=== PATIENT | female | born 1955 | race Hispanic/Latino ===

== ENCOUNTER 2023-09-12 10:45 | Inpatient (IN) | payer OTHER ==
--- OUTSIDE RECORDS SUMMARY | 2023-09-12 12:23 | XMS REPORT | Continuity of Care Document ---
Author Name Unknown Address [address] [facility] [address] [place] [id number] [facility] thconnect Address [address] [facility] [address] [place] [address] Care Team Providers Care Metal Riveter Name Role Phone Dwayne VERDUGO, Napoleon Primary Care Physician + [phone] José GEORGE, Loan Ferrera Attending Clinician Unavail able VALERI SWANSON Attending Clinician Unavailable Osvaldo VERDUGO, Tamie Attending Clinician [phone] Kvng VERDUGO, Ashley Lizama Attending Clinician [phone] Britany VERDUGO, Jt Marquez Attending Clinician [phone] Javy VERDUGO, Rafael Blunt Attending Clinician [phone] Brandyn Kim MD, Jose Roberto Bolton Attending Clinician + Mervat VERDUGO, Dipak Rosa Attending Clinician Valeri Swanson DO Attending Clinician [phone] Doctor Unassigned, Osino Attending Clinician U keisha Jaramillo MD, Juan Attending Clinician [phone] Vineet Hickman MD Attending Clinician [phone] Kristi Bond CRNA Attending Clinician [phone] Daya VERDUGO, Juan F Attending Clinician [phone] Dwayne VERDUGO, Napoleon Attending Clinician [phone] JT CHEN Admitting Clinician Unavail millie Chen MD, Jt Marquez Admitting Clinician [phone] Payers Payer Name Policy Type Policy Number Effective Date Expirati on Date Source Problems Condition Name Condition Details Condition Category Status Onset Date Resolution Date Last Treatment Date Treating Clinician Comments Source Atrial flutter Atrial flutter Disease Active 08-11 00:00: 00 [facility] Small bowel obstructio n, partial Small bowel obstructio n, partial Disease Active 08-11 00:00: 00 [facility] ELENA (acute kidney injury) ELENA (acute kidney injury) Disease Active 08-07 00:00: 00 [facility] Acute necrotizin g 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 g 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 Active 08-05 00:00: 00 [facility] Acute pancreatic fluid collection Acute pancreatic fluid collection Disease Active 08-05 00:00: 00 [facility] Essential hypertensi on Essential hypertensi on Disease Active 07-09 00:00: 00 [facility] Dyslipidem ia Dyslipidem ia Disease Active 07-09 00:00: 00 [facility] Screening for diabetes mellitus (DM) Screening for diabetes mellitus (DM) Disease Active 07-09 00:00: 00 [facility] Bilateral lower extremity edema Bilateral lower extremity edema Disease Active 07-09 00:00: 00 [facility] Chronic allergic rhinitis Chronic allergic rhinitis Disease Active 07-09 00:00: 00 [facility] Chronic constipati on Chronic constipati on Disease Active 07-09 00:00: 00 [facility] Gastroesop hageal reflux disease without esophagiti s Gastroesop hageal reflux disease without esophagiti s Disease Active 07-09 00:00: 00 [facility] Abdominal distension Abdominal distension Disease Active 07-09 00:00: 00 [facility] Senile osteoporos is Senile osteoporos is Disease Active 07-09 00:00: 00 [facility] Allergies, Adverse Reactions, Alerts Allergy Name Allergy Type Status Severity Reaction(s) Onset Date Inactive Date Treating Clinician Comments Source NO KNOWN ALLERGIE S Drug Class Active [facility] Family History Family Member Diagnosis Comments Start Date Stop Date Sourc e Natural sister Breast Cancer [facility] Social History Social Habit Start Date Stop Date Quantity Comments Source Sexual orientation [facility] History of Social function 2023-08-09 00:00:00 2023-08-09 00:00:00 [facility] Sex assigned at 1955 00:00:00 1955 00:00:00 [facility] Smoking Status Start Date Stop Date Source Tobacco smoking consumption unknown [facility] Medications Ordered Medication Name Filled Medication Name Start Date Stop Date Current Medication? Ordering Clinician Indication Dosage Frequency Signature (SIG) Comments Components Source NaCl 0.9% (NS) injection 5 mL 08-30 18:00: 00 08-30 20:40 :00 No 5mL 5 mL, Slow IV Push, ONCE, 1 dose, On Sun08/31/23 at 1300, Routine [facility] heparin 1,000 unit/mL (10 mL) - dialysis catheter care 08-30 17:53: 32 Yes 2000U PRN - SEE INSTRUCTIO NS, Starting on Sun08/31/23 at 1253, Until Discontinu ed, Routine, For Priming of Ports: After initial saline flush, prime each port with heparin according to the priming volume listed on each catheter port for catheter lock. [facility] amiodarone 200 mg tablet 08-30 00:00: 00 Yes 200mg Take 1 tablet by mouth daily. [facility] apixaban 5 mg tablet 08-29 00:00: 00 Yes 5mg Take 1 tablet by mouth 2 (two) times daily. [facility] famotidine 20 mg tablet 08-29 00:00: 00 Yes 20mg Take 1 tablet by mouth 2 (two) times daily. [facility] fluconazole 100 mg tablet 08-29 00:00: 00 Yes 100mg Take 1 tablet by mouth every evening. [facility] lipase-prot ease-amylas e (ZENPEP) 10,000-32,0 00 -42,000 unit CpDR 08-29 00:00: 00 Yes Take by mouth 3 (three) times daily with meals. [facility] metoprolol tartrate 25 mg tablet 08-29 00:00: 00 Yes 12.5mg Take 0.5 tablets by mouth every 12 (twelve) hours. [facility] midodrine 10 mg tablet 08-29 00:00: 00 Yes 10mg Take 1 tablet by mouth 3 (three) times daily. [facility] simethicone 80 mg chewable tablet 08-29 00:00: 00 Yes 80mg Take 1 tablet by mouth after meals and at bedtime. [facility] furosemide 40 mg tablet 08-29 00:00: 00 09-29 04:59 :00 Yes [id number] 80mg Take 2 tablets by mouth every morning and evening for 30 days. [facility] heparin 1,000 unit/mL (10 mL) - dialysis catheter care 08-28 23:50: 28 Yes 2000U PRN - SEE INSTRUCTIO NS, Starting on Sun08/29/23 at 1850, Until Discontinu ed, Routine, For Priming of Ports: After initial saline flush, prime each port with heparin according to the priming volume listed on each catheter port for catheter lock. [facility] apixaban (ELIQUIS) tablet 5 mg 08-28 01:00: 00 Yes 5mg 5 mg, Oral, BID, First dose on Sun08/28/23 at 1999, Until Discontinu ed, Routine, Indication s: Non-Valvul ar Atrial Fibrillati on [facility] fluconazole (DIFLUCAN) tablet 100 mg 08-28 01:00: 00 09-10 00:59 :00 Yes 100mg 100 mg, Oral, QPM AT 1999, 13 doses, First dose on Sun08/28/23 at 1999, Last dose on Sun09/09/23 at 1999, Routine, Reason for Anti-Infec tive: Documented Infection, Documented Infection Site: Abdominal, Duration of Therapy: 14 days [facility] levoFLOXaci n (LEVAQUIN) tablet 750 mg 08-27 23:00: 00 08-28 22:59 :00 Yes 750mg [Order 1 Start] Name: levoFLOXac in (LEVAQUIN) tablet 750 mg Signed Summary: 750 mg, Oral, Q24H ABX, 1 dose, First dose on Sun08/28/23 at 2000, Routine, Reason for Anti-Infec tive: Empiric Therapy for Suspected Infection, Empiric Therapy Site: Abdominal, Duration of therapy: 72 hours [Order 1 End] [Order 2 Start] Name: levoFLOXac in (LEVAQUIN) tablet 250 mg Signed Summary: 250 mg, Oral, Q24H ABX, 2 doses, First dose on Sun08/29/23 at 1800, Last dose on Sun08/30/23 at 1800, Routine, Reason for Anti-Infec tive: Empiric Therapy for Suspected Infection, Empiric Therapy Site: Abdominal, Duration of therapy: 72 hours [Order 2 End] [facility] NaCl 0.9% (NS) injection 5 mL 08-27 13:15: 00 08-27 17:24 :00 No 5mL 5 mL, Slow IV Push, ONCE, 1 dose, On Sun08/28/23 at 0815, Routine [facility] heparin 1,000 unit/mL (10 mL) - dialysis catheter care 08-27 13:09: 47 Yes 2000U PRN - SEE INSTRUCTIO NS, Starting on Sun08/28/23 at 0809, Until Discontinu ed, Routine, For Priming of Ports: After initial saline flush, prime each port with heparin according to the priming volume listed on each catheter port for catheter lock. [facility] piperacilli n-tazobacta m (ZOSYN) 3.375 g in NaCl 0.9% (NS) 50 mL MINI-BAG 08-27 10:00: 00 08-27 22:03 :56 No 3.375g 3.375 g, IV Piggyback, Q12H ABX, 10 doses, First dose on Sun08/28/23 at 0500, Last dose on Sun09/01/23 at 1700, Administer over 4 Hours, 50 mL, Reason for Anti-Infec tive: Empiric Therapy for Suspected Infection, Empiric Therapy Site: Abdominal, Duration of therapy: 5 days [facility] Potassium Bicarb-Citr ic Acid (EFFER-K) effervescen t tablet 40 mEq 08-27 01:30: 00 08-27 01:04 :00 No 40meq 40 mEq, Oral, ONCE, 1 dose, On Sun08/27/23 at 2030, Routine [facility] magnesium sulfate in water 2 gram/50 mL (4 %) infusion 2 g 08-27 01:30: 00 08-27 03:33 :00 No 2g 2 g, IV Piggyback, Administer over 60 Minutes, ONCE, 1 dose, On Sun08/27/23 at 2030, Routine [facility] albumin (ALBUMINAR 25%) 25 % injection 25 g 08-27 01:00: 00 08-27 00:59 :00 No 25g 25 g, IV Infusion, ONCE, 1 dose, On Sun08/27/23 at 2000, 100 mL, Indication : NON-APPROV ED INDICATION - PHARMACY WILL CALL ORDERING PROVIDER, Specific Indication : Albumin augmented diuresis in volume overload; unable to get HD tonight, Faculty Requesting Approval: VLAERI SWANSON, solar field installation crew member approving Restricted medication : VALERI SWANSON [facility] piperacilli n-tazobacta m (ZOSYN) 3.375 g in NaCl 0.9% (NS) 100 mL VIAL-MATE 08-27 00:00: 00 08-27 01:52 :00 No 3.375g 3.375 g, IV Piggyback, ONCE, 1 dose, On Sun08/27/23 at 1900, Administer over 30 Minutes, 100 mL, Reason for Anti-Infec tive: Empiric Therapy for Suspected Infection, Empiric Therapy Site: Abdominal, Duration of therapy: Once (ED) [facility] metoprolol tartrate (LOPRESSOR) tablet 12.5 mg 08-26 22:47: 00 Yes 12.5mg 12.5 mg, Oral, Q12H ABX, First dose (after last modificati on) on Sun08/27/23 at 1800, Until Discontinu ed, Routine [facility] ceFAZolin (ANCEF) injection 08-26 15:15: 00 08-26 15:15 :00 No Slow IV Push, PRN, Starting on Sun08/27/23 at 1015, Until Sun08/27/23 at 1015, PUJA, Intra-op [facility] lidocaine 1% (XYLOCAINE) 10 mg/mL (1 %) injection 08-26 15:11: 00 08-26 15:11 :00 No PRN, Starting on Sun08/27/23 at 1011, Until Sun08/27/23 at 1011, Routine, Intra-op [facility] FENTanyl PF (SUBLIMAZE (PF)) injection 08-26 15:11: 00 08-26 15:11 :00 No Slow IV Push, PRN, Starting on Sun08/27/23 at 1011, Until Sun08/27/23 at 1011, Routine, Intra-op [facility] metoprolol tartrate (LOPRESSOR) tablet 25 mg 08-26 05:45: 00 08-26 22:48 :26 No 25mg 25 mg, Oral, BID, First dose on Sun08/27/23 at 0045, Until Discontinu ed, Routine [facility] piperacilli n-tazobacta m (ZOSYN) 3.375 g in NaCl 0.9% (NS) 100 mL VIAL-MATE 08-26 01:39: 38 08-26 15:36 :49 No 3.375g 3.375 g, IV Piggyback, Q12H ABX, 2 doses, First dose (after last modificati on) on Sun08/26/23 at 2045, Last dose on Sun08/27/23 at 0845, Administer over 240 Minutes, 100 mL, Reason for Anti-Infec tive: Empiric Therapy for Suspected Infection, Empiric Therapy Site: Abdominal, Duration of therapy: 5 days [facility] alteplase (CATHFLO ACTIVASE) injection 1 mg 08-26 00:15: 00 08-26 01:29 :00 No [id number] 1mg 1 mg, INTRA-CATH ETER, ONCE, 1 dose, On 08/26/23 at 1915, Routine [facility] Potassium Bicarb-Citr ic Acid (EFFER-K) effervescen t tablet 40 mEq 08-25 23:15: 00 08-25 22:50 :00 No 40meq 40 mEq, Oral, ONCE, 1 dose, On 08/26/23 at 1815, Routine [facility] morpHINE (2 mg/mL) injection 4 mg 08-25 15:13: 21 Yes 4mg 4 mg, Slow IV Push, Q4HPRN, Starting on 08/26/23 at 1013, Until Discontinu ed, Routine, Pain (scale 7-10) [facility] FENTanyl PF (SUBLIMAZE (PF)) injection 25 mcg 08-25 04:00: 00 08-25 03:17 :00 No 25ug 25 mcg, Slow IV Push, ONCE, 1 dose, On 08/25/23 at 2300, Routine [facility] Potassium Bicarb-Citr ic Acid (EFFER-K) effervescen t tablet 40 mEq 08-24 23:00: 00 08-24 23:18 :00 No 40meq 40 mEq, Oral, ONCE, 1 dose, On 08/25/23 at 1800, Routine [facility] potassium chloride in water (KCL) 20 mEq/100 mL RTU IVPB 20 mEq 08-24 14:15: 00 08-24 16:21 :00 No 20meq 20 mEq, IV Piggyback, ONCE, 1 dose, On 08/25/23 at 0915, [address] [facility] potassium chloride in water (KCL) 20 mEq/100 mL RTU IVPB 20 mEq 08-24 12:15: 00 08-24 14:19 :00 No 20meq 20 mEq, IV Piggyback, ONCE, 1 dose, On 08/25/23 at 0715, 100 mL [facility] alteplase (CATHFLO ACTIVASE) injection 2 mg 08-23 21:45: 00 08-23 21:31 :00 No 2mg 2 mg, INTRA-CATH ETER, ONCE, 1 dose, On Sun08/24/23 at 1645, Routine [facility] potassium chloride in water (KCL) 20 mEq/100 mL RTU IVPB 20 mEq 08-23 19:00: 00 08-23 20:27 :00 No 20meq 20 mEq, IV Piggyback, ONCE, 1 dose, On Sun08/24/23 at 1400, 100 mL [facility] NaCl 0.9% (NS) injection 5 mL 08-23 17:45: 00 08-24 00:38 :00 No 5mL 5 mL, Slow IV Push, ONCE, 1 dose, On Sun08/24/23 at 1245, Routine [facility] heparin 1,000 unit/mL (10 mL) - dialysis catheter care 08-23 17:28: 30 08-27 14:49 :41 No 2000U PRN - SEE INSTRUCTIO NS, Starting on Sun08/24/23 at 1228, Until Sun08/28/23 at 0949, Routine, For Priming of Ports: After initial saline flush, prime each port with heparin according to the priming volume listed on each catheter port for catheter lock. [facility] NaCl 0.9% (NS) injection 10 mL 08-23 10:01: 30 Yes 10mL 10 mL, Slow IV Push, PRN, Starting on Sun08/24/23 at 0501, Until Discontinu ed, Routine, line maintenanc e [facility] lidocaine 1% (PF) (XYLOCAINE) injection 5 mL 08-23 10:01: 30 Yes 5mL 5 mL, Subcutaneo us, PRN, 1 dose, Starting on Sun08/24/23 at 0501, Until Discontinu ed, Routine, Local anesthesia [facility] acetaminoph en (TYLENOL) tablet 500 mg 08-23 01:30: 00 08-23 02:31 :00 No 500mg 500 mg, Oral, ONCE, 1 dose, On Sun08/23/23 at 2030, Routine [facility] amiodarone (PACERONE) tablet 200 mg 08-23 01:00: 00 Yes 200mg 200 mg, Oral, DAILY, First dose on Sun08/23/23 at 2000, Until Discontinu ed, Routine [facility] piperacilli n-tazobacta m (ZOSYN) 3.375 g in NaCl 0.9% (NS) 50 mL MINI-BAG 08-23 01:00: 00 08-26 01:38 :53 No 3.375g 3.375 g, IV Piggyback, Q12H ABX, 9 doses, First dose (after last modificati on) on Sun08/23/23 at 1999, Last dose on Sun08/27/23 at 2000, Administer over 240 Minutes, 50 mL, Reason for Anti-Infec tive: Empiric Therapy for Suspected Infection, Empiric Therapy Site: Abdominal, Duration of therapy: 5 days [facility] metOLazone (ZAROXOLYN) tablet 5 mg 08-22 22:00: 00 08-22 23:08 :00 No 5mg 5 mg, Oral, ONCE, 1 dose, On Sun08/23/23 at 1700, Routine [facility] piperacilli n-tazobacta m (ZOSYN) 4.5 g in NaCl 0.9% (NS) 100 mL VIAL-MATE 08-22 12:30: 00 08-22 14:40 :27 No 4.5g 4.5 g, IV Piggyback, Q12H ABX, 10 doses, First dose on Sun08/23/23 at 0730, Last dose on Sun08/27/23 at 1930, Administer over 30 Minutes, 100 mL, Reason for Anti-Infec tive: Empiric Therapy for Suspected Infection, Empiric Therapy Site: Abdominal, Duration of therapy: 5 days [facility] acetaminoph en (TYLENOL) tablet 1,000 mg 08-22 09:30: 00 08-22 09:19 :00 No 1000mg 1,000 mg, Oral, ONCE, 1 dose, On Sun08/23/23 at 0430, Routine [facility] KCL (KLOR-CON M20) tablet 40 mEq 08-22 06:15: 00 08-22 05:38 :00 No 40meq 40 mEq, Oral, ONCE, 1 dose, On Sun08/23/23 at 0115, Routine [facility] lipase-prot ease-amylas e (CREON) 12,000-38,0 00 -60,000 unit capsule 4 capsule 08-21 22:00: 00 Yes 4{capsu le} 4 capsule, Oral, TID MEALS, First dose on Sun08/22/23 at 1700, Until Discontinu ed, Routine [facility] loperamide (IMODIUM A-D) capsule 2 mg 08-21 17:15: 00 08-21 17:49 :00 No 2mg 2 mg, Oral, ONCE, 1 dose, On Sun08/22/23 at 1215, Routine [facility] psyllium husk (METAMUCIL (SUGAR FREE)) 3.4 gram oral powder packet 1 Packet 08-21 16:30: 00 Yes 1{packe t} 1 Packet, Oral, DAILY, First dose on Sun08/22/23 at 1130, Until Discontinu ed, Routine [facility] loperamide (IMODIUM A-D) capsule 2 mg 08-21 16:19: 17 Yes 2mg 2 mg, Oral, Q4HPRN, Starting on Sun08/22/23 at 1119, Until Discontinu ed, Routine, Diarrhea [facility] apixaban (ELIQUIS) tablet 5 mg 08-21 01:00: 00 08-23 17:22 :21 No 5mg 5 mg, Oral, BID, First dose on Sun08/21/23 at 2000, Until Discontinu ed, Routine, Indication s: Non-Valvul ar Atrial Fibrillati on [facility] furosemide (LASIX) injection 60 mg 08-20 01:00: 00 Yes 60mg 60 mg, Slow IV Push, Q12H, First dose on 08/20/23 at 1999, Until Discontinu ed, Routine [facility] ramelteon (ROZEREM) tablet 8 mg 08-18 02:00: 00 Yes 8mg 8 mg, Oral, QHS, First dose on 08/18/23 at 2100, Until Discontinu ed, Routine [facility] alteplase (CATHFLO ACTIVASE) injection 2 mg 08-17 13:45: 00 08-17 14:54 :00 No [id number] 2mg 2 mg, INTRA-CATH ETER, ONCE, 1 dose, On 08/18/23 at 0845, PUJA [facility] NaCl 0.9% (NS) injection 5 mL 08-17 12:30: 00 08-17 18:37 :00 No 5mL 5 mL, Slow IV Push, ONCE, 1 dose, On 08/18/23 at 0730, Routine [facility] heparin 1,000 unit/mL (10 mL) - dialysis catheter care 08-17 12:21: 23 08-27 14:49 :41 No 2000U PRN - SEE INSTRUCTIO NS, Starting on 08/18/23 at 0721, Until 08/28/23 at 0949, Routine, For Priming of Ports: After initial saline flush, prime each port with heparin according to the priming volume listed on each catheter port for catheter lock. [facility] amiodarone (PACERONE) tablet 200 mg 08-16 01:00: 00 08-20 12:09 :20 No 200mg 200 mg, Oral, BID, First dose (after last modificati on) on Michelle 08/16/23 at 1999, Until Discontinu ed, [facility] 0.9% (NS) injection 5 mL 08-15 13:45: 00 08-15 18:04 :00 No 5mL 5 mL, Slow IV Push, ONCE, 1 dose, On Sun08/16/23 at 0845, [facility] 1,000 unit/mL (10 mL) - dialysis catheter care 08-15 13:35: 43 08-27 14:49 :41 No 2000U PRN - SEE INSTRUCTIO NS, Starting on Sun08/16/23 at 0835, Until Sun08/28/23 at 0949, Routine, For Priming of Ports: After initial saline flush, prime each port with heparin according to the priming volume listed on each catheter port for catheter lock. [facility] morphine IR (MSIR) tablet 15 mg 08-14 18:53: 16 Yes 15mg 15 mg, Oral, Q4HPRN, Starting on Sun08/15/23 at 1353, Until Discontinu ed, Routine, Pain [facility] famotidine (PEPCID AC) tablet 20 mg 08-14 13:00: 00 Yes 20mg 20 mg, Oral, BID, First dose on Sun08/15/23 at 0800, Until Discontinu ed, Routine [facility] 1,000 unit/mL injection 2,000 Units 08-13 19:46: 52 08-15 13:37 :42 No 2000U PRN - SEE INSTRUCTIO NS, Starting on Sun08/14/23 at 1446, Until Sun08/16/23 at 0837, Routine, For Priming of Ports: After initial saline flush, prime each port with heparin according to the priming volume listed on each catheter port for catheter lock. [facility] midodrine (PROAMATINE ) tablet 10 mg 08-13 19:00: 00 Yes 10mg 10 mg, Oral, TID, First dose on Sun08/14/23 at 1400, Until Discontinu ed, Routine [facility] simethicone (GAS RELIEF (SIMETHICON E)) chewable tablet 80 mg 08-13 14:00: 00 Yes 80mg 80 mg, Oral, PC+HS, First dose on Sun08/14/23 at 0900, Until Discontinu ed, Routine [facility] amiodarone (PACERONE) tablet 400 mg 08-13 13:00: 00 08-15 17:09 :49 No 400mg 400 mg, Oral, BID, First dose on Sun08/14/23 at 0800, Until Discontinu ed, Routine [facility] diltiazem (CARDIZEM) tablet 30 mg 08-13 05:00: 00 08-13 19:20 :28 No 30mg 30 mg, Oral, Q6H, First dose on Sun08/14/23 at 0000, Until Discontinu ed, Routine [facility] QUEtiapine (SEROQUEL) tablet 25 mg 08-13 03:30: 00 08-17 12:56 :20 No 25mg 25 mg, Oral, QHS, First dose on Sun08/13/23 at 2230, Until Discontinu ed, Routine [facility] HYDROmorpho ne (DILAUDID) 10 mg/50 mL 0.9% NaCl BILL OF LADING CLERK 08-13 02:15: 00 08-14 18:53 :49 No Patient Bolus Dose: 0.2 mg, Lockout Interval: 10 Minutes, Basal Rate: 0 mg/hr, Four Hour Dose Limit: 4.8 mg, IV Infusion, 50 mL, CONTINUOUS , Starting on Sun08/13/23 at 2115, Until Sun08/15/23 at 1353 [facility] amiodarone (CORDARONE) 900 mg in D5W 500 mL infusion 08-13 01:15: 00 08-13 13:14 :00 No 1mg/min 1 mg/min (33.3333 mL/hr, rounded to 33.33 mL/hr), IV Infusion, CONTINUOUS , Starting on Sun08/13/23 at 2015, For 12 hours, All amiodarone infusions must be administer ed using a 0.22 micron in line filter. Administer via central line if available. Amiodarone infusions with concentrat ions > 2 mg/mL must be administer ed via central line. [facility] diltiazem (CARDIZEM IV) injection 10 mg 08-12 22:45: 00 08-12 22:53 :00 No 10mg 10 mg, Slow IV Push, ONCE, 1 dose, On Sun08/13/23 at 1745, Routine [facility] alum-mag hydroxide-s imeth (MAG-AL PLUS) 200-200-20 mg/5 mL suspension 30 mL 08-12 22:28: 10 Yes 30mL 30 mL, Oral, Q6HPRN, Starting on Sun08/13/23 at 1728, Until Discontinu ed, Routine, Indigestio n [facility] FENTanyl PF (SUBLIMAZE (PF)) injection 12.5 mcg 08-12 16:45: 00 08-12 17:34 :00 No 12.5ug 12.5 mcg, Slow IV Push, ONCE, 1 dose, On Sun08/13/23 at 1145, Routine [facility] metoprolol (LOPRESSOR) injection 2.5 mg 08-12 04:30: 00 08-12 03:36 :00 No 2.5mg 2.5 mg, Intravenou s, ONCE NOW, 1 dose, On Sun08/12/23 at 2330, Routine [facility] amiodarone 150 mg/100 mL (NEXTERONE) RTU infusion 150 mg 08-12 01:30: 00 08-12 01:45 :00 No 150mg 150 mg, IV Piggyback, ONCE, 1 dose, On Sun08/12/23 at 2030, Administer over 10 Minutes, 100 mL [facility] HEPARIN SODIUM (PORCINE) 1,000 UNIT/ML BOLUS ACS ORDER SET 08-12 01:00: 00 08-12 01:38 :00 No 4000U 4,000 Units, IV Push, ONCE, 1 dose, On Sun08/12/23 at 2000, PUJA [facility] heparin 25,000 Units/250 mL (Premixed Bag) in 0.45 % NS 08-12 00:48: 12 08-19 01:00 :43 No 0U/h 0-2,150 Units/hr (0-21.5 mL/hr), IV Infusion, TITRATE, Parameters in Admin. Instr., Starting on 08/12/23 at 1948, Initiate dosing: -Patient 83 kg or under: 850 Units/hr (Calculate d dose at 12 units/kg/h r) -Patient over 83 k,000 units/hr DO NOT Exceed the MAXIMUM 1,000 units/hr for initiation of heparin drip. CAUTION - If LMWH given in ER, AVOID bolus and start next dose/drip 12 hrs after ER dosage. Must program rate using programmab le infusion pump. Check with the ordering provider first prior to any administra tion should the patient be on existing/a dditional anticoagul ant therapy. Range, Dosing and Testing: FOR [place], [facility], AND [facility] ONLY - aPTT < 35: Bolus 5000 units, increase rate 300 units/hr - aPTT 35-44: Bolus 3000 units, increase rate 200 units/hr - aPTT 45-54: Increase rate 100 units/hr - aPTT 55-85: NO CHANGE - aPTT 86-95: Decrease rate 100 units/hr - aPTT 96-120: Hold 30 minutes, decrease rate 150 units/hr - aPTT > 120: Hold 60 minutes, decrease rate 200 units/hr Check aPTT 6 hours after initiation , then Q6H after every change, aPTT Q12H once therapeuti c levels are reached. FOR [facility] ONLY - aPTT < 40: Bolus 5000 units, increase rate 300 units/hr - aPTT 40-49: Bolus 3000 units, increase rate 200 units/hr - aPTT 50-59: Increase rate 100 units/hr - aPTT 60-85: NO CHANGE - aPTT 86-95: Decrease rate 100 units/hr - aPTT 96-120: Hold 30 minutes, decrease rate 150 units/hr - aPTT > 120: Hold 60 minutes, decrease rate 200 units/hr Check aPTT 6 hours after initiation , then Q6H after every change, aPTT Q12H once therapeuti c levels are reached. DO NOT ADJUST INITIAL BOLUS OR INITIAL INFUSION RATE. [facility] [facility] (1,000 unit/mL, 10 mL vial) for Rebolusing 08-12 00:47: 57 08-19 01:00 :42 No 3000U FOR REBOLUSING , Starting on Sun08/12/23 at 1947, Until Sun08/19/23 at 1999, Routine, Dosing based on aPPT testing parameters (refer to continuous heparin drip order). [facility] amiodarone (CORDARONE) 900 mg in D5W 500 mL infusion 08-12 00:15: 00 08-13 01:11 :36 No 1mg/min 1 mg/min (33.3333 mL/hr, rounded to 33.33 mL/hr), IV Infusion, CONTINUOUS , Starting on Sun08/12/23 at 1915, All amiodarone infusions must be administer ed using a 0.22 micron in line filter. Administer via central line if available. Amiodarone infusions with concentrat ions > 2 mg/mL must be administer ed via central line. [facility] metoprolol (LOPRESSOR) injection 5 mg 08-11 14:45: 00 08-12 00:01 :48 No 5mg 5 mg, Intravenou s, Q6H ABX, First dose (after last modificati on) on Sun08/12/23 at 0945, Until Discontinu ed, Routine [facility] famotidine (PEPCID (PF)) injection 20 mg 08-11 14:00: 00 08-14 04:08 :46 No 20mg 20 mg, Slow IV Push, Q24H, First dose on Sun08/12/23 at 0900, Until Discontinu ed, Routine [facility] metoprolol (LOPRESSOR) injection 5 mg 08-11 12:49: 00 08-11 13:15 :00 No 5mg 5 mg, Intravenou s, ONCE NOW, 1 dose, On 08/12/23 at 0800, Routine [facility] metoprolol (LOPRESSOR) injection 2.5 mg 08-11 08:45: 00 08-11 10:55 :20 No 2.5mg 2.5 mg, Intravenou s, Q6H ABX, First dose (after last modificati on) on 08/12/23 at 0345, Until Discontinu ed, Routine [facility] metoprolol (LOPRESSOR) injection 2.5 mg 08-11 03:00: 00 08-11 08:33 :54 No 2.5mg 2.5 mg, Intravenou s, Q8H, First dose on 08/11/23 at 2200, Until Discontinu ed, Routine [facility] HYDROmorpho ne (DILAUDID) 10 mg/50 mL 0.9% NaCl BILL OF LADING CLERK 08-10 23:30: 00 08-12 23:29 :00 No Patient Bolus Dose: 0.2 mg, Lockout Interval: 10 Minutes, Basal Rate: 0 mg/hr, Four Hour Dose Limit: 4.8 mg, IV Infusion, 50 mL, CONTINUOUS , Starting on 08/11/23 at 1830, Until 08/13/23 at 1829 [facility] metoprolol tartrate (LOPRESSOR) tablet 25 mg 08-10 19:00: 00 08-10 23:22 :28 No 25mg 25 mg, Oral, TID, First dose (after last modificati on) on 08/11/23 at 1400, Until Discontinu ed, Routine [facility] metoprolol tartrate (LOPRESSOR) tablet 12.5 mg 08-10 15:15: 00 08-10 14:35 :00 No 12.5mg 12.5 mg, Oral, ONCE, 1 dose, On 08/11/23 at 1015, Routine [facility] albumin (ALBUMINAR 25%) 25 % injection 25 g 08-10 14:15: 00 08-10 17:39 :00 No 25g 25 g, IV Infusion, ONCE, 1 dose, On 08/11/23 at 0915, 100 mL, Indication : NEPHROTIC SYNDROME (ACUTE, SEVERE PERIPHERAL OR PULMONARY EDEMA), Comments: Short-term use of albumin in combinatio n with diuretic therapy when: serum albumin <2 g/dL and optimal diuretic therapy alone has failed, solar field installation crew member approving Restricted medication : RAFAEL PALAFOX [facility] metoprolol tartrate (LOPRESSOR) tablet 12.5 mg 08-10 13:30: 00 08-10 14:19 :09 No 12.5mg 12.5 mg, Oral, BID, First dose (after last modificati on) on 08/11/23 at 0830, Until Discontinu ed, Routine [facility] adenosine (ADENOCARD) injection 6 mg 08-10 13:03: 00 08-10 13:25 :00 No 6mg 6 mg, IV Push, ONCE, 1 dose, On 08/11/23 at 0815, Routine [facility] NaCl 0.9% (NS) IV infusion 1,000 mL 08-09 20:00: 00 08-14 04:00 :02 No 1000mL at 150 mL/hr, CRRT Circuit, CONTINUOUS , Starting on Sun08/10/23 at 1500, Until Sun08/14/23 at 2300, Routine [facility] CRRT fluid dialysate (PRISMASATE 4K) K 4.0-Ca 2.5, Mg 1.5, HCO3 32, NA 140, CL 113, LACTATE 3, DEX 110, Osm 300 08-09 20:00: 00 08-14 04:00 :02 No 1800mL/ h 1,800 mL/hr, CRRT Circuit, CONTINUOUS , Starting on Sun08/10/23 at 1500, Until Sun08/14/23 at 2300, Routine [facility] heparin lock flush (HEPARIN LOCKFLUSH(P ORCINE)(PF) ) 100 unit/mL injection 5,000 Units 08-09 19:41: 16 Yes 5000U 5,000 Units, IV Push, PRN, Starting on Sun08/10/23 at 1441, Until Discontinu ed, Routine [facility] calcium gluconate 2 g in NaCl 100 mL (ISO-OSM) RTU IV infusion 2 g 08-09 12:45: 00 08-09 13:47 :00 No 2g 2 g, IV Infusion, at 200 mL/hr Administer over 30 Minutes, ONCE, 1 dose, On Sun08/10/23 at 0745, Routine [facility] magnesium sulfate in water 4 gram/50 mL (8 %) IV Piggyback 4 g 08-09 09:45: 00 08-09 16:05 :00 No 4g 4 g, IV Piggyback, at 25 mL/hr Administer over 120 Minutes, Q4H, 2 doses, First dose on Sun08/10/23 at 0445, Last dose on Sun08/10/23 at 0800, Routine [facility] FENTanyl PF (SUBLIMAZE (PF)) injection 50 mcg 08-09 09:30: 00 08-09 08:56 :00 No 50ug 50 mcg, Slow IV Push, ONCE, 1 dose, On Sun08/10/23 at 0430, Routine [facility] HYDROmorpho ne (DILAUDID) 10 mg/50 mL 0.9% NaCl BILL OF LADING CLERK 08-09 01:30: 00 08-10 23:19 :25 No Patient Bolus Dose: 0.2 mg, Lockout Interval: 10 Minutes, Basal Rate: 0 mg/hr, Four Hour Dose Limit: 4.8 mg, IV Infusion, 50 mL, CONTINUOUS , Starting on Sun08/09/23 at 2030, Until 08/11/23 at 1819 [facility] glycerin/mi neral oil (AGLO ENEMA) (COMPOUNDED ) Enem 225 mL 08-08 22:30: 00 08-08 23:41 :00 No 225mL 225 mL, Rectal, ONCE, 1 dose, On Sun08/09/23 at 1730, Routine [facility] perflutren protein-A microsphr (OPTISON) injection 3 mL 08-08 16:15: 00 08-08 16:00 :00 No [id number] 3mL 3 mL, IV Push, ONCE, 1 dose, On Sun08/09/23 at 1115, Routine [facility] bisacodyL (DULCOLAX) tablet 5 mg 08-08 15:00: 00 08-08 15:10 :00 No 5mg 5 mg, Oral, ONCE, 1 dose, On Sun08/09/23 at 1000, Routine [facility] Lidocaine (LIDOCARE) 4 % patch 3 Patch 08-08 14:00: 00 08-16 12:08 :11 No 3{patch } 3 Patch, Topical, Administer over 12 Hours, DAILY, First dose (after last modificati on) on Sun08/09/23 at 0900, Until Discontinu ed, Routine [facility] polyethylen e glycol 3350 powder 17 g 08-08 14:00: 00 08-10 12:57 :20 No 17g 17 g, Oral, DAILY, First dose on Sun08/09/23 at 0900, Until Discontinu ed, Routine [facility] piperacilli n-tazobacta m (ZOSYN) 3.375 g in NaCl 0.9% (NS) 100 mL VIAL-MATE 08-08 13:45: 00 08-13 02:06 :06 No 3.375g 3.375 g, IV Piggyback, Q12H ABX, 14 doses, First dose on Sun08/09/23 at 0845, Last dose on Sun08/15/23 at 2045, Administer over 4 Hours, 100 mL, Reason for Anti-Infec tive: Documented Infection, Documented Infection Site: Blood, Duration of Therapy: 7 days [facility] heparin (porcine) injection 5,000 Units 08-08 13:00: 00 08-12 00:48 :28 No 5000U 5,000 Units, Subcutaneo us, Q12H, First dose on Sun08/09/23 at 0800, Until Discontinu ed, Routine [facility] HYDROmorpho ne (DILAUDID) 10 mg/50 mL 0.9% NaCl BILL OF LADING CLERK 08-08 11:15: 00 08-08 22:14 :00 No Patient Bolus Dose: 0.2 mg, Lockout Interval: 10 Minutes, Basal Rate: 0 mg/hr, Four Hour Dose Limit: 4.8 mg, IV Infusion, 50 mL, CONTINUOUS , Starting on Sun08/09/23 at 0615, Until Sun08/09/23 at 1714 [facility] furosemide (LASIX) injection 40 mg 08-08 05:30: 00 08-08 05:00 :00 No 40mg 40 mg, Slow IV Push, ONCE, 1 dose, On Sun08/09/23 at 0030, Routine [facility] HYDROmorpho ne (DILAUDID) 10 mg/50 mL 0.9% NaCl BILL OF LADING CLERK 08-08 04:00: 00 08-08 11:06 :13 No Patient Bolus Dose: 0.2 mg, Lockout Interval: 10 Minutes, Basal Rate: 0 mg/hr, Four Hour Dose Limit: 3.2 mg, IV Infusion, 50 mL, CONTINUOUS , Starting on Sun08/08/23 at 2300, Until Sun08/09/23 at 0606 [facility] piperacilli n-tazobacta m (ZOSYN) 3.375 g in NaCl 0.9% (NS) 100 mL VIAL-MATE 08-08 02:00: 00 08-08 03:40 :00 No 3.375g 3.375 g, IV Piggyback, ONCE, 1 dose, On Sun08/08/23 at 2100, Administer over 30 Minutes, 100 mL, Reason for Anti-Infec tive: Empiric Therapy for Suspected Infection, Empiric Therapy Site: Blood, Duration of therapy: 5 days [facility] lactated ringers IV infusion 1,000 mL 08-08 01:30: 00 08-10 12:57 :52 No 1000mL at 100 mL/hr, 1,000 mL, IV Infusion, CONTINUOUS , Starting on Sun08/08/23 at 2030, Until Sun08/11/23 at 0757, Routine [facility] lactated ringers IV infusion 2,000 mL 08-07 20:15: 00 08-09 12:00 :00 No 2000mL at 999 mL/hr, 2,000 mL, Intravenou s, ONCE, 1 dose, On Sun08/08/23 at 1515, PUJA [facility] lactated ringers IV infusion 500 mL 08-07 19:00: 00 08-09 12:00 :00 No 500mL at 999 mL/hr, 500 mL, Intravenou s, ONCE, 1 dose, On Sun08/08/23 at 1400, Routine [facility] simethicone (GAS RELIEF (SIMETHICON E)) chewable tablet 80 mg 08-07 15:45: 00 08-11 15:51 :24 No 80mg 80 mg, Oral, PC+HS, First dose on Sun08/08/23 at 1045, Until Discontinu ed, Routine [facility] Lidocaine (LIDOCARE) 4 % patch 1 Patch 08-07 14:00: 00 08-07 19:46 :17 No 1{patch } 1 Patch, Topical, Administer over 12 Hours, DAILY, First dose on Sun08/08/23 at 0900, Until Discontinu ed, Routine [facility] lactated ringers IV infusion 1,000 mL 08-07 11:15: 00 08-08 01:15 :13 No 1000mL at 150 mL/hr, 1,000 mL, IV Infusion, CONTINUOUS , Starting on Sun08/08/23 at 0615, Until Sun08/08/23 at 2015, Routine [facility] metoprolol tartrate (LOPRESSOR) tablet 12.5 mg 08-07 06:45: 00 08-07 05:58 :00 No 12.5mg 12.5 mg, Oral, ONCE, 1 dose, On Sun08/08/23 at 0145, Routine [facility] acetaminoph en (TYLENOL) tablet 1,000 mg 08-06 23:00: 00 08-11 15:51 :31 No 1000mg 1,000 mg, Oral, Q6H, First dose on Sun08/07/23 at 1800, Until Discontinu ed, Routine Univers [facility] HYDROmorpho ne (DILAUDID) 10 mg/50 mL 0.9% NaCl BILL OF LADING CLERK 08-06 22:15: 00 08-08 03:59 :07 No Patient Bolus Dose: 0.2 mg, Lockout Interval: 10 Minutes, Basal Rate: 0 mg/hr, Four Hour Dose Limit: 1.6 mg, IV Infusion, 50 mL, CONTINUOUS , Starting on Sun08/07/23 at 1715, Until Sun08/08/23 at 2259 [facility] naloxone (NARCAN) injection 0.4 mg 08-06 21:05: 26 Yes .4mg 0.4 mg, Slow IV Push, PRN, Starting on Sun08/07/23 at 1605, Until Discontinu ed, Routine, Sedation/R espiratory Depression [facility] HYDROcodone -acetaminop hen (NORCO) 10-325 mg tablet 1 tablet 08-06 17:50: 09 08-08 00:22 :49 No 1{tbl} 1 tablet, Oral, Q6HPRN, Starting on Sun08/07/23 at 1250, Until Sun08/08/23 at 1922, Routine, Pain (scale 7-10) Univers [facility] amLODIPine (NORVASC) tablet 10 mg 08-06 14:00: 00 08-11 12:51 :43 No 10mg 10 mg, Oral, DAILY, First dose (after last modificati on) on Sun08/07/23 at 0900, Until Discontinu ed, Routine Univers [facility] sennosides- docusate sodium (SENOKOT-S) 8.6-50 mg per tablet 1 tablet 08-06 14:00: 00 08-10 12:57 :20 No 1{tbl} 1 tablet, Oral, DAILY, First dose on Sun08/07/23 at 0900, Until Discontinu ed, [facility] 40 mg 08-06 14:00: 00 08-07 15:31 :49 No 40mg 40 mg, Subcutaneo us, DAILY, First dose on Sun08/07/23 at 0900, Until Discontinu ed, Routine [facility] Sliding Scale Insulin - Lispro (HumaLOG) 08-06 13:00: 00 08-17 12:56 :51 No Subcutaneo us, TID MEALS+HS, First dose on Sun08/07/23 at 0800, Until Discontinu ed, Routine [facility] famotidine (PEPCID AC) tablet 20 mg 08-06 13:00: 00 08-11 12:50 :14 No 20mg 20 mg, Oral, BID, First dose on Sun08/07/23 at 0800, Until Discontinu ed, Routine Univers [facility] FENTanyl PF (SUBLIMAZE (PF)) injection 50 mcg 08-06 11:00: 00 08-06 10:47 :00 No 50ug 50 mcg, Slow IV Push, ONCE, 1 dose, On Sun08/07/23 at 0600, Routine Univers [facility] piperacilli n-tazobacta m (ZOSYN) 3.375 g in NaCl 0.9% (NS) 100 mL VIAL-MATE 08-06 06:30: 00 08-06 10:50 :00 No 3.375g 3.375 g, IV Piggyback, ONCE, 1 dose, On Sun08/07/23 at 0130, Administer over 240 Minutes, 100 mL, Reason for Anti-Infec tive: Empiric Therapy for Suspected Infection, Empiric Therapy Site: Abdominal, Duration of therapy: Once (ED) [facility] labetaloL (NORMODYNE) injection 20 mg 08-06 04:56: 41 Yes 20mg 20 mg, Slow IV Push, Q6HPRN, Starting on Sun08/06/23 at 2356, Until Discontinu ed, Routine, For systolic BP over 180 and/or diastolic BP over 110 [facility] lactated ringers IV infusion 1,000 mL 08-06 03:45: 00 08-07 11:14 :53 No 1000mL at 100 mL/hr, 1,000 mL, IV Infusion, CONTINUOUS , Starting on Sun08/06/23 at 2245, Until Sun08/08/23 at 0614, Routine Univers [facility] FENTanyl PF (SUBLIMAZE (PF)) injection 25 mcg 08-06 03:25: 09 08-06 21:10 :45 No 25ug 25 mcg, Slow IV Push, Q3HPRN, Starting on Sun08/06/23 at 2225, Until Sun08/07/23 at 1610, Routine, Pain (scale 7-10) [facility] glucagon (GLUCAGEN DIAGNOSTIC KIT) injection 1 mg 08-06 02:34: 28 Yes [address]mg Univers [facility] dextrose 50 % in water (D50W) injection 25 mL 08-06 02:34: 28 Yes 25mL [facility] ondansetron (ZOFRAN (PF)) injection 4 mg 08-06 02:34: 20 Yes 4mg 4 mg, Slow IV Push, Q6HPRN, Starting on Sun08/06/23 at 2134, Until Discontinu ed, Routine, Nausea and Vomiting (N/V) [facility] FENTanyl PF (SUBLIMAZE (PF)) injection 12.5 mcg 08-06 02:34: 02 08-06 03:25 :20 No 12.5ug 12.5 mcg, Slow IV Push, Q3HPRN, Starting on Sun08/06/23 at 2134, Until Sun08/06/23 at 2225, Routine, Pain (scale 7-10) [facility] ondansetron (ZOFRAN (PF)) injection 8 mg 08-06 00:30: 00 08-06 00:23 :00 No 8mg 8 mg, Slow IV Push, ONCE, 1 dose, On Sun08/06/23 at 1930, [facility] morpHINE (4 mg/mL) injection 4 mg 08-05 23:30: 00 08-05 22:45 :00 No 4mg 4 mg, Slow IV Push, ONCE, 1 dose, On Sun08/06/23 at 1830, [facility] NaCl 0.9% (NS) IV infusion 1,000 mL 08-05 23:30: 00 08-05 22:42 :00 No 1000mL at 150 mL/hr, IV Infusion, ONCE, 1 dose, On Sun08/06/23 at 1830, [facility] piperacilli n-tazobacta m (ZOSYN) 3.375 g in NaCl 0.9% (NS) 100 mL MINI-BAG 08-05 22:15: 00 08-05 23:00 :00 No 3.375g 3.375 g, IV Piggyback, ONCE, 1 dose, On Sun08/06/23 at 1715, Administer over 30 Minutes, 100 mL, Reason for Anti-Infec tive: Documented Infection, Documented Infection Site: Abdominal, Duration of Therapy: Once (ED) [facility] morpHINE (4 mg/mL) injection 4 mg 08-05 21:45: 00 08-05 20:57 :00 No 4mg 4 mg, Slow IV Push, ONCE, 1 dose, On Sun08/06/23 at 1645, [facility] iopamidol (ISOVUE 370-500 mL) injection 80 mL 08-05 21:45: 00 08-05 21:45 :00 No [id number] 80mL 80 mL, Intravenou s, ONCE, 1 dose, On Sun08/06/23 at 1645, Routine [facility] loratadine (CLARITIN ORAL) 08-05 21:40: 59 Yes Take by mouth. [facility] NaCl 0.9% (NS) bolus infusion 1,000 mL 08-05 19:00: 00 08-05 22:27 :00 No 1000mL at 999 mL/hr, 1,000 mL, IV Infusion, ONCE, 1 dose, On Sun08/06/23 at 1400, [facility] morpHINE (4 mg/mL) injection 4 mg 08-05 19:00: 00 08-05 18:26 :00 No 4mg 4 mg, Slow IV Push, ONCE, 1 dose, On Sun08/06/23 at 1400, [facility] famotidine (PEPCID (PF)) injection 20 mg 08-05 18:15: 00 08-05 18:25 :00 No 20mg 20 mg, Slow IV Push, ONCE, 1 dose, On Sun08/06/23 at 1315, [facility] ondansetron (ZOFRAN (PF)) injection 8 mg 08-05 18:15: 00 08-05 18:25 :00 No 8mg 8 mg, Slow IV Push, ONCE, 1 dose, On Sun08/06/23 at 1315, [facility] atorvastati n 10 mg tablet 07-09 00:00: 00 Yes [id number] 10mg Take 1 tablet by mouth at bedtime. [facility] fluticasone propionate 50 mcg/actuati on nasal spray 07-09 00:00: 00 Yes [id number] 1{spray } Use 1 [place] in each nostril daily. [facility] azelastine 137 mcg (0.1 %) nasal spray 07-09 00:00: 00 Yes [id number] 1{spray } Use 1 [place] in each nostril 2 (two) times daily. Use in each nostril as directed [facility] ramipriL 10 mg capsule 07-09 00:00: 00 08-29 00:00 :00 No [id number] 10mg Take 1 capsule by mouth daily. [facility] amLODIPine 5 mg tablet 07-09 00:00: 00 08-29 00:00 :00 No [id number] 5mg Take 1 tablet by mouth daily. [facility] Immunizations Ordered Immunization Name Filled Immunization Name Date Status Comments Source Pneumococcal 20 Conjugate, PCV20 (Prevnar 20) Unknown Completed [facility] Influenza Virus Vaccine,quad Im,preserve Free 65+ (FLUAD) Unknown Completed [facility] Pneumococcal 20 Conjugate, PCV20 (Prevnar 20) Unknown Completed [facility] Influenza Virus Vaccine,quad Im,preserve Free 65+ (FLUAD) Unknown Completed [facility] Pneumococcal 20 Conjugate, PCV20 (Prevnar 20) Unknown Completed [facility] Influenza Virus Vaccine,quad Im,preserve Free 65+ (FLUAD) Unknown Completed [facility] Pneumococcal 20 Conjugate, PCV20 (Prevnar 20) Unknown Completed [facility] Influenza Virus Vaccine,quad Im,preserve Free 65+ (FLUAD) Unknown Completed [facility] Pneumococcal 20 Conjugate, PCV20 (Prevnar 20) Unknown Completed [facility] Influenza Virus Vaccine,quad Im,preserve Free 65+ (FLUAD) Unknown Completed [facility] Vital Signs Vital Name Observation Time Observation Value Comments S ource Systolic blood pressure 2023-09-01 12:34:00 118 mm[Hg[facility] Diastolic blood pressure 2023-09-01 12:34:00 71 mm[Hg] [facility] Heart rate 2023-09-01 12:34:00 70 /min [facility] Body temperature 2023-09-01 12:34:00 36.5 Roma [facility] Respiratory rate 2023-09-01 12:34:00 18 /min [facility] Oxygen saturation in Arterial blood by Pulse oximetry 2023-09-01 12:34:00 99 /min [facility] Body weight 2023-08-14 22:17:00 76 kg [facility] BMI 2023-08-14 22:17:00 28.76 kg/m2 [facility] Body height 2023-08-06 17:20:00 162.6 cm [facility] Systolic blood pressure 2023-08-27 20:15:00 97 mm[Hg] [facility] Diastolic blood pressure 2023-08-27 20:15:00 64 mm[Hg] [facility] Heart rate 2023-08-27 20:15:00 127 /min [facility] Respiratory rate 2023-08-27 20:15:00 10 /min [facility] Oxygen saturation in Arterial blood by Pulse oximetry 2023-08-27 20:15:00 94 /min [facility] Body temperature 2023-08-27 18:19:00 36.06 Roma [facility] Body weight 2023-08-14 22:17:00 76 kg [facility] BMI 2023-08-14 22:17:00 28.76 kg/m2 [facility] Body height 2023-08-06 17:20:00 162.6 cm [facility] Systolic blood pressure 2023-08-29 16:28:00 124 mm[Hg] [facility] Diastolic blood pressure 2023-08-29 16:28:00 70 mm[Hg] [facility] Heart rate 2023-08-29 16:28:00 76 /min [facility] Body temperature 2023-08-29 16:28:00 35.89 Roma [facility] Respiratory rate 2023-08-29 16:28:00 18 /min [facility] Oxygen saturation in Arterial blood by Pulse oximetry 2023-08-29 16:28:00 99 /min [facility] Systolic blood pressure 2023-08-26 23:51:00 119 mm[Hg] [facility] Diastolic blood pressure 2023-08-26 23:51:00 71 mm[Hg] [facility] Heart rate 2023-08-26 23:51:00 125 /min [facility] Body temperature 2023-08-26 23:51:00 35.67 Roma [facility] Respiratory rate 2023-08-26 23:51:00 20 /min [facility] Oxygen saturation in Arterial blood by Pulse oximetry 2023-08-26 23:51:00 95 /min [facility] Body weight 2023-08-14 22:17:00 76 kg [facility] BMI 2023-08-14 22:17:00 28.76 kg/m2 [facility] Body height 2023-08-06 17:20:00 162.6 cm [facility] Procedures Procedure Date / Time Performed Performing Clinician Source BASIC METABOLIC PANEL (NA, K , CL, CO2, GLUCOSE, BUN, CREATININE, CA) 2023-08-31 23:29[facility]23-[facility]-31 19:53[facility]TIBODY 2023-08-29 10:44:00 [facility]TIBODY 2023-08-29 10:44:00 Lonnie Howe [facility] COMP. METABOLIC PANEL ([id number]) 2023-08-29 10:44:00 Jo-Ann Liu [facility] CBC WITHOUT DIFF 2023-08-29 10:44:00 [facility] COMP. METABOLIC PANEL ([id number]) 2023-08-29 10:44[facility] 2023-08-29 10:44:00 [facility] HEPATITIS B SURFACE ANTIBODY 2023-08-29 10:44:00 [facility]TIBODY 2023-08-29 10:44:00 [facility]ST 1 VW 2023-08-28 22:13[facility]00 [facility] 2023-08-28 22:13[facility]00 [facility]EDURE DOCUMENTATION 08-27 18:17:06 Doctor Unassigned, [place] [facility] PHOSPHORUS 2023-08-28 10:11:00 [facility] MAGNESIUM 2023-08-28 10:11:00 [facility] COMP. METABOLIC PANEL ([id number]) 2023-08-28 10:11:00 [facility] CBC WITHOUT DIFF 2023-08-28 10:11:00 [facility] CBC WITHOUT DIFF 2023-08-28 10:11:00 [facility] PHOSPHORUS 2023-08-28 10:11:00 [facility] COMP. METABOLIC PANEL ([id number]) 2023-08-28 10:11:00 [facility] MAGNESIUM 2023-08-28 10:11:00 [facility], [facility] PHOSPHORUS 2023-08-28 10:11:00 [facility], [facility] MAGNESIUM 2023-08-28 10:11:00 [facility] COMP. METABOLIC PANEL ([id number]) 2023-08-28 10:11:00 [facility] CBC WITHOUT DIFF 2023-08-28 10:11:00 [facility] XR KUB 2023-08-28 00:10:00 [facility] XR KUB 2023-08-28 00:10:00 [facility] HIV 1/2 AG-AB WITH REFLEX 2023-08-27 23:17[facility]00 [facility] 2023-08-27 23:17:00 [facility] BASIC METABOLIC PANEL (NA, K , CL, CO2, GLUCOSE, BUN, CREATININE, CA) 2023-08-27 23:17:00 [facility] LIPID PANEL ([id number])(TOTAL CHOLESTEROL, TRIGLYCERIDES, HDL) 2023-08-27 23:17[facility]00 [facility] BASIC METABOLIC PANEL (NA, K , CL, CO2, GLUCOSE, BUN, CREATININE, CA) 2023-08-27 23:17:00 Sinan Shoemaker [facility] MAGNESIUM 2023-08-27 23:17:00 [facility] HEPATITIS B CORE ANTIBODY IGM 2023-08-27 23:17:00 [facility] SURFACE ANTIGEN 2023-08-27 23:17[facility]00 [facility]/2 [facility]-AB WITH REFLEX 2023-08-27 23:17:00 [facility] LIPID PANEL ([id number])(TOTAL CHOLESTEROL, TRIGLYCERIDES, HDL) 2023-08-27 23:17:00 [facility] 2023-08-27 23:17:00 Sinan Shoemaker [facility] BASIC METABOLIC PANEL (NA, K , CL, CO2, GLUCOSE, BUN, CREATININE, CA) 2023-08-27 23:17:00 Sinan Shoemaker [facility] LIPID PANEL ([id number])(TOTAL CHOLESTEROL, TRIGLYCERIDES, HDL) 2023-08-27 23:17:00 Lonnie Howe [facility] HEPATITIS B SURFACE ANTIGEN 2023-08-27 23:17:00 Lonnie Howe [facility] HEPATITIS B CORE ANTIBODY IGM 2023-08-27 23:17:00 [facility] & RHYTHM STRIP 2023-08-27 22:53:42 Sinan Shoemaker [facility] UPPER EUS (ENDO) 2023-08-27 19:43:09 Kiki [facility] UPPER EUS (ENDO) 2023-08-27 19:43:09 Kiki [facility] UPPER EUS (ENDO) 2023-08-27 19:43:09 Kiki [facility] EGD (ENDO) 2023-08-27 19:37:05 Kiki [facility] EGD (ENDO) 2023-08-27 19:37:05 Kiki [facility] EGD (ENDO) 2023-08-27 19:37:05 Kiki [facility] INTUBATION 2023-08-27 19:06:00 Kristi Bond [facility] ESOPHAGOGASTRODUODENOSCOPY 2023-08-27 18:40:00 [facility] [id number] [facility] GI ENDOSCOPIC US S&I 2023-08 18:40:00 [facility]a [facility] ESOPHAGOGASTRODUODENOSCOPY 2023-08-27 18:40:00 [facility] [id number] - CHG GI ENDOSCOPIC US S&I 2023-08 18:40:00 [facility] ESOPHAGOGASTRODUODENOSCOPY 2023-08-27 18:40:00 [facility] [id number] - CHG GI ENDOSCOPIC US S&I 2023-08 18:40:00 Tor[facility]yo[facility] MAGNESIUM 2023-08-27 09:16:00 Sinan Shoemaker [facility] BASIC METABOLIC PANEL (NA, K , CL, CO2, GLUCOSE, BUN, CREATININE, CA) 2023-08-27 09:16:00 [facility]FF 2023-08-27 09:16:00 [facility] WITH [facility]FF 2023-08-27 09:16:00 [facility] (NA, K , CL, CO2, GLUCOSE, BUN, CREATININE, CA) 2023-08-27 09:16:00 [facility] 2023-08-27 09:16:00 Sinan Shoemaker [facility] MAGNESIUM 2023-08-27 09:16:00 Sinan Shoemaker [facility] BASIC METABOLIC PANEL (NA, K , CL, CO2, GLUCOSE, BUN, CREATININE, CA) 2023-08-27 09:16:00 [facility] 2023-08-27 09:16:00 [facility]OUTINE & RHYTHM STRIP 2023-08-27 03:55:52 Sinan Shoemaker [facility] HB ECG ROUTINE & RHYTHM STRIP 2023-08-27 03:55:52 Sinan Shoemaker [facility] XR CHEST 1 VW 2023-08-26 20:38:00 Lonnie Howe [facility] XR CHEST 1 VW 2023-08-26 20:38:00 [facility] 1 VW 2023-08-26 20:38:00 [facility] N-TERMINAL PRO-BNP 2023-08-26 09:12:00 [facility] BASIC MET[facility]OLIC PANEL (NA, K , CL, CO2, GLUCOSE, BUN, CREATININE, CA) 2023-08-26 09:12:00 Jo-Ann Liu Karen [facility] MAGNESIUM 2023-08-26 09:12:00 Jo-Ann Liu [facility] CBC WITH DIFF 2023-08-26 09:12:00 Jo-Ann Liu Karen [facility] N-TERMINAL PRO-BNP 2023-08-26 09:12:00 Lonnie Howe [facility] MAGNESIUM 2023-08-26 09:12:00 Jo-Ann Liu Karen [facility] BASIC METABOLIC PANEL (NA, K , CL, CO2, GLUCOSE, BUN, CREATININE, CA) 2023-08-26 09:12:00 Jo-Ann Liu [facility] CBC WITH DIFF 2023-08-26 09:12:00 Jo-Ann Liu Karen [facility] N-TERMINAL PRO-BNP 2023-08-26 09:12:00 Lonnie Howe [facility] MAGNESIUM 2023-08-26 09:12:00 Jo-Ann Liu [facility] BASIC METABOLIC PANEL (NA, K , CL, CO2, GLUCOSE, BUN, CREATININE, CA) 2023-08-26 09:12:00 Jo-Ann Liu Karen [facility] CBC WITH DIFF 2023-08-26 09:12:00 Jo-Ann Liu Karen [facility] PREPARE PACKED RBC 2023-08-25 17:51:27 Lonnie Howe [facility] PREPARE PACKED RBC 2023-08-25 17:51:27 [facility] 2023-08-25 17:51:27 [facility] BASIC MET[facility]OLIC PANEL (NA, K , CL, CO2, GLUCOSE, BUN, CREATININE, CA) 2023-08-25 10:10:00 [facility] MAGNESIUM 2023-08-25 10:10:00 [facility] CBC WITH DIFF 2023-08-25 10:10:00 [facility] PHOSPHORUS 2023-08-25 10:10:00 Boubacar Alberto [facility] PHOSPHORUS 2023-08-25 10:10:00 Boubacar Alberto [facility] MAGNESIUM 2023-08-25 10:10:00 [facility] BASIC METABOLIC PANEL (NA, K , CL, CO2, GLUCOSE, BUN, CREATININE, CA) 2023-08-25 10:10:00 [facility] CBC WITH DIFF 2023-08-25 10:10:00 [facility] 2023-08-25 10:10:00 Boubacar Alberto [facility] MAGNESIUM 2023-08-25 10:10:00 [facility] BASIC METABOLIC PANEL (NA, K , CL, CO2, GLUCOSE, BUN, CREATININE, CA) 2023-08-25 10:10:00 [facility] CBC WITH DIFF 2023-08-25 10:10:00 [facility] PO[facility]SE (AUTOMATED) 2023-08-25 01:21:00 Dipak Rosales [facility] POCT GLUCOSE (AUTOMATED) 2023-08-25 01:21:00 Dipak Rosales [facility] POCT GLUCOSE (AUTOMATED) 2023-08-25 01:21:00 Dipak Rosales [facility] TRANSFUSE PACKED RBC 2023-08-24 23:48:00 [facility] 2023-08-24 23:48:00 [facility] TRANSFUSE PACKED RBC 2023-08-24 23:48:00 [facility] PREPARE PACK[facility] RBC 2023-08-24 23:34:53 Sinan Shoemaker [facility] PREPARE PACKED RBC 2023-08-24 23:34:53 Sahara [facility] PREPARE PACKED RBC 2023-08-24 23:34:53 Sahara [facility] ABORH CONFIRMATION (LAB ONLY) 2023-08-24 14:50:00 Dipak Rosales [facility] ABORH CONFIRMATION (LAB ONLY) 2023-08-24 14:50:00 Dipak Rosales [facility] ABORH CONFIRMATION (LAB ONLY) 2023-08-24 14:50:00 Dipak Rosales [facility] HB ABO GROUPING 2023-08-24 14:27:00 Lonnie Howe [facility] HB ABO GROUPING 2023-08-24 14:27:00 Lonnie Howe [facility] HB ABO GROUPING 2023-08-24 14:27:00 Lonnie Howe [facility] CBC WITHOUT DIFF 2023-08-24 10:41:00 Lonnie Howe [facility] BASIC METABOLIC PANEL (NA, K , CL, CO2, GLUCOSE, BUN, CREATININE, CA) 2023-08-24 10:41:00 Lonnie Howe [facility] BASIC METABOLIC PANEL (NA, K , CL, CO2, GLUCOSE, BUN, CREATININE, CA) 2023-08-24 10:41:00 Lonnie Howe [facility] CBC WITHOUT DIFF 2023-08-24 10:41:00 [facility]IC MET[facility]OLIC PANEL (NA, K , CL, CO2, GLUCOSE, BUN, CREATININE, CA) 2023-08-24 10:41:00 [facility] WITHOUT DIFF 2023-08-24 10:41:00 [facility] 2023-08-24 02:39:00 [facility] 2023-08-24 02:39:00 [facility]INAL[facility]IS 2023-08-24 02:39:00 [facility] ABDOMEN PELVIS WO CONTRAST 2023-08-24 02:11:32 Sahara [facility] CT ABDOMEN PELVIS WO CONTRAST 2023-08-24 02:11:32 Sahara [facility] CT ABDOMEN PELVIS WO CONTRAST 2023-08-24 02:11:32 Sahara [facility] BASIC METABOLIC PANEL (NA, K , CL, CO2, GLUCOSE, BUN, CREATININE, CA) 2023-08-23 09:35:00 [facility] WITH DIFF 2023-08-23 09:35:00 Sahara [facility] BLOOD CULTURE SCREEN 2023-08-23 09:35:00 Sahara [facility] BLOOD CULTURE SCREEN 2023-08-23 09:35:00 Sahara [facility] BASIC METABOLIC PANEL (NA, K , CL, CO2, GLUCOSE, BUN, CREATININE, CA) 2023-08-23 09:35:00 [facility] WITH DIFF 2023-08-23 09:35:00 Sahara [facility] BLOOD CULTURE SCREEN 2023-08-23 09:35:00 Sahara [facility] BASIC METABOLIC PANEL (NA, K , CL, CO2, GLUCOSE, BUN, CREATININE, CA) 2023-08-23 09:35:00 [facility] WITH [facility]FF 2023-08-23 09:35:00 Sinan Shoemaker [facility] BASIC METABOLIC PANEL (NA, K , CL, CO2, GLUCOSE, BUN, CREATININE, CA) 2023-08-22 22:05:00 [facility]IC MET[facility]OLIC PANEL (NA, K , CL, CO2, GLUCOSE, BUN, CREATININE, CA) 2023-08-22 22:05:00 [facility]IC METABOLIC PANEL (NA, K , CL, CO2, GLUCOSE, BUN, CREATININE, CA) 2023-08-22 22:05:00 [facility] BASIC METABOLIC PANEL (NA, K , CL, CO2, GLUCOSE, BUN, CREATININE, CA) 2023-08-22 10:40:00 [facility]IC METABOLIC PANEL (NA, K , CL, CO2, GLUCOSE, BUN, CREATININE, CA) 2023-08-22 10:40:00 [facility] BASIC METABOLIC PANEL (NA, K , CL, CO2, GLUCOSE, BUN, CREATININE, CA) 2023-08-22 10:40:00 [facility] CLOSTRIDIUM DIFFICILE TOXIN 2023-08-21 23:06:00 [facility] CLOSTRIDIUM DIFFICILE TOXIN 2023-08-21 23:06:00 [facility] CLOSTRIDIUM DIFFICILE TOXIN 2023-08-21 23:06:00 [facility] BASIC METABOLIC PANEL (NA, K , CL, CO2, GLUCOSE, BUN, CREATININE, CA) 2023-08-21 10:22:00 [facility] 2023-08-21 10:22:00 [facility] 2023-08-21 10:22:00 [facility] BASIC METABOLIC PANEL (NA, K , CL, CO2, GLUCOSE, BUN, CREATININE, CA) 2023-08-21 10:22:00 [facility] MAG[facility]UM 2023-08-21 10:22:00 Shyam Lonnie [facility] BASIC METABOLIC PANEL (NA, K , CL, CO2, GLUCOSE, BUN, CREATININE, CA) 2023-08-21 10:22:00 [facility] CBC WITHOUT DIFF 2023-08-20 19:52:00 Lonnie Howe [facility] CBC WITHOUT DIFF 2023-08-20 19:52:00 Lonnie Howe [facility] CBC WITHOUT DIFF 2023-08-20 19:52:00 Lonnie Howe [facility] CBC WITH DIFF 2023-08-20 09:44:00 Jo-Ann Liu [facility] MAGNESIUM 2023-08-20 09:44:00 Jo-Ann Liu [facility] COMP. METABOLIC PANEL ([id number]) 2023-08-20 09:44:00 Jo-Ann Liu [facility] MAGNESIUM 2023-08-20 09:44:00 Jo-Ann Liu [facility] COMP. METABOLIC PANEL ([id number]) 2023-08-20 09:44:00 Jo-Ann Liu [facility] CBC WITH DIFF 2023-08-20 09:44:00 Jo-Ann Liu [facility] MAGNESIUM 2023-08-20 09:44:00 Jo-Ann Liu [facility] COMP. METABOLIC PANEL ([id number]) 2023-08-20 09:44:00 Jo-Ann Liu [facility] CBC WITH DIFF 2023-08-20 09:44:00 Jo-Ann Liu [facility] CT ABDOMEN PELVIS WO CONTRAST 2023-08-19 19:40:00 [facility] ABDOMEN PELVIS WO CONTRAST 2023-08-19 19:40:00 [facility] CT ABDOMEN PELVIS WO CONTRAST 2023-08-19 19:40:00 [facility] CBC WITHOUT DIFF 2023-08-19 08:21:00 [facility] BASIC METABOLIC PANEL (NA, K , CL, CO2, GLUCOSE, BUN, CREATININE, CA) 2023-08-19 08:21:00 [facility] BASIC METABOLIC PANEL (NA, K , CL, CO2, GLUCOSE, BUN, CREATININE, CA) 2023-08-19 08:21:00 [facility] CBC WITHOUT DIFF 2023-08-19 08:21:00 [facility] BASIC METABOLIC PANEL (NA, K , CL, CO2, GLUCOSE, BUN, CREATININE, CA) 2023-08-19 08:21:00 [facility] CBC WITHOUT DIFF 2023-08-19 08:21:00 [facility] POCT GLUCOSE (AUTOMATED) 2023-08-18 12:47:00 Dipak Rosales [facility] POCT GLUCOSE (AUTOMATED) 2023-08-18 12:47:00 Dipak Rosales [facility] POCT GLUCOSE (AUTOMATED) 2023-08-18 12:47:00 Dipak Rosales [facility] MAGNESIUM 2023-08-18 10:38:00 Sinan Shoemaker [facility] CBC WITH DIFF 2023-08-18 10:38:00 Sinan Shoemaker [facility] BASIC METABOLIC PANEL (NA, K , CL, CO2, GLUCOSE, BUN, CREATININE, CA) 2023-08-18 10:38:00 Sinan Shoemaker [facility] PHOSPHORUS 2023-08-18 10:38:00 Sinan Shoemaker [facility] PHOSPHORUS 2023-08-18 10:38:00 Sinan Shoemaker [facility] MAGNESIUM 2023-08-18 10:38:00 Mavratsas, [facility] BASIC METABOLIC PANEL (NA, K , CL, CO2, GLUCOSE, BUN, CREATININE, CA) 2023-08-18 10:38:00 Sahara [facility] CBC WITH DIFF 2023-08-18 10:38:00 Sahara [facility] PHOSPHORUS 2023-08-18 10:38:00 Sahara [facility] MAGNESIUM 2023-08-18 10:38:00 Sahara [facility] BASIC METABOLIC PANEL (NA, K , CL, CO2, GLUCOSE, BUN, CREATININE, CA) 2023-08-18 10:38:00 Sahara [facility] CBC WITH DIFF 2023-08-18 10:38:00 Sahara [facility] CBC WITH DIFF 2023-08-18 02:59:00 Sahara [facility] CBC WITH DIFF 2023-08-18 02:59:00 Mavratsluisa, [facility] CBC WITH DIFF 2023-08-18 02:59:00 Sahara [facility] POCT GLUCOSE (AUTOMATED) 2023-08-18 01:14:00 Dipak Rosales [facility] POCT GLUCOSE (AUTOMATED) 2023-08-18 01:14:00 Dipak Rosales [facility] POCT GLUCOSE (AUTOMATED) 2023-08-18 01:14:00 Dipak Rosales [facility] ACTIVATED PARTIAL THRMPLAS RADHA 3 23:18:00 [facility] THRMPLAS RADHA 3 23:18:00 Vladimir Lynn [facility] ACTIVATED PARTIAL THRMPLAS RADHA 3 23:18:00 Vladimir Lynn [facility] POCT GLUCOSE (AUTOMATED) 2023-08-17 23:12:00 Dipak Rosales [facility] POCT GLUCOSE (AUTOMATED) 2023-08-17 23:12:00 Dipak Rosales [facility] POCT GLUCOSE (AUTOMATED) 2023-08-17 23:12:00 Dipak Rosales [facility] POCT GLUCOSE (AUTOMATED) 2023-08-17 21:39:00 Dipak Rosales [facility] POCT GLUCOSE (AUTOMATED) 2023-08-17 21:39:00 Dipak Rosales [facility] POCT GLUCOSE (AUTOMATED) 2023-08-17 21:39:00 Dipak Rosales [facility] POCT GLUCOSE (AUTOMATED) 2023-08-17 17:03:00 Dipak Rosales [facility] POCT GLUCOSE (AUTOMATED) 2023-08-17 17:03:00 Dipak Rosales [facility] POCT GLUCOSE (AUTOMATED) 2023-08-17 17:03:00 Dipak Rosales [facility] POCT GLUCOSE (AUTOMATED) 2023-08-17 13:09:00 Dipak Rosales [facility] POCT GLUCOSE (AUTOMATED) 2023-08-17 13:09:00 Dipak Rosales [facility] POCT GLUCOSE (AUTOMATED) 2023-08-17 13:09:00 Dipak Rosales [facility] BASIC METABOLIC PANEL (NA, K , CL, CO2, GLUCOSE, BUN, CREATININE, CA) 2023-08-17 09:45:00 Cano, [facility] PHOSPHORUS 2023-08-17 09:45:00 Cano, [facility] ACTIVATED PARTIAL THRMPLAS RADHA 3 09:45:00 Vladimir Lynn [facility] PHOSPHORUS 2023-08-17 09:45:00 Cano, [facility] BASIC METABOLIC PANEL (NA, K , CL, CO2, GLUCOSE, BUN, CREATININE, CA) 2023-08-17 09:45:00 Cano, [facility] ACTIVATED PARTIAL THRMPLAS RADHA 3 09:45:00 Le, Vladimir Heredia [facility] PHOSPHORUS 2023-08-17 09:45:00 Fady Cano [facility] BASIC METABOLIC PANEL (NA, K , CL, CO2, GLUCOSE, BUN, CREATININE, CA) 2023-08-17 09:45:00 Fady Cnao [facility] ACTIVATED PARTIAL THRMPLAS RADHA 3 09:45:00 Le[facility] PARTIAL THRMPLAS RADHA 3 02:12:00 Le, Vladimir Dunlap [facility] ACTIVATED PARTIAL THRMPLAS RADHA 3 02:12:00 Le, [facility] ACTIV[facility] PARTIAL THRMPLAS RADHA 3 02:12:00 Millie, [facility] PO[facility]UCOSE (AUTOMATED) 2023-08-17 02:07:00 Dipak Rosales [facility] POCT GLUCOSE (AUTOMATED) 2023-08-17 02:07:00 Dipak Rosales [facility] POCT GLUCOSE (AUTOMATED) 2023-08-17 02:07:00 Dipak Rosales [facility] POCT GLUCOSE (AUTOMATED) 2023-08-16 21:51:00 Dipak Rosales [facility] POCT GLUCOSE (AUTOMATED) 2023-08-16 21:51:00 Dipak Rosales [facility] POCT GLUCOSE (AUTOMATED) 2023-08-16 21:51:00 Dipak Rosales [facility] POCT GLUCOSE (AUTOMATED) 2023-08-16 17:18:00 Dipak Rosales [facility] POCT GLUCOSE (AUTOMATED) 2023-08-16 17:18:00 Dipak Rosales [facility] POCT GLUCOSE (AUTOMATED) 2023-08-16 17:18:00 Dipak Rosales [facility] ACTIVATED PARTIAL THRMPLAS RADHA 2 14:07:00 Le, [facility] ACTIVATED PARTIAL THRMPLAS RADHA 2 14:07:00 Millie Winghailee Germán [facility] ACTIVATED PARTIAL THRMPLAS RADHA 2 14:07:00 Millie [facility] PO[facility] GLUCOSE (AUTOMATED) 2023-08-16 13:11:00 Dipak Rosales [facility] POCT GLUCOSE (AUTOMATED) 2023-08-16 13:11:00 Dipak Rosales [facility] POCT GLUCOSE (AUTOMATED) 2023-08-16 13:11:00 Dipak Rosales [facility] BASIC METABOLIC PANEL (NA, K , CL, CO2, GLUCOSE, BUN, CREATININE, CA) 2023-08-16 10:01:00 [facility] 2023-08-16 10:01:00 Lonnie Howe [facility] MAGNESIUM 2023-08-16 10:01:00 Lonnie Howe [facility] BASIC METABOLIC PANEL (NA, K , CL, CO2, GLUCOSE, BUN, CREATININE, CA) 2023-08-16 10:01:00 Lonnie Howe [facility] MAGNESIUM 2023-08-16 10:01:00 Lonnie Howe [facility] BASIC METABOLIC PANEL (NA, K , CL, CO2, GLUCOSE, BUN, CREATININE, CA) 2023-08-16 10:01:00 [facility] ACTIVATED PARTIAL THRMPLAS RADHA 2 07:28:00 Millie [facility] ACTIVATED PARTIAL THRMPLAS RADHA 2 07:28:00 Millie Vladimir Dunlap [facility] ACTIVATED PARTIAL THRMPLAS RADHA 2 07:28:00 Millie [facility] PO[facility] GLUCOSE (AUTOMATED) 2023-08-16 02:29:00 Dipak Rosales [facility] POCT GLUCOSE (AUTOMATED) 2023-08-16 02:29:00 Dipak Rosales [facility] POCT GLUCOSE (AUTOMATED) 2023-08-16 02:29:00 Dipak Rosales [facility] POCT GLUCOSE (AUTOMATED) 2023-08-15 22:20:00 Dipak Rosales [facility] POCT GLUCOSE (AUTOMATED) 2023-08-15 22:20:00 Dipak Rosales [facility] POCT GLUCOSE (AUTOMATED) 2023-08-15 22:20:00 Dipak Rosales [facility] ACTIVATED PARTIAL THRMPLAS RADHA 1 18:40:00 Vladimir Lynnuyen [facility] ACTIVATED PARTIAL THRMPLAS RADHA 1 18:40:00 Vladimir Lynnuyen [facility] ACTIVATED PARTIAL THRMPLAS RADHA 1 18:40:00 Vladimir Lynn [facility] POCT GLUCOSE (AUTOMATED) 2023-08-15 17:22:00 Dipak Rosales [facility] POCT GLUCOSE (AUTOMATED) 2023-08-15 17:22:00 Dipak Rosales [facility] POCT GLUCOSE (AUTOMATED) 2023-08-15 17:22:00 Dipak Rosales [facility] POCT GLUCOSE (AUTOMATED) 2023-08-15 13:11:00 Dipak Rosales [facility] POCT GLUCOSE (AUTOMATED) 2023-08-15 13:11:00 Dipak Rosales [facility] POCT GLUCOSE (AUTOMATED) 2023-08-15 13:11:00 Dipak Rosales [facility] CBC WITHOUT DIFF 2023-08-15 10:55:00 Vladimir Lynn [facility] COMP. METABOLIC PANEL ([id number]) 2023-08-15 10:55:00 Kevin Bagley [facility] ACTIVATED PARTIAL THRMPLAS RADHA 2024-05-0 1 10:55:00 Le Vladimir Heredia [facility] COMP. METABOLIC PANEL ([id number]) 2023-08-15 10:55:00 Kevyn [facility] CBC WITHOUT DIFF 2023-08-15 10:55:00 Millie Vladimir Albertuyen [facility] ACTIVATED PARTIAL THRMPLAS RADHA 1 10:55:00 Le, [facility] COMP. METABOLIC PANEL ([id number]) 2023-08-15 10:55:00 [place], [facility] CBC WITHOUT DIFF 2023-08-15 10:55:00 Le, Vladimir Albertuyen [facility] ACTIVATED PARTIAL THRMPLAS RADHA 1 10:55:00 Millie [facility] PO[facility] GLUCOSE (AUTOMATED) 2023-08-15 01:51:00 Sarah Palafoxammed [facility] POCT GLUCOSE (AUTOMATED) 2023-08-15 01:51:00 [facility] ([facility]OMATED) 2023-08-15 01:51:00 Rafael Palafox [facility] ACTIVATED PARTIAL THRMPLAS RADHA 2023-07-18 0 23:30:00 Millie, [facility] ACTIVATED PARTIAL THRMPLAS RADHA 2023-07-18 0 23:30:00 Millie, [facility] ACTIVATED PARTIAL THRMPLAS RADHA 2023-07-18 0 23:30:00 Millie, [facility] ACTIVATED PARTIAL THRMPLAS RADHA 2023-07-18 0 22:47:00 Millie, [facility] ACTIVATED PARTIAL THRMPLAS RADHA 3 0 22:47:00 Millie, [facility] ACTIVATED PARTIAL THRMPLAS RADHA 3 0 22:47:00 [facility] PO[facility] GLUCOSE (AUTOMATED) 2023-08-14 21:50:00 [facility] POCT GLUCOSE (AUTOMATED) 2023-08-14 21:50:00 Rafael Palafox [facility] POCT GLUCOSE (AUTOMATED) 2023-08-14 21:50:00 Rafael Palafox [facility] ACTIVATED PARTIAL THRMPLAS RADHA 2023-07-18 0 17:04:00 Vladimir Lynn [facility] ACTIVATED PARTIAL THRMPLAS RADHA 2023-07-18 0 17:04:00 Vladimir Lynn [facility] ACTIVATED PARTIAL THRMPLAS RADHA 2023-07-18 0 17:04:00 Vladimir Lynnuyen [facility] POCT GLUCOSE (AUTOMATED) 2023-08-14 16:34:00 [facility] GLUCOSE (AUTOMATED) 2023-08-14 16:34:00 [facility] PO[facility] GLUCOSE (AUTOMATED) 2023-08-14 16:34:00 Javy [facility] POCT GLUCOSE (AUTOMATED) 2023-08-14 12:40:00 Javy [facility] POCT GLUCOSE (AUTOMATED) 2023-08-14 12:40:00 Sarah Palafoxammed [facility] POCT GLUCOSE (AUTOMATED) 2023-08-14 12:40:00 Sarah Palafoxammed [facility] ACTIVATED PARTIAL THRMPLAS RADHA 2023-07-18 0 11:15:00 Vladimir Lynnuyen [facility] ACTIVATED PARTIAL THRMPLAS RADHA 2023-07-18 0 11:15:00 [facility] ACTIVATED PARTIAL THRMPLAS RADHA 2023-07-18 0 11:15:00 Vladimir Lynnuyen [facility] CBC WITH DIFF 2023-08-14 09:57:00 Akanksha Maldonado [facility] BASIC METABOLIC PANEL (NA, K , CL, CO2, GLUCOSE, BUN, CREATININE, CA) 2023-08-14 09:57:00 Degueure, [facility] MAGNESIUM 2023-08-14 09:57:00 Degueure, [facility] MAGNESIUM 2023-08-14 09:57:00 Degueure, [facility] BASIC METABOLIC PANEL (NA, K , CL, CO2, GLUCOSE, BUN, CREATININE, CA) 2023-08-14 09:57:00 Degueure, [facility] CBC WITH DIFF 2023-08-14 09:57:00 Degueure, [facility] MAGNESIUM 2023-08-14 09:57:00 Degueure, [facility] BASIC METABOLIC PANEL (NA, K , CL, CO2, GLUCOSE, BUN, CREATININE, CA) 2023-08-14 09:57:00 Degue[place], [facility] CBC WITH DIFF 2023-08-14 09:57:00 Degue[place], [facility] AMMONIA, PLASMA 2023-08-14 04:35:00 Sinan Shoemaker [facility] ACTIVATED PARTIAL THRMPLAS RADHA 2023-07-18 0 04:35:00 Vladimir Lynn [facility] AMMONIA, PLASMA 2023-08-14 04:35:00 Sinan Shoemaker [facility] ACTIVATED PARTIAL THRMPLAS RADHA 2023-07-18 0 04:35:00 Vladimir Lynn [facility] AMMONIA, PLASMA 2023-08-14 04:35:00 Sinan Shoemaker [facility] ACTIVATED PARTIAL THRMPLAS RADHA 2023-07-18 0 04:35:00 Vladimir Lynn [facility] POCT GLUCOSE (AUTOMATED) 2023-08-14 01:38:00 Rafael Palafox [facility] POCT GLUCOSE (AUTOMATED) 2023-08-14 01:38:00 Rafael Palafox [facility] POCT GLUCOSE (AUTOMATED) 2023-08-14 01:38:00 Rafael Palafox [facility] ACTIVATED PARTIAL THRMPLAS RADHA 2023-07-17 9 22:52:00 Vladimir Lynn [facility] ACTIVATED PARTIAL THRMPLAS RADHA 2023-07-17 9 22:52:00 Vladimir Lynn [facility] ACTIVATED PARTIAL THRMPLAS RADHA 2023-07-17 9 22:52:00 Vladimir Lynn [facility] POCT GLUCOSE (AUTOMATED) 2023-08-13 22:02:00 [facility] POCT GLUCOSE (AUTOMATED) 2023-08-13 22:02:00 Rafael Palafox [facility] POCT GLUCOSE (AUTOMATED) 2023-08-13 22:02:00 Rafael Palafox [facility] POCT GLUCOSE (AUTOMATED) 2023-08-13 17:05:00 Rafael Palafox [facility] POCT GLUCOSE (AUTOMATED) 2023-08-13 17:05:00 Rafael Palafox [facility] POCT GLUCOSE (AUTOMATED) 2023-08-13 17:05:00 Rafael Palafox [facility] XR CHEST 1 VW 2023-08-13 16:59:00 Reyes [facility] XR CHEST 1 VW 2023-08-13 16:59:00 Reyes [facility] XR CHEST 1 VW 2023-08-13 16:59:00 Reyes [facility] ACTIVATED PARTIAL THRMPLAS RADHA 2023-07-17 9 15:00:00 Vladimir Lynn [facility] ACTIVATED PARTIAL THRMPLAS RADHA 2023-07-17 9 15:00:00 Vladimir Lynn [facility] ACTIVATED PARTIAL THRMPLAS RADHA 2023-07-17 9 15:00:00 Le, [facility] 2023-08-13 13:10:00 Rafael Palafox [facility] POCT GLUCOSE (AUTOMATED) 2023-08-13 13:10:00 [facility] POCT GLUCOSE (AUTOMATED) 2023-08-13 13:10:00 [facility] THYROID STIMULATING HORMONE 2023-08-13 07:35:00 Vladimir Lynnuyen [facility] HEPATIC FUNCTION PANEL (8007 6) (ALB,T.PRO,BILI T,BU/BC,ALT,AST,ALK PHOS) 2023-08-13 07:35:00 [facility] BASIC [facility]ABOLIC PANEL (NA, K , CL, CO2, GLUCOSE, BUN, CREATININE, CA) 2023-08-13 07:35:00 Patrice [facility] CBC WITH DIFF 2023-08-13 07:35:00 Patrice [facility] MAGNESIUM 2023-08-13 07:35:00 Patrice [facility] PHOSPHORUS 2023-08-13 07:35:00 Patrice [facility] ACTIVATED PARTIAL THRMPLAS RADHA 2023-07-17 9 07:35:00 [facility] LIP[facility] 2023-08-13 07:35:00 Terrance Marvin [facility] PHOSPHORUS 2023-08-13 07:35:00 Patrice [facility] LIPASE 2023-08-13 07:35:00 Terrance Marvin [facility] MAGNESIUM 2023-08-13 07:35:00 Patrice [facility] THYROID STIMULATING HORMONE 2023-08-13 07:35:00 Vladimir Lynnuyen [facility] HEPATIC FUNCTION PANEL (8007 6) (ALB,T.PRO,BILI T,BU/BC,ALT,AST,ALK PHOS) 2023-08-13 07:35:00 [facility] BASIC METABOLIC PANEL (NA, K , CL, CO2, GLUCOSE, BUN, CREATININE, CA) 2023-08-13 07:35:00 Patrice [facility] CBC WITH DIFF 2023-08-13 07:35:00 Patrice [facility] ACTIVATED PARTIAL THRMPLAS RADHA 2023-07-17 9 07:35:00 Vladimir Lynn [facility] PHOSPHORUS 2023-08-13 07:35:00 Patrice [facility] LIPASE 2023-08-13 07:35:00 Maurisio Shelton [facility] MAGNESIUM 2023-08-13 07:35:00 Patrice [facility] THYROID STIMULATING HORMONE 2023-08-13 07:35:00 Vladimir Lynnuyen [facility] HEPATIC FUNCTION PANEL (8007 6) (ALB,T.PRO,BILI T,BU/BC,ALT,AST,ALK PHOS) 2023-08-13 07:35:00 Vladimir Lynnuyen [facility] BASIC METABOLIC PANEL (NA, K , CL, CO2, GLUCOSE, BUN, CREATININE, CA) 2023-08-13 07:35:00 Patrice [facility] CBC WITH DIFF 2023-08-13 07:35:00 Patrice [facility] ACTIVATED PARTIAL THRMPLAS RADHA 2023-07-17 9 07:35:00 Vladimir Lynnuyen [facility] PROTHROMBIN TIME / INR 2023-08-13 01:23:00 Vladimir Lynn [facility] ACTIVATED PARTIAL THRMPLAS RADHA 2023-07-17 9 01:23:00 Vladimir Lynn [facility] PROTHROMBIN TIME / INR 2023-08-13 01:23:00 Vladimir Lynn [facility] ACTIVATED PARTIAL THRMPLAS RADHA 2023-07-17 9 01:23:00 Vladimir Lynn [facility] PROTHROMBIN TIME / INR 2023-08-13 01:23:00 Vladimir Lynn [facility] ACTIVATED PARTIAL THRMPLAS RADHA 2023-07-17 9 01:23:00 Vladimir Lynn [facility] POCT GLUCOSE (AUTOMATED) 2023-08-13 00:53:00 Rafael Palafox [facility] POCT GLUCOSE (AUTOMATED) 2023-08-13 00:53:00 Rafael Palafox [facility] POCT GLUCOSE (AUTOMATED) 2023-08-13 00:53:00 [facility] POCT GLUCOSE (AUTOMATED) 2023-08-12 23:09:00 Rafael Palafox [facility] POCT GLUCOSE (AUTOMATED) 2023-08-12 23:09:00 Rafael Palafox [facility] POCT GLUCOSE (AUTOMATED) 2023-08-12 23:09:00 Rafael Palafox [facility] POCT GLUCOSE (AUTOMATED) 2023-08-12 17:00:00 Rafael Palafox [facility] POCT GLUCOSE (AUTOMATED) 2023-08-12 17:00:00 Rafael Palafox [facility] POCT GLUCOSE (AUTOMATED) 2023-08-12 17:00:00 Rafael Palafox [facility] POCT GLUCOSE (AUTOMATED) 2023-08-12 12:39:00 [facility] POCT GLUCOSE (AUTOMATED) 2023-08-12 12:39:00 Rafael Palafox [facility] POCT GLUCOSE (AUTOMATED) 2023-08-12 12:39:00 Rafael Palafox [facility] XR KUB 2023-08-12 12:18:00 Patrice [facility] XR KUB 2023-08-12 12:18:00 Patrice [facility] XR KUB 2023-08-12 12:18:00 Shannan Ibrahim [facility] CBC WITH DIFF 2023-08-12 08:52:00 Victory, [facility] CBC WITH DIFF 2023-08-12 08:52:00 Reyes [facility] CBC WITH DIFF 2023-08-12 08:52:00 Reyes [facility] HB ECG ROUTINE & RHYTHM STRIP 2023-08-12 08:42:35 Vladimir Lynnuyen [facility] HB ECG ROUTINE & RHYTHM STRIP 2023-08-12 08:42:35 [facility] & RHYTHM STRIP 2023-08-12 08:42:35 Vladimir Lynn Germán [facility] BASIC METABOLIC PANEL (NA, K , CL, CO2, GLUCOSE, BUN, CREATININE, CA) 2023-08-12 07:42:00 Reyes [facility] MAGNESIUM 2023-08-12 07:42:00 Reyes [facility] PHOSPHORUS 2023-08-12 07:42:00 Reyes [facility] PHOSPHORUS 2023-08-12 07:42:00 Reyes [facility] MAGNESIUM 2023-08-12 07:42:00 Reyes [facility] BASIC METABOLIC PANEL (NA, K , CL, CO2, GLUCOSE, BUN, CREATININE, CA) 2023-08-12 07:42:00 Reyes [facility] PHOSPHORUS 2023-08-12 07:42:00 Reyes [facility] MAGNESIUM 2023-08-12 07:42:00 Reyes [facility] BASIC METABOLIC PANEL (NA, K , CL, CO2, GLUCOSE, BUN, CREATININE, CA) 2023-08-12 07:42:00 Reyes [facility] POCT GLUCOSE (AUTOMATED) 2023-08-12 02:42:00 Rafael Palafox [facility] POCT GLUCOSE (AUTOMATED) 2023-08-12 02:42:00 Rafael Palafox [facility] POCT GLUCOSE (AUTOMATED) 2023-08-12 02:42:00 Rafael Palafox [facility] POCT GLUCOSE (AUTOMATED) 2023-08-12 01:36:00 Rafael Palafox [facility] POCT GLUCOSE (AUTOMATED) 2023-08-12 01:36:00 Rafael Palafox [facility] POCT GLUCOSE (AUTOMATED) 2023-08-12 01:36:00 Rafael Palafox [facility] POCT GLUCOSE (AUTOMATED) 2023-08-11 22:23:00 Rafael Palafox [facility] POCT GLUCOSE (AUTOMATED) 2023-08-11 22:23:00 Rafael Palafox [facility] POCT GLUCOSE (AUTOMATED) 2023-08-11 22:23:00 Rafael Palafox [facility] XR ABDOMEN 1 VW 2023-08-11 18:53:00 South Jessica [facility] XR ABDOMEN 1 VW 2023-08-11 18:53:00 South Jessica [facility] XR ABDOMEN 1 VW 2023-08-11 18:53:00 Jessica Dia [facility] POCT GLUCOSE (AUTOMATED) 2023-08-11 17:36:00 Rafael Palafox [facility] POCT GLUCOSE (AUTOMATED) 2023-08-11 17:36:00 Rafael Palafox [facility] POCT GLUCOSE (AUTOMATED) 2023-08-11 17:36:00 Rafael Palafox [facility] XR KUB 2023-08-11 16:01:00 Reyes [facility] XR KUB 2023-08-11 16:01:00 Reyes [facility] XR KUB 2023-08-11 16:01:00 Reyes [facility] HB ECG ROUTINE & RHYTHM STRIP 2023-08-11 13:21:50 Justice [facility] HB ECG ROUTINE & RHYTHM STRIP 2023-08-11 13:21:50 Justice [facility] HB ECG ROUTINE & RHYTHM STRIP 2023-08-11 13:21:50 Justice, Rakesh [facility] POCT GLUCOSE (AUTOMATED) 2023-08-11 12:29:00 Rafael Palafox [facility] POCT GLUCOSE (AUTOMATED) 2023-08-11 12:29:00 [facility] POCT GLUCOSE (AUTOMATED) 2023-08-11 12:29:00 Rafael Palafox [facility] HB ECG ROUTINE & RHYTHM STRIP 2023-08-11 11:35:26 [facility]HYTHM STRIP 2023-08-11 11:35:26 [facility]OUTINE & RHYTHM STRIP 2023-08-11 11:35:26 [facility] PHOSPH[facility]US 2023-08-11 08:51:00 Sahara [facility] MAGNESIUM 2023-08-11 08:51:00 Sahara [facility] BASIC METABOLIC PANEL (NA, K , CL, CO2, GLUCOSE, BUN, CREATININE, CA) 2023-08-11 08:51:00 Sahara [facility] TRIGLYCERIDES 2023-08-11 08:51:00 Vladimir Lnyn [facility] PHOSPHORUS 2023-08-11 08:51:00 Sahara [facility] TRIGLYCERIDES 2023-08-11 08:51:00 Vladimir Lynn [facility] MAGNESIUM 2023-08-11 08:51:00 Sahara [facility] BASIC METABOLIC PANEL (NA, K , CL, CO2, GLUCOSE, BUN, CREATININE, CA) 2023-08-11 08:51:00 Sahara [facility] PHOSPHORUS 2023-08-11 08:51:00 Sahara [facility] TRIGLYCERIDES 2023-08-11 08:51:00 Vladimir Lynn [facility] MAGNESIUM 2023-08-11 08:51:00 Sinan Shoemaker [facility] BASIC METABOLIC PANEL (NA, K , CL, CO2, GLUCOSE, BUN, CREATININE, CA) 2023-08-11 08:51:00 Sinan Shoemaker [facility] BASIC METABOLIC PANEL (NA, K , CL, CO2, GLUCOSE, BUN, CREATININE, CA) 2023-08-11 04:38:00 Jessica Dia [facility] BASIC METABOLIC PANEL (NA, K , CL, CO2, GLUCOSE, BUN, CREATININE, CA) 2023-08-11 04:38:00 Jessica Dia [facility] BASIC METABOLIC PANEL (NA, K , CL, CO2, GLUCOSE, BUN, CREATININE, CA) 2023-08-11 04:38:00 Jessica Dia [facility] POCT GLUCOSE (AUTOMATED) 2023-08-11 01:00:00 Rafael Palafox [facility] POCT GLUCOSE (AUTOMATED) 2023-08-11 01:00:00 [facility] POCT GLUCOSE (AUTOMATED) 2023-08-11 01:00:00 [facility] BASIC METABOLIC PANEL (NA, K , CL, CO2, GLUCOSE, BUN, CREATININE, CA) 2023-08-10 20:47:00 Jessica Dia [facility] BASIC METABOLIC PANEL (NA, K , CL, CO2, GLUCOSE, BUN, CREATININE, CA) 2023-08-10 20:47:00 Jessica Dia Radha [facility] BASIC METABOLIC PANEL (NA, K , CL, CO2, GLUCOSE, BUN, CREATININE, CA) 2023-08-10 20:47:00 Jessica Dia [facility] POCT GLUCOSE (AUTOMATED) 2023-08-10 20:46:00 [facility] POCT GLUCOSE (AUTOMATED) 2023-08-10 20:46:00 [facility] POCT GLUCOSE (AUTOMATED) 2023-08-10 20:46:00 Rafael Palafox [facility] XR CHEST 1 2023-08-10 20:04:00 Reyes [facility] XR CHEST 1 2023-08-10 20:04:00 Jose Robertotamara [facility] XR CHEST 1 2023-08-10 20:04:00 Reyes [facility] XR CHEST 1 2023-08-10 17:16:58 Reyes [facility] XR CHEST 1 2023-08-10 17:16:58 Jose Robertotamara [facility] XR CHEST 1 2023-08-10 17:16:58 Reyes [facility] POCT GLUCOSE (AUTOMATED) 2023-08-10 17:12:00 Rafael Palafox [facility] POCT GLUCOSE (AUTOMATED) 2023-08-10 17:12:00 Rafael Palafox [facility] POCT GLUCOSE (AUTOMATED) 2023-08-10 17:12:00 Rafael Palafox [facility] POCT GLUCOSE (AUTOMATED) 2023-08-10 12:51:00 Rafael Palafox [facility] POCT GLUCOSE (AUTOMATED) 2023-08-10 12:51:00 Sarah Palafoxammed [facility] POCT GLUCOSE (AUTOMATED) 2023-08-10 12:51:00 Rafael Palafox [facility] HB ECG ROUTINE & RHYTHM STRIP 2023-08-10 08:56:34 Sinan Shoemaker [facility] HB ECG ROUTINE & RHYTHM STRIP 2023-08-10 08:56:34 Sinan Shoemaker [facility] HB ECG ROUTINE & RHYTHM STRIP 2023-08-10 08:56:34 Sahara [facility] BASIC METABOLIC PANEL (NA, K , CL, CO2, GLUCOSE, BUN, CREATININE, CA) 2023-08-10 08:08:00 Reyes [facility] MAGNESIUM 2023-08-10 08:08:00 Reyes [facility] PHOSPHORUS 2023-08-10 08:08:00 Reyes [facility] ALBUMIN 2023-08-10 08:08:00 Reyes [facility] PHOSPHORUS 2023-08-10 08:08:00 Reyes [facility] ALBUMIN 2023-08-10 08:08:00 Reyes [facility] MAGNESIUM 2023-08-10 08:08:00 Jose Robertotamara [facility] BASIC METABOLIC PANEL (NA, K , CL, CO2, GLUCOSE, BUN, CREATININE, CA) 2023-08-10 08:08:00 Reyes [facility] PHOSPHORUS 2023-08-10 08:08:00 Jose Robertotamara [facility] ALBUMIN 2023-08-10 08:08:00 Reyes [facility] MAGNESIUM 2023-08-10 08:08:00 Reyes [facility] BASIC METABOLIC PANEL (NA, K , CL, CO2, GLUCOSE, BUN, CREATININE, CA) 2023-08-10 08:08:00 Reyes [facility] AC PANEL 20 + LACTIC ACID 2023-08-10 02:40:00 Sahara [facility] AC PANEL 20 + LACTIC ACID 2023-08-10 02:40:00 Sahara [facility] AC PANEL 20 + LACTIC ACID 2023-08-10 02:40:00 Sinan Shoemaker [facility] BASIC METABOLIC PANEL (NA, K , CL, CO2, GLUCOSE, BUN, CREATININE, CA) 2023-08-10 01:08:00 Sahara [facility] BASIC METABOLIC PANEL (NA, K , CL, CO2, GLUCOSE, BUN, CREATININE, CA) 2023-08-10 01:08:00 Sahara [facility] BASIC METABOLIC PANEL (NA, K , CL, CO2, GLUCOSE, BUN, CREATININE, CA) 2023-08-10 01:08:00 Sahara [facility] POCT GLUCOSE (AUTOMATED) 2023-08-10 01:05:00 Rafael Palafox [facility] POCT GLUCOSE (AUTOMATED) 2023-08-10 01:05:00 [facility] POCT GLUCOSE (AUTOMATED) 2023-08-10 01:05:00 [facility] POCT GLUCOSE (AUTOMATED) 2023-08-09 22:18:00 [facility] POCT GLUCOSE (AUTOMATED) 2023-08-09 22:18:00 [facility] POCT GLUCOSE (AUTOMATED) 2023-08-09 22:18:00 Rafael Palafox [facility] POCT GLUCOSE (AUTOMATED) 2023-08-09 17:34:00 [facility] POCT GLUCOSE (AUTOMATED) 2023-08-09 17:34:00 Rafael Palafox [facility] POCT GLUCOSE (AUTOMATED) 2023-08-09 17:34:00 Rafael Palafox [facility] TRANSTHORACIC ECHO (TTE) COM PLETE W/ CONTRAST 2023-08-09 16:05:00 [facility] TRANSTHORACIC ECHO (TTE) COM PLETE W/ CONTRAST 2023-08-09 16:05:00 [facility] TRANSTHORACIC ECHO (TTE) COM PLETE W/ CONTRAST 2023-08-09 16:05:00 Kevyn [facility] BASIC METABOLIC PANEL (NA, K , CL, CO2, GLUCOSE, BUN, CREATININE, CA) 2023-08-09 13:20:00 Chaka Jose [facility] PHOSPHORUS 2023-08-09 13:20:00 Angelita Salgado [facility] PHOSPHORUS 2023-08-09 13:20:00 Angelita Salgado [facility] BASIC METABOLIC PANEL (NA, K , CL, CO2, GLUCOSE, BUN, CREATININE, CA) 2023-08-09 13:20:00 Chaka Jose [facility] PHOSPHORUS 2023-08-09 13:20:00 Angelita Salgado [facility] BASIC METABOLIC PANEL (NA, K , CL, CO2, GLUCOSE, BUN, CREATININE, CA) 2023-08-09 13:20:00 Chaka Jose [facility] POCT GLUCOSE (AUTOMATED) 2023-08-09 13:18:00 Rafael Palafox [facility] POCT GLUCOSE (AUTOMATED) 2023-08-09 13:18:00 [facility] POCT GLUCOSE (AUTOMATED) 2023-08-09 13:18:00 Rafael Palafox [facility] XR CHEST 1 2023-08-09 09:38:00 Sahara [facility] XR CHEST 1 2023-08-09 09:38:00 Mavratsluisa [facility] XR CHEST 1 2023-08-09 09:38:00 Mavratsluisa [facility] CBC WITH DIFF 2023-08-09 08:14:00 Solo [facility] HEPATIC FUNCTION PANEL (8007 6) (ALB,T.PRO,BILI T,BU/BC,ALT,AST,ALK PHOS) 2023-08-09 08:14:00 [facility]OLIC PANEL (NA, K , CL, CO2, GLUCOSE, BUN, CREATININE, CA) 2023-08-09 08:14:00 Richmond Brenden [facility] HEPATIC FUNCTION PANEL (8007 6) (ALB,T.PRO,BILI T,BU/BC,ALT,AST,ALK PHOS) 2023-08-09 08:14:00 Solo [facility] BASIC METABOLIC PANEL (NA, K , CL, CO2, GLUCOSE, BUN, CREATININE, CA) 2023-08-09 08:14:00 Richmond [facility] CBC WITH DIFF 2023-08-09 08:14:00 Solo [facility] HEPATIC FUNCTION PANEL (8007 6) (ALB,T.PRO,BILI T,BU/BC,ALT,AST,ALK PHOS) 2023-08-09 08:14:00 Solo [facility] BASIC METABOLIC PANEL (NA, K , CL, CO2, GLUCOSE, BUN, CREATININE, CA) 2023-08-09 08:14:00 Richmond [facility] CBC WITH DIFF 2023-08-09 08:14:00 Solo [facility] BLOOD CULTURE SCREEN 2023-08-09 03:06:00 Richmond [facility] BLOOD CULTURE SCREEN 2023-08-09 03:06:00 Richmond [facility] BLOOD CULTURE SCREEN 2023-08-09 03:06:00 Richmond [facility] BLOOD CULTURE SCREEN 2023-08-09 03:05:00 Richmond [facility] BLOOD CULTURE SCREEN 2023-08-09 03:05:00 [place] [facility] BLOOD CULTURE SCREEN 2023-08-09 03:05:00 [place] [facility] LACTIC ACID WHOLE BLOOD 2023-08-09 02:38:00 Sahara [facility] LACTIC ACID WHOLE BLOOD 2023-08-09 02:38:00 Sahara [facility] LACTIC ACID WHOLE BLOOD 2023-08-09 02:38:00 Sahara [facility] N-TERMINAL PRO-BNP 2023-08-09 02:27:00 Sahara [facility] MRSA / MSSA SCREEN BY PCR, JOE 2023-07 02:27:00 [place] [facility] MRSA / MSSA SCREEN BY PCR, JOE 2023-07 02:27:00 [place] [facility] BASIC METABOLIC PANEL (NA, K , CL, CO2, GLUCOSE, BUN, CREATININE, CA) 2023-08-09 02:27:00 Chaka Jose [facility] N-TERMINAL PRO-BNP 2023-08-09 02:27:00 Sinan Shoemaker [facility] BASIC METABOLIC PANEL (NA, K , CL, CO2, GLUCOSE, BUN, CREATININE, CA) 2023-08-09 02:27:00 Chaka Jose [facility] N-TERMINAL PRO-BNP 2023-08-09 02:27:00 Sahara [facility] MRSA / MSSA SCREEN BY JOE UREÑA 2023-07 02:27:00 Brenden Fragoso [facility] BASIC METABOLIC PANEL (NA, K , CL, CO2, GLUCOSE, BUN, CREATININE, CA) 2023-08-09 02:27:00 Chaka Jose [facility] POCT GLUCOSE (AUTOMATED) 2023-08-09 01:49:00 Kvng [facility] POCT GLUCOSE (AUTOMATED) 2023-08-09 01:49:00 Kvng [facility] POCT GLUCOSE (AUTOMATED) 2023-08-09 01:49:00 Kvng [facility] LACTIC ACID WHOLE BLOOD 2023-08-08 23:23:00 Chaka Jose [facility] LACTIC ACID WHOLE BLOOD 2023-08-08 23:23:00 Chaka Jose [facility] BASIC METABOLIC PANEL (NA, K , CL, CO2, GLUCOSE, BUN, CREATININE, CA) 2023-08-08 23:23:00 Chaka Jose [facility] HEPATIC FUNCTION PANEL (8007 6) (ALB,T.PRO,BILI T,BU/BC,ALT,AST,ALK PHOS) 2023-08-08 23:23:00 Kevin Bagley [facility] HEPATIC FUNCTION PANEL (8007 6) (ALB,T.PRO,BILI T,BU/BC,ALT,AST,ALK PHOS) 2023-08-08 23:23:00 Kevyn Kevin [facility] BASIC METABOLIC PANEL (NA, K , CL, CO2, GLUCOSE, BUN, CREATININE, CA) 2023-08-08 23:23:00 Chaka Jose [facility] LACTIC ACID WHOLE BLOOD 2023-08-08 23:23:00 Chaka Jose [facility] HEPATIC FUNCTION PANEL (8007 6) (ALB,T.PRO,BILI T,BU/BC,ALT,AST,ALK PHOS) 2023-08-08 23:23:00 Kevyn Kevin [facility] BASIC METABOLIC PANEL (NA, K , CL, CO2, GLUCOSE, BUN, CREATININE, CA) 2023-08-08 23:23:00 Chaka Jose [facility] POCT GLUCOSE (AUTOMATED) 2023-08-08 22:15:00 Kvng [facility] POCT GLUCOSE (AUTOMATED) 2023-08-08 22:15:00 Kvng [facility] POCT GLUCOSE (AUTOMATED) 2023-08-08 22:15:[address] [facility] UREA NITROGEN, URINE RANDOM 2023-08-08 19:28:00 Chaka Jose [facility] SODIUM, URINE RANDOM 2023-08-08 19:28:00 Chaka Jose [facility] PROTEIN CREAT RATIO URINE RANDOM 2023-07 19:28:00 Solo [facility] PROTEIN CREAT RATIO URINE RANDOM 2023-07 19:28:00 Solo Kacy Reyna [facility] SODIUM, URINE RANDOM 2023-08-08 19:28:00 Chaka Jose [facility] UREA NITROGEN, URINE RANDOM 2023-08-08 19:28:00 Chaka Jose [facility] UREA NITROGEN, URINE RANDOM 2023-08-08 19:28:00 Chaka Jose [facility] SODIUM, URINE RANDOM 2023-08-08 19:28:00 Chaka Jose [facility] PROTEIN CREAT RATIO URINE RANDOM 2023-07 19:28:00 Gal[place], Kacy [facility] LACTIC ACID WHOLE BLOOD 2023-08-08 18:55:00 Galambus, [facility] PROTHROMBIN TIME / INR 2023-08-08 18:55:00 Galambus, [facility] LACTIC ACID WHOLE BLOOD 2023-08-08 18:55:00 Galambus, [facility] PROTHROMBIN TIME / INR 2023-08-08 18:55:00 Galambus, [facility] LACTIC ACID WHOLE BLOOD 2023-08-08 18:55:00 Galambus, [facility] PROTHROMBIN TIME / INR 2023-08-08 18:55:00 Galambus, [facility] POCT GLUCOSE (AUTOMATED) 2023-08-08 18:39:00 Ashley Calderon [facility] POCT GLUCOSE (AUTOMATED) 2023-08-08 18:39:00 Ashley Calder[address] [facility] POCT GLUCOSE (AUTOMATED) 2023-08-08 18:39:00 Ashley Calderon [facility] US RETROPERITONEAL COMPLETE 2023-08-08 17:09:[address] [facility] US RETROPERITONEAL COMPLETE 2023-08-08 17:09:56 Galambus [facility] US RETROPERITONEAL COMPLETE 2023-08-08 17:09:56 Galambus [facility] HAV ANTIBODY (IGG AND IGM) 2023-08-08 15:46:00 Funmilayo Awan [facility] ANTI-NUCLEAR ANTIBODY-PATHOL OGIST INTERPRETATION 2023-08-08 15:46:00 Galambus [facility] HAV ANTIBODY (IGG AND IGM) 2023-08-08 15:46:00 [facility] 2023-08-08 15:46:00 Galambus, [facility] CYTOMEGALOVIRUS ANTIBODY IGM 2023-08-08 15:46:00 Galambus, [facility] EBV VIRAL CAPSID IGG ANTIBODY 2023-08-08 15:46:00 Galambus, [facility] ANTI-NUCLEAR ANTIBODY SCREEN 2023-08-08 15:46:00 Galambus, [facility] HEPAL-OOWTUT-YGNJNUUCT ABS 2023-08-08 15:46:00 Galambus, [facility] SMOOTH MUSCLE AB,IGG W/REFLEX 2023-08-08 15:46:00 Galambus, [facility] BASIC METABOLIC PANEL (NA, K , CL, CO2, GLUCOSE, BUN, CREATININE, CA) 2023-08-08 15:46:00 Galambus, [facility] ANTI-NUCLEAR ANTIBODY-PATHOL OGIST INTERPRETATION 2023-08-08 15:46:00 Galambus, [facility] SMOOTH MUSCLE AB,IGG W/REFLEX 2023-08-08 15:46:00 Galambus, [facility] [id number] ABS 2023-08-08 15:46:00 Galambus, [facility] BASIC METABOLIC PANEL (NA, K , CL, CO2, GLUCOSE, BUN, CREATININE, CA) 2023-08-08 15:46:00 Galambus, [facility] EBV VIRAL CAPSID IGG ANTIBODY 2023-08-08 15:46:00 Galambus, [facility] CYTOMEGALOVIRUS ANTIBODY IGM 2023-08-08 15:46:00 Galambus, [facility] ANTI-NUCLEAR ANTIBODY SCREEN 2023-08-08 15:46:00 Galambus, [facility] HCV ANTIBODY 2023-08-08 15:46:00 Galambus, [facility] HAV ANTIBODY (IGG AND IGM) 2023-08-08 15:46:00 Funmilayo Awan [facility] ANTI-NUCLEAR ANTIBODY-PATHOL OGIST INTERPRETATION 2023-08-08 15:46:00 Galambus, [facility] SMOOTH MUSCLE AB,IGG W/REFLEX 2023-08-08 15:46:00 Galambus, [facility] [id number] ABS 2023-08-08 15:46:00 Galambus, [facility] BASIC METABOLIC PANEL (NA, K , CL, CO2, GLUCOSE, BUN, CREATININE, CA) 2023-08-08 15:46:00 Galambus, [facility] EBV VIRAL CAPSID IGG ANTIBODY 2023-08-08 15:46:00 Galambus, [facility] CYTOMEGALOVIRUS ANTIBODY IGM 2023-08-08 15:46:00 Galambus, [facility] ANTI-NUCLEAR ANTIBODY SCREEN 2023-08-08 15:46:00 Galambus, [facility] HCV ANTIBODY 2023-08-08 15:46:00 Galambus, [facility] HIV 1/2 AG-AB WITH REFLEX 2023-08-08 09:17:00 Galambus, [facility] MAGNESIUM 2023-08-08 09:17:00 Galambus, [facility] BASIC METABOLIC PANEL (NA, K , CL, CO2, GLUCOSE, BUN, CREATININE, CA) 2023-08-08 09:17:00 Galambus, [facility] CBC WITH DIFF 2023-08-08 09:17:00 [facility] HEPATIC FUNCTION PANEL (8007 6) (ALB,T.PRO,BILI T,BU/BC,ALT,AST,ALK PHOS) 2023-08-08 09:17:00 Kevin Bagley [facility] HEPATITIS B SURFACE ANTIGEN 2023-08-08 09:17:00 [facility]PAT[facility] CORE ANTIBODY IGM 2023-08-08 09:17:00 Funmilayo Awan [facility] HIV 1/2 AG-AB WITH REFLEX 2023-08-08 09:17:00 Galambus [facility] MAGNESIUM 2023-08-08 09:17:00 Galyasmani [facility] HEPATIC FUNCTION PANEL (8007 6) (ALB,T.PRO,BILI T,BU/BC,ALT,AST,ALK PHOS) 2023-08-08 09:17:00 Kevyn [facility] BASIC METABOLIC PANEL (NA, K , CL, CO2, GLUCOSE, BUN, CREATININE, CA) 2023-08-08 09:17:00 Solo [facility] CBC WITH DIFF 2023-08-08 09:17:00 Solo [facility] HEPATITIS B SURFACE ANTIGEN 2023-08-08 09:17:00 Funmilayo Awan [facility] HEPATITIS B CORE ANTIBODY IGM 2023-08-08 09:17:00 Funmilayo Awan [facility] HIV 1/2 AG-AB WITH REFLEX 2023-08-08 09:17:00 Galambus, [facility] MAGNESIUM 2023-08-08 09:17:00 Galyasmani [facility] HEPATIC FUNCTION PANEL (8007 6) (ALB,T.PRO,BILI T,BU/BC,ALT,AST,ALK PHOS) 2023-08-08 09:17:00 Kevyn [facility] BASIC METABOLIC PANEL (NA, K , CL, CO2, GLUCOSE, BUN, CREATININE, CA) 2023-08-08 09:17:00 Solo [facility] CBC WITH DIFF 2023-08-08 09:17:00 Solo [facility] HEPATITIS B SURFACE ANTIGEN 2023-08-08 09:17:00 Funmilayo Awan [facility] HEPATITIS B CORE ANTIBODY IGM 2023-08-08 09:17:00 Funmilayo Awan [facility] POCT GLUCOSE (AUTOMATED) 2023-08-08 01:27:[address] 2023-08-08 01:27:[address] [facility] PO[facility]UCOSE (AUTOMATED) 2023-08-08 01:27:[address] [facility] POCT GLUCOSE (AUTOMATED) 2023-08-07 23:28:00 Kvng [facility] POCT GLUCOSE (AUTOMATED) 2023-08-07 23:28:00 Kvng [facility] POCT GLUCOSE (AUTOMATED) 2023-08-07 23:28:00 Kvng [facility] POCT GLUCOSE (AUTOMATED) 2023-08-07 22:33:00 Kvng [facility] POCT GLUCOSE (AUTOMATED) 2023-08-07 22:33:00 Kvng [facility] POCT GLUCOSE (AUTOMATED) 2023-08-07 22:33:00 Kvng [facility] IMMUNOGLOBULIN G SUBCLASS 4 2023-08-07 18:45:00 ObChaka gates. [facility] ANTI-NUCLEAR ANTIBODY-PATHOL OGIST INTERPRETATION 2023-08-07 18:45:00 Chaka Jose. [facility] LACTATE DEHYDROGENASE 2023-08-07 18:45:00 Chaka Jose. [facility] ANTI-NUCLEAR ANTIBODY SCREEN 2023-08-07 18:45:00 Chaka Jose. [facility] IMMUNOGLOBULIN G SUBCLASS 4 2023-08-07 18:45:00 Chaka oJse. [facility] HCV ANTIBODY 2023-08-07 18:45:00 Funmilayo Awan [facility] HEPATITIS B SURFACE ANTIBODY 2023-08-07 18:45:00 Funmilayo Awan [facility] ANTI-NUCLEAR ANTIBODY-PATHOL OGIST INTERPRETATION 2023-08-07 18:45:00 Chaka Jose. [facility] LACTATE DEHYDROGENASE 2023-08-07 18:45:00 Chaka Jose. [facility] ANTI-NUCLEAR ANTIBODY SCREEN 2023-08-07 18:45:00 Chaka Jose. [facility] HEPATITIS B SURFACE ANTIBODY 2023-08-07 18:45:00 Funmilayo Awan [facility] HCV ANTIBODY 2023-08-07 18:45:00 Funmilayo Awan [facility] IMMUNOGLOBULIN G SUBCLASS 4 2023-08-07 18:45:00 Chaka Jose. [facility] ANTI-NUCLEAR ANTIBODY-PATHOL OGIST INTERPRETATION 2023-08-07 18:45:00 Chaka Jose. [facility] LACTATE DEHYDROGENASE 2023-08-07 18:45:00 Chaka Jose. [facility] ANTI-NUCLEAR ANTIBODY SCREEN 2023-08-07 18:45:00 Chaka Jose. [facility] HEPATITIS B SURFACE ANTIBODY 2023-08-07 18:45:00 Funmilayo Awan [facility] HCV ANTIBODY 2023-08-07 18:45:00 Funmilayo Awan [facility] POCT GLUCOSE (AUTOMATED) 2023-08-07 17:48:00 Ashley Calderon [facility] POCT GLUCOSE (AUTOMATED) 2023-08-07 17:48:00 Ashley Calderon [facility] POCT GLUCOSE (AUTOMATED) 2023-08-07 17:48:00 Ashley Calderon [facility] US GALL BLADDER 2023-08-07 14:56:19 Chaka Jose. [facility] US GALL BLADDER 2023-08-07 14:56:19 Chaka Jose [facility] US GALL BLADDER 2023-08-07 14:56:19 Chaka Jose. [facility] POCT GLUCOSE (AUTOMATED) 2023-08-07 13:10:00 Ashley Calder[address] [facility] POCT GLUCOSE (AUTOMATED) 2023-08-07 13:10:00 Ashley Calderon [facility] POCT GLUCOSE (AUTOMATED) 2023-08-07 13:10:00 Kvng [facility] N-TERMINAL PRO-BNP 2023-08-07 09:05:00 Kevyn [facility] CBC WITH DIFF 2023-08-07 09:05:00 Kevyn [facility] BASIC METABOLIC PANEL (NA, K , CL, CO2, GLUCOSE, BUN, CREATININE, CA) 2023-08-07 09:05:00 Kevyn [facility] MAGNESIUM 2023-08-07 09:05:00 Kevyn [facility] PROTHROMBIN TIME / INR 2023-08-07 09:05:00 Kevyn [facility] ACTIVATED PARTIAL THRMPLAS RADHA 2 3 09:05:00 K[facility]yn [facility] N-TERMINAL PRO-BNP 2023-08-07 09:05:00 Kevyn [facility] C-REACTIVE PROTEIN 2023-08-07 09:05:00 Kevyn [facility] MAGNESIUM 2023-08-07 09:05:00 K[facility] C-REACTIVE PROTEIN 2023-08-07 09:05:00 Kevyn [facility] BASIC METABOLIC PANEL (NA, K , CL, CO2, GLUCOSE, BUN, CREATININE, CA) 2023-08-07 09:05:00 [facility]yn [facility] CBC WITH DIFF 2023-08-07 09:05:00 K[facility]yn [facility] PROTHROMBIN TIME / INR 2023-08-07 09:05:00 Kevyn [facility] ACTIVATED PARTIAL THRMPLAS RADHA 2 3 09:05:00 K[facility] N-TERMINAL PRO-BNP 2023-08-07 09:05:00 Kevyn [facility] MAGNESIUM 2023-08-07 09:05:00 Kevyn [facility] C-REACTIVE PROTEIN 2023-08-07 09:05:00 Kevyn [facility] BASIC METABOLIC PANEL (NA, K , CL, CO2, GLUCOSE, BUN, CREATININE, CA) 2023-08-07 09:05:00 [facility] CBC WITH DIFF 2023-08-07 09:05:00 K[facility]yn [facility] PROTHROMBIN TIME / INR 2023-08-07 09:05:00 K[facility] ACTIVATED PARTIAL THRMPLAS RADHA 2023-07-17 3 09:05:00 [facility] CREATININE, URINE RANDOM 2023-08-07 06:52:00 Galambus [facility] SODIUM, URINE RANDOM 2023-08-07 06:52:00 Galambus [facility] URINE DRUG (LCMSMS) - SYNTHE TIC OPIATES PANEL 2023-08-07 06:52:00 Kevyn [facility] URINALYSIS 2023-08-07 06:52:00 Kevyn [facility] URINE DRUG (IMMUNOASSAY) - COMPREHENSIVE DRUG SCREEN 2023-08-07 06:52:00 Kevyn [facility] URINE DRUG (LCMSMS) - OPIATE S PANEL 2023-08-07 06:52:00 Kevyn [facility] SODIUM, URINE RANDOM 2023-08-07 06:52:00 Galambus, [facility] CREATININE, URINE RANDOM 2023-08-07 06:52:00 Galambus [facility] URINE DRUG (IMMUNOASSAY) - COMPREHENSIVE DRUG SCREEN 2023-08-07 06:52:00 Kevyn [facility] URINALYSIS 2023-08-07 06:52:00 Kevyn [facility] CREATININE, URINE RANDOM 2023-08-07 06:52:00 Galambus, [facility] SODIUM, URINE RANDOM 2023-08-07 06:52:00 Galambus [facility] URINE DRUG (LCMSMS) - SYNTHE TIC OPIATES PANEL 2023-08-07 06:52:00 Kevyn [facility] URINE DRUG (IMMUNOASSAY) - COMPREHENSIVE DRUG SCREEN 2023-08-07 06:52:00 [facility] URINALYSIS 2023-08-07 06:52:00 [facility] PHOSPHORUS 2023-08-07 03:35:00 [facility] BLOOD CULTURE SCREEN 2023-08-07 03:35:00 [facility] CREATINE KINASE 2023-08-07 03:35:00 [facility] BLOOD CULTURE SCREEN 2023-08-07 03:35:00 [facility] PHOSPHORUS 2023-08-07 03:35:00 [facility] CREATINE KINASE 2023-08-07 03:35:00 [facility] BLOOD CULTURE SCREEN 2023-08-07 03:35:00 [facility]yn [facility] PHOSPHORUS 2023-08-07 03:35:00 [facility] CREATINE KINASE 2023-08-07 03:35:[address] [facility] [address] ABDOMEN PELVIS W CONTRAST 2023-08-06 20:53:21 [address] [facility] CT ABDOMEN PELVIS W CONTRAST 2023-08-06 20:53:[address] [facility] CT ABDOMEN PELVIS W CONTRAST 2023-08-06 20:53:21 Kvng [facility] URINALYSIS 2023-08-06 18:22:00 Kvng [facility] URINALYSIS 2023-08-06 18:22:00 Kvng [facility] URINALYSIS 2023-08-06 18:22:00 Kvng [facility] N-TERMINAL PRO-BNP 2023-08-06 18:11:00 Kvng [facility] CBC WITH DIFF 2023-08-06 18:11:00 Ashley Calderon [facility] LIPASE 2023-08-06 18:11:00 Kvng [facility] COMP. METABOLIC PANEL (17727) 2023-08-06 18:11:00 Kvng [facility] TROPONIN I 2023-08-06 18:11:00 Kvng [facility] N-TERMINAL PRO-BNP 2023-08-06 18:11:00 Kvng [facility] GLYCOSYLATED HEMOGLOBIN (A1C) 2023-08-06 18:11:00 eK[facility]yn [facility] THYROID STIMULATING HORMONE 2023-08-06 18:11:00 [facility] LIPID PANEL (80560)(TOTAL CHOLESTEROL, TRIGLYCERIDES, HDL) 2023-08-06 18:11:00 [facility] LIPASE 2023-08-06 18:11:00 Kvng [facility] TROPONIN I 2023-08-06 18:11:00 Kvng [facility] THYROID STIMULATING HORMONE 2023-08-06 18:11:00 [facility] COMP. METABOLIC PANEL (32751) 2023-08-06 18:11:00 Kvng [facility] LIPID PANEL (44461)(TOTAL CHOLESTEROL, TRIGLYCERIDES, HDL) 2023-08-06 18:11:00 [facility] CBC WITH DIFF 2023-08-06 18:11:00 Kvng [facility] GLYCOSYLATED HEMOGLOBIN (A1C) 2023-08-06 18:11:00 [facility] N-TERMINAL PRO-BNP 2023-08-06 18:11:00 Kvng [facility] LIPASE 2023-08-06 18:11:00 Kvng [facility] TROPONIN I 2023-08-06 18:11:00 Kvng [facility] THYROID STIMULATING HORMONE 2023-08-06 18:11:00 [facility] COMP. METABOLIC PANEL (05652) 2023-08-06 18:11:00 Kvng [facility] LIPID PANEL (33985)(TOTAL CHOLESTEROL, TRIGLYCERIDES, HDL) 2023-08-06 18:11:00 Kevyn Kevin [facility] CBC WITH DIFF 2023-08-06 18:11:00 Ashley Calderon [facility] GLYCOSYLATED HEMOGLOBIN (A1C) 2023-08-06 18:11:00 Kevyn Kevin [facility] HB ECG ROUTINE & RHYTHM STRIP 2023-08-06 17:56:47 Ashley Calderon [facility] HB ECG ROUTINE & RHYTHM STRIP 2023-08-06 17:56:47 Ashley Calderon [facility] HB ECG ROUTINE & RHYTHM STRIP 2023-08-06 17:56:47 Ashely Calderon [facility] BI SCREENING TOMOSYNTHESIS BILATERAL 2023-07-24 15:13:00 Dwayne [facility] DEXA AXIAL (HIP AND SPINE) 2023-07-24 14:52:05 Dwayne [facility] DEXA PERIPHERAL (FOREARM) 2023-07-24 14:52:05 Dwayne [facility] FLU VACC(),65+YR,0. 5 ML,IM,ADJUVANTED,QUAD(FLUAD) 2023-07-10 16:08:52 Dwayne [facility] PNEUMOCOCCAL 20 CONJUGATE (P REVNAR 20) VACCINE 2023-07-10 16:08:50 Dwayne [facility] Encounters Start Date/Time End Date/Time Encounter Type Admission Type Attending Clinicians Care Facility Care Department Encounter ID Source 2023-09-03 00:00:00 2023-09-03 16:51:25 Transition of Care Loan Kumar 1.2.840.114 350.1.13.10 4.2.7.2.686 [id number] [facility] 2023-08-06 12:21:00 2023-09-01 11:38:00 Inpatient X KIKI VALERI [facility] [id number] [facility] 2023-08-06 12:21:00 2023-09-01 11:38:00 Hospital Encounter Tamie Riley, [place] Yeh, Jt Palafox, Rafael Ahumada, Jose Roberto Rosales, Dipak Swanson, Val[facility] 1.2.840.114 350.1.13.10 4.2.7.2.686 [id number] [facility] 2023-08-28 00:00:00 2023-08-28 00:00:00 Orders Only Doctor Unassigned, Osino 1.2.840.1 [id number] 3.104.2.7 .3.663668 .8 [id number] [facility] 2023-08-27 14:34:00 2023-08-27 15:38:00 Surgery Ella Juan 1.2.840.1 74834.1.1 3.104.2.7 .3.225719 .8 [id number] [facility] 2023-08-27 13:50:00 2023-08-27 14:41:00 Anesthesia Event Vineet Hickman Margaret 1.2.840.1 [id number] 3.104.2.7 .3.459041 .8 [id number] [facility] 2023-08-27 06:47:51 2023-08-27 06:47:51 Anesthesia Event Juan F Stapleton 1.2.840.1 [id number] 3.104.2.7 .3.521290 .8 [id number] [facility] 2023-08-06 00:00:00 2023-08-06 00:00:00 Travel 1.2.840.1 [id number] 3.104.2.7 .3.449218 .8 1.2.840.114 350.1.13.10 4.2.7.3.698 [id number] [facility] 2023-07-24 09:28:44 2023-07-24 23:59:00 Hospital Encounter [place], Peter 1.2.840.1 [id number] 3.104.2.7 .3.493451 .8 [id number] [facility] 2023-07-24 09:28:16 2023-07-24 23:59:00 Hospital Encounter Napoleon Rice 1.2.840.1 74490.1.1 3.104.2.7 .3.411706 .8 [id number] [facility] 2023-07-10 10:00:00 2023-07-10 11:09:08 Office Visit Napoleon Rice 1.2.840.1 [id number] 3.104.2.7 .3.851354 .8 [id number] [facility] 2023-07-10 00:00:00 2023-07-10 00:00:00 Travel 1.2.840.1 83138.1.1 3.104.2.7 .3.245617 .8 1.2.840.114 350.1.13.10 4.2.7.3.698 [id number] [facility] Results Test Description Test Time Test Comments Results Result Co mments Source [id number] 14:47:21EXAM: XR KUB HISTORY: 68 years-old Female; Provided indication: Confirm cystogastrostomyplacement . TECHNIQUE: Frontal views of the abdomen and pelvis COMPARISON: [facility] 2023-08-29 12:35:48* Test Item Value Reference Range Interpretation Comme nts HBsAB (test code = 7698472275) Positive HBsAb Semi-Quantitative (test code = 8599185205) 125.00 mIU/mL MURIEL (test code = MURIEL) Interpretation: ?Hepatitis B Surface Antibody ? Negative - Patient is considered to be not immune to infection with HBV. ? ? Positive - Anti-HBs detected at greater than or equal to 12 mIU/mL. ?Patient is considered to be immune to infection with HBV. ? [facility] [id number] 12:35:48* Test Item Value Reference Range Interpretation Comme nts HCV Ab (test code = 51790-3) Negative HCV Semi-Quantitative (test code = 17845-0) 0.02 [facility] [id number] 12:35:48* Test Item Value Reference Range Interpretation Comme nts HBsAB (test code = 9139130952) Positive HBsAb Semi-Quantitative (test code = 8345106750) 125.00 mIU/mL MURIEL (test code = MURIEL) Interpretation: ?Hepatitis B Surface Antibody ? Negative - Patient is considered to be not immune to infection with HBV. ? ? Positive - Anti-HBs detected at greater than or equal to 12 mIU/mL. ?Patient is considered to be immune to infection with HBV. ? [facility] [id number] 12:35:48* Test Item Value Reference Range Interpretation Comme nts HCV Ab (test code = 31630-4) Negative HCV Semi-Quantitative (test code = 91564-6) 0.02 [facility] (17199)2023-08-29 11:44:26* Test Item Value Reference Range Interpretation Comme nts NA (test code = 4709442350) 128 mmol/L 135-145 L K (test code = 7856868203) 3.9 mmol/L 3.5-5.0 CL (test code = 2819860357) 97 mmol/L 98-108 L CO2 TOTAL (test code = 2510744269) 23 mmol/L 23-31 AGAP (test code = 1349531618) 8 2-16 BUN (test code = 3674768133) 53 mg/dL 7-23 H GLUCOSE (test code = 0138102012) 129 mg/dL 70-110 H CREATININE (test code = 2160-0) 2.40 mg/dL 0.50-1.04 H TOTAL BILI (test code = 6018706419) 0.6 mg/dL 0.1-1.1 CALCIUM (test code = 9678520646) 7.7 mg/dL 8.6-10.6 L T PROTEIN (test code = 4786728583) 5.1 g/dL 6.3-8.2 L ALBUMIN (test code = 5785832512) 2.3 g/dL 3.5-5.0 L ALK PHOS (test code = 5576774635) 99 U/L 34-122 ALTv (test code = 1742-6) 17 U/L 5-35 AST(SGOT) (test code = 1751815004) 27 U/L 13-40 eGFR (test code = 13715-9) 21.6 mL/min/1.73m2 CKD-EPI eGFR (2020). Assuming creatinine has been stable day-to-day for at least three months, the eGFR indicates Category G4 (15 - 29 mL/min/1.73 m2) Lab Interpretation (test code = 30517-4) Abnormal [facility]. Metabolic Panel (02507)2023-08-29 11:44:26* Test Item Value Reference Range Interpretation Comme nts NA (test code = 0977144873) 128 mmol/L 135-145 L K (test code = 7761308021) 3.9 mmol/L 3.5-5.0 CL (test code = 1850321817) 97 mmol/L 98-108 L CO2 TOTAL (test code = 1820616227) 23 mmol/L 23-31 AGAP (test code = 5547903734) 8 2-16 BUN (test code = 3310668213) 53 mg/dL 7-23 H GLUCOSE (test code = 7096110159) 129 mg/dL 70-110 H CREATININE (test code = 2160-0) 2.40 mg/dL 0.50-1.04 H TOTAL BILI (test code = 3142067457) 0.6 mg/dL 0.1-1.1 CALCIUM (test code = 4883306322) 7.7 mg/dL 8.6-10.6 L T PROTEIN (test code = 2617332788) 5.1 g/dL 6.3-8.2 L ALBUMIN (test code = 4684131042) 2.3 g/dL 3.5-5.0 L ALK PHOS (test code = 5657283287) 99 U/L 34-122 ALTv (test code = 1742-6) 17 U/L 5-35 AST(SGOT) (test code = 5067762304) 27 U/L 13-40 eGFR (test code = 20905-5) 21.6 mL/min/1.73m2 CKD-EPI eGFR (2020). Assuming creatinine has been stable day-to-day for at least three months, the eGFR indicates Category G4 (15 - 29 mL/min/1.73 m2) Lab Interpretation (test code = 60112-8) Abnormal [facility] without [id number] 11:11:44* Test Item Value Reference Range Interpretation Comme nts WBC (test code = 6690-2) 15.05 4.30-11.10 H RBC (test code = 789-8) 3.55 3.93-5.25 L HGB (test code = 718-7) 9.7 g/dL 11.6-15.0 L HCT (test code = 4544-3) 29.6 % 35.7-45.2 L MCH (test code = 785-6) 27.3 pg 25.9-32.8 MCV (test code = 787-2) 83.4 fL 80.6-95.5 MCHC (test code = 786-4) 32.8 g/dL 31.6-35.1 PLT (test code = 777-3) 334 166-358 MPV (test code = 72088-5) 9.9 fL 9.5-12.9 RDW-CV (test code = 788-0) 16.3 % 12.0-15.5 H RDW-SD (test code = 98948-7) 50.3 fL 39.0-49.9 H NRBC x10^3 (test code = 3806803205) See_Comment [Automated messa ge] The system which generated this result transmitted reference range: 10*3/?L. The reference range was not used to interpret this result as normal/abnormal. NRBC/100 WBC (test code = 5145589212) 0.0 0.0-10.0 IPF % (test code = 9773807809) Lab Interpretation (test code = 77425-3) Abnormal [facility] without [id number] 11:11:44* Test Item Value Reference Range Interpretation Comme nts WBC (test code = 6690-2) 15.05 4.30-11.10 H RBC (test code = 789-8) 3.55 3.93-5.25 L HGB (test code = 718-7) 9.7 g/dL 11.6-15.0 L HCT (test code = 4544-3) 29.6 % 35.7-45.2 L MCH (test code = 785-6) 27.3 pg 25.9-32.8 MCV (test code = 787-2) 83.4 fL 80.6-95.5 MCHC (test code = 786-4) 32.8 g/dL 31.6-35.1 PLT (test code = 777-3) 334 166-358 MPV (test code = 30108-9) 9.9 fL 9.5-12.9 RDW-CV (test code = 788-0) 16.3 % 12.0-15.5 H RDW-SD (test code = 20723-6) 50.3 fL 39.0-49.9 H NRBC x10^3 (test code = 1731838421) See_Comment [Automated messa ge] The system which generated this result transmitted reference range: 10*3/?L. The reference range was not used to interpret this result as normal/abnormal. NRBC/100 WBC (test code = 9458585006) 0.0 0.0-10.0 IPF % (test code = 6945822811) Lab Interpretation (test code = 64300-8) [facility] [id number] 07:17:38Ordering physician: VALERI SWANSON Indication: Rule out TB Comparison: Chest dated 08/13/2023 Technical quality: Adequate Findings: Single AP view of the chest. Right internal jugular centralvenous catheter terminates in the right atrium. The cardiopericardialsilhouette is stably enlarged. There is asmall left pleural effusion withbibasilar atelectasis. There are no definite radiographic manifestations oftuberculosis. The visualized bony thorax is intact.[facility] [id number] 18:17:06 Ordered by an unspecified provider.[facility] ([id number])2023-08-28 11:56:07* Test Item Value Reference Range Interpretation Comme nts NA (test code = 5963867953) 126 mmol/L 135-145 L K (test code = 6993892606) 3.9 mmol/L 3.5-5.0 CL (test code = 3705997233) 96 mmol/L 98-108 L CO2 TOTAL (test code = 0437736921) 21 mmol/L 23-31 L AGAP (test code = 8855388748) 9 2-16 BUN (test code = 9387019621) 93 mg/dL 7-23 H GLUCOSE (test code = 4342805896) 194 mg/dL 70-110 H CREATININE (test code = 2160-0) 3.62 mg/dL 0.50-1.04 H TOTAL BILI (test code = 4297524076) 0.6 mg/dL 0.1-1.1 CALCIUM (test code = 5937016326) 7.3 mg/dL 8.6-10.6 L T PROTEIN (test code = 1926068094) 5.3 g/dL 6.3-8.2 L ALBUMIN (test code = 5287864660) 2.4 g/dL 3.5-5.0 L ALK PHOS (test code = 8536630308) 109 U/L 34-122 ALTv (test code = 1742-6) 17 U/L 5-35 AST(SGOT) (test code = 5322869120) 33 U/L 13-40 eGFR (test code = 30405-5) 13.2 mL/min/1.73m2 CKD-EPI eGFR (2020). Assuming creatinine has been stable day-to-day for at least three months, the eGFR indicates Category G5 (<= 14mL/min/1.73 m2) Lab Interpretation (test code = 42971-2) [facility] (73923[facility]2023-08-28 11:56:07* Test Item Value Reference Range Interpretation Comme nts NA (test code = 1130100861) 126 mmol/L 135-145 L K (test code = 6475705068) 3.9 mmol/L 3.5-5.0 CL (test code = 8259845372) 96 mmol/L 98-108 L CO2 TOTAL (test code = 3821992613) 21 mmol/L 23-31 L AGAP (test code = 6499802349) 9 2-16 BUN (test code = 8667126987) 93 mg/dL 7-23 H GLUCOSE (test code = 0891782355) 194 mg/dL 70-110 H CREATININE (test code = 2160-0) 3.62 mg/dL 0.50-1.04 H TOTAL BILI (test code = 3019869356) 0.6 mg/dL 0.1-1.1 CALCIUM (test code = 3273394422) 7.3 mg/dL 8.6-10.6 L T PROTEIN (test code = 8570939588) 5.3 g/dL 6.3-8.2 L ALBUMIN (test code = 9992394863) 2.4 g/dL 3.5-5.0 L ALK PHOS (test code = 8313880175) 109 U/L 34-122 ALTv (test code = 1742-6) 17 U/L 5-35 AST(SGOT) (test code = 3379846371) 33 U/L 13-40 eGFR (test code = 43894-5) 13.2 mL/min/1.73m2 CKD-EPI eGFR (2020). Assuming creatinine has been stable day-to-day for at least three months, the eGFR indicates Category G5 (<= 14mL/min/1.73 m2) Lab Interpretation (test code = 55428-4) [facility] 11:48:06* Test Item Value Reference Range Interpretation Comme nts PHOSPHORUS (test code = 5042411157) 8.5 mg/dL 2.5-5.0 H Lab Interpretation (test cod e = 65446-0) [facility]normal [facility] 11:48:06* Test Item Value Reference Range Interpretation Comme nts MAGNESIUM (test code = 2908885412) 2.2 mg/dL 1.7-2.4 Lab Interpretation (test cod e = 02897-2) Normal [facility]14 11:48:06* Test Item Value Reference Range Interpretation Comme nts PHOSPHORUS (test code = 4361971651) 8.5 mg/dL 2.5-5.0 H Lab Interpretation (test cod e = 33953-2) [facility]normal [facility] 11:48:06* Test Item Value Reference Range Interpretation Comme nts MAGNESIUM (test code = 8006538964) 2.2 mg/dL 1.7-2.4 Lab Interpretation (test cod e = 08627-0) Normal [facility]14 11:48:06* Test Item Value Reference Range Interpretation Comme nts PHOSPHORUS (test code = 7124901841) 8.5 mg/dL 2.5-5.0 H Lab Interpretation (test cod e = 82552-7) [facility]normal [facility] 11:48:06* Test Item Value Reference Range Interpretation Comme nts MAGNESIUM (test code = 0239199818) 2.2 mg/dL 1.7-2.4 Lab Interpretation (test cod e = 40345-8) Normal [facility] [id number] 11:20:44* Test Item Value Reference Range Interpretation Comme nts WBC (test code = 6690-2) 14.27 4.30-11.10 H RBC (test code = 789-8) 3.13 3.93-5.25 L HGB (test code = 718-7) 8.6 g/dL 11.6-15.0 L HCT (test code = 4544-3) 26.1 % 35.7-45.2 L MCH (test code = 785-6) 27.5 pg 25.9-32.8 MCV (test code = 787-2) 83.4 fL 80.6-95.5 MCHC (test code = 786-4) 33.0 g/dL 31.6-35.1 PLT (test code = 777-3) 311 166-358 MPV (test code = 51867-6) 10.1 fL 9.5-12.9 RDW-CV (test code = 788-0) 16.5 % 12.0-15.5 H RDW-SD (test code = 51019-7) 50.8 fL 39.0-49.9 H NRBC x10^3 (test code = 9259986900) See_Comment [Automated messa ge] The system which generated this result transmitted reference range: 10*3/?L. The reference range was not used to interpret this result as normal/abnormal. NRBC/100 WBC (test code = 9272643166) 0.0 0.0-10.0 IPF % (test code = 7083038917) Lab Interpretation (test code = 20886-8) [facility] [id number] 11:20:44* Test Item Value Reference Range Interpretation Comme nts WBC (test code = 6690-2) 14.27 4.30-11.10 H RBC (test code = 789-8) 3.13 3.93-5.25 L HGB (test code = 718-7) 8.6 g/dL 11.6-15.0 L HCT (test code = 4544-3) 26.1 % 35.7-45.2 L MCH (test code = 785-6) 27.5 pg 25.9-32.8 MCV (test code = 787-2) 83.4 fL 80.6-95.5 MCHC (test code = 786-4) 33.0 g/dL 31.6-35.1 PLT (test code = 777-3) 311 166-358 MPV (test code = 16546-7) 10.1 fL 9.5-12.9 RDW-CV (test code = 788-0) 16.5 % 12.0-15.5 H RDW-SD (test code = 21811-1) 50.8 fL 39.0-49.9 H NRBC x10^3 (test code = 0661176663) See_Comment [Automated messa ge] The system which generated this result transmitted reference range: 10*3/?L. The reference range was not used to interpret this result as normal/abnormal. NRBC/100 WBC (test code = 0953539683) 0.0 0.0-10.0 IPF % (test code = 9374001048) Lab Interpretation (test code = 51662-0) [facility]normal [facility] [id number] 11:01:41* Test Item Value Reference Range Interpretation Comme nts Blood Culture-Aerobic (test code = 55493-1) No organisms isolated No growth Previous preliminary verified result was Culture In Progress on 08/23/[address] [place], [place] [address]TPrevious preliminary verified result was No growth at 24 hours on 08/24/[address] [place], [place] [address]Previous preliminary verified result was No growth at 48 hours on 08/25/[address] [place], [place] [address]TPrevious preliminary verified result was No growth at 72 hours on 08/26/[address] [place] [address] Blood Culture-Anaerobic (test code = 72449-3) No organisms isolated No growth Previous preliminary verified result was Culture In Progress on 08/23/[address] [place], [place] [address]Previous preliminary verified result was No growth at 24 hours on 08/24/[address] [place], [place] [address]TPrevious preliminary verified result was No growth at 48 hours on 08/25/[address] [place], [place] [address]revious preliminary verified result was No growth at 72 hours on 08/26/[address] [place] [address] Lab Interpretation (test code = 69221-6) [facility] CULTURE [id number] 11:01:41* Test Item Value Reference Range Interpretation Comme [facility] Blood Culture-Aerobic (test code = 28931-1) No organisms isolated No growth Previous preliminary verified result was Culture In Progress on 08/23/[address] [place], [place] [address]TPrevious preliminary verified result was No growth at 24 hours on 08/24/[address] [place], [place] [address]TPrevious preliminary verified result was No growth at 48 hours on 08/25/[address] [place], [place] [address]TPrevious preliminary verified result was No growth at 72 hours on 08/26/[address] [place] [address] Blood Culture-Anaerobic (test code = 65426-2) No organisms isolated No growth Previous preliminary verified result was Culture In Progress on 08/23/[address] [place], [place] [address]Previous preliminary verified result was No growth at 24 hours on 08/24/[address] [place], [place] [address]TPrevious preliminary verified result was No growth at 48 hours on 08/25/[address] [place], [place] [address]TPrevious preliminary verified result was No growth at 72 hours on 08/26/[address] [place] [address] Lab Interpretation (test code = 19551-8) [facility] CULTURE [id number] 11:01:41* Test Item Value Reference Range Interpretation Comme nts Blood Culture-Aerobic (test code = 45901-5) No organisms isolated No growth Previous preliminary verified result was Culture In Progress on 08/23/[address] [place], [place] [address]TPrevious preliminary verified result was No growth at 24 hours on 08/24/[address] [place], [place] [address]TPrevious preliminary verified result was No growth at 48 hours on 08/25/2023 at [facility] CDTPrevious preliminary verified result was No growth at 72 hours on 08/26/[address] [place] [address] Blood Culture-Anaerobic (test code = 21893-5) No organisms isolated No growth Previous preliminary verified result was Culture In Progress on 08/23/[address] [place], [place] [address]TPrevious preliminary verified result was No growth at 24 hours on 08/24/[address] [place], [place] [address]TPrevious preliminary verified result was No growth at 48 hours on 08/25/[address] [place], [place] [address]TPrevious preliminary verified result was No growth at 72 hours on 08/26/[address] [place] [address] Lab Interpretation (test code = 88728-4) [facility] CULTURE [id number] 11:01:41* Test Item Value Reference Range Interpretation Comme [facility] Blood Culture-Aerobic (test code = 66791-6) No organisms isolated No growth Previous preliminary verified result was Culture In Progress on 08/23/[address] [place], [place] [address]TPrevious preliminary verified result was No growth at 24 hours on 08/24/[address] [place], [place] [address]TPrevious preliminary verified result was No growth at 48 hours on 08/25/[address] [place], [place] [address]TPrevious preliminary verified result was No growth at 72 hours on 08/26/[address] [place] [address] Blood Culture-Anaerobic (test code = 61209-0) No organisms isolated No growth Previous preliminary verified result was Culture In Progress on 08/23/[address] [place], [place] [address]TPrevious preliminary verified result was No growth at 24 hours on 08/24/[address] [place], [place] [address]TPrevious preliminary verified result was No growth at 48 hours on 08/25/[address] [place], [place] [address]TPrevious preliminary verified result was No growth at 72 hours on 08/26/[address] [place] [address] Lab Interpretation (test code = 11706-5) [facility] CULTURE [id number] 11:01:41* Test Item Value Reference Range Interpretation Comme nts Blood Culture-Aerobic (test code = 50090-0) No organisms isolated No growth Previous preliminary verified result was Culture In Progress on 08/23/2023 at [facility] [place] CDTPrevious preliminary verified result was No growth at 24 hours on 08/24/2023 at [facility] CDTPrevious preliminary verified result was No growth at 48 hours on 08/25/2023 at [facility] CDTPrevious preliminary verified result was No growth at 72 hours on 08/26/[address] [place] [address] Blood Culture-Anaerobic (test code = 16182-4) No organisms isolated No growth Previous preliminary verified result was Culture In Progress on 08/23/2023 at [facility] [place] CDTPrevious preliminary verified result was No growth at 24 hours on 08/24/2023 at [facility] CDTPrevious preliminary verified result was No growth at 48 hours on 08/25/2023 at [facility] CDTPrevious preliminary verified result was No growth at 72 hours on 08/26/[address] [place], [place] [address] Lab Interpretation (test code = 74750-8) [facility] 1 [id number] 21:04:02EXAM: XR CHEST 1 VW COMPARISON: Chest x-ray 08/13/2023. HISTORY: Shortness of breath. 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 [facility] [id number] 21:04:02EXAM: XR CHEST 1 VW COMPARISON: Chest x-ray 08/13/2023. HISTORY: Shortness of breath. 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 [facility] 19:06:00StKristi valencia CRNA ? ? 08/27/2023 ?2:17 PMIntubationDate/Time: 08/27/2023 2:06 PMUrgency: elective Airway not difficult General Information and Staff Patient location during procedure: ORPerformed: resident/[employer] Performed by: Kristi Bond CRNAAuthorized by: Vineet Hickman MD ? Indications and Patient ConditionIndications for airway management: anesthesiaSpontaneous Ventilation: absentSedation level: deepPreoxygenated: yesPatient position: sniffing (HOB UP)Mask difficulty assessment: 0 - not attempted Final Airway DetailsFinal airway type: endotracheal airway Successful airway:ETTCuffed: yes Successful intubation technique: video laryngoscopy (CMAC)Facilitating devices/methods: intubating styletEndotracheal tube insertion site: oralBlade: Fatuma (CMAC)Blade size: #3ETT size (mm): 7.0Cormack-Lehane Classification: grade I - full view of glottisPlacement verified by: capnometry Measured from: teethETT to teeth (cm): 20Number of attempts at approach: 1 Additional CommentsEyes taped prior to DL. Elective CMAC 3 intubation. [facility]ful.[facility] 10:58:37* Test Item Value Reference Range Interpretation Comme nts MAGNESIUM (test code = 2745394898) 1.7 mg/dL 1.7-2.4 Lab Interpretation (test cod e = 97333-9) [facility] 10:58:37* Test Item Value Reference Range Interpretation Comme nts MAGNESIUM (test code = 5398308678) 1.7 mg/dL 1.7-2.4 Lab Interpretation (test cod e = 62819-9) Normal [facility] with [id number] 10:17:09* Test Item Value Reference Range Interpretation Comme nts WBC (test code = 6690-2) 10.44 4.30-11.10 RBC (test code = 789-8) 3.69 3.93-5.25 L HGB (test code = 718-7) 10.1 g/dL 11.6-15.0 L HCT (test code = 4544-3) 30.7 % 35.7-45.2 L MCV (test code = 787-2) 83.2 fL 80.6-95.5 MCH (test code = 785-6) 27.4 pg 25.9-32.8 MCHC (test code = 786-4) 32.9 g/dL 31.6-35.1 RDW-SD (test code = 34542-2) 50.4 fL 39.0-49.9 H RDW-CV (test code = 788-0) 16.4 % 12.0-15.5 H PLT (test code = 777-3) 344 166-358 MPV (test code = 20094-6) 9.8 fL 9.5-12.9 NRBC/100 WBC (test code = 4406135541) 0.2 0.0-10.0 NRBC x10^3 (test code = 1594543007) 0.02 See_Comment [Automated message] The system which generated this result transmitted reference range: 10*3/?L. The reference range was not used to interpret this result as normal/abnormal. GRAN MAT (NEUT) % (test code = 770-8) 84.8 % IMM GRAN % (test code = 8422821516) 1.40 % LYMPH % (test code = 736-9) 7.2 % MONO % (test code = 5905-5) 5.8 % EOS % (test code = 713-8) 0.1 % BASO % (test code = 706-2) 0.7 % GRAN MAT x10^3(ANC) (test code = 9988957069) 8.85 10*3/uL 1.88-7.09 H IMM GRAN x10^3 (test code = 0257149105) 0.15 10*3/uL 0.00-0.06 H LYMPH x10^3 (test code = 731-0) 0.75 10*3/uL 1.32-3.29 L MONO x10^3 (test code = 742-7) 0.61 10*3/uL 0.33-0.92 EOS x10^3 (test code = 711-2) 0.03-0.39 L BASO x10^3 (test code = 704-7) 0.07 10*3/uL 0.01-0.07 RYAN CELLS (test code = 7790-9) 2+ See_Comment A [Automated message] The system which generated this result transmitted reference range: (none). The reference range was not used to interpret this result as normal/abnormal. BANDS (test code = 0172384805) MARKED INCREASED A TOXIC CHANGES (test code = 803-7) Present A GIANT PLATELETS (test code = 5908-9) Present See_Comment A [Automated message] The system which generated this result transmitted reference range: (none). The reference range was not used to interpret this result as normal/abnormal. Lab Interpretation (test code = 72057-6) Abnormal [facility] with [id number] 10:17:09* Test Item Value Reference Range Interpretation Comme nts WBC (test code = 6690-2) 10.44 4.30-11.10 RBC (test code = 789-8) 3.69 3.93-5.25 L HGB (test code = 718-7) 10.1 g/dL 11.6-15.0 L HCT (test code = 4544-3) 30.7 % 35.7-45.2 L MCV (test code = 787-2) 83.2 fL 80.6-95.5 MCH (test code = 785-6) 27.4 pg 25.9-32.8 MCHC (test code = 786-4) 32.9 g/dL 31.6-35.1 RDW-SD (test code = 44746-0) 50.4 fL 39.0-49.9 H RDW-CV (test code = 788-0) 16.4 % 12.0-15.5 H PLT (test code = 777-3) 344 166-358 MPV (test code = 19578-5) 9.8 fL 9.5-12.9 NRBC/100 WBC (test code = 2698951811) 0.2 0.0-10.0 NRBC x10^3 (test code = 7637000086) 0.02 See_Comment [Automated message] The system which generated this result transmitted reference range: 10*3/?L. The reference range was not used to interpret this result as normal/abnormal. GRAN MAT (NEUT) % (test code = 770-8) 84.8 % IMM GRAN % (test code = 6024918265) 1.40 % LYMPH % (test code = 736-9) 7.2 % MONO % (test code = 5905-5) 5.8 % EOS % (test code = 713-8) 0.1 % BASO % (test code = 706-2) 0.7 % GRAN MAT x10^3(ANC) (test code = 4070167789) 8.85 10*3/uL 1.88-7.09 H IMM GRAN x10^3 (test code = 4454096238) 0.15 10*3/uL 0.00-0.06 H LYMPH x10^3 (test code = 731-0) 0.75 10*3/uL 1.32-3.29 L MONO x10^3 (test code = 742-7) 0.61 10*3/uL 0.33-0.92 EOS x10^3 (test code = 711-2) 0.03-0.39 L BASO x10^3 (test code = 704-7) 0.07 10*3/uL 0.01-0.07 RYAN CELLS (test code = 7790-9) 2+ See_Comment A [Automated message] The system which generated this result transmitted reference range: (none). The reference range was not used to interpret this result as normal/abnormal. BANDS (test code = 9092061729) MARKED INCREASED A TOXIC CHANGES (test code = 803-7) Present A GIANT PLATELETS (test code = 5908-9) Present See_Comment A [Automated message] The system which generated this result transmitted reference range: (none). The reference range was not used to interpret this result as normal/abnormal. Lab Interpretation (test code = 10283-4) Abnormal [facility] with [id number] 10:17:09* Test Item Value Reference Range Interpretation Comme nts WBC (test code = 6690-2) 10.44 4.30-11.10 RBC (test code = 789-8) 3.69 3.93-5.25 L HGB (test code = 718-7) 10.1 g/dL 11.6-15.0 L HCT (test code = 4544-3) 30.7 % 35.7-45.2 L MCV (test code = 787-2) 83.2 fL 80.6-95.5 MCH (test code = 785-6) 27.4 pg 25.9-32.8 MCHC (test code = 786-4) 32.9 g/dL 31.6-35.1 RDW-SD (test code = 88314-8) 50.4 fL 39.0-49.9 H RDW-CV (test code = 788-0) 16.4 % 12.0-15.5 H PLT (test code = 777-3) 344 166-358 MPV (test code = 95487-4) 9.8 fL 9.5-12.9 NRBC/100 WBC (test code = 2060901997) 0.2 0.0-10.0 NRBC x10^3 (test code = 3247252539) 0.02 See_Comment [Automated message] The system which generated this result transmitted reference range: 10*3/?L. The reference range was not used to interpret this result as normal/abnormal. GRAN MAT (NEUT) % (test code = 770-8) 84.8 % IMM GRAN % (test code = 1526498175) 1.40 % LYMPH % (test code = 736-9) 7.2 % MONO % (test code = 5905-5) 5.8 % EOS % (test code = 713-8) 0.1 % BASO % (test code = 706-2) 0.7 % GRAN MAT x10^3(ANC) (test code = 8051312829) 8.85 10*3/uL 1.88-7.09 H IMM GRAN x10^3 (test code = 9661723768) 0.15 10*3/uL 0.00-0.06 H LYMPH x10^3 (test code = 731-0) 0.75 10*3/uL 1.32-3.29 L MONO x10^3 (test code = 742-7) 0.61 10*3/uL 0.33-0.92 EOS x10^3 (test code = 711-2) 0.03-0.39 L BASO x10^3 (test code = 704-7) 0.07 10*3/uL 0.01-0.07 RYAN CELLS (test code = 7790-9) 2+ See_Comment A [Automated message] The system which generated this result transmitted reference range: (none). The reference range was not used to interpret this result as normal/abnormal. BANDS (test code = 7140095393) MARKED INCREASED A TOXIC CHANGES (test code = 803-7) Present A GIANT PLATELETS (test code = 5908-9) Present See_Comment A [Automated message] The system which generated this result transmitted reference range: (none). The reference range was not used to interpret this result as normal/abnormal. Lab Interpretation (test code = 60411-7) Abnormal [facility] Metabolic Panel (NA, K, CL, CO2, GLUCOSE, BUN, CREATININE, CA)2023-08-27 09:56:30* Test Item Value Reference Range Interpretation Comme nts NA (test code = 4025825514) 129 mmol/L 135-145 L K (test code = 4721620373) 3.6 mmol/L 3.5-5.0 CL (test code = 9676847820) 99 mmol/L 98-108 CO2 TOTAL (test code = 9980272302) 16 mmol/L 23-31 L AGAP (test code = 3736329484) 14 2-16 BUN (test code = 7832493558) 74 mg/dL 7-23 H GLUCOSE (test code = 1065710851) 141 mg/dL 70-110 H CREATININE (test code = 2160-0) 3.70 mg/dL 0.50-1.04 H CALCIUM (test code = 6335064519) 7.6 mg/dL 8.6-10.6 L eGFR (test code = 69893-1) 12.9 mL/min/1.73m2 CKD-EPI eGFR (2020). Assuming creatinine has been stable day-to-day for at least three months, the eGFR indicates Category G5 (<= 14mL/min/1.73 m2) Lab Interpretation (test code = 24579-3) Abnormal [facility] Metabolic Panel (NA, K, CL, CO2, GLUCOSE, BUN, CREATININE, CA)2023-08-27 09:56:30* Test Item Value Reference Range Interpretation Comme nts NA (test code = 8405618513) 129 mmol/L 135-145 L K (test code = 0038102001) 3.6 mmol/L 3.5-5.0 CL (test code = 1435170444) 99 mmol/L 98-108 CO2 TOTAL (test code = 1626960589) 16 mmol/L 23-31 L AGAP (test code = 1788372265) 14 2-16 BUN (test code = 7303774037) 74 mg/dL 7-23 H GLUCOSE (test code = 6252063640) 141 mg/dL 70-110 H CREATININE (test code = 2160-0) 3.70 mg/dL 0.50-1.04 H CALCIUM (test code = 0283696483) 7.6 mg/dL 8.6-10.6 L eGFR (test code = 61592-2) 12.9 mL/min/1.73m2 CKD-EPI eGFR (2020). Assuming creatinine has been stable day-to-day for at least three months, the eGFR indicates Category G5 (<= 14mL/min/1.73 m2) Lab Interpretation (test code = 68690-5) Abnormal [facility] Packed RBC (in units), 1 Units 2023-08-25 17:51:27* Test Item Value Reference Range Interpretation Comme nts Cross Match Result (test code = 4409) Compatible ISBT Blood Type Code (test code = 635897) 5100 Unit Blood Type (test code = 4410) O Pos Unit Number (test code = 4411) [id number] Blood Expiration Date & Time (test code = 164293) [id number] Status Information (test code = 4412) Issued Product Identification (test code = 4413) Red Blood Cells Product Code (test code = 4414) [id number] Performed at [facility] Blood [address] Free: [phone] No. [id number] [facility] Packed RBC (in units), 1 Units 2023-08-25 17:51:27* Test Item Value Reference Range Interpretation Comme nts Cross Match Result (test code = 4409) Compatible ISBT Blood Type Code (test code = 403806) 5100 Unit Blood Type (test code = 4410) O Pos Unit Number (test code = 4411) [id number] Blood Expiration Date & Time (test code = 401287) [id number] Status Information (test code = 4412) Issued Product Identification (test code = 4413) Red Blood Cells Product Code (test code = 4414) [id number] Performed at [facility] Blood [address] Free: [phone] No. [id number] [facility] P[facility] RBC (in units), 1 Units 2023-08-25 17:51:27* Test Item Value Reference Range Interpretation Comme nts Cross Match Result (test code = 4409) Compatible ISBT Blood Type Code (test code = 950970) 5100 Unit Blood Type (test code = 4410) O Pos Unit Number (test code = 4411) [id number] Blood Expiration Date & Time (test code = 292657) [id number] Status Information (test code = 4412) Issued Product Identification (test code = 4413) Red Blood Cells Product Code (test code = 4414) [id number] Performed at [address] [address] Free: [phone] No. [id number] [facility] Packed RBC (in units), 1 Units 2023-08-25 17:51:27* Test Item Value Reference Range Interpretation Comme nts Cross Match Result (test code = 4409) Compatible ISBT Blood Type Code (test code = 145456) 5100 Unit Blood Type (test code = 4410) O Pos Unit Number (test code = 4411) [id number] Blood Expiration Date & Time (test code = 608184) [id number] Status Information (test code = 4412) Issued Product Identification (test code = 4413) Red Blood Cells Product Code (test code = 4414) [id number] Performed at [facility] Blood [address] [address]Blnt Free: [phone] No. [id number] [facility] [facility] Bhrmd8625-43-64 16:43:30* Test Item Value Reference Range Interpretation Comme nts PHOSPHORUS (test code = 4867602646) 5.8 mg/dL 2.5-5.0 H Lab Interpretation (test cod e = 34589-8) Abnormal [facility] Ankbr2444-69-55 16:43:30* Test Item Value Reference Range Interpretation Comme nts PHOSPHORUS (test code = 1311378498) 5.8 mg/dL 2.5-5.0 H Lab Interpretation (test cod e = 76100-5) [facility]normal [facility] Wiuan1722-65-42 16:43:30* Test Item Value Reference Range Interpretation Comme nts PHOSPHORUS (test code = 9767723612) 5.8 mg/dL 2.5-5.0 H Lab Interpretation (test cod e = 67087-4) Abnormal [facility] Metabolic Panel (NA, K, CL, CO2, GLUCOSE, BUN, CREATININE, CA)2023-08-25 11:09:46* Test Item Value Reference Range Interpretation Comme nts NA (test code = 1915880657) 129 mmol/L 135-145 L K (test code = 8463890367) 2.7 mmol/L 3.5-5.0 LL CL (test code = 0575547185) 100 mmol/L 98-108 CO2 TOTAL (test code = 3635201674) 21 mmol/L 23-31 L AGAP (test code = 5633404137) 8 2-16 BUN (test code = 5333029699) 57 mg/dL 7-23 H GLUCOSE (test code = 9446254231) 120 mg/dL 70-110 H CREATININE (test code = 2160-0) 2.93 mg/dL 0.50-1.04 H CALCIUM (test code = 8638376791) 6.8 mg/dL 8.6-10.6 L eGFR (test code = 91670-7) 17.0 mL/min/1.73m2 CKD-EPI eGFR (2020). Assuming creatinine has been stable day-to-day for at least three months, the eGFR indicates Category G4 (15 - 29 mL/min/1.73 m2) Lab Interpretation (test code = 23113-5) Abnormal [facility] Metabolic Panel (NA, K, CL, CO2, GLUCOSE, BUN, CREATININE, CA)2023-08-25 11:09:46* Test Item Value Reference Range Interpretation Comme nts NA (test code = 2545626374) 129 mmol/L 135-145 L K (test code = 0821668777) 2.7 mmol/L 3.5-5.0 LL CL (test code = 7927500942) 100 mmol/L 98-108 CO2 TOTAL (test code = 0308335929) 21 mmol/L 23-31 L AGAP (test code = 3924869064) 8 2-16 BUN (test code = 8538849143) 57 mg/dL 7-23 H GLUCOSE (test code = 6172480175) 120 mg/dL 70-110 H CREATININE (test code = 2160-0) 2.93 mg/dL 0.50-1.04 H CALCIUM (test code = 9557090940) 6.8 mg/dL 8.6-10.6 L eGFR (test code = 59848-3) 17.0 mL/min/1.73m2 CKD-EPI eGFR (2020). Assuming creatinine has been stable day-to-day for at least three months, the eGFR indicates Category G4 (15 - 29 mL/min/1.73 m2) Lab Interpretation (test code = 06672-4) Abnormal [facility] with Iklm3192-75-09 11:06:43* Test Item Value Reference Range Interpretation Comme nts WBC (test code = 6690-2) 11.23 4.30-11.10 H RBC (test code = 789-8) 2.58 3.93-5.25 L HGB (test code = 718-7) 7.0 g/dL 11.6-15.0 L HCT (test code = 4544-3) 21.0 % 35.7-45.2 L MCV (test code = 787-2) 81.4 fL 80.6-95.5 MCH (test code = 785-6) 27.1 pg 25.9-32.8 MCHC (test code = 786-4) 33.3 g/dL 31.6-35.1 RDW-SD (test code = 34624-3) 47.7 fL 39.0-49.9 RDW-CV (test code = 788-0) 15.9 % 12.0-15.5 H PLT (test code = 777-3) 364 166-358 H MPV (test code = 63943-8) 9.5 fL 9.5-12.9 NRBC/100 WBC (test code = 5247119106) 0.0 0.0-10.0 NRBC x10^3 (test code = 1936862108) See_Comment [Automated messa ge] The system which generated this result transmitted reference range: 10*3/?L. The reference range was not used to interpret this result as normal/abnormal. GRAN MAT (NEUT) % (test code = 770-8) 88.1 % IMM GRAN % (test code = 7407466512) 0.80 % LYMPH % (test code = 736-9) 6.3 % MONO % (test code = 5905-5) 4.3 % EOS % (test code = 713-8) 0.2 % BASO % (test code = 706-2) 0.3 % GRAN MAT x10^3(ANC) (test code = 1103732207) 9.90 10*3/uL 1.88-7.09 H IMM GRAN x10^3 (test code = 6125868501) 0.09 10*3/uL 0.00-0.06 H LYMPH x10^3 (test code = 731-0) 0.71 10*3/uL 1.32-3.29 L MONO x10^3 (test code = 742-7) 0.48 10*3/uL 0.33-0.92 EOS x10^3 (test code = 711-2) 0.03-0.39 L BASO x10^3 (test code = 704-7) 0.03 10*3/uL 0.01-0.07 BANDS (test code = 2959230286) Increased A TOXIC CHANGES (test code = 803-7) Present A Lab Interpretation (test code = 40666-0) Abnormal [facility] with Kxfw6015-58-23 11:06:43* Test Item Value Reference Range Interpretation Comme nts WBC (test code = 6690-2) 11.23 4.30-11.10 H RBC (test code = 789-8) 2.58 3.93-5.25 L HGB (test code = 718-7) 7.0 g/dL 11.6-15.0 L HCT (test code = 4544-3) 21.0 % 35.7-45.2 L MCV (test code = 787-2) 81.4 fL 80.6-95.5 MCH (test code = 785-6) 27.1 pg 25.9-32.8 MCHC (test code = 786-4) 33.3 g/dL 31.6-35.1 RDW-SD (test code = 84297-1) 47.7 fL 39.0-49.9 RDW-CV (test code = 788-0) 15.9 % 12.0-15.5 H PLT (test code = 777-3) 364 166-358 H MPV (test code = 32996-8) 9.5 fL 9.5-12.9 NRBC/100 WBC (test code = 0805546401) 0.0 0.0-10.0 NRBC x10^3 (test code = 7002224319) See_Comment [Automated messa ge] The system which generated this result transmitted reference range: 10*3/?L. The reference range was not used to interpret this result as normal/abnormal. GRAN MAT (NEUT) % (test code = 770-8) 88.1 % IMM GRAN % (test code = 1909092412) 0.80 % LYMPH % (test code = 736-9) 6.3 % MONO % (test code = 5905-5) 4.3 % EOS % (test code = 713-8) 0.2 % BASO % (test code = 706-2) 0.3 % GRAN MAT x10^3(ANC) (test code = 3354971039) 9.90 10*3/uL 1.88-7.09 H IMM GRAN x10^3 (test code = 3240472380) 0.09 10*3/uL 0.00-0.06 H LYMPH x10^3 (test code = 731-0) 0.71 10*3/uL 1.32-3.29 L MONO x10^3 (test code = 742-7) 0.48 10*3/uL 0.33-0.92 EOS x10^3 (test code = 711-2) 0.03-0.39 L BASO x10^3 (test code = 704-7) 0.03 10*3/uL 0.01-0.07 BANDS (test code = 7456779680) Increased A TOXIC CHANGES (test code = 803-7) Present A Lab Interpretation (test code = 57354-3) [facility] Test Item Value Reference Range Interpretation Comme nts MAGNESIUM (test code = 3374754015) 1.6 mg/dL 1.7-2.4 L Lab Interpretation (test cod e = 69344-1) [facility] 11:02:14* Test Item Value Reference Range Interpretation Comme nts MAGNESIUM (test code = 9910340522) 1.6 mg/dL 1.7-2.4 L Lab Interpretation (test cod e = 79964-6) Abnormal [facility] GLUCOSE (AUTOMATED)2023-08-25 01:23:07* Test Item Value Reference Range Interpretation Comme nts POCT GLU (test code = 7833113813) 124 mg/dL 70-110 H Notified Provide r Lab Interpretation (test code = 83008-5) Abnormal [facility] GLUCOSE (AUTOMATED)2023-08-25 01:23:07* Test Item Value Reference Range Interpretation Comme nts POCT GLU (test code = 4363069388) 124 mg/dL 70-110 H Notified Provide r Lab Interpretation (test code = 81226-1) Abnormal [facility] GLUCOSE (AUTOMATED)2023-08-25 01:23:07* Test Item Value Reference Range Interpretation Comme nts POCT GLU (test code = 3908706488) 124 mg/dL 70-110 H Notified Provide r Lab Interpretation (test code = 93716-9) Abnormal [facility] GLUCOSE (AUTOMATED)2023-08-25 01:23:07* Test Item Value Reference Range Interpretation Comme nts POCT GLU (test code = 5116210131) 124 mg/dL 70-110 H Notified Provide r Lab Interpretation (test code = 71586-1) Abnormal [facility] Packed RBC (in units), 1 Units 2023-08-24 23:34:53* Test Item Value Reference Range Interpretation Comme nts Cross Match Result (test code = 4409) Compatible ISBT Blood Type Code (test code = 707348) 5100 Unit Blood Type (test code = 4410) O Pos Unit Number (test code = 4411) [id number] Blood Expiration Date & Time (test code = 239563) 161898897445 Status Information (test code = 4412) Issued Product Identification (test code = 4413) Red Blood Cells Product Code (test code = 4414) [id number] Performed at [facility] Laboratory [facility] Blood [address] [address]Lccv Free: [phone] No. [id number] [facility] Packed RBC (in units), 1 Units 2023-08-24 23:34:53* Test Item Value Reference Range Interpretation Comme nts Cross Match Result (test code = 4409) Compatible ISBT Blood Type Code (test code = 971671) 5100 Unit Blood Type (test code = 4410) O Pos Unit Number (test code = 4411) [id number] Blood Expiration Date & Time (test code = 249001) [id number] Status Information (test code = 4412) Issued Product Identification (test code = 4413) Red Blood Cells Product Code (test code = 4414) [id number] Performed at [facility] Blood [address] [address]Wwty Free: [phone] No. [id number] [facility] PELVIS WO DYRPUFVM9763-15-12 19:51:43CT ABDOMEN PELVIS WO CONTRAST 08/23/2023 9:00 PM HISTORY: acute necrotizing pancreatitis with large pseudocyst seen, nowwith persistent fevers despite antibiotics, concern for pancreatic orsurrounding infection, holding off on IV contrast due to poor kidneyfunction COMPARISON: CT abdomen pelvis dated 08/19/2023. TECHNIQUE AND FINDINGS: Contiguous axial imaging of abdomen and pelvis wasperformed without contrast. Coronal and sagittal reconstructions wereobtained. FINDINGS:Statements: Lack of intravenous contrast compromises evaluation of solidorgans and vasculature. LOWER THORAX: A trace left-sided pleural effusion with compressiveatelectasis is present. There is atelectasis in the right dependent lungbase. HEPATOBILIARY: Normal size liver. ?A small hypodensity left hepatic lobe istoo small tocharacterize but is possibly a cyst. No biliary ductal dilatation. Suspected biliary sludge.No hyperdense stone. SPLEEN: Unremarkable. PANCREAS/PERITONEUM AND RETROPERITONEUM: The fluid collection anteriorlyadjacent to the pancreas is slightly bigger in size now measuring 6 x 13 x10 cm, previously 5 x 11 x 9 cm in similar dimensions. Evaluation of thepancreatic parenchyma is limited due to lack of IV contrast. Peripancreaticfat stranding and free fluid is seen. There are diffuse nodular opacities in the mesentery likely representingreactive lymph nodes. There is scattered free fluid seen throughout all 4 abdominal quadrants thepelvis, grossly unchanged from prior examination. ADRENAL GLANDS: No adrenal nodules. KIDNEYS: No hydronephrosis, or stones. GI TRACT: There is been interval develop ment of pneumatosispseudopneumatosis versus pneumatosis intestinalis of the right hemicolonannotated on series 601 image 43 and series 3 image 76. There is extensive diverticulosis without evidence for diverticulitis. PERITONEUM AND RETROPERITONEUM: No free air or free fluid. LYMPH NODES: Reactive mesenteric lymph nodes. PELVIS/BLADDER: Unremarkable. VESSELS: Unremarkable BONES AND SOFT TISSUES: No suspicious lytic or sclerotic bone lesions.There is diffuse anasarca.[facility] CONTRAST 2023-08-24 19:51:43CT ABDOMEN PELVIS WO CONTRAST 08/23/2023 9:00 PM HISTORY: acute necrotizing pancreatitis with large pseudocyst seen, nowwith persistent fevers despite antibiotics, concern for pancreatic orsurrounding infection, holding off on IV contrast due to poor kidneyfunction COMPARISON: CT abdomen pelvis dated 08/19/2023. TECHNIQUE AND FINDINGS: Contiguous axial imaging of abdomen and pelvis wasperformed without contrast. Coronal and sagittal reconstructions wereobtained. FINDINGS:Statements: Lack of intravenous contrast compromises evaluation of solidorgans and vasculature. LOWER THORAX: A trace left-sided pleural effusion with compressiveatelectasis is present. There is atelectasis in the right dependent lungbase. HEPATOBILIARY: Normal size liver. ?A small hypodensity left hepatic lobe istoo small tocharacterize but is possibly a cyst. No biliary ductal dilatation. Suspected biliary sludge.No hyperdense stone. SPLEEN: Unremarkable. PANCREAS/PERITONEUM AND RETROPERITONEUM: The fluid collection anteriorlyadjacent to the pancreas is slightly bigger in size now measuring 6 x 13 x10 cm, previously 5 x 11 x 9 cm in similar dimensions. Evaluation of thepancreatic parenchyma is limited due to lack of IV contrast. Peripancreaticfat stranding and free fluid is seen. There are diffuse nodular opacities in the mesentery likely representingreactive lymph nodes. There is scattered free fluid seen throughout all 4 abdominal quadrants thepelvis, grossly unchanged from prior examination. ADRENAL GLANDS: No adrenal nodules. KIDNEYS: No hydronephrosis, or stones. GI TRACT: There is been interval develop ment of pneumatosispseudopneumatosis versus pneumatosis intestinalis of the right hemicolonannotated on series 601 image 43 and series 3 image 76. There is extensive diverticulosis without evidence for diverticulitis. PERITONEUM AND RETROPERITONEUM: No free air or free fluid. LYMPH NODES: Reactive mesenteric lymph nodes. PELVIS/BLADDER: Unremarkable. VESSELS: Unremarkable BONES AND SOFT TISSUES: No suspicious lytic or sclerotic bone lesions.There is diffuse anasarca.[facility] Metabolic Panel (NA, K, CL, CO2, GLUCOSE, BUN, CREATININE, CA)2023-08-24 12:59:13* Test Item Value Reference Range Interpretation Comme nts NA (test code = 2162576062) 127 mmol/L 135-145 L K (test code = 9921233891) 2.6 mmol/L 3.5-5.0 LL CL (test code = 7459169864) 99 mmol/L 98-108 CO2 TOTAL (test code = 8200086606) 14 mmol/L 23-31 L AGAP (test code = 0883547056) 14 2-16 BUN (test code = 0876098859) 79 mg/dL 7-23 H GLUCOSE (test code = 7648466411) 129 mg/dL 70-110 H CREATININE (test code = 2160-0) 4.00 mg/dL 0.50-1.04 H CALCIUM (test code = 5929813525) 7.0 mg/dL 8.6-10.6 L eGFR (test code = 10013-2) 11.7 mL/min/1.73m2 CKD-EPI eGFR (2020). Assuming creatinine has been stable day-to-day for at least three months, the eGFR indicates Category G5 (<= 14mL/min/1.73 m2) Lab Interpretation (test code = 48520-3) Abnormal [facility] Metabolic Panel (NA, K, CL, CO2, GLUCOSE, BUN, CREATININE, CA)2023-08-24 12:59:13* Test Item Value Reference Range Interpretation Comme nts NA (test code = 9566692796) 127 mmol/L 135-145 L K (test code = 7087950121) 2.6 mmol/L 3.5-5.0 LL CL (test code = 7731326721) 99 mmol/L 98-108 CO2 TOTAL (test code = 3372921406) 14 mmol/L 23-31 L AGAP (test code = 9746279787) 14 2-16 BUN (test code = 5071307957) 79 mg/dL 7-23 H GLUCOSE (test code = 1602141460) 129 mg/dL 70-110 H CREATININE (test code = 2160-0) 4.00 mg/dL 0.50-1.04 H CALCIUM (test code = 7216874398) 7.0 mg/dL 8.6-10.6 L eGFR (test code = 57702-1) 11.7 mL/min/1.73m2 CKD-EPI eGFR (2020). Assuming creatinine has been stable day-to-day for at least three months, the eGFR indicates Category G5 (<= 14mL/min/1.73 m2) Lab Interpretation (test code = 65330-9) Abnormal [facility] without [place]a0681-33-49 10:58:12* Test Item Value Reference Range Interpretation Comme nts WBC (test code = 6690-2) 10.78 4.30-11.10 RBC (test code = 789-8) 2.44 3.93-5.25 L HGB (test code = 718-7) 6.9 g/dL 11.6-15.0 L HCT (test code = 4544-3) 20.1 % 35.7-45.2 L MCH (test code = 785-6) 28.3 pg 25.9-32.8 MCV (test code = 787-2) 82.4 fL 80.6-95.5 MCHC (test code = 786-4) 34.3 g/dL 31.6-35.1 PLT (test code = 777-3) 393 166-358 H MPV (test code = 63880-0) 9.2 fL 9.5-12.9 L RDW-CV (test code = 788-0) 15.3 % 12.0-15.5 RDW-SD (test code = 10824-3) 46.5 fL 39.0-49.9 NRBC x10^3 (test code = 2781376276) See_Comment [Automated [employer]a ge] The system which generated this result transmitted reference range: 10*3/?L. The reference range was not used to interpret this result as normal/abnormal. NRBC/100 WBC (test code = 5452189657) 0.0 0.0-10.0 IPF % (test code = 0514346833) Lab Interpretation (test code = 83214-7) Abnormal [facility] without Lqrj9950-46-66 10:58:12* Test Item Value Reference Range Interpretation Comme nts WBC (test code = 6690-2) 10.78 4.30-11.10 RBC (test code = 789-8) 2.44 3.93-5.25 L HGB (test code = 718-7) 6.9 g/dL 11.6-15.0 L HCT (test code = 4544-3) 20.1 % 35.7-45.2 L MCH (test code = 785-6) 28.3 pg 25.9-32.8 MCV (test code = 787-2) 82.4 fL 80.6-95.5 MCHC (test code = 786-4) 34.3 g/dL 31.6-35.1 PLT (test code = 777-3) 393 166-358 H MPV (test code = 46457-7) 9.2 fL 9.5-12.9 L RDW-CV (test code = 788-0) 15.3 % 12.0-15.5 RDW-SD (test code = 55634-2) 46.5 fL 39.0-49.9 NRBC x10^3 (test code = 7276836209) See_Comment [Automated [employer]a ge] The system which generated this result transmitted reference range: 10*3/?L. The reference range was not used to interpret this result as normal/abnormal. NRBC/100 WBC (test code = 6427918703) 0.0 0.0-10.0 IPF % (test code = 4684337581) Lab Interpretation (test code = 96780-2) Abnormal [facility] without Ierb4215-90-11 10:58:12* Test Item Value Reference Range Interpretation Comme nts WBC (test code = 6690-2) 10.78 4.30-11.10 RBC (test code = 789-8) 2.44 3.93-5.25 L HGB (test code = 718-7) 6.9 g/dL 11.6-15.0 L HCT (test code = 4544-3) 20.1 % 35.7-45.2 L MCH (test code = 785-6) 28.3 pg 25.9-32.8 MCV (test code = 787-2) 82.4 fL 80.6-95.5 MCHC (test code = 786-4) 34.3 g/dL 31.6-35.1 PLT (test code = 777-3) 393 166-358 H MPV (test code = 57985-3) 9.2 fL 9.5-12.9 L RDW-CV (test code = 788-0) 15.3 % 12.0-15.5 RDW-SD (test code = 52201-1) 46.5 fL 39.0-49.9 NRBC x10^3 (test code = 5527238730) See_Comment [Automated [employer] ge] The system which generated this result transmitted reference range: 10*3/?L. The reference range was not used to interpret this result as normal/abnormal. NRBC/100 WBC (test code = 5800112421) 0.0 0.0-10.0 IPF % (test code = 2741081136) Lab Interpretation (test code = 02709-3) Abnormal [facility] with Cnin7464-72-34 10:57:12* Test Item Value Reference Range Interpretation Comme nts WBC (test code = 6690-2) 9.76 4.30-11.10 RBC (test code = 789-8) 2.74 3.93-5.25 L HGB (test code = 718-7) 7.7 g/dL 11.6-15.0 L HCT (test code = 4544-3) 22.8 % 35.7-45.2 L MCV (test code = 787-2) 83.2 fL 80.6-95.5 MCH (test code = 785-6) 28.1 pg 25.9-32.8 MCHC (test code = 786-4) 33.8 g/dL 31.6-35.1 RDW-SD (test code = 70449-0) 45.8 fL 39.0-49.9 RDW-CV (test code = 788-0) 15.0 % 12.0-15.5 PLT (test code = 777-3) 510 166-358 H MPV (test code = 13946-7) 9.4 fL 9.5-12.9 L NRBC/100 WBC (test code = 5022408195) 0.0 0.0-10.0 NRBC x10^3 (test code = 7823613268) See_Comment [Automated messa ge] The system which generated this result transmitted reference range: 10*3/?L. The reference range was not used to interpret this result as normal/abnormal. GRAN MAT (NEUT) % (test code = 770-8) 85.4 % IMM GRAN % (test code = 0680759932) 0.90 % LYMPH % (test code = 736-9) 8.4 % MONO % (test code = 5905-5) 5.0 % EOS % (test code = 713-8) 0.1 % BASO % (test code = 706-2) 0.2 % GRAN MAT x10^3(ANC) (test code = 2431199710) 8.33 10*3/uL 1.88-7.09 H IMM GRAN x10^3 (test code = 1649728717) 0.09 10*3/uL 0.00-0.06 H LYMPH x10^3 (test code = 731-0) 0.82 10*3/uL 1.32-3.29 L MONO x10^3 (test code = 742-7) 0.49 10*3/uL 0.33-0.92 EOS x10^3 (test code = 711-2) 0.03-0.39 L BASO x10^3 (test code = 704-7) 0.01-0.07 BANDS (test code = 0555097077) Increased A TOXIC CHANGES (test code = 803-7) Present A Lab Interpretation (test code = 21859-8) Abnormal [facility] with Szta9463-55-06 10:57:12* Test Item Value Reference Range Interpretation Comme nts WBC (test code = 6690-2) 9.76 4.30-11.10 RBC (test code = 789-8) 2.74 3.93-5.25 L HGB (test code = 718-7) 7.7 g/dL 11.6-15.0 L HCT (test code = 4544-3) 22.8 % 35.7-45.2 L MCV (test code = 787-2) 83.2 fL 80.6-95.5 MCH (test code = 785-6) 28.1 pg 25.9-32.8 MCHC (test code = 786-4) 33.8 g/dL 31.6-35.1 RDW-SD (test code = 19815-0) 45.8 fL 39.0-49.9 RDW-CV (test code = 788-0) 15.0 % 12.0-15.5 PLT (test code = 777-3) 510 166-358 H MPV (test code = 64124-9) 9.4 fL 9.5-12.9 L NRBC/100 WBC (test code = 7465515137) 0.0 0.0-10.0 NRBC x10^3 (test code = 4186170735) See_Comment [Automated messa ge] The system which generated this result transmitted reference range: 10*3/?L. The reference range was not used to interpret this result as normal/abnormal. GRAN MAT (NEUT) % (test code = 770-8) 85.4 % IMM GRAN % (test code = 9051154852) 0.90 % LYMPH % (test code = 736-9) 8.4 % MONO % (test code = 5905-5) 5.0 % EOS % (test code = 713-8) 0.1 % BASO % (test code = 706-2) 0.2 % GRAN MAT x10^3(ANC) (test code = 6568530103) 8.33 10*3/uL 1.88-7.09 H IMM GRAN x10^3 (test code = 1212098747) 0.09 10*3/uL 0.00-0.06 H LYMPH x10^3 (test code = 731-0) 0.82 10*3/uL 1.32-3.29 L MONO x10^3 (test code = 742-7) 0.49 10*3/uL 0.33-0.92 EOS x10^3 (test code = 711-2) 0.03-0.39 L BASO x10^3 (test code = 704-7) 0.01-0.07 BANDS (test code = 8350932400) Increased A TOXIC CHANGES (test code = 803-7) Present A Lab Interpretation (test code = 50466-1) Abnormal [facility] Metabolic Panel (NA, K, CL, CO2, GLUCOSE, BUN, CREATININE, CA)2023-08-23 10:51:42* Test Item Value Reference Range Interpretation Comme nts NA (test code = 2671168923) 131 mmol/L 135-145 L K (test code = 3534248990) 3.3 mmol/L 3.5-5.0 L CL (test code = 2072343847) 101 mmol/L 98-108 CO2 TOTAL (test code = 2025858702) 16 mmol/L 23-31 L AGAP (test code = 7202416361) 14 2-16 BUN (test code = 7966320474) 74 mg/dL 7-23 H GLUCOSE (test code = 7870979599) 123 mg/dL 70-110 H CREATININE (test code = 2160-0) 3.75 mg/dL 0.50-1.04 H CALCIUM (test code = 5496363918) 6.7 mg/dL 8.6-10.6 L eGFR (test code = 33056-5) 12.7 mL/min/1.73m2 CKD-EPI eGFR (2020). Assuming creatinine has been stable day-to-day for at least three months, the eGFR indicates Category G5 (<= 14mL/min/1.73 m2) Lab Interpretation (test code = 77135-6) Abnormal [facility] Metabolic Panel (NA, K, CL, CO2, GLUCOSE, BUN, CREATININE, CA)2023-08-23 10:51:42* Test Item Value Reference Range Interpretation Comme nts NA (test code = 8084886545) 131 mmol/L 135-145 L K (test code = 9104578682) 3.3 mmol/L 3.5-5.0 L CL (test code = 6917365950) 101 mmol/L 98-108 CO2 TOTAL (test code = 7792518698) 16 mmol/L 23-31 L AGAP (test code = 1771011227) 14 2-16 BUN (test code = 7518828423) 74 mg/dL 7-23 H GLUCOSE (test code = 8318019007) 123 mg/dL 70-110 H CREATININE (test code = 2160-0) 3.75 mg/dL 0.50-1.04 H CALCIUM (test code = 1840440965) 6.7 mg/dL 8.6-10.6 L eGFR (test code = 01794-0) 12.7 mL/min/1.73m2 CKD-EPI eGFR (2020). Assuming creatinine has been stable day-to-day for at least three months, the eGFR indicates Category G5 (<= 14mL/min/1.73 m2) Lab Interpretation (test code = 74411-4) Abnormal [facility] Metabolic Panel (NA, K, CL, CO2, GLUCOSE, BUN, CREATININE, CA)2023-08-22 11:34:54* Test Item Value Reference Range Interpretation Comme nts NA (test code = 8415945063) 131 mmol/L 135-145 L K (test code = 9077118817) 3.4 mmol/L 3.5-5.0 L Slight hemolysis CL (test code = 1413557651) 103 mmol/L 98-108 CO2 TOTAL (test code = 1842602807) 16 mmol/L 23-31 L AGAP (test code = 0301267733) 12 2-16 BUN (test code = 0943632412) 68 mg/dL 7-23 H Slight hemolysis GLUCOSE (test code = 3454493085) 121 mg/dL 70-110 H CREATININE (test code = 2160-0) 3.73 mg/dL 0.50-1.04 H CALCIUM (test code = 4068651826) 6.7 mg/dL 8.6-10.6 L eGFR (test code = 89351-1) 12.7 mL/min/1.73m2 CKD-EPI eGFR (2020). Assuming creatinine has been stable day-to-day for at least three months, the eGFR indicates Category G5 (<= 14mL/min/1.73 m2) Lab Interpretation (test code = 77827-8) Abnormal [facility] Metabolic Panel (NA, K, CL, CO2, GLUCOSE, BUN, CREATININE, CA)2023-08-22 11:34:54* Test Item Value Reference Range Interpretation Comme nts NA (test code = 9553010254) 131 mmol/L 135-145 L K (test code = 1370229825) 3.4 mmol/L 3.5-5.0 L Slight hemolysis CL (test code = 9681984575) 103 mmol/L 98-108 CO2 TOTAL (test code = 8233209388) 16 mmol/L 23-31 L AGAP (test code = 4760784768) 12 2-16 BUN (test code = 4284351734) 68 mg/dL 7-23 H Slight hemolysis GLUCOSE (test code = 1410629350) 121 mg/dL 70-110 H CREATININE (test code = 2160-0) 3.73 mg/dL 0.50-1.04 H CALCIUM (test code = 5453595072) 6.7 mg/dL 8.6-10.6 L eGFR (test code = 75721-1) 12.7 mL/min/1.73m2 CKD-EPI eGFR (2020). Assuming creatinine has been stable day-to-day for at least three months, the eGFR indicates Category G5 (<= 14mL/min/1.73 m2) Lab Interpretation (test code = 81653-7) [facility]:57* Test Item Value Reference Range Interpretation Comme nts MAGNESIUM (test code = 8853514435) 2.0 mg/dL 1.7-2.4 Lab Interpretation (test cod e = 02178-1) [facility]* Test Item Value Reference Range Interpretation Comme nts MAGNESIUM (test code = 3251905464) 2.0 mg/dL 1.7-2.4 Lab Interpretation (test cod e = 13567-3) Normal [facility] Metabolic Panel (NA, K, CL, CO2, GLUCOSE, BUN, CREATININE, CA)2023-08-21 11:10:56* Test Item Value Reference Range Interpretation Comme nts NA (test code = 2706722844) 127 mmol/L 135-145 L K (test code = 6912161278) 3.6 mmol/L 3.5-5.0 CL (test code = 9167933302) 101 mmol/L 98-108 CO2 TOTAL (test code = 6775177023) 19 mmol/L 23-31 L AGAP (test code = 1255973212) 7 2-16 BUN (test code = 0611543771) 61 mg/dL 7-23 H GLUCOSE (test code = 9758323468) 125 mg/dL 70-110 H CREATININE (test code = 2160-0) 3.88 mg/dL 0.50-1.04 H CALCIUM (test code = 9044287677) 7.0 mg/dL 8.6-10.6 L eGFR (test code = 38193-3) 12.2 mL/min/1.73m2 CKD-EPI eGFR (2020). Assuming creatinine has been stable day-to-day for at least three months, the eGFR indicates Category G5 (<= 14mL/min/1.73 m2) Lab Interpretation (test code = 09583-9) Abnormal [facility] Metabolic Panel (NA, K, CL, CO2, GLUCOSE, BUN, CREATININE, CA)2023-08-21 11:10:56* Test Item Value Reference Range Interpretation Comme nts NA (test code = 4827434070) 127 mmol/L 135-145 L K (test code = 5004726449) 3.6 mmol/L 3.5-5.0 CL (test code = 2271884958) 101 mmol/L 98-108 CO2 TOTAL (test code = 0682688619) 19 mmol/L 23-31 L AGAP (test code = 0531480691) 7 2-16 BUN (test code = 1338364954) 61 mg/dL 7-23 H GLUCOSE (test code = 1517349654) 125 mg/dL 70-110 H CREATININE (test code = 2160-0) 3.88 mg/dL 0.50-1.04 H CALCIUM (test code = 5291744466) 7.0 mg/dL 8.6-10.6 L eGFR (test code = 18576-9) 12.2 mL/min/1.73m2 CKD-EPI eGFR (2020). Assuming creatinine has been stable day-to-day for at least three months, the eGFR indicates Category G5 (<= 14mL/min/1.73 m2) Lab Interpretation (test code = 38721-1) [facility] [id number] 17:06:23CT A/P without IV contrast: 08/19/2023 12:00 PM Ordering physician: DIPAK ROSALES HISTORY: Abdominal pain, acute, nonlocalized Hx necrotizing pancreatitiswith acute abdominal pain; avoiding contrast given hemodialysis- dependentAKI COMPARISON: None. TECHNIQUE: CT abdomen and pelvis without IV con trast. All CT scans at this facility use dose modulation, iterativereconstruction, and/or weight based dosing when appropriate to reduceradiation dose to as low as reasonably achievable. FINDINGS: There is a small left pleural effusion. There is bibasilar atelectasis. Solid organ evaluation in the abdomen is limited without the administrationof IV contrast. The liver contour is smooth. Within thelimitation imposed by the lack ofIV contrast no discrete mass is identified in the liver. There is nointrahepatic biliary dilatation. ?There is a 7 mm low-density lesion in theleft lobe of the liver that is too small to characterize. The unenhancedspleen and adrenal glands are unremarkable. There is inflammation and fluidadjacent to the pancreas compatible with acute pancreatitis. Evaluation fornecrotizing pancreatitis is not possible due to the lack of IV contrast.The pancreas is mildly heterog eneous. There is a large fluid collectionanterior to the pancreas compatible with a pseudocyst measuring 11 cm intransverse dimension by 5.8 cm in AP dimension by 8 cm in craniocaudaldimension. Thereis mild ascites and mild anasarca. There are no radiopaqueurinary system stones. ?There is no hydron ephrosis. ?There is a small cystin the right kidney. ? The urinary bladder is unremarkable. The gallbladder is present. Evaluation of the gastrointestinal tract islimited due to the lack of oral contrast. The gastrointestinal tract isunobstructed. The appendix is unremarkable. There is extensivediverticulosis in the colon. There is wall thickening in the sigmoid colonwhich may be secondary to underdistention. Mild diverticulitis/colitiscannot be excluded. There is no abdominal aortic aneurysm. There are no destructive bonelesions. The pelvic sidewalls are clear. On the sagittal reconstructed images vertebral body height and alignmentare maintained. Lordotic curvature is maintained. Intervert ebral discspaces are maintained.[facility] [id number] 17:06:23CT A/P without IV contrast: 08/19/2023 12:00 PM Ordering physician: DIPAK ROSALES HISTORY: Abdominal pain, acute, nonlocalized Hx necrotizing pancreatitiswith acute abdominal pain; avoiding contrast given hemodialysis-dependentAKI COMPARISON: None. TECHNIQUE: CT abdomen and pelvis without IV contrast. All CT scans at this facility use dose modulation, iterativereconstruction, and/or weight based dosing when appropriate to reduceradiation dose to as low as reasonably achievable. FINDINGS: There is a small left pleural effusion. There is bibasilar atelectasis. Solid organ evaluation in the abdomen is limited without the administrationof IV contrast. The liver contour is smooth. Within thelimitation imposed by the lack ofIV contrast no discrete mass is identified in the liver. There is nointrahepatic biliary dilatation. ?There is a 7 mm low-density lesion in theleft lobe of the liver that is too small to characterize. The unenhancedspleen and adrenal glands are unremarkable. There is inflammation and fluidadjacent to the pancreas compatible with acute pancreatitis. Evaluation fornecrotizing pancreatitis is not possible due to the lack of IV contrast.The pancreas is mildly heterog eneous. There is a large fluid collectionanterior to the pancreas compatible with a pseudocyst measuring 11 cm intransverse dimension by 5.8 cm in AP dimension by 8 cm in craniocaudaldimension. Thereis mild ascites and mild anasarca. There are no radiopaqueurinary system stones. ?There is no hydron ephrosis. ?There is a small cystin the right kidney. ? The urinary bladder is unremarkable. The gallbladder is present. Evaluation of the gastrointestinal tract islimited due to the lack of oral contrast. The gastrointestinal tract isunobstructed. The appendix is unremarkable. There is extensivediverticulosis in the colon. There is wall thickening in the sigmoid colonwhich may be secondary to underdistention. Mild diverticulitis/colitiscannot be excluded. There is no abdominal aortic aneurysm. There are no destructive bonelesions. The pelvic sidewalls are clear. On the sagittal reconstructed images vertebral body height and alignmentare maintained. Lordotic curvature is maintained. Intervert ebral discspaces are maintained.[facility] Diff 2023-08-20 11:07:58* Test Item Value Reference Range Interpretation Comme nts WBC (test code = 6690-2) 8.42 4.30-11.10 RBC (test code = 789-8) 2.46 3.93-5.25 L HGB (test code = 718-7) 7.1 g/dL 11.6-15.0 L HCT (test code = 4544-3) 20.9 % 35.7-45.2 L MCV (test code = 787-2) 85.0 fL 80.6-95.5 MCH (test code = 785-6) 28.9 pg 25.9-32.8 MCHC (test code = 786-4) 34.0 g/dL 31.6-35.1 RDW-SD (test code = 13529-6) 46.1 fL 39.0-49.9 RDW-CV (test code = 788-0) 14.9 % 12.0-15.5 PLT (test code = 777-3) 373 166-358 H MPV (test code = 46768-4) 9.7 fL 9.5-12.9 NRBC/100 WBC (test code = 0339498711) 0.0 0.0-10.0 NRBC x10^3 (test code = 7332935877) See_Comment [Automated [employer]] The system which generated this result transmitted reference range: 10*3/?L. The reference range was not used to interpret this result as normal/abnormal. GRAN MAT (NEUT) % (test code = 770-8) 78.0 % IMM GRAN % (test code = 9607061142) 1.20 % LYMPH % (test code = 736-9) 10.8 % MONO % (test code = 5905-5) 9.7 % EOS % (test code = 713-8) 0.1 % BASO % (test code = 706-2) 0.2 % GRAN MAT x10^3(ANC) (test code = 2739650835) 6.56 10*3/uL 1.88-7.09 IMM GRAN x10^3 (test code = 4390782095) 0.10 10*3/uL 0.00-0.06 H LYMPH x10^3 (test code = 731-0) 0.91 10*3/uL 1.32-3.29 L MONO x10^3 (test code = 742-7) 0.82 10*3/uL 0.33-0.92 EOS x10^3 (test code = 711-2) 0.03-0.39 L BASO x10^3 (test code = 704-7) 0.01-0.07 BANDS (test code = 3258491638) Increased A TOXIC CHANGES (test code = 803-7) Present A Lab Interpretation (test code = 55479-7) Abnormal [facility] with [id number] 11:07:58* Test Item Value Reference Range Interpretation Comme nts WBC (test code = 6690-2) 8.42 4.30-11.10 RBC (test code = 789-8) 2.46 3.93-5.25 L HGB (test code = 718-7) 7.1 g/dL 11.6-15.0 L HCT (test code = 4544-3) 20.9 % 35.7-45.2 L MCV (test code = 787-2) 85.0 fL 80.6-95.5 MCH (test code = 785-6) 28.9 pg 25.9-32.8 MCHC (test code = 786-4) 34.0 g/dL 31.6-35.1 RDW-SD (test code = 24162-8) 46.1 fL 39.0-49.9 RDW-CV (test code = 788-0) 14.9 % 12.0-15.5 PLT (test code = 777-3) 373 166-358 H MPV (test code = 81631-1) 9.7 fL 9.5-12.9 NRBC/100 WBC (test code = 5823760505) 0.0 0.0-10.0 NRBC x10^3 (test code = 8013786143) See_Comment [Automated messa ge] The system which generated this result transmitted reference range: 10*3/?L. The reference range was not used to interpret this result as normal/abnormal. GRAN MAT (NEUT) % (test code = 770-8) 78.0 % IMM GRAN % (test code = 0438671015) 1.20 % LYMPH % (test code = 736-9) 10.8 % MONO % (test code = 5905-5) 9.7 % EOS % (test code = 713-8) 0.1 % BASO % (test code = 706-2) 0.2 % GRAN MAT x10^3(ANC) (test code = 0385104546) 6.56 10*3/uL 1.88-7.09 IMM GRAN x10^3 (test code = 8910394709) 0.10 10*3/uL 0.00-0.06 H LYMPH x10^3 (test code = 731-0) 0.91 10*3/uL 1.32-3.29 L MONO x10^3 (test code = 742-7) 0.82 10*3/uL 0.33-0.92 EOS x10^3 (test code = 711-2) 0.03-0.39 L BASO x10^3 (test code = 704-7) 0.01-0.07 BANDS (test code = 6946031727) Increased A TOXIC CHANGES (test code = 803-7) Present A Lab Interpretation (test code = 03862-1) [facility] 10:45:34* Test Item Value Reference Range Interpretation Comme nts MAGNESIUM (test code = 8792241654) 2.1 mg/dL 1.7-2.4 Lab Interpretation (test cod e = 43387-6) Normal [facility] (56903)2023-08-20 10:45:34* Test Item Value Reference Range Interpretation Comme nts NA (test code = 8490652970) 133 mmol/L 135-145 L K (test code = 7963603748) 3.8 mmol/L 3.5-5.0 CL (test code = 4858655949) 103 mmol/L 98-108 CO2 TOTAL (test code = 0112880347) 23 mmol/L 23-31 AGAP (test code = 2244990327) 7 2-16 BUN (test code = 8671179996) 53 mg/dL 7-23 H GLUCOSE (test code = 0450399637) 130 mg/dL 70-110 H CREATININE (test code = 2160-0) 3.42 mg/dL 0.50-1.04 H TOTAL BILI (test code = 0897281283) 0.7 mg/dL 0.1-1.1 CALCIUM (test code = 8147916417) 7.1 mg/dL 8.6-10.6 L T PROTEIN (test code = 8207576192) 5.0 g/dL 6.3-8.2 L ALBUMIN (test code = 3740202764) 2.2 g/dL 3.5-5.0 L ALK PHOS (test code = 7994257706) 92 U/L 34-122 ALTv (test code = 1742-6) 30 U/L 5-35 AST(SGOT) (test code = 2978205834) 68 U/L 13-40 H eGFR (test code = 04013-3) 14.1 mL/min/1.73m2 Lab Interpretation (test cod e = 43966-0) [facility] (67184)2023-08-20 10:45:34* Test Item Value Reference Range Interpretation Comme nts NA (test code = 9584548320) 133 mmol/L 135-145 L K (test code = 3371606527) 3.8 mmol/L 3.5-5.0 CL (test code = 7186417217) 103 mmol/L 98-108 CO2 TOTAL (test code = 2542799554) 23 mmol/L 23-31 AGAP (test code = 4873369300) 7 2-16 BUN (test code = 5099091117) 53 mg/dL 7-23 H GLUCOSE (test code = 1243818301) 130 mg/dL 70-110 H CREATININE (test code = 2160-0) 3.42 mg/dL 0.50-1.04 H TOTAL BILI (test code = 8632674400) 0.7 mg/dL 0.1-1.1 CALCIUM (test code = 2130919756) 7.1 mg/dL 8.6-10.6 L T PROTEIN (test code = 5869232376) 5.0 g/dL 6.3-8.2 L ALBUMIN (test code = 4999231971) 2.2 g/dL 3.5-5.0 L ALK PHOS (test code = 8503863166) 92 U/L 34-122 ALTv (test code = 1742-6) 30 U/L 5-35 AST(SGOT) (test code = 9187426363) 68 U/L 13-40 H eGFR (test code = 81320-8) 14.1 mL/min/1.73m2 Lab Interpretation (test cod e = 25450-9) [facility] 10:45:34* Test Item Value Reference Range Interpretation Comme nts MAGNESIUM (test code = 7291811782) 2.1 mg/dL 1.7-2.4 Lab Interpretation (test cod e = 25032-4) [facility] (39366)2023-08-20 10:45:34* Test Item Value Reference Range Interpretation Comme nts NA (test code = 8536325659) 133 mmol/L 135-145 L K (test code = 6689246927) 3.8 mmol/L 3.5-5.0 CL (test code = 7073806680) 103 mmol/L 98-108 CO2 TOTAL (test code = 2974902022) 23 mmol/L 23-31 AGAP (test code = 5764353144) 7 2-16 BUN (test code = 2654639438) 53 mg/dL 7-23 H GLUCOSE (test code = 8097548211) 130 mg/dL 70-110 H CREATININE (test code = 2160-0) 3.42 mg/dL 0.50-1.04 H TOTAL BILI (test code = 9988514223) 0.7 mg/dL 0.1-1.1 CALCIUM (test code = 3674549103) 7.1 mg/dL 8.6-10.6 L T PROTEIN (test code = 0616613306) 5.0 g/dL 6.3-8.2 L ALBUMIN (test code = 9714829850) 2.2 g/dL 3.5-5.0 L ALK PHOS (test code = 5622940615) 92 U/L 34-122 ALTv (test code = 1742-6) 30 U/L 5-35 AST(SGOT) (test code = 4136096300) 68 U/L 13-40 H eGFR (test code = 93230-2) 14.1 mL/min/1.73m2 Lab Interpretation (test cod e = 63559-7) Abnormal [facility] GLUCOSE (AUTOMATED)2023-08-18 12:58:47* Test Item Value Reference Range Interpretation Comme nts POCT GLU (test code = 4118536414) 116 mg/dL 70-110 H Lab Interpretation (test cod e = 29534-0) Abnormal [facility] GLUCOSE (AUTOMATED)2023-08-18 12:58:47* Test Item Value Reference Range Interpretation Comme nts POCT GLU (test code = 8245086705) 116 mg/dL 70-110 H Lab Interpretation (test cod e = 64353-1) Abnormal [facility] GLUCOSE (AUTOMATED)2023-08-18 01:15:42* Test Item Value Reference Range Interpretation Comme nts POCT GLU (test code = 4520145351) 118 mg/dL 70-110 H Lab Interpretation (test cod e = 55797-0) Abnormal [facility] GLUCOSE (AUTOMATED)2023-08-18 01:15:42* Test Item Value Reference Range Interpretation Comme nts POCT GLU (test code = 2367824512) 118 mg/dL 70-110 H Lab Interpretation (test cod e = 90135-4) Abnormal [facility] GLUCOSE (AUTOMATED)2023-08-17 23:22:41* Test Item Value Reference Range Interpretation Comme nts POCT GLU (test code = 2785311320) 153 mg/dL 70-110 H Lab Interpretation (test cod e = 26468-6) Abnormal [facility] GLUCOSE (AUTOMATED)2023-08-17 23:22:41* Test Item Value Reference Range Interpretation Comme nts POCT GLU (test code = 5187485340) 153 mg/dL 70-110 H Lab Interpretation (test cod e = 84539-1) Abnormal [facility] GLUCOSE (AUTOMATED)2023-08-17 21:40:29* Test Item Value Reference Range Interpretation Comme nts POCT GLU (test code = 5086379295) 187 mg/dL 70-110 H Lab Interpretation (test cod e = 11764-5) Abnormal [facility] GLUCOSE (AUTOMATED)2023-08-17 21:40:29* Test Item Value Reference Range Interpretation Comme nts POCT GLU (test code = 9575083284) 187 mg/dL 70-110 H Lab Interpretation (test cod e = 92745-2) Abnormal [facility] GLUCOSE (AUTOMATED)2023-08-17 17:04:12* Test Item Value Reference Range Interpretation Comme nts POCT GLU (test code = 3026101810) 143 mg/dL 70-110 H Lab Interpretation (test cod e = 39055-1) Abnormal [facility] GLUCOSE (AUTOMATED)2023-08-17 17:04:12* Test Item Value Reference Range Interpretation Comme nts POCT GLU (test code = 6575421713) 143 mg/dL 70-110 H Lab Interpretation (test cod e = 58733-3) Abnormal [facility] GLUCOSE (AUTOMATED)2023-08-17 13:10:22* Test Item Value Reference Range Interpretation Comme nts POCT GLU (test code = 1757692368) 115 mg/dL 70-110 H Lab Interpretation (test cod e = 75115-5) Abnormal [facility] GLUCOSE (AUTOMATED)2023-08-17 13:10:22* Test Item Value Reference Range Interpretation Comme nts POCT GLU (test code = 8682960430) 115 mg/dL 70-110 H Lab Interpretation (test cod e = 68476-5) Abnormal [facility] GLUCOSE (AUTOMATED)2023-08-17 02:09:07* Test Item Value Reference Range Interpretation Comme nts POCT GLU (test code = 4824121036) 142 mg/dL 70-110 H Lab Interpretation (test cod e = 33306-8) Abnormal [facility] GLUCOSE (AUTOMATED)2023-08-17 02:09:07* Test Item Value Reference Range Interpretation Comme nts POCT GLU (test code = 0756757202) 142 mg/dL 70-110 H Lab Interpretation (test cod e = 95810-1) Abnormal [facility] GLUCOSE (AUTOMATED)2023-08-16 21:53:39* Test Item Value Reference Range Interpretation Comme nts POCT GLU (test code = 3097435287) 135 mg/dL 70-110 H Lab Interpretation (test cod e = 46918-0) Abnormal [facility] GLUCOSE (AUTOMATED)2023-08-16 21:53:39* Test Item Value Reference Range Interpretation Comme nts POCT GLU (test code = 7598176659) 135 mg/dL 70-110 H Lab Interpretation (test cod e = 82225-1) Abnormal [facility] GLUCOSE (AUTOMATED)2023-08-16 17:19:20* Test Item Value Reference Range Interpretation Comme nts POCT GLU (test code = 2178306744) 92 mg/dL 70-110 Lab Interpretation (test cod e = 60210-8) Normal [facility] GLUCOSE (AUTOMATED)2023-08-16 17:19:20* Test Item Value Reference Range Interpretation Comme nts POCT GLU (test code = 0747592235) 92 mg/dL 70-110 Lab Interpretation (test cod e = 89670-7) Normal [facility] GLUCOSE (AUTOMATED)2023-08-16 13:13:24* Test Item Value Reference Range Interpretation Comme nts POCT GLU (test code = 3895834658) 127 mg/dL 70-110 H Lab Interpretation (test cod e = 46685-6) Abnormal [facility] GLUCOSE (AUTOMATED)2023-08-16 13:13:24* Test Item Value Reference Range Interpretation Comme nts POCT GLU (test code = 5148263903) 127 mg/dL 70-110 H Lab Interpretation (test cod e = 61635-5) Abnormal [facility] GLUCOSE (AUTOMATED)2023-08-16 02:31:33* Test Item Value Reference Range Interpretation Comme nts POCT GLU (test code = 3536208947) 160 mg/dL 70-110 H Lab Interpretation (test cod e = 40023-1) Abnormal [facility] GLUCOSE (AUTOMATED)2023-08-16 02:31:33* Test Item Value Reference Range Interpretation Comme nts POCT GLU (test code = 8392496526) 160 mg/dL 70-110 H Lab Interpretation (test cod e = 03291-0) Abnormal [facility] GLUCOSE (AUTOMATED)2023-08-15 22:22:37* Test Item Value Reference Range Interpretation Comme nts POCT GLU (test code = 9035203607) 174 mg/dL 70-110 H Lab Interpretation (test cod e = 06168-0) Abnormal [facility] GLUCOSE (AUTOMATED)2023-08-15 22:22:37* Test Item Value Reference Range Interpretation Comme nts POCT GLU (test code = 4244127172) 174 mg/dL 70-110 H Lab Interpretation (test cod e = 77922-0) Abnormal [facility] GLUCOSE (AUTOMATED)2023-08-15 17:23:49* Test Item Value Reference Range Interpretation Comme nts POCT GLU (test code = 0916902370) 184 mg/dL 70-110 H Lab Interpretation (test cod e = 67491-1) Abnormal [facility] GLUCOSE (AUTOMATED)2023-08-15 17:23:49* Test Item Value Reference Range Interpretation Comme nts POCT GLU (test code = 9506711741) 184 mg/dL 70-110 H Lab Interpretation (test cod e = 35743-5) Abnormal [facility] GLUCOSE (AUTOMATED)2023-08-15 13:12:46* Test Item Value Reference Range Interpretation Comme nts POCT GLU (test code = 9013083372) 148 mg/dL 70-110 H Lab Interpretation (test cod e = 72198-3) Abnormal [facility] GLUCOSE (AUTOMATED)2023-08-15 13:12:46* Test Item Value Reference Range Interpretation Comme nts POCT GLU (test code = 9453114874) 148 mg/dL 70-110 H Lab Interpretation (test cod e = 05813-2) Abnormal [facility] GLUCOSE (AUTOMATED)2023-08-15 02:43:45* Test Item Value Reference Range Interpretation Comme nts POCT GLU (test code = 3757076719) 170 mg/dL 70-110 H Lab Interpretation (test cod e = 12798-3) [facility] 02:43:45* Test Item Value Reference Range Interpretation Comme nts POCT GLU (test code = 1351960231) 170 mg/dL 70-110 H Lab Interpretation (test cod e = 82330-6) [facility] 01:52:28* Test Item Value Reference Range Interpretation Comme nts POCT GLU (test code = 5508815159) 173 mg/dL 70-110 H Lab Interpretation (test cod e = 69706-1) [facility] 01:52:28* Test Item Value Reference Range Interpretation Comme nts POCT GLU (test code = 0716586439) 173 mg/dL 70-110 H Lab Interpretation (test cod e = 49078-9) [facility]15 00:05:02* Test Item Value Reference Range Interpretation Comme nts APTT Patient (test code = 3173-2) 84 26-36 H Lab Interpretation (test cod e = 52786-5) [facility] 00:05:02* Test Item Value Reference Range Interpretation Comme nts APTT Patient (test code = 3173-2) 84 26-36 H Lab Interpretation (test cod e = 75066-8) [facility]2023-08-14 23:08:45* Test Item Value Reference Range Interpretation Comme nts APTT Patient (test code = 3173-2) 104 26-36 HH Lab Interpretation (test cod e = 51161-2) [facility]2023-08-14 23:08:45* Test Item Value Reference Range Interpretation Comme nts APTT Patient (test code = 3173-2) 104 26-36 HH Lab Interpretation (test cod e = 94467-0) Abnormal [facility] GLUCOSE (AUTOMATED)2023-08-14 21:51:21* Test Item Value Reference Range Interpretation Comme nts POCT GLU (test code = 9980528188) 112 mg/dL 70-110 H Lab Interpretation (test cod e = 33913-8) Abnormal [facility] GLUCOSE (AUTOMATED)2023-08-14 21:51:21* Test Item Value Reference Range Interpretation Comme nts POCT GLU (test code = 6968268180) 112 mg/dL 70-110 H Lab Interpretation (test cod e = 09303-9) [facility]2023-08-14 17:28:47* Test Item Value Reference Range Interpretation Comme nts APTT Patient (test code = 3173-2) 44 26-36 H Lab Interpretation (test cod e = 85733-1) [facility]2023-08-14 17:28:47* Test Item Value Reference Range Interpretation Comme nts APTT Patient (test code = 3173-2) 44 26-36 H Lab Interpretation (test cod e = 19027-6) Abnormal [facility] GLUCOSE (AUTOMATED)2023-08-14 16:36:06* Test Item Value Reference Range Interpretation Comme nts POCT GLU (test code = 5650107381) 141 mg/dL 70-110 H Lab Interpretation (test cod e = 12626-2) Abnormal [facility] GLUCOSE (AUTOMATED)2023-08-14 16:36:06* Test Item Value Reference Range Interpretation Comme nts POCT GLU (test code = 7227724614) 141 mg/dL 70-110 H Lab Interpretation (test cod e = 65302-9) [id number] 15:47:56EXAM: XR KUB, XR KUB, XR ABDOMEN 1 VW 08/11/2023 10:58 AM HISTORY: 68 years old Female with abd diste nsion TECHNIQUE: Sequential portable AP view/s of the abdomen. COMPARISON[facility] - To confirm nasogastric tube placement.2023-08-14 15:47:56EXAM: XR KUB, XR KUB, XR ABDOMEN 1 VW 08/11/2023 10:58 AM HISTORY: 68 years old Female with abd distension TECHNIQUE: Sequential portable AP view/s of the abdomen. COMPARISON: CT abdomen pelvis [facility] [id number] 15:47:56EXAM: XR KUB, XR KUB, XR ABDOMEN 1 VW 08/11/2023 10:58 AM HISTORY: 68 years old Female with abd distension TECHNIQUE: Sequential portable AP view/s of the abdomen. COMPARISON: CT abdomen pelvis [facility] 15:47:56EXAM: XR KUB, XR KUB, XR ABDOMEN 1 VW 08/11/2023 10:58 AM HISTORY: 68 years old Female with abd distension TECHNIQUE: Sequential portable AP view/s of the abdomen. COMPARISON: CT abdomen pelvis [facility] - To confirm nasogastric tube placement. 2023-08-14 15:47:56EXAM: XR KUB, XR KUB, XR ABDOMEN 1 VW 08/11/2023 10:58 AM HISTORY: 68 years old Female with abd distension TECHNIQUE: Sequential portable AP view/s of the abdomen. COMPARISON: CT abdomen pelvis [facility] [id number] 15:47:56EXAM: XR KUB, XR KUB, XR ABDOMEN 1 VW 08/11/2023 10:58 AM HISTORY: 68 years old Female with abd distension TECHNIQUE: Sequential portable AP view/s of the abdomen. COMPARISON: CT abdomen [facility]14 12:41:34* Test Item Value Reference Range Interpretation Comme nts POCT GLU (test code = 8440155819) 150 mg/dL 70-110 H Lab Interpretation (test cod e = 56291-1) Abnormal [facility] GLUCOSE (AUTOMATED)2023-08-14 12:41:34* Test Item Value Reference Range Interpretation Comme nts POCT GLU (test code = 6602783944) 150 mg/dL 70-110 H Lab Interpretation (test cod e = 90743-6) [facility]14 11:41:20* Test Item Value Reference Range Interpretation Comme nts APTT Patient (test code = 3173-2) 47 26-36 H Lab Interpretation (test cod e = 44812-9) [facility]2023-08-14 11:41:20* Test Item Value Reference Range Interpretation Comme nts APTT Patient (test code = 3173-2) 47 26-36 H Lab Interpretation (test cod e = 04302-6) [facility] [id number] 10:49:16* Test Item Value Reference Range Interpretation Comme [facility] WBC (test code = 6690-2) 22.42 4.30-11.10 H RBC (test code = 789-8) 3.41 3.93-5.25 L HGB (test code = 718-7) 9.7 g/dL 11.6-15.0 L HCT (test code = 4544-3) 29.1 % 35.7-45.2 L MCV (test code = 787-2) 85.3 fL 80.6-95.5 MCH (test code = 785-6) 28.4 pg 25.9-32.8 MCHC (test code = 786-4) 33.3 g/dL 31.6-35.1 RDW-SD (test code = 93978-1) 48.3 fL 39.0-49.9 RDW-CV (test code = 788-0) 15.4 % 12.0-15.5 PLT (test code = 777-3) 192 166-358 MPV (test code = 37051-5) 10.2 fL 9.5-12.9 NRBC/100 WBC (test code = 4100239271) 0.1 0.0-10.0 NRBC x10^3 (test code = 6865402026) 0.02 See_Comment [Automated message] The system which generated this result transmitted reference range: 10*3/?L. The reference range was not used to interpret this result as normal/abnormal. GRAN MAT (NEUT) % (test code = 770-8) 85.8 % IMM GRAN % (test code = 0244443366) 3.90 % LYMPH % (test code = 736-9) 6.4 % MONO % (test code = 5905-5) 3.4 % EOS % (test code = 713-8) 0.1 % BASO % (test code = 706-2) 0.4 % GRAN MAT x10^3(ANC) (test code = 4741253330) 19.23 10*3/uL 1.88-7.09 H IMM GRAN x10^3 (test code = 6482759329) 0.87 10*3/uL 0.00-0.06 H LYMPH x10^3 (test code = 731-0) 1.44 10*3/uL 1.32-3.29 MONO x10^3 (test code = 742-7) 0.77 10*3/uL 0.33-0.92 EOS x10^3 (test code = 711-2) 0.03-0.39 L BASO x10^3 (test code = 704-7) 0.09 10*3/uL 0.01-0.07 H BANDS (test code = 8118019291) Increased A TOXIC CHANGES (test code = 803-7) Present A Lab Interpretation (test code = 38697-8) Abnormal [facility] with Xyif0060-18-57 10:49:16* Test Item Value Reference Range Interpretation Comme nts WBC (test code = 6690-2) 22.42 4.30-11.10 H RBC (test code = 789-8) 3.41 3.93-5.25 L HGB (test code = 718-7) 9.7 g/dL 11.6-15.0 L HCT (test code = 4544-3) 29.1 % 35.7-45.2 L MCV (test code = 787-2) 85.3 fL 80.6-95.5 MCH (test code = 785-6) 28.4 pg 25.9-32.8 MCHC (test code = 786-4) 33.3 g/dL 31.6-35.1 RDW-SD (test code = 61956-8) 48.3 fL 39.0-49.9 RDW-CV (test code = 788-0) 15.4 % 12.0-15.5 PLT (test code = 777-3) 192 166-358 MPV (test code = 48538-9) 10.2 fL 9.5-12.9 NRBC/100 WBC (test code = 8439545034) 0.1 0.0-10.0 NRBC x10^3 (test code = 3941958160) 0.02 See_Comment [Automated message] The system which generated this result transmitted reference range: 10*3/?L. The reference range was not used to interpret this result as normal/abnormal. GRAN MAT (NEUT) % (test code = 770-8) 85.8 % IMM GRAN % (test code = 2872611765) 3.90 % LYMPH % (test code = 736-9) 6.4 % MONO % (test code = 5905-5) 3.4 % EOS % (test code = 713-8) 0.1 % BASO % (test code = 706-2) 0.4 % GRAN MAT x10^3(ANC) (test code = 1378959912) 19.23 10*3/uL 1.88-7.09 H IMM GRAN x10^3 (test code = 8341255820) 0.87 10*3/uL 0.00-0.06 H LYMPH x10^3 (test code = 731-0) 1.44 10*3/uL 1.32-3.29 MONO x10^3 (test code = 742-7) 0.77 10*3/uL 0.33-0.92 EOS x10^3 (test code = 711-2) 0.03-0.39 L BASO x10^3 (test code = 704-7) 0.09 10*3/uL 0.01-0.07 H BANDS (test code = 7466078907) Increased A TOXIC CHANGES (test code = 803-7) Present A Lab Interpretation (test code = 76123-3) [facility] 10:17:50* Test Item Value Reference Range Interpretation Comme nts MAGNESIUM (test code = 6553433395) 2.6 mg/dL 1.7-2.4 H Lab Interpretation (test cod e = 98249-1) [facility]:17:[facility]* Test Item Value Reference Range Interpretation Comme nts MAGNESIUM (test code = 0166467775) 2.6 mg/dL 1.7-2.4 H Lab Interpretation (test cod e = 91424-1) Abnormal [facility] Metabolic Panel (NA, K, CL, CO2, GLUCOSE, BUN, CREATININE, CA)2023-08-14 10:17:49* Test Item Value Reference Range Interpretation Comme nts NA (test code = 3524240070) 130 mmol/L 135-145 L K (test code = 3057730074) 4.0 mmol/L 3.5-5.0 CL (test code = 5619064090) 103 mmol/L 98-108 CO2 TOTAL (test code = 3253362618) 26 mmol/L 23-31 AGAP (test code = 5167242813) 1 2-16 L BUN (test code = 0437714906) 27 mg/dL 7-23 H GLUCOSE (test code = 9513819152) 166 mg/dL 70-110 H CREATININE (test code = 2160-0) 1.45 mg/dL 0.50-1.04 H CALCIUM (test code = 5943806402) 6.8 mg/dL 8.6-10.6 L eGFR (test code = 25630-8) 39.6 mL/min/1.73m2 CKD-EPI eGFR (2020). Assuming creatinine has been stable day-to-day for at least three months, the eGFR indicates Category G3b (30 - 44 mL/min/1.73 m2) Lab Interpretation (test code = 85281-2) Abnormal [facility] Metabolic Panel (NA, K, CL, CO2, GLUCOSE, BUN, CREATININE, CA)2023-08-14 10:17:49* Test Item Value Reference Range Interpretation Comme nts NA (test code = 5931257696) 130 mmol/L 135-145 L K (test code = 4691312234) 4.0 mmol/L 3.5-5.0 CL (test code = 6630929584) 103 mmol/L 98-108 CO2 TOTAL (test code = 1879959184) 26 mmol/L 23-31 AGAP (test code = 0180892017) 1 2-16 L BUN (test code = 5269778084) 27 mg/dL 7-23 H GLUCOSE (test code = 5299884044) 166 mg/dL 70-110 H CREATININE (test code = 2160-0) 1.45 mg/dL 0.50-1.04 H CALCIUM (test code = 0468064240) 6.8 mg/dL 8.6-10.6 L eGFR (test code = 27524-7) 39.6 mL/min/1.73m2 CKD-EPI eGFR (2020). Assuming creatinine has been stable day-to-day for at least three months, the eGFR indicates Category G3b (30 - 44 mL/min/1.73 m2) Lab Interpretation (test code = 92980-2) Abnormal [facility] Culture - Peripheral Vein # 06:01:08* Test Item Value Reference Range Interpretation Comme nts Blood Culture-Aerobic (test code = 56146-6) No organisms isolated No growth Previous preliminary verified result was Culture In Progress on 08/09/2023 at 0401 CDTPrevious preliminary verified result was No growth at 24 hours on 08/10/2023 at 0101 CDTPrevious preliminary verified result was No growth at 48 hours on 08/11/2023 at 0101 CDTPrevious preliminary verified result was No growth at 72 hours on 08/12/2023 at 0101 CDT Blood Culture-Anaerobic (test code = 61831-6) No organisms isolated No growth Previous preliminary verified result was Culture In Progress on 08/09/2023 at 0401 CDTPrevious preliminary verified result was No growth at 24 hours on 08/10/2023 at 0101 CDTPrevious preliminary verified result was No growth at 48 hours on 08/11/2023 at 0101 CDTPrevious preliminary verified result was No growth at 72 hours on 08/12/2023 at 0101 CDT Lab Interpretation (test code = 04845-4) Normal [facility] Culture - Peripheral Give4871-58-86 06:01:08* Test Item Value Reference Range Interpretation Comme nts Blood Culture-Aerobic (test code = 75212-3) No organisms isolated No growth Previous preliminary verified result was Culture In Progress on 08/09/2023 at 0401 CDTPrevious preliminary verified result was No growth at 24 hours on 08/10/2023 at 0101 CDTPrevious preliminary verified result was No growth at 48 hours on 08/11/2023 at 0101 CDTPrevious preliminary verified result was No growth at 72 hours on 08/12/2023 at 010[facility] Blood Culture-Anaerobic (test code = 86462-1) No organisms isolated No growth Previous preliminary verified result was Culture In Progress on 08/09/2023 at 0401 CDTPrevious preliminary verified result was No growth at 24 hours on 08/10/2023 at 0101 CDTPrevious preliminary verified result was No growth at 48 hours on 08/11/2023 at 0101 CDTPrevious preliminary verified result was No growth at 72 hours on 08/12/2023 at 010 CDT Lab Interpretation (test code = 93389-6) [facility] Culture - Peripheral Tdfq1718-78-15 06:01:08* Test Item Value Reference Range Interpretation Comme nts Blood Culture-Aerobic (test code = 04363-5) No organisms isolated No growth Previous preliminary verified result was Culture In Progress on 08/09/2023 at 0401 CDTPrevious preliminary verified result was No growth at 24 hours on 08/10/2023 at 0101 CDTPrevious preliminary verified result was No growth at 48 hours on 08/11/2023 at 0101 CDTPrevious preliminary verified result was No growth at 72 hours on 08/12/2023 at 010[facility] Blood Culture-Anaerobic (test code = 19496-7) No organisms isolated No growth Previous preliminary verified result was Culture In Progress on 08/09/2023 at 0401 CDTPrevious preliminary verified result was No growth at 24 hours on 08/10/2023 at 0101 CDTPrevious preliminary verified result was No growth at 48 hours on 08/11/2023 at 0101 CDTPrevious preliminary verified result was No growth at 72 hours on 08/12/2023 at 0101 CDT Lab Interpretation (test code = 30590-5) [facility] Culture - Peripheral Vein # 06:01:08* Test Item Value Reference Range Interpretation Comme nts Blood Culture-Aerobic (test code = 66949-6) No organisms isolated No growth Previous preliminary verified result was Culture In Progress on 08/09/2023 at 0401 CDTPrevious preliminary verified result was No growth at 24 hours on 08/10/2023 at 0101 CDTPrevious preliminary verified result was No growth at 48 hours on 08/11/2023 at 0101 CDTPrevious preliminary verified result was No growth at 72 hours on 08/12/2023 at 0101 CDT Blood Culture-Anaerobic (test code = 13982-1) No organisms isolated No growth Previous preliminary verified result was Culture In Progress on 08/09/2023 at 0401 CDTPrevious preliminary verified result was No growth at 24 hours on 08/10/2023 at 0101 CDTPrevious preliminary verified result was No growth at 48 hours on 08/11/2023 at 0101 CDTPrevious preliminary verified result was No growth at 72 hours on 08/12/2023 at 0101 CDT Lab Interpretation (test code = 32439-8) Normal [facility] Culture - Peripheral Kayf9761-56-37 06:01:08* Test Item Value Reference Range Interpretation Comme nts Blood Culture-Aerobic (test code = 81744-0) No organisms isolated No growth Previous preliminary verified result was Culture In Progress on 08/09/2023 at 0401 CDTPrevious preliminary verified result was No growth at 24 hours on 08/10/2023 at 0101 CDTPrevious preliminary verified result was No growth at 48 hours on 08/11/2023 at 0101 CDTPrevious preliminary verified result was No growth at 72 hours on 08/12/2023 at 0101 CDT Blood Culture-Anaerobic (test code = 14983-3) No organisms isolated No growth Previous preliminary verified result was Culture In Progress on 08/09/2023 at 0401 CDTPrevious preliminary verified result was No growth at 24 hours on 08/10/2023 at 0101 CDTPrevious preliminary verified result was No growth at 48 hours on 08/11/2023 at 0101 CDTPrevious preliminary verified result was No growth at 72 hours on 08/12/2023 at 0101 CDT Lab Interpretation (test code = 62089-5) Normal [facility], Xttaun3915-24-44 05:12:10* Test Item Value Reference Range Interpretation Comme nts AMMONIA (test code = 4968233443) 9-33 L Lab Interpretation (test cod e = 08911-5) Abnormal [facility], Uxkxzg2887-87-05 05:12:10* Test Item Value Reference Range Interpretation Comme nts AMMONIA (test code = 6474349218) 9-33 L Lab Interpretation (test cod e = 91910-6) Abnormal [facility]2024-04-30 05:12:10* Test Item Value Reference Range Interpretation Comme nts AMMONIA (test code = 3933066371) 9-33 L Lab Interpretation (test cod e = 24102-2) Abnormal [facility]2024-04-30 05:12:10* Test Item Value Reference Range Interpretation Comme nts AMMONIA (test code = 5848319133) 9-33 L Lab Interpretation (test cod e = 75851-0) [facility] 05:04:00* Test Item Value Reference Range Interpretation Comme nts APTT Patient (test code = 3173-2) 52 26-36 H Lab Interpretation (test cod e = 79034-1) Abnormal [facility] (for use with Heparin Infusion)2023-08-14 05:04:00* Test Item Value Reference Range Interpretation Comme nts APTT Patient (test code = 3173-2) 52 26-36 H Lab Interpretation (test cod e = 01845-6) Abnormal [facility] GLUCOSE (AUTOMATED)2023-08-13 22:48:01* Test Item Value Reference Range Interpretation Comme nts POCT GLU (test code = 4304715165) 140 mg/dL 70-110 H Lab Interpretation (test cod e = 66611-7) Abnormal [facility] GLUCOSE (AUTOMATED)2023-08-13 22:48:01* Test Item Value Reference Range Interpretation Comme nts POCT GLU (test code = 5943440537) 140 mg/dL 70-110 H Lab Interpretation (test cod e = 39603-5) Abnormal [facility] GLUCOSE (AUTOMATED)2023-08-13 22:13:17* Test Item Value Reference Range Interpretation Comme nts POCT GLU (test code = 4631197020) 169 mg/dL 70-110 H Lab Interpretation (test cod e = 12520-5) Abnormal [facility] GLUCOSE (AUTOMATED)2023-08-13 22:13:17* Test Item Value Reference Range Interpretation Comme nts POCT GLU (test code = 8614382840) 169 mg/dL 70-110 H Lab Interpretation (test cod e = 25814-4) [facility] [id number] 19:07:22EXAM: XR CHEST 1 VW COMPARISON: ?XR CHEST 1 08/10/2023 HISTORY: CVC and nasogastric tube placement. FINDINGS: Devices and lines: Right-sided IJ line tip projects over the SVC/rightatrium, unchanged.The intervally placed gastric tube reaches the stomach,tip is outside the field of view. Lungs: Thelung volumes are normal. Unchanged mild bilateral diffuseinterstitial opacities. Left greater than right small pleural effusions. Heart/Mediastinum: The cardiac silhouette appears mildly enlargedaccounting for technique and degree of inspiration, unchanged. Bones and soft tissues: No osseous abnormality is visualized.[facility] [id number] 19:07:22EXAM: XR CHEST 1 VW COMPARISON: ?XR CHEST 1 08/10/2023 HISTORY: CVC and nasogastric tube placement. FINDINGS: Devices and lines: Right-sided IJ line tip projects over the SVC/rightatrium, unchanged.The intervally placed gastric tube reaches the stomach,tip is outside the field of view. Lungs: Thelung volumes are normal. Unchanged mild bilateral diffuseinterstitial opacities. Left greater than right small pleural effusions. Heart/Mediastinum: The cardiac silhouette appears mildly enlargedaccounting for technique and degree of inspiration, unchanged. Bones and soft tissues: No osseous abnormality is visualized.[facility] 2023-[facility] 18:52:38* Test Item Value Reference Range Interpretation Comme nts LIPASE (test code = 5483706362) 224 U/L 0-220 H Lab Interpretation (test cod e = 21220-8) [facility]normal [facility]2024-04-29 18:52:38* Test Item Value Reference Range Interpretation Comme nts LIPASE (test code = 8495442112) 224 U/L 0-220 H Lab Interpretation (test cod e = 70633-2) [facility]normal [facility]2024-04-29 18:52:38* Test Item Value Reference Range Interpretation Comme nts LIPASE (test code = 0312002928) 224 U/L 0-220 H Lab Interpretation (test cod e = 69459-1) [facility]normal [facility]2024-[facility]-29 18:52:38* Test Item Value Reference Range Interpretation Comme nts LIPASE (test code = 7733837279) 224 U/L 0-220 H Lab Interpretation (test cod e = 09978-1) [facility] 1 [id number] 15:45:44EXAM: XR CHEST 1 VW COMPARISON: ?XR CHEST 1 VW 08/10/2023 HISTORY: CVC placement FINDINGS: Lines anddevices: Interval right internal jugular central venous catheterplacement with tip projecting over the SVC/right atrium. Lungs: Normal lung volumes. Unchanged diffuse bilateral mild interstitialopacities. Unchanged wroz-si-cegsmfnw left greater than right pleuraleffusion. Heart/Mediastinum: The cardiac silhouette appears mildly enlargedaccounting for technique and degree of inspiration. Bones andsoft tissues: No osseous abnormality is visualized. [facility] 1 [id number] 15:45:44EXAM: XR CHEST 1 VW COMPARISON: ?XR CHEST 1 VW 08/10/2023 HISTORY: CVC placement FINDINGS: Lines anddevices: Interval right internal jugular central venous catheterplacement with tip projecting over the SVC/right atrium. Lungs: Normal lung volumes. Unchanged diffuse bilateral mild interstitialopacities. Unchanged bhuc-al-hfjskwtr left greater than right pleuraleffusion. Heart/Mediastinum: The cardiac silhouette appears mildly enlargedaccounting for technique and degree of inspiration. Bones andsoft tissues: No osseous abnormality is visualized. [facility] GLUCOSE (AUTOMATED)2023-08-13 13:58:02* Test Item Value Reference Range Interpretation Comme nts POCT GLU (test code = 6561625643) 134 mg/dL 70-110 H Lab Interpretation (test cod e = 53676-8) Abnormal [facility] GLUCOSE (AUTOMATED)2023-08-13 13:58:02* Test Item Value Reference Range Interpretation Comme nts POCT GLU (test code = 3321486422) 134 mg/dL 70-110 H Lab Interpretation (test cod e = 90914-2) [facility]normal [facility] Etdpjeu6749-06-96 08:55:05 * Test Item Value Reference Range Interpretation Comme nts TSH (test code = 4876039699) 1.74 0.45-4.70 Lab Interpretation (test cod e = 37079-4) [facility] Zoztbgc7871-99-04 08:55:05 * Test Item Value Reference Range Interpretation Comme nts TSH (test code = 7715019306) 1.74 0.45-4.70 Lab Interpretation (test cod e = 66421-3) [facility] Ztkmzlm4578-57-61 08:55:05 * Test Item Value Reference Range Interpretation Comme nts TSH (test code = 7443432714) 1.74 0.45-4.70 Lab Interpretation (test cod e = 20533-4) [facility] Phgdlsj2315-97-93 08:55:05 * Test Item Value Reference Range Interpretation Comme nts TSH (test code = 2976185568) 1.74 0.45-4.70 Lab Interpretation (test cod e = 01578-2) Normal [facility] with Bcai1841-60-92 08:24:14* Test Item Value Reference Range Interpretation Comme nts WBC (test code = 6690-2) 19.31 4.30-11.10 H RBC (test code = 789-8) 3.66 3.93-5.25 L HGB (test code = 718-7) 10.4 g/dL 11.6-15.0 L HCT (test code = 4544-3) 31.2 % 35.7-45.2 L MCV (test code = 787-2) 85.2 fL 80.6-95.5 MCH (test code = 785-6) 28.4 pg 25.9-32.8 MCHC (test code = 786-4) 33.3 g/dL 31.6-35.1 RDW-SD (test code = 93674-7) 47.7 fL 39.0-49.9 RDW-CV (test code = 788-0) 15.3 % 12.0-15.5 PLT (test code = 777-3) 174 166-358 MPV (test code = 92121-5) 9.9 fL 9.5-12.9 NRBC/100 WBC (test code = 2902224434) 0.2 0.0-10.0 NRBC x10^3 (test code = 5209867632) 0.03 See_Comment [Automated message] The system which generated this result transmitted reference range: 10*3/?L. The reference range was not used to interpret this result as normal/abnormal. GRAN MAT (NEUT) % (test code = 770-8) 87.0 % IMM GRAN % (test code = 3667988968) 4.60 % LYMPH % (test code = 736-9) 4.8 % MONO % (test code = 5905-5) 3.0 % EOS % (test code = 713-8) 0.1 % BASO % (test code = 706-2) 0.5 % GRAN MAT x10^3(ANC) (test code = 6070577579) 16.82 10*3/uL 1.88-7.09 H IMM GRAN x10^3 (test code = 4728446073) 0.89 10*3/uL 0.00-0.06 H LYMPH x10^3 (test code = 731-0) 0.92 10*3/uL 1.32-3.29 L MONO x10^3 (test code = 742-7) 0.58 10*3/uL 0.33-0.92 EOS x10^3 (test code = 711-2) 0.03-0.39 L BASO x10^3 (test code = 704-7) 0.09 10*3/uL 0.01-0.07 H RYAN CELLS (test code = 7790-9) 2+ See_Comment A [Automated message] The system which generated this result transmitted reference range: (none). The reference range was not used to interpret this result as normal/abnormal. BANDS (test code = 9618433740) Increased A TOXIC CHANGES (test code = 803-7) Present A Lab Interpretation (test code = 75178-3) Abnormal [facility] with Vlwy2927-35-77 08:24:14* Test Item Value Reference Range Interpretation Comme nts WBC (test code = 6690-2) 19.31 4.30-11.10 H RBC (test code = 789-8) 3.66 3.93-5.25 L HGB (test code = 718-7) 10.4 g/dL 11.6-15.0 L HCT (test code = 4544-3) 31.2 % 35.7-45.2 L MCV (test code = 787-2) 85.2 fL 80.6-95.5 MCH (test code = 785-6) 28.4 pg 25.9-32.8 MCHC (test code = 786-4) 33.3 g/dL 31.6-35.1 RDW-SD (test code = 04423-1) 47.7 fL 39.0-49.9 RDW-CV (test code = 788-0) 15.3 % 12.0-15.5 PLT (test code = 777-3) 174 166-358 MPV (test code = 97220-5) 9.9 fL 9.5-12.9 NRBC/100 WBC (test code = 5213220727) 0.2 0.0-10.0 NRBC x10^3 (test code = 0464005819) 0.03 See_Comment [Automated message] The system which generated this result transmitted reference range: 10*3/?L. The reference range was not used to interpret this result as normal/abnormal. GRAN MAT (NEUT) % (test code = 770-8) 87.0 % IMM GRAN % (test code = 7463505120) 4.60 % LYMPH % (test code = 736-9) 4.8 % MONO % (test code = 5905-5) 3.0 % EOS % (test code = 713-8) 0.1 % BASO % (test code = 706-2) 0.5 % GRAN MAT x10^3(ANC) (test code = 0821565062) 16.82 10*3/uL 1.88-7.09 H IMM GRAN x10^3 (test code = 3922889109) 0.89 10*3/uL 0.00-0.06 H LYMPH x10^3 (test code = 731-0) 0.92 10*3/uL 1.32-3.29 L MONO x10^3 (test code = 742-7) 0.58 10*3/uL 0.33-0.92 EOS x10^3 (test code = 711-2) 0.03-0.39 L BASO x10^3 (test code = 704-7) 0.09 10*3/uL 0.01-0.07 H RYAN CELLS (test code = 7790-9) 2+ See_Comment A [Automated message] The system which generated this result transmitted reference range: (none). The reference range was not used to interpret this result as normal/abnormal. BANDS (test code = 4763714624) Increased A TOXIC CHANGES (test code = 803-7) Present A Lab Interpretation (test code = 92831-4) [facility]normal [facility] (ALB,T.PRO,BILI T,BU/BC,ALT,AST,ALK PHOS)2023-08-13 08:22:02* Test Item Value Reference Range Interpretation Comme nts TOTAL BILI (test code = 9246043885) 1.0 mg/dL 0.1-1.1 BILI UNCON (test code = 0367921922) 0.2 mg/dL 0.1-1.1 BILI CONJ (test code = 5865100353) 0.0 mg/dL 0.0-0.3 T PROTEIN (test code = 9141291237) 5.2 g/dL 6.3-8.2 L ALBUMIN (test code = 1607759792) 2.5 g/dL 3.5-5.0 L ALK PHOS (test code = 6148375305) 139 U/L 34-122 H ALTv (test code = 1742-6) 24 U/L 5-35 AST(SGOT) (test code = 6238174821) 53 U/L 13-40 H Lab Interpretation (test cod e = 18369-3) [facility] (NA, K, CL, CO2, GLUCOSE, BUN, CREATININE, CA)2023-08-13 08:22:02* Test Item Value Reference Range Interpretation Comme nts NA (test code = 7790367022) 132 mmol/L 135-145 L K (test code = 1341374371) 4.0 mmol/L 3.5-5.0 CL (test code = 4691377185) 105 mmol/L 98-108 CO2 TOTAL (test code = 8904399262) 25 mmol/L 23-31 AGAP (test code = 6761944453) 2 2-16 BUN (test code = 5425355318) 35 mg/dL 7-23 H GLUCOSE (test code = 2452438187) 149 mg/dL 70-110 H CREATININE (test code = 2160-0) 1.76 mg/dL 0.50-1.04 H CALCIUM (test code = 8674734835) 6.9 mg/dL 8.6-10.6 L eGFR (test code = 44927-1) 31.4 mL/min/1.73m2 CKD-EPI eGFR (2020). Assuming creatinine has been stable day-to-day for at least three months, the eGFR indicates Category G3b (30 - 44 mL/min/1.73 m2) Lab Interpretation (test code = 93691-5) [facility] 08:22:02* Test Item Value Reference Range Interpretation Comme nts MAGNESIUM (test code = 3753229095) 2.7 mg/dL 1.7-2.4 H Lab Interpretation (test cod e = 67053-1) [facility] 08:22:02* Test Item Value Reference Range Interpretation Comme nts PHOSPHORUS (test code = 3933502016) 2.8 mg/dL 2.5-5.0 Lab Interpretation (test cod e = 57451-2) Normal [facility] (68361[facility] (ALB,T.PRO,BILI T,BU/BC,ALT,AST,ALK PHOS)2023-08-13 08:22:02* Test Item Value Reference Range Interpretation Comme nts TOTAL BILI (test code = 7963732785) 1.0 mg/dL 0.1-1.1 BILI UNCON (test code = 5184649426) 0.2 mg/dL 0.1-1.1 BILI CONJ (test code = 9727808245) 0.0 mg/dL 0.0-0.3 T PROTEIN (test code = 4939526852) 5.2 g/dL 6.3-8.2 L ALBUMIN (test code = 9531096535) 2.5 g/dL 3.5-5.0 L ALK PHOS (test code = 1328097226) 139 U/L 34-122 H ALTv (test code = 1742-6) 24 U/L 5-35 AST(SGOT) (test code = 5095606587) 53 U/L 13-40 H Lab Interpretation (test cod e = 00948-3) [facility] (11704[facility] (ALB,T.PRO,BILI T,BU/BC,ALT,AST,ALK PHOS)2023-08-13 08:22:02* Test Item Value Reference Range Interpretation Comme nts TOTAL BILI (test code = 3054033658) 1.0 mg/dL 0.1-1.1 BILI UNCON (test code = 0198278435) 0.2 mg/dL 0.1-1.1 BILI CONJ (test code = 2394434599) 0.0 mg/dL 0.0-0.3 T PROTEIN (test code = 4856030872) 5.2 g/dL 6.3-8.2 L ALBUMIN (test code = 7047908818) 2.5 g/dL 3.5-5.0 L ALK PHOS (test code = 7851206720) 139 U/L 34-122 H ALTv (test code = 1742-6) 24 U/L 5-35 AST(SGOT) (test code = 8095489352) 53 U/L 13-40 H Lab Interpretation (test cod e = 46264-8) [facility] (NA, K, CL, CO2, GLUCOSE, BUN, CREATININE, CA)2023-08-13 08:22:02* Test Item Value Reference Range Interpretation Comme nts NA (test code = 6979120959) 132 mmol/L 135-145 L K (test code = 1234844047) 4.0 mmol/L 3.5-5.0 CL (test code = 3124398356) 105 mmol/L 98-108 CO2 TOTAL (test code = 3791963033) 25 mmol/L 23-31 AGAP (test code = 6928103373) 2 2-16 BUN (test code = 1427106757) 35 mg/dL 7-23 H GLUCOSE (test code = 0549838735) 149 mg/dL 70-110 H CREATININE (test code = 2160-0) 1.76 mg/dL 0.50-1.04 H CALCIUM (test code = 6182726902) 6.9 mg/dL 8.6-10.6 L eGFR (test code = 54870-3) 31.4 mL/min/1.73m2 CKD-EPI eGFR (2020). Assuming creatinine has been stable day-to-day for at least three months, the eGFR indicates Category G3b (30 - 44 mL/min/1.73 m2) Lab Interpretation (test code = 96455-0) [facility] 08:22:02* Test Item Value Reference Range Interpretation Comme nts MAGNESIUM (test code = 7759520734) 2.7 mg/dL 1.7-2.4 H Lab Interpretation (test cod e = 09178-9) [facility]normal [facility]29 08:22:02* Test Item Value Reference Range Interpretation Comme nts PHOSPHORUS (test code = 9334839850) 2.8 mg/dL 2.5-5.0 Lab Interpretation (test cod e = 82957-9) Normal [facility] (75136[facility] (ALB,T.PRO,BILI T,BU/BC,ALT,AST,ALK PHOS)2023-08-13 08:22:02* Test Item Value Reference Range Interpretation Comme nts TOTAL BILI (test code = 6848839752) 1.0 mg/dL 0.1-1.1 BILI UNCON (test code = 8351749894) 0.2 mg/dL 0.1-1.1 BILI CONJ (test code = 5598893492) 0.0 mg/dL 0.0-0.3 T PROTEIN (test code = 1189567003) 5.2 g/dL 6.3-8.2 L ALBUMIN (test code = 7223494396) 2.5 g/dL 3.5-5.0 L ALK PHOS (test code = 9499388792) 139 U/L 34-122 H ALTv (test code = 1742-6) 24 U/L 5-35 AST(SGOT) (test code = 4210662727) 53 U/L 13-40 H Lab Interpretation (test cod e = 84972-8) [facility]23-[facility]-13 08:06:03* Test Item Value Reference Range Interpretation Comme nts APTT Patient (test code = 3173-2) 47 26-36 H Lab Interpretation (test cod e = 81419-9) [facility] use with [facility] Infusion)2023-08-13 08:06:03* Test Item Value Reference Range Interpretation Comme nts APTT Patient (test code = 3173-2) 47 26-36 H Lab Interpretation (test cod e = 97871-1) [facility]normal [facility]Allen[facility]th[facility] / [id number] 01:44:16* Test Item Value Reference Range Interpretation Comme nts PROTIME PATIENT (test code = 5964-2) 10.8 10.1-12.6 INR (test code = 6301-6) 1.0 Normal INR <1.1; Warfarin Therapeutic range 2.0 to 3.0 or 2.5 to 3.5, depending upon the indications. Lab Interpretation (test code = 09609-9) [facility]2024-[facility]29 01:44:16* Test Item Value Reference Range Interpretation Comme nts APTT Patient (test code = 3173-2) 23 26-36 L Lab Interpretation (test cod e = 08948-7) [facility] / [id number] 01:44:16* Test Item Value Reference Range Interpretation Comme nts PROTIME PATIENT (test code = 5964-2) 10.8 10.1-12.6 INR (test code = 6301-6) 1.0 Normal INR <1.1; Warfarin Therapeutic range 2.0 to 3.0 or 2.5 to 3.5, depending upon the indications. Lab Interpretation (test code = 48030-5) [facility] / [id number] 01:44:16* Test Item Value Reference Range Interpretation Comme nts PROTIME PATIENT (test code = 5964-2) 10.8 10.1-12.6 INR (test code = 6301-6) 1.0 Normal INR <1.1; Warfarin Therapeutic range 2.0 to 3.0 or 2.5 to 3.5, depending upon the indications. Lab Interpretation (test code = 63558-4) [facility]2024-[facility]-29 01:44:16* Test Item Value Reference Range Interpretation Comme nts APTT Patient (test code = 3173-2) 23 26-36 L Lab Interpretation (test cod e = 81671-6) [facility] / [id number] 01:44:16* Test Item Value Reference Range Interpretation Comme nts PROTIME PATIENT (test code = 5964-2) 10.8 10.1-12.6 INR (test code = 6301-6) 1.0 Normal INR <1.1; Warfarin Therapeutic range 2.0 to 3.0 or 2.5 to 3.5, depending upon the indications. Lab Interpretation (test code = 06676-4) Normal [facility] GLUCOSE (AUTOMATED)2023-08-13 00:54:53* Test Item Value Reference Range Interpretation Comme nts POCT GLU (test code = 3487957678) 123 mg/dL 70-110 H Lab Interpretation (test cod e = 41016-0) Abnormal [facility] GLUCOSE (AUTOMATED)2023-08-13 00:54:53* Test Item Value Reference Range Interpretation Comme nts POCT GLU (test code = 4479226236) 123 mg/dL 70-110 H Lab Interpretation (test cod e = 55559-6) Abnormal [facility] GLUCOSE (AUTOMATED)2023-08-12 23:10:32* Test Item Value Reference Range Interpretation Comme nts POCT GLU (test code = 8968572732) 130 mg/dL 70-110 H Lab Interpretation (test cod e = 61141-7) Abnormal [facility] GLUCOSE (AUTOMATED)2023-08-12 23:10:32* Test Item Value Reference Range Interpretation Comme nts POCT GLU (test code = 6776211383) 130 mg/dL 70-110 H Lab Interpretation (test cod e = 67174-0) Abnormal [facility] GLUCOSE (AUTOMATED)2023-08-12 17:04:53* Test Item Value Reference Range Interpretation Comme nts POCT GLU (test code = 5886082463) 123 mg/dL 70-110 H Lab Interpretation (test cod e = 98136-9) Abnormal [facility] GLUCOSE (AUTOMATED)2023-08-12 17:04:53* Test Item Value Reference Range Interpretation Comme nts POCT GLU (test code = 9256467080) 123 mg/dL 70-110 H Lab Interpretation (test cod e = 93305-1) Abnormal [facility] GLUCOSE (AUTOMATED)2023-08-12 12:42:02* Test Item Value Reference Range Interpretation Comme nts POCT GLU (test code = 6947633511) 109 mg/dL 70-110 Lab Interpretation (test cod e = 77383-8) Normal [facility] GLUCOSE (AUTOMATED)2023-08-12 12:42:02* Test Item Value Reference Range Interpretation Comme nts POCT GLU (test code = 5018988007) 109 mg/dL 70-110 Lab Interpretation (test cod e = 49703-6) Normal [facility] with [id number] 09:48:39* Test Item Value Reference Range Interpretation Comme nts WBC (test code = 6690-2) 14.95 4.30-11.10 H RBC (test code = 789-8) 3.56 3.93-5.25 L HGB (test code = 718-7) 10.2 g/dL 11.6-15.0 L HCT (test code = 4544-3) 30.6 % 35.7-45.2 L MCV (test code = 787-2) 86.0 fL 80.6-95.5 MCH (test code = 785-6) 28.7 pg 25.9-32.8 MCHC (test code = 786-4) 33.3 g/dL 31.6-35.1 RDW-SD (test code = 31084-2) 48.6 fL 39.0-49.9 RDW-CV (test code = 788-0) 15.1 % 12.0-15.5 PLT (test code = 777-3) 182 166-358 MPV (test code = 90940-5) 10.8 fL 9.5-12.9 NRBC/100 WBC (test code = 3242800159) 0.2 0.0-10.0 NRBC x10^3 (test code = 4059734809) 0.03 See_Comment [Automated message] The system which generated this result transmitted reference range: 10*3/?L. The reference range was not used to interpret this result as normal/abnormal. GRAN MAT (NEUT) % (test code = 770-8) 85.5 % IMM GRAN % (test code = 3103817644) 4.00 % LYMPH % (test code = 736-9) 6.3 % MONO % (test code = 5905-5) 3.6 % EOS % (test code = 713-8) 0.1 % BASO % (test code = 706-2) 0.5 % GRAN MAT x10^3(ANC) (test code = 6229931766) 12.78 10*3/uL 1.88-7.09 H IMM GRAN x10^3 (test code = 6647168763) 0.60 10*3/uL 0.00-0.06 H LYMPH x10^3 (test code = 731-0) 0.94 10*3/uL 1.32-3.29 L MONO x10^3 (test code = 742-7) 0.54 10*3/uL 0.33-0.92 EOS x10^3 (test code = 711-2) 0.03-0.39 L BASO x10^3 (test code = 704-7) 0.08 10*3/uL 0.01-0.07 H RYAN CELLS (test code = 7790-9) 2+ See_Comment A [Automated message] The system which generated this result transmitted reference range: (none). The reference range was not used to interpret this result as normal/abnormal. BANDS (test code = 3428460977) Increased A TOXIC CHANGES (test code = 803-7) Present A Lab Interpretation (test code = 68343-9) Abnormal [facility] with [id number] 09:48:39* Test Item Value Reference Range Interpretation Comme nts WBC (test code = 6690-2) 14.95 4.30-11.10 H RBC (test code = 789-8) 3.56 3.93-5.25 L HGB (test code = 718-7) 10.2 g/dL 11.6-15.0 L HCT (test code = 4544-3) 30.6 % 35.7-45.2 L MCV (test code = 787-2) 86.0 fL 80.6-95.5 MCH (test code = 785-6) 28.7 pg 25.9-32.8 MCHC (test code = 786-4) 33.3 g/dL 31.6-35.1 RDW-SD (test code = 31553-3) 48.6 fL 39.0-49.9 RDW-CV (test code = 788-0) 15.1 % 12.0-15.5 PLT (test code = 777-3) 182 166-358 MPV (test code = 53379-4) 10.8 fL 9.5-12.9 NRBC/100 WBC (test code = 3294956609) 0.2 0.0-10.0 NRBC x10^3 (test code = 0408294020) 0.03 See_Comment [Automated message] The system which generated this result transmitted reference range: 10*3/?L. The reference range was not used to interpret this result as normal/abnormal. GRAN MAT (NEUT) % (test code = 770-8) 85.5 % IMM GRAN % (test code = 6889109617) 4.00 % LYMPH % (test code = 736-9) 6.3 % MONO % (test code = 5905-5) 3.6 % EOS % (test code = 713-8) 0.1 % BASO % (test code = 706-2) 0.5 % GRAN MAT x10^3(ANC) (test code = 6100168293) 12.78 10*3/uL 1.88-7.09 H IMM GRAN x10^3 (test code = 6312983945) 0.60 10*3/uL 0.00-0.06 H LYMPH x10^3 (test code = 731-0) 0.94 10*3/uL 1.32-3.29 L MONO x10^3 (test code = 742-7) 0.54 10*3/uL 0.33-0.92 EOS x10^3 (test code = 711-2) 0.03-0.39 L BASO x10^3 (test code = 704-7) 0.08 10*3/uL 0.01-0.07 H RYAN CELLS (test code = 7790-9) 2+ See_Comment A [Automated message] The system which generated this result transmitted reference range: (none). The reference range was not used to interpret this result as normal/abnormal. BANDS (test code = 0623814488) Increased A TOXIC CHANGES (test code = 803-7) Present A Lab Interpretation (test code = 61450-0) Abnormal [facility] Metabolic Panel (NA, K, CL, CO2, GLUCOSE, BUN, CREATININE, CA)2023-08-12 08:17:27* Test Item Value Reference Range Interpretation Comme nts NA (test code = 7411649478) 131 mmol/L 135-145 L K (test code = 3564231169) 4.0 mmol/L 3.5-5.0 CL (test code = 0414011645) 104 mmol/L 98-108 CO2 TOTAL (test code = 5911325429) 24 mmol/L 23-31 AGAP (test code = 8465347047) 3 2-16 BUN (test code = 3244843088) 40 mg/dL 7-23 H GLUCOSE (test code = 3710531920) 118 mg/dL 70-110 H CREATININE (test code = 2160-0) 1.99 mg/dL 0.50-1.04 H CALCIUM (test code = 9010147336) 7.1 mg/dL 8.6-10.6 L eGFR (test code = 96850-9) 27.1 mL/min/1.73m2 CKD-EPI eGFR (2020). Assuming creatinine has been stable day-to-day for at least three months, the eGFR indicates Category G4 (15 - 29 mL/min/1.73 m2) Lab Interpretation (test code = 01738-9) [facility] 08:17:27* Test Item Value Reference Range Interpretation Comme nts MAGNESIUM (test code = 3061698075) 2.9 mg/dL 1.7-2.4 H Lab Interpretation (test cod e = 26438-4) [facility]normal [facility]24-[facility]28 08:17:27* Test Item Value Reference Range Interpretation Comme nts PHOSPHORUS (test code = 9141130885) 3.1 mg/dL 2.5-5.0 Lab Interpretation (test cod e = 11397-0) Normal [facility] Metabolic Panel (NA, K, CL, CO2, GLUCOSE, BUN, CREATININE, CA)2023-08-12 08:17:27* Test Item Value Reference Range Interpretation Comme nts NA (test code = 0201821235) 131 mmol/L 135-145 L K (test code = 4241474862) 4.0 mmol/L 3.5-5.0 CL (test code = 9864295560) 104 mmol/L 98-108 CO2 TOTAL (test code = 9232244041) 24 mmol/L 23-31 AGAP (test code = 3264226007) 3 2-16 BUN (test code = 3822397994) 40 mg/dL 7-23 H GLUCOSE (test code = 4761216377) 118 mg/dL 70-110 H CREATININE (test code = 2160-0) 1.99 mg/dL 0.50-1.04 H CALCIUM (test code = 5602461576) 7.1 mg/dL 8.6-10.6 L eGFR (test code = 41800-4) 27.1 mL/min/1.73m2 CKD-EPI eGFR (2020). Assuming creatinine has been stable day-to-day for at least three months, the eGFR indicates Category G4 (15 - 29 mL/min/1.73 m2) Lab Interpretation (test code = 67334-2) [facility] 08:17:27* Test Item Value Reference Range Interpretation Comme nts MAGNESIUM (test code = 5801443506) 2.9 mg/dL 1.7-2.4 H Lab Interpretation (test cod e = 98112-2) [facility]normal [facility]2024-[facility]28 08:17:27* Test Item Value Reference Range Interpretation Comme nts PHOSPHORUS (test code = 3758670273) 3.1 mg/dL 2.5-5.0 Lab Interpretation (test cod e = 58735-5) Normal [facility] GLUCOSE (AUTOMATED)2023-08-12 04:04:52* Test Item Value Reference Range Interpretation Comme nts POCT GLU (test code = 8151070776) 128 mg/dL 70-110 H Lab Interpretation (test cod e = 82666-6) Abnormal [facility] GLUCOSE (AUTOMATED)2023-08-12 04:04:52* Test Item Value Reference Range Interpretation Comme nts POCT GLU (test code = 6592592547) 138 mg/dL 70-110 H Lab Interpretation (test cod e = 28263-0) Abnormal [facility] GLUCOSE (AUTOMATED)2023-08-12 04:04:52* Test Item Value Reference Range Interpretation Comme nts POCT GLU (test code = 1948202368) 128 mg/dL 70-110 H Lab Interpretation (test cod e = 64918-1) Abnormal [facility] GLUCOSE (AUTOMATED)2023-08-12 04:04:52* Test Item Value Reference Range Interpretation Comme nts POCT GLU (test code = 3001623995) 138 mg/dL 70-110 H Lab Interpretation (test cod e = 68156-6) Abnormal [facility] GLUCOSE (AUTOMATED)2023-08-11 22:34:12* Test Item Value Reference Range Interpretation Comme nts POCT GLU (test code = 3785429989) 123 mg/dL 70-110 H Lab Interpretation (test cod e = 77444-8) Abnormal [facility] GLUCOSE (AUTOMATED)2023-08-11 22:34:12* Test Item Value Reference Range Interpretation Comme nts POCT GLU (test code = 6394021623) 123 mg/dL 70-110 H Lab Interpretation (test cod e = 33174-0) Abnormal [facility] GLUCOSE (AUTOMATED)2023-08-11 17:47:24* Test Item Value Reference Range Interpretation Comme nts POCT GLU (test code = 7763382476) 183 mg/dL 70-110 H Lab Interpretation (test cod e = 46212-6) Abnormal [facility] GLUCOSE (AUTOMATED)2023-08-11 17:47:24* Test Item Value Reference Range Interpretation Comme nts POCT GLU (test code = 4134270246) 183 mg/dL 70-110 H Lab Interpretation (test cod e = 56359-3) Abnormal [facility] GLUCOSE (AUTOMATED)2023-08-11 12:40:10* Test Item Value Reference Range Interpretation Comme nts POCT GLU (test code = 9672967370) 129 mg/dL 70-110 H Lab Interpretation (test cod e = 61615-3) [facility]11 12:40:10* Test Item Value Reference Range Interpretation Comme nts POCT GLU (test code = 4779299549) 129 mg/dL 70-110 H Lab Interpretation (test cod e = 79050-1) [facility]2023-08-11 01:01:25* Test Item Value Reference Range Interpretation Comme nts POCT GLU (test code = 2706064883) 112 mg/dL 70-110 H Notified Provide r Lab Interpretation (test code = 24051-3) Abnormal [facility] GLUCOSE (AUTOMATED)2023-08-11 01:01:25* Test Item Value Reference Range Interpretation Comme nts POCT GLU (test code = 6061377554) 112 mg/dL 70-110 H Notified Provide r Lab Interpretation (test code = 64579-2) Abnormal [facility] GLUCOSE (AUTOMATED)2023-08-10 20:48:05* Test Item Value Reference Range Interpretation Comme nts POCT GLU (test code = 9735612214) 124 mg/dL 70-110 H Lab Interpretation (test cod e = 36306-1) Abnormal [facility] GLUCOSE (AUTOMATED)2023-08-10 20:48:05* Test Item Value Reference Range Interpretation Comme nts POCT GLU (test code = 7053995612) 124 mg/dL 70-110 H Lab Interpretation (test cod e = 70509-3) [facility] [id number] 18:54:13EXAM: XR CHEST 1 VW COMPARISON: 08/09/2023 [facility]IST[facility] [id number] 18:54:13EXAM: XR CHEST 1 VW COMPARISON: 08/09/2023 [facility]23-08-10 17:13:45* Test Item Value Reference Range Interpretation Comme nts POCT GLU (test code = 4805341354) 177 mg/dL 70-110 H Lab Interpretation (test cod e = 42704-2) Abnormal [facility] GLUCOSE (AUTOMATED)2023-08-10 17:13:45* Test Item Value Reference Range Interpretation Comme nts POCT GLU (test code = 5049572761) 177 mg/dL 70-110 H Lab Interpretation (test cod e = 62335-5) Abnormal [facility] GLUCOSE (AUTOMATED)2023-08-10 12:52:52* Test Item Value Reference Range Interpretation Comme nts POCT GLU (test code = 3295474322) 117 mg/dL 70-110 H Lab Interpretation (test cod e = 24174-4) Abnormal [facility] GLUCOSE (AUTOMATED)2023-08-10 12:52:52* Test Item Value Reference Range Interpretation Comme nts POCT GLU (test code = 0653038954) 117 mg/dL 70-110 H Lab Interpretation (test cod e = 67642-6) Abnormal [facility] GLUCOSE (AUTOMATED)2023-08-10 01:06:32* Test Item Value Reference Range Interpretation Comme nts POCT GLU (test code = 8887747834) 84 mg/dL 70-110 Lab Interpretation (test cod e = 67808-7) Normal [facility] GLUCOSE (AUTOMATED)2023-08-10 01:06:32* Test Item Value Reference Range Interpretation Comme nts POCT GLU (test code = 7459545813) 84 mg/dL 70-110 Lab Interpretation (test cod e = 50088-1) [facility] [id number] 01:00:05Ordering Physician: RAFAEL PALAFOX Clinical Indication: concern for volume overload Additional Clinical Information: Technical Limitations: None Comparison: None Technique: Portable chest obtained at 0430 hours per percent ofinterpretation 10 1930 hours Findings: Bibasal atelectasis and small left effusion. Heart size isnormal.[facility] 2023-08-10 01:00:05Ordering Physician: RAFAEL PALAFOX Clinical Indication: concern for volume overload Additional Clinical Information: Technical Limitations: None Comparison: None Technique: Portable chest obtained at 0430 hours per percent ofinterpretation 10 1930 hours Findings: Bibasal atelectasis and small left effusion. Heart size isnormal.[facility] GLUCOSE (AUTOMATED)2023-08-09 22:20:00* Test Item Value Reference Range Interpretation Comme [facility] POCT GLU (test code = 2656027054) 172 mg/dL 70-110 H Lab Interpretation (test cod e = 67754-8) Abnormal [facility] GLUCOSE (AUTOMATED)2023-08-09 22:20:00* Test Item Value Reference Range Interpretation Comme [facility] POCT GLU (test code = 1469657693) 172 mg/dL 70-110 H Lab Interpretation (test cod e = 13238-1) [facility]normal [facility]2023-08-09 20:55:14* Test Item Value Reference Range Interpretation Comme [facility] Height (test code = 9274671454) 64 in Weight (test code = 8858271029) 155 lbs Systolic BP (test code = 7573217541) 111 mmHg Diastolic BP (test code = 1280168921) 76 mmHg Heart Rate (test code = 5304163976) 133 bpm LVOT stroke volume (test code = 3076612544) 38.30 cm3 EF(Teich) (test code = 4502472672) 55.90 % LVIDD (test code = 8939556797) 3.70 cm LVIDS (test code = 0607540614) 2.60 cm Left Ventricular End Systolic Volume by Teichholz Method (test code = 6130202) 25.8 mL Left Ventricular End Diastolic Volume by Teichholz Method (test code = 4333337) 58.5 mL IVS (test code = 7030212229) 1.00 cm LVPWD (test code = 9413648017) 0.98 cm LVOT diameter (test code = 7593416831) 1.91 cm LVOT area (test code = 8650899797) 2.90 cm2 FS (test code = 3495949764) 29 % MV Peak E Dee [place] (test code = 0901622823) 55.0 cm/s MV Peak A [place] (test code = 4671927547) 86.5 cm/s E/A ratio (test code = 3482709284) 0.64 ratio E wave decelartion time (test code = 9003397544) 0.14 s MV E/e' septal (test code = 7267379271) 8.7 cm/s LA Volume Index (BP) (test code = 5798338604) 18.4 mL/m2 LA volume (BP) (test code = 5048521095) 32.3 mL LVOT peak dee dee (test code = 7331083101) 115.8 cm/s LVOT mn grad (test code = 7371133705) 2.3 mmHg BSA (test code = 5471899939) 1.76 m2 LA size (test code = 9344408664) 2.8 cm LAV(MOD-sp2) (test code = 6964386659) 30.60 mL LAV(MOD-sp4) (test code = 0993207137) 28.20 mL Tapse (test code = 2977921538) 1.39 cm AV LVOT peak gradient (test code = 4594522463) 5.4 mmHg LVOT peak VTI (test code = 7545896961) 13.4 cm LV V1 mean (test code = 2989798316) 68.50 cm/s MV Prop V (test code = 6651732090) 65.40 cm/s Ao root diam (test code = 3196375074) 2.90 cm Aortic root (test code = 0224197238) 2.9 cm Ao root annulus (test code = 7774373252) 2.9 cm PW (test code = 6326985030) 0.98 cm 0.6-1.1 EF - 2D (test code = 58129349) 55.90 % Interventricular Septum Diastolic Thickness by 2D (test code = 8261567) 1.00 cm Radiology Study observation (narrative) (test code = 83740-2) MURIEL (test code = MURIEL) ?Left?Ventricle: Left ventricle size is normal. Increased wall thickness. Ventricular mass is normal. There is concentric remodeling. Normal wall motion. Hyperdynamic systolic function with a visually estimated EF of greater than 65%. Normal diastolic function. ?Right?Ventricle: Right ventricle size is normal. Normal systolic function. ?Left?Atrium: Left atrium size is normal. ?Pulmonic?Valve: Not well visualized. ?Mitral?Valve: Mitral valve structure is normal. ?Tricuspid?Valve: Tricuspid valve structure is normal. Trace transvalvular regurgitation. Left VentricleLeft ventricle size is normal. Increased wall thickness. Ventricular mass is normal. There is concentric remodeling. Normal wall motion. Hyperdynamic systolic function with a visually estimated EF of greater than 65%. Normal diastolic function.Right VentricleRight ventricle size is normal. Normal systolic function.Left AtriumNot well visualized. Left atrium size is normal.Right AtriumRight atrium size is normal.IVC/SVCIVC was not well visualized.Mitral ValveMitral valve structure is normal. Trace transvalvular regurgitation. No stenosis.Tricuspid ValveTricuspid valve structure is normal. Trace transvalvular regurgitation. No stenosis.Aortic ValveTricuspid. Mildly thickened cusps. Mildly calcified cusps. No transvalvular regurgitation. opens well.Pulmonic ValveNot well visualized.Ascending AortaNormal sized aortic root.PericardiumThe pericardium is normal. No pericardial effusion.Study DetailsA complete echocardiogram was performed using 2D, color flow Doppler and spectral Doppler. 3 mL of Optison ultrasound enhancing agent used. [facility] 20:55:14* Test Item Value Reference Range Interpretation Comme nts Height (test code = 8936587633) 64 in Weight (test code = 8773703841) 155 lbs Systolic BP (test code = 2670894916) 111 mmHg Diastolic BP (test code = 2071008439) 76 mmHg Heart Rate (test code = 7738292082) 133 bpm LVOT stroke volume (test code = 4486392022) 38.30 cm3 EF(Teich) (test code = 6583184732) 55.90 % LVIDD (test code = 1955782401) 3.70 cm LVIDS (test code = 1301939597) 2.60 cm Left Ventricular End Systolic Volume by Teichholz Method (test code = 5958771) 25.8 mL Left Ventricular End Diastolic Volume by Teichholz Method (test code = 1037273) 58.5 mL IVS (test code = 1614310544) 1.00 cm LVPWD (test code = 6705337000) 0.98 cm LVOT diameter (test code = 7242509700) 1.91 cm LVOT area (test code = 6296970035) 2.90 cm2 FS (test code = 8692154876) 29 % MV Peak E Dee Dee (test code = 6070350631) 55.0 cm/s MV Peak A Dee Dee (test code = 1605518902) 86.5 cm/s E/A ratio (test code = 0425761200) 0.64 ratio E wave decelartion time (test code = 9194866937) 0.14 s MV E/e' septal (test code = 3941574461) 8.7 cm/s LA Volume Index (BP) (test code = 2262696730) 18.4 mL/m2 LA volume (BP) (test code = 5595918117) 32.3 mL LVOT peak dee dee (test code = 6082337521) 115.8 cm/s LVOT mn grad (test code = 7662736884) 2.3 mmHg BSA (test code = 4359090648) 1.76 m2 LA size (test code = 3643900129) 2.8 cm LAV(MOD-sp2) (test code = 1427852101) 30.60 mL LAV(MOD-sp4) (test code = 0166180346) 28.20 mL Tapse (test code = 8203932415) 1.39 cm AV LVOT peak gradient (test code = 3418266726) 5.4 mmHg LVOT peak VTI (test code = 0863696954) 13.4 cm LV V1 mean (test code = 8294164763) 68.50 cm/s MV Prop V (test code = 6366983852) 65.40 cm/s Ao root diam (test code = 9784926019) 2.90 cm Aortic root (test code = 2726226277) 2.9 cm Ao root annulus (test code = 5878298803) 2.9 cm PW (test code = 5796118702) 0.98 cm 0.6-1.1 EF - 2D (test code = 30312086) 55.90 % Interventricular Septum Diastolic Thickness by 2D (test code = 3011403) 1.00 cm Radiology Study observation (narrative) (test code = 18720-8) MURIEL (test code = MURIEL) ?Left?Ventricle: Left ventricle size is normal. Increased wall thickness. Ventricular mass is normal. There is concentric remodeling. Normal wall motion. Hyperdynamic systolic function with a visually estimated EF of greater than 65%. Normal diastolic function. ?Right?Ventricle: Right ventricle size is normal. Normal systolic function. ?Left?Atrium: Left atrium size is normal. ?Pulmonic?Valve: Not well visualized. ?Mitral?Valve: Mitral valve structure is normal. ?Tricuspid?Valve: Tricuspid valve structure is normal. Trace transvalvular regurgitation. Left VentricleLeft ventricle size is normal. Increased wall thickness. Ventricular mass is normal. There is concentric remodeling. Normal wall motion. Hyperdynamic systolic function with a visually estimated EF of greater than 65%. Normal diastolic function.Right VentricleRight ventricle size is normal. Normal systolic function.Left AtriumNot well visualized. Left atrium size is normal.Right AtriumRight atrium size is normal.IVC/SVCIVC was not well visualized.Mitral ValveMitral valve structure is normal. Trace transvalvular regurgitation. No stenosis.Tricuspid ValveTricuspid valve structure is normal. Trace transvalvular regurgitation. No stenosis.Aortic ValveTricuspid. Mildly thickened cusps. Mildly calcified cusps. No transvalvular regurgitation. opens well.Pulmonic ValveNot well visualized.Ascending AortaNormal sized aortic root.PericardiumThe pericardium is normal. No pericardial effusion.Study DetailsA complete echocardiogram was performed using 2D, color flow Doppler and spectral Doppler. 3 mL of Optison ultrasound enhancing agent used. [facility] GLUCOSE (AUTOMATED)2023-08-09 17:35:41* Test Item Value Reference Range Interpretation Comme nts POCT GLU (test code = 5923457624) 195 mg/dL 70-110 H Lab Interpretation (test cod e = 43436-0) Abnormal [facility] GLUCOSE (AUTOMATED)2023-08-09 17:35:41* Test Item Value Reference Range Interpretation Comme nts POCT GLU (test code = 7089162556) 195 mg/dL 70-110 H Lab Interpretation (test cod e = 51416-4) Abnormal [facility] GLUCOSE (AUTOMATED)2023-08-09 13:19:38* Test Item Value Reference Range Interpretation Comme nts POCT GLU (test code = 8122118254) 120 mg/dL 70-110 H Lab Interpretation (test cod e = 76041-6) Abnormal [facility] GLUCOSE (AUTOMATED)2023-08-09 13:19:38* Test Item Value Reference Range Interpretation Comme nts POCT GLU (test code = 7552148236) 120 mg/dL 70-110 H Lab Interpretation (test cod e = 48110-2) [facility]normal [facility] ([facility] (ALB,T.PRO,BILI T,BU/BC,ALT,AST,ALK PHOS)2023-08-09 09:29:55* Test Item Value Reference Range Interpretation Comme nts TOTAL BILI (test code = 9877212524) 1.7 mg/dL 0.1-1.1 H BILI UNCON (test code = 9885394930) 0.9 mg/dL 0.1-1.1 BILI CONJ (test code = 4017637828) 0.0 mg/dL 0.0-0.3 T PROTEIN (test code = 4423927817) 5.2 g/dL 6.3-8.2 L ALBUMIN (test code = 7636530765) 2.6 g/dL 3.5-5.0 L ALK PHOS (test code = 0411280722) 79 U/L 34-122 ALTv (test code = 1742-6) 17 U/L 5-35 AST(SGOT) (test code = 6174660986) 64 U/L 13-40 H Lab Interpretation (test cod e = 67057-8) [facility] (NA, K, CL, CO2, GLUCOSE, BUN, CREATININE, CA)2023-08-09 09:29:55* Test Item Value Reference Range Interpretation Comme nts NA (test code = 6090343305) 126 mmol/L 135-145 L K (test code = 8642065490) 4.2 mmol/L 3.5-5.0 CL (test code = 3798687770) 99 mmol/L 98-108 CO2 TOTAL (test code = 5472598974) 21 mmol/L 23-31 L AGAP (test code = 5311187129) 6 2-16 BUN (test code = 6270206235) 67 mg/dL 7-23 H GLUCOSE (test code = 1742642610) 127 mg/dL 70-110 H CREATININE (test code = 2160-0) 3.59 mg/dL 0.50-1.04 H CALCIUM (test code = 0115545252) 6.3 mg/dL 8.6-10.6 L eGFR (test code = 23700-4) 13.3 mL/min/1.73m2 CKD-EPI eGFR (2020). Assuming creatinine has been stable day-to-day for at least three months, the eGFR indicates Category G5 (<= 14mL/min/1.73 m2) Lab Interpretation (test code = 46910-0) [facility]normal [facility] (64360[facility] (ALB,T.PRO,BILI T,BU/BC,ALT,AST,ALK PHOS)2023-08-09 09:29:55* Test Item Value Reference Range Interpretation Comme nts TOTAL BILI (test code = 2150647712) 1.7 mg/dL 0.1-1.1 H BILI UNCON (test code = 6997371715) 0.9 mg/dL 0.1-1.1 BILI CONJ (test code = 2128304041) 0.0 mg/dL 0.0-0.3 T PROTEIN (test code = 6210366940) 5.2 g/dL 6.3-8.2 L ALBUMIN (test code = 9134600578) 2.6 g/dL 3.5-5.0 L ALK PHOS (test code = 2583950009) 79 U/L 34-122 ALTv (test code = 1742-6) 17 U/L 5-35 AST(SGOT) (test code = 1822919939) 64 U/L 13-40 H Lab Interpretation (test cod e = 91503-7) [facility]normal [facility] (NA, K, CL, CO2, GLUCOSE, BUN, CREATININE, CA)2023-08-09 09:29:55* Test Item Value Reference Range Interpretation Comme nts NA (test code = 6244587084) 126 mmol/L 135-145 L K (test code = 8322648301) 4.2 mmol/L 3.5-5.0 CL (test code = 8358604481) 99 mmol/L 98-108 CO2 TOTAL (test code = 5432875035) 21 mmol/L 23-31 L AGAP (test code = 2891118371) 6 2-16 BUN (test code = 5553377549) 67 mg/dL 7-23 H GLUCOSE (test code = 5151207407) 127 mg/dL 70-110 H CREATININE (test code = 2160-0) 3.59 mg/dL 0.50-1.04 H CALCIUM (test code = 0371679675) 6.3 mg/dL 8.6-10.6 L eGFR (test code = 51060-0) 13.3 mL/min/1.73m2 CKD-EPI eGFR (2020). Assuming creatinine has been stable day-to-day for at least three months, the eGFR indicates Category G5 (<= 14mL/min/1.73 m2) Lab Interpretation (test code = 57680-4) [facility]normal [facility] with [id number] 09:06:31* Test Item Value Reference Range Interpretation Comme nts WBC (test code = 6690-2) 8.58 4.30-11.10 Previous preliminary verified result was 9.01 10*3/?L on 08/09/2023 at 0405 CDT RBC (test code = 789-8) 4.99 3.93-5.25 Previous preliminary verified result was 4.62 10*6/?L on 08/09/2023 at 0405 CDT HGB (test code = 718-7) 14.4 g/dL 11.6-15.0 Previous preliminary verified result was 13.2 g/dL on 08/09/2023 at 0405 CDT HCT (test code = 4544-3) 42.5 % 35.7-45.2 Previous preliminary verified result was 40.1 % on 08/09/2023 at 0405 CDT MCV (test code = 787-2) 85.2 fL 80.6-95.5 Previous preliminary verified result was 86.8 fL on 08/09/2023 at 0405 CDT MCH (test code = 785-6) 28.9 pg 25.9-32.8 Previous preliminary verified result was 28.6 pg on 08/09/2023 at 0405 CDT MCHC (test code = 786-4) 33.9 g/dL 31.6-35.1 Previous preliminary verified result was 32.9 g/dL on 08/09/2023 at 0405 CDT RDW-SD (test code = 11047-6) 45.1 fL 39.0-49.9 Previous preliminary verified result was 46.3 fL on 08/09/2023 at 0405 CDT RDW-CV (test code = 788-0) 14.6 % 12.0-15.5 Previous preliminary verified result was 14.5 % on 08/09/2023 at 0405 CDT PLT (test code = 777-3) 127 166-358 L Previous preliminary verified result was 136 10*3/?L on 08/09/2023 at 0405 CDT MPV (test code = 04918-0) 10.7 fL 9.5-12.9 Previous preliminary verified result was 10.9 fL on 08/09/2023 at 0405 CDT IPF % (test code = 2400909991) 5.0 % 1.3-7.7 Platelet count measured by fluorescence method. NRBC/100 WBC (test code = 1756032311) 0.0 0.0-10.0 NRBC x10^3 (test code = 6731966185) See_Comment [Automated message] The system which generated this result transmitted reference range: 10*3/?L. The reference range was not used to interpret this result as normal/abnormal. GRAN MAT (NEUT) % (test code = 770-8) 82.6 % IMM GRAN % (test code = 0693386380) 0.10 % LYMPH % (test code = 736-9) 10.3 % MONO % (test code = 5905-5) 6.3 % EOS % (test code = 713-8) 0.2 % BASO % (test code = 706-2) 0.5 % GRAN MAT x10^3(ANC) (test code = 4007237172) 7.09 10*3/uL 1.88-7.09 IMM GRAN x10^3 (test code = 4007508152) 0.00-0.06 LYMPH x10^3 (test code = 731-0) 0.88 10*3/uL 1.32-3.29 L MONO x10^3 (test code = 742-7) 0.54 10*3/uL 0.33-0.92 EOS x10^3 (test code = 711-2) 0.03-0.39 L BASO x10^3 (test code = 704-7) 0.04 10*3/uL 0.01-0.07 RYAN CELLS (test code = 7790-9) 2+ See_Comment A [Automated message] The system which generated this result transmitted reference range: (none). The reference range was not used to interpret this result as normal/abnormal. BANDS (test code = 5665299635) MARKED INCREASED A Lab Interpretation (test code = 86650-4) Abnormal [facility] with Vdgn3425-79-83 09:06:31* Test Item Value Reference Range Interpretation Comme nts WBC (test code = 6690-2) 8.58 4.30-11.10 Previous preliminary verified result was 9.01 10*3/?L on 08/09/2023 at 0405 CDT RBC (test code = 789-8) 4.99 3.93-5.25 Previous preliminary verified result was 4.62 10*6/?L on 08/09/2023 at 0405 CDT HGB (test code = 718-7) 14.4 g/dL 11.6-15.0 Previous preliminary verified result was 13.2 g/dL on 08/09/2023 at 0405 CDT HCT (test code = 4544-3) 42.5 % 35.7-45.2 Previous preliminary verified result was 40.1 % on 08/09/2023 at 0405 CDT MCV (test code = 787-2) 85.2 fL 80.6-95.5 Previous preliminary verified result was 86.8 fL on 08/09/2023 at 0405 CDT MCH (test code = 785-6) 28.9 pg 25.9-32.8 Previous preliminary verified result was 28.6 pg on 08/09/2023 at 0405 CDT MCHC (test code = 786-4) 33.9 g/dL 31.6-35.1 Previous preliminary verified result was 32.9 g/dL on 08/09/2023 at 0405 CDT RDW-SD (test code = 67309-1) 45.1 fL 39.0-49.9 Previous preliminary verified result was 46.3 fL on 08/09/2023 at 0405 CDT RDW-CV (test code = 788-0) 14.6 % 12.0-15.5 Previous preliminary verified result was 14.5 % on 08/09/2023 at 0405 CDT PLT (test code = 777-3) 127 166-358 L Previous preliminary verified result was 136 10*3/?L on 08/09/2023 at 0405 CDT MPV (test code = 75190-0) 10.7 fL 9.5-12.9 Previous preliminary verified result was 10.9 fL on 08/09/2023 at 0405 CDT IPF % (test code = 9793385170) 5.0 % 1.3-7.7 Platelet count measured by fluorescence method. NRBC/100 WBC (test code = 7804223392) 0.0 0.0-10.0 NRBC x10^3 (test code = 3862407324) See_Comment [Automated message] The system which generated this result transmitted reference range: 10*3/?L. The reference range was not used to interpret this result as normal/abnormal. GRAN MAT (NEUT) % (test code = 770-8) 82.6 % IMM GRAN % (test code = 2300671988) 0.10 % LYMPH % (test code = 736-9) 10.3 % MONO % (test code = 5905-5) 6.3 % EOS % (test code = 713-8) 0.2 % BASO % (test code = 706-2) 0.5 % GRAN MAT x10^3(ANC) (test code = 0490945277) 7.09 10*3/uL 1.88-7.09 IMM GRAN x10^3 (test code = 7337740672) 0.00-0.06 LYMPH x10^3 (test code = 731-0) 0.88 10*3/uL 1.32-3.29 L MONO x10^3 (test code = 742-7) 0.54 10*3/uL 0.33-0.92 EOS x10^3 (test code = 711-2) 0.03-0.39 L BASO x10^3 (test code = 704-7) 0.04 10*3/uL 0.01-0.07 RYAN CELLS (test code = 7790-9) 2+ See_Comment A [Automated message] The system which generated this result transmitted reference range: (none). The reference range was not used to interpret this result as normal/abnormal. BANDS (test code = 6855285807) MARKED INCREASED A Lab Interpretation (test code = 84505-6) [facility]normal [facility] Yyi-Sse4103-34-25 03:18:12* Test Item Value Reference Range Interpretation Comme nts NT-proBNP (test code = 11990-8) 1170 pg/mL <=125 H MURIEL (test code = MURIEL) Positive: Heart Failure Likely Lab Interpretation (test code = 46425-8) [facility]normal [facility] Lwn-Dhj6616-99-25 03:18:12* Test Item Value Reference Range Interpretation Comme nts NT-proBNP (test code = 90286-6) 1170 pg/mL <=125 H MURIEL (test code = MURIEL) Positive: Heart Failure Likely Lab Interpretation (test code = 52277-5) Abnormal [facility] Metabolic Panel (NA, K, CL, CO2, GLUCOSE, BUN, CREATININE, CA)2023-08-09 03:08:55* Test Item Value Reference Range Interpretation Comme nts NA (test code = 5614553730) 126 mmol/L 135-145 L K (test code = 5974228899) 3.9 mmol/L 3.5-5.0 CL (test code = 5587748775) 100 mmol/L 98-108 CO2 TOTAL (test code = 7082831597) 21 mmol/L 23-31 L AGAP (test code = 3008628223) 5 2-16 BUN (test code = 7409317389) 62 mg/dL 7-23 H GLUCOSE (test code = 8296062800) 135 mg/dL 70-110 H CREATININE (test code = 2160-0) 3.35 mg/dL 0.50-1.04 H CALCIUM (test code = 0678773288) 6.7 mg/dL 8.6-10.6 L eGFR (test code = 27997-5) 14.5 mL/min/1.73m2 Lab Interpretation (test cod e = 05306-6) Abnormal [facility] Metabolic Panel (NA, K, CL, CO2, GLUCOSE, BUN, CREATININE, CA)2023-08-09 03:08:55* Test Item Value Reference Range Interpretation Comme nts NA (test code = 0711202065) 126 mmol/L 135-145 L K (test code = 0182313414) 3.9 mmol/L 3.5-5.0 CL (test code = 9209099411) 100 mmol/L 98-108 CO2 TOTAL (test code = 3725897340) 21 mmol/L 23-31 L AGAP (test code = 9130940397) 5 2-16 BUN (test code = 5018483722) 62 mg/dL 7-23 H GLUCOSE (test code = 7093618460) 135 mg/dL 70-110 H CREATININE (test code = 2160-0) 3.35 mg/dL 0.50-1.04 H CALCIUM (test code = 9429631238) 6.7 mg/dL 8.6-10.6 L eGFR (test code = 03672-8) 14.5 mL/min/1.73m2 Lab Interpretation (test cod e = 80966-9) Abnormal [facility] GLUCOSE (AUTOMATED)2023-08-09 01:51:08* Test Item Value Reference Range Interpretation Comme nts POCT GLU (test code = 4510676333) 140 mg/dL 70-110 H Lab Interpretation (test cod e = 90516-6) Abnormal [facility] GLUCOSE (AUTOMATED)2023-08-09 01:51:08* Test Item Value Reference Range Interpretation Comme nts POCT GLU (test code = 5668316775) 140 mg/dL 70-110 H Lab Interpretation (test cod e = 17298-6) [facility]normal [facility] Whole Kgbhd8413-44-67 23:41:41* Test Item Value Reference Range Interpretation Comme nts LACTIC ACID (test code = 3705187784) 4.10 mmol/L 0.50-2.20 H Lab Interpretation (test cod e = 81520-9) [facility]normal [facility] Whole Ldgrx1018-65-15 23:41:41* Test Item Value Reference Range Interpretation Comme nts LACTIC ACID (test code = 8681584754) 4.10 mmol/L 0.50-2.20 H Lab Interpretation (test cod e = 42681-4) Abnormal [facility] GLUCOSE (AUTOMATED)2023-08-08 22:16:02* Test Item Value Reference Range Interpretation Comme nts POCT GLU (test code = 3209958231) 147 mg/dL 70-110 H Lab Interpretation (test cod e = 66738-6) Abnormal [facility] GLUCOSE (AUTOMATED)2023-08-08 22:16:02* Test Item Value Reference Range Interpretation Comme nts POCT GLU (test code = 2185314807) 147 mg/dL 70-110 H Lab Interpretation (test cod e = 43507-1) [facility] Mdopi2533-37-40 19:12:26* Test Item Value Reference Range Interpretation Comme nts LACTIC ACID (test code = 4242136861) 3.42 mmol/L 0.50-2.20 H QUES Lab Interpretation (test cod e = 82157-2) [facility] Qnhrj6602-43-09 19:12:26* Test Item Value Reference Range Interpretation Comme nts LACTIC ACID (test code = 6968396332) 3.42 mmol/L 0.50-2.20 H QUES Lab Interpretation (test cod e = 54348-0) Abnormal [facility] GLUCOSE (AUTOMATED)2023-08-08 18:40:26* Test Item Value Reference Range Interpretation Comme nts POCT GLU (test code = 8268437743) 145 mg/dL 70-110 H Lab Interpretation (test cod e = 48458-2) Abnormal [facility] GLUCOSE (AUTOMATED)2023-08-08 18:40:26* Test Item Value Reference Range Interpretation Comme nts POCT GLU (test code = 9475097740) 145 mg/dL 70-110 H Lab Interpretation (test cod e = 15097-8) [facility]normal [facility] RETROPERITONEAL [id number] 17:26:39 EXAM: US RETROPERITONEAL COMPLETE HISTORY: oliguric ELENA COMPARISON: CT scan dated 08/06/2023 FINDINGS: The right kidney measures 10.4 x 5.4 x 5.7 cm. The left kidney kqwansjo37.1 x 6.0 x 5.7 cm. Thereis no suspicious mass, calculus or hydronephrosis involving eitherkidney. There is a 2.1 x 1.9 x 2.0 cm simple cyst at the superior pole theright kidney. The renal parenchymal echogenicity otherwise appears grosslynormal. Trace left perinephric fluid seen. The bladder is decompressed which limits evaluation. Free fluid seen in the abdomen corresponding with previous CT findings.[facility] RET[facility]OPER[facility] ONFWWJZV1608-28-56 17:26:39EXAM: US RETROPERITONEAL COMPLETE HISTORY: oliguric ELENA COMPARISON: CT scan dated 08/06/2023 FINDINGS: The right kidney measures 10.4 x 5.4 x 5.7 cm. The left kidney atzwohyq95.1 x 6.0 x 5.7 cm. Thereis no suspicious mass, calculus or hydronephrosis involving eitherkidney. There is a 2.1 x 1.9 x 2.0 cm simple cyst at the superior pole theright kidney. The renal parenchymal echogenicity otherwise appears grosslynormal. Trace left perinephric fluid seen. The bladder is decompressed which limits evaluation. Free fluid seen in the abdomen corresponding with previous CT findings.[facility] GLUCOSE (AUTOMATED) 2023-08-08 01:28:37* Test Item Value Reference Range Interpretation Comme nts POCT GLU (test code = 2753732061) 150 mg/dL 70-110 H Lab Interpretation (test cod e = 34980-2) Abnormal [facility] GLUCOSE (AUTOMATED)2023-08-08 01:28:37* Test Item Value Reference Range Interpretation Comme nts POCT GLU (test code = 2663456561) 150 mg/dL 70-110 H Lab Interpretation (test cod e = 28199-1) Abnormal [facility] GLUCOSE (AUTOMATED)2023-08-07 23:32:23* Test Item Value Reference Range Interpretation Comme nts POCT GLU (test code = 7964309240) 157 mg/dL 70-110 H Lab Interpretation (test cod e = 24191-1) Abnormal [facility] GLUCOSE (AUTOMATED)2023-08-07 23:32:23* Test Item Value Reference Range Interpretation Comme nts POCT GLU (test code = 5281286927) 157 mg/dL 70-110 H Lab Interpretation (test cod e = 70132-7) Abnormal [facility] GLUCOSE (AUTOMATED)2023-08-07 22:35:32* Test Item Value Reference Range Interpretation Comme nts POCT GLU (test code = 8595880608) 185 mg/dL 70-110 H Lab Interpretation (test cod e = 07821-9) Abnormal [facility] GLUCOSE (AUTOMATED)2023-08-07 22:35:32* Test Item Value Reference Range Interpretation Comme [facility] POCT GLU (test code = 6843198247) 185 mg/dL 70-110 H Lab Interpretation (test cod e = 60219-5) Abnormal [facility] GALL [id number] 18:39:53EXAM: US GALL BLADDER HISTORY: 68 years-old Female with pancreatitis. Looking for stones. TECHNIQUE: Limited abdominal ultrasound focused on the liver, right kidneyand spleen was performed. The main portal vein was evaluated with colorDoppler imaging. Early Childhood Education Instructor images were obtained for the record. COMPARISON: CT abdomen pelvis with contrast performed 08/06/2023 FINDINGS: PANCREAS: The visualized pancreas appears edematous which correlates with findings onCT. BILE DUCTS:No intra- or extrahepatic biliary dilatation is visualized.The common bile duct diameter is normal, and measures 0.7 cm. GALLBLADDER:The gallbladder is physiologically distended. No shadowing stones are seen.The gallbladder wall thickness is normal, and measures 0.1 cm.No pericholecystic fluid is visualized. Otero's sign was not demonstrated. OTHER: None.[facility] GALL [id number] 18:39:53EXAM: US GALL BLADDER HISTORY: 68 years- old Female with pancreatitis. Looking for stones. TECHNIQUE: Limited abdominal ultrasound focused on the liver, right kidneyand spleen was performed. The main portal vein was evaluated with colorDoppler imaging. Early Childhood Education Instructor images were obtained for the record. COMPARISON: CT abdomen pelvis with contrast performed 08/06/2023 FINDINGS: PANCREAS: The visualized pancreas appears edematous which correlates with findings onCT. BILE DUCTS:No intra- or extrahepatic biliary dilatation is visualized.The common bile duct diameter is normal, and measures 0.7 cm. GALLBLADDER:The gallbladder is physiologically distended. No shadowing stones are seen.The gallbladder wall thickness is normal, and measures 0.1 cm.No pericholecystic fluid is visualized. Otero's sign was not demonstrated. OTHER: None.[facility] GLUCOSE (AUTOMATED)2023-08-07 18:06:19* Test Item Value Reference Range Interpretation Comme [facility] POCT GLU (test code = 5438306877) 182 mg/dL 70-110 H Lab Interpretation (test cod e = 38254-4) Abnormal [facility] GLUCOSE (AUTOMATED)2023-08-07 18:06:19* Test Item Value Reference Range Interpretation Comme nts POCT GLU (test code = 5395551160) 182 mg/dL 70-110 H Lab Interpretation (test cod e = 88065-1) Abnormal [facility] GLUCOSE (AUTOMATED)2023-08-07 13:13:08* Test Item Value Reference Range Interpretation Comme nts POCT GLU (test code = 6155660745) 171 mg/dL 70-110 H Lab Interpretation (test cod e = 08011-8) Abnormal [facility] GLUCOSE (AUTOMATED)2023-08-07 13:13:08* Test Item Value Reference Range Interpretation Comme nts POCT GLU (test code = 2574133370) 171 mg/dL 70-110 H Lab Interpretation (test cod e = 94119-3) [facility] [id number] 04:27:03 * Test Item Value Reference Range Interpretation Comme nts TSH (test code = 1922959115) 2.81 0.45-4.70 Biotin has been reported to cause a negative bias, interpret results relative to patient's use of biotin. Lab Interpretation (test code = 67254-6) Normal [facility] [id number] 04:27:03 * Test Item Value Reference Range Interpretation Comme nts TSH (test code = 3208817447) 2.81 0.45-4.70 Biotin has been reported to cause a negative bias, interpret results relative to patient's use of biotin. Lab Interpretation (test code = 21682-7) Normal [facility]Allen[facility]cosylated Hemoglobin [id number] 03:24:26 * Test Item Value Reference Range Interpretation Comme nts HGB A1C (test code = 4548-4) 5.5 % 4.0-5.7 MURIEL (test code = MURIEL) Reference RangesNormal: <5.7%Prediabetes: 5.7 - 6.4%Diabetes: > 6.5% Lab Interpretation (test code = 19923-5) Normal [facility]Allen[facility] Hemoglobin [id number] 03:24:26 * Test Item Value Reference Range Interpretation Comme nts HGB A1C (test code = 4548-4) 5.5 % 4.0-5.7 MURIEL (test code = MURIEL) Reference RangesNormal: <5.7%Prediabetes: 5.7 - 6.4%Diabetes: > 6.5% Lab Interpretation (test code = 41613-7) Normal [facility]Allen[facility] Hemoglobin [id number] 03:24:26 * Test Item Value Reference Range Interpretation Comme nts HGB A1C (test code = 4548-4) 5.5 % 4.0-5.7 MURIEL (test code = MURIEL) Reference RangesNormal: <5.7%Prediabetes: 5.7 - 6.4%Diabetes: > 6.5% Lab Interpretation (test code = 96617-4) Normal [facility] Hemoglobin [id number] 03:24:26 * Test Item Value Reference Range Interpretation Comme nts HGB A1C (test code = 4548-4) 5.5 % 4.0-5.7 MURIEL (test code = MURIEL) Reference RangesNormal: <5.7%Prediabetes: 5.7 - 6.4%Diabetes: > 6.5% Lab Interpretation (test code = 01733-9) Normal [facility]Allen[facility]id [facility](26838)(Total Cholesterol, Triglycerides, HDL)2023-08-07 03:21:39* Test Item Value Reference Range Interpretation Comme nts CHOL (test code = 0301651441) 152 mg/dL 120-200 HDL (test code = 8338667079) 65 mg/dL >=50 HDLC RATIO (test code = 7401702865) 2.3 <=4.5 TRIG (test code = 7363307062) 87 mg/dL 30-170 LDL CHOL (test code = 67236-9) 70 mg/dL <=160 VLDL (test code = 9507890949) 17 mg/dL 5-60 Lab Interpretation (test cod e = 99929-6) Normal [facility](39460)(Total Cholesterol, Triglycerides, HDL)2023-08-07 03:21:39* Test Item Value Reference Range Interpretation Comme nts CHOL (test code = 3021028721) 152 mg/dL 120-200 HDL (test code = 2771485404) 65 mg/dL >=50 HDLC RATIO (test code = 3731917786) 2.3 <=4.5 TRIG (test code = 3314134836) 87 mg/dL 30-170 LDL CHOL (test code = 18792-6) 70 mg/dL <=160 VLDL (test code = 7862380656) 17 mg/dL 5-60 Lab Interpretation (test cod e = 03840-7) Normal [facility](60592)(Total Cholesterol, Triglycerides, HDL)2023-08-07 03:21:39* Test Item Value Reference Range Interpretation Comme nts CHOL (test code = 0336915054) 152 mg/dL 120-200 HDL (test code = 0747609066) 65 mg/dL >=50 HDLC RATIO (test code = 7843812916) 2.3 <=4.5 TRIG (test code = 5509873148) 87 mg/dL 30-170 LDL CHOL (test code = 53734-8) 70 mg/dL <=160 VLDL (test code = 7555400867) 17 mg/dL 5-60 Lab Interpretation (test cod e = 46002-6) Normal [facility]CT ABDOMEN PELVIS W [id number] 22:59:13EXAM: CT ABDOMEN PELVIS W CONTRAST HISTORY: 68-year-old female with upper abdominal pain since the morning. TECHNIQUE: Contiguous axial imaging from the level of the lung basesthrough the proximal thighs was performed with intravenous contrast.Coronal and sagittal reconstructions were obtained. COMP ARISON: None FINDINGS: LOWER THORAX: The lung bases are clear. Cardiomegaly. LIVER: The liver is normal in size and contour. Small hepatic cysts withadditional hypodensities too small to characterizewhich are alsostatistically likely to represent cysts. GALLBLADDER AND BILIARY TREE: The gallbladder appears unremarkable. Mild enhancement along the cystic duct and common bile duct likely relatedtoadjacent inflammation. No intra or extrahepatic biliary ductal dilationis visualized. SPLEEN: The spleen appears unremarkable. PANCREAS: From the pancreatic body to the level of the pancreatic head,pa renchymal enlargement is noted with adjacent retroperitoneal fatstranding and marked peripancreaticedema. 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 No discrete, walled offcollection is visualized. ADRENAL GLANDS: No adrenal masses are seen. KIDNEYS: No hydronephrosis orstones. Bilateral simple renal cysts. Nosolid masses. PELVIS/BLADDER: The bladder is moderately distended but appearsunremarkable. Pelvic free fluid is seen tracking down from the level of thepancreas. GI TRACT: No dilation or bowel wall thickening is seen. Normal appendix.Distal colonic diverticulosis. PERITONEUM AND RETROPERITONEUM: Moderate volume ascites. LYMPH NODES: No overt lymphadenopathy. VESSELS: Mild atherosclerotic disease. BONES AND SOFT TISSUES: No suspicious lytic or sclerotic bony lesions arepresent. [facility] W [id number] 22:59:13EXAM: CT ABDOMEN PELVIS W CONTRAST HISTORY: 68-year-old female with upper abdominal pain since the morning. TECHNIQUE: Contiguous axial imaging from the level of the lung basesthrough the proximal thighs was performed with intravenous contrast.Coronal and sagittal reconstructions were obtained. COMP ARISON: None FINDINGS: LOWER THORAX: The lung bases are clear. Cardiomegaly. LIVER: The liver is normal in size and contour. Small hepatic cysts withadditional hypodensities too small to characterizewhich are alsostatistically likely to represent cysts. GALLBLADDER AND BILIARY TREE: The gallbladder appears unremarkable. Mild enhancement along the cystic duct and common bile duct likely relatedtoadjacent inflammation. No intra or extrahepatic biliary ductal dilationis visualized. SPLEEN: The spleen appears unremarkable. PANCREAS: From the pancreatic body to the level of the pancreatic head,pa renchymal enlargement is noted with adjacent retroperitoneal fatstranding and marked peripancreaticedema. 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 No discrete, walled offcollection is visualized. ADRENAL GLANDS: No adrenal masses are seen. KIDNEYS: No hydronephrosis orstones. Bilateral simple renal cysts. Nosolid masses. PELVIS/BLADDER: The bladder is moderately distended but appearsunremarkable. Pelvic free fluid is seen tracking down from the level of thepancreas. GI TRACT: No dilation or bowel wall thickening is seen. Normal appendix.Distal colonic diverticulosis. PERITONEUM AND RETROPERITONEUM: Moderate volume ascites. LYMPH NODES: No overt lymphadenopathy. VESSELS: Mild atherosclerotic disease. BONES AND SOFT TISSUES: No suspicious lytic or sclerotic bony lesions arepresent. [facility]AllenLIPASE2024-[facility]-22 19:12:17* Test Item Value Reference Range Interpretation Comme nts LIPASE (test code = 3493600315) 0-220 H Lab Interpretation (test cod e = 68992-5) [facility]normal [facility]2024-[facility]-22 19:12:17* Test Item Value Reference Range Interpretation Comme nts LIPASE (test code = 6478775158) 0-220 H Lab Interpretation (test cod e = 33188-0) [id number]:58[facility]* Test Item Value Reference Range Interpretation Comme nts TROPONIN I (test code = 1931265502) 0.003 ng/mL <=0.034 MURIEL (test code = MURIEL) Reference (Normal) Range (defined by the 99th percentile reference limit): <= 0.034 ng/mL Note: Cardiac troponin begins to rise 3-4 hours after the onset of ischemia. Repeat in 4-6 hours if the sample was drawn within 3-4 hours of the onset of the symptom and found normal. Diagnosis of myocardial injury is made with acute changes in cTn concentrations with at least one serial sample above the 99th percentile upper reference limit (URL), taken together with the patient's clinical presentation. Biotin has been reported to cause a negative bias, interpret results relative to patient's use of biotin. Lab Interpretation (test code = 95151-0) Normal [facility] [id number] 18:58:00* Test Item Value Reference Range Interpretation Comme nts TROPONIN I (test code = 2081732528) 0.003 ng/mL <=0.034 MURIEL (test code = MURIEL) Reference (Normal) Range (defined by the 99th percentile reference limit): <= 0.034 ng/mL Note: Cardiac troponin begins to rise 3-4 hours after the onset of ischemia. Repeat in 4-6 hours if the sample was drawn within 3-4 hours of the onset of the symptom and found normal. Diagnosis of myocardial injury is made with acute changes in cTn concentrations with at least one serial sample above the 99th percentile upper reference limit (URL), taken together with the patient's clinical presentation. Biotin has been reported to cause a negative bias, interpret results relative to patient's use of biotin. Lab Interpretation (test code = 77134-1) Normal [facility] [id number] 18:58:00* Test Item Value Reference Range Interpretation Comme nts TROPONIN I (test code = 5626743430) 0.003 ng/mL <=0.034 MURIEL (test code = MURIEL) Reference (Normal) Range (defined by the 99th percentile reference limit): <= 0.034 ng/mL Note: Cardiac troponin begins to rise 3-4 hours after the onset of ischemia. Repeat in 4-6 hours if the sample was drawn within 3-4 hours of the onset of the symptom and found normal. Diagnosis of myocardial injury is made with acute changes in cTn concentrations with at least one serial sample above the 99th percentile upper reference limit (URL), taken together with the patient's clinical presentation. Biotin has been reported to cause a negative bias, interpret results relative to patient's use of biotin. Lab Interpretation (test code = 58790-8) Normal [facility] [id number] 18:58:00* Test Item Value Reference Range Interpretation Comme nts TROPONIN I (test code = 9873714228) 0.003 ng/mL <=0.034 MURIEL (test code = MURIEL) Reference (Normal) Range (defined by the 99th percentile reference limit): <= 0.034 ng/mL Note: Cardiac troponin begins to rise 3-4 hours after the onset of ischemia. Repeat in 4-6 hours if the sample was drawn within 3-4 hours of the onset of the symptom and found normal. Diagnosis of myocardial injury is made with acute changes in cTn concentrations with at least one serial sample above the 99th percentile upper reference limit (URL), taken together with the patient's clinical presentation. Biotin has been reported to cause a negative bias, interpret results relative to patient's use of biotin. Lab Interpretation (test code = 72558-8) Normal [facility]-TERMIN[facility] [id number] 18:55:16* Test Item Value Reference Range Interpretation Comme nts NT-proBNP (test code = 50832-8) 31 pg/mL <=125 Lab Interpretation (test cod e = 48686-9) Normal [facility]MINAL [id number] 18:55:16* Test Item Value Reference Range Interpretation Comme nts NT-proBNP (test code = 39879-2) 31 pg/mL <=125 Lab Interpretation (test cod e = 66688-0) Normal [facility] METABOLIC PANEL (34268)2023-08-06 18:46:34* Test Item Value Reference Range Interpretation Comme nts NA (test code = 1962385623) 138 mmol/L 135-145 K (test code = 5095294127) 4.1 mmol/L 3.5-5.0 CL (test code = 1631058342) 99 mmol/L 98-108 CO2 TOTAL (test code = 2849842448) 31 mmol/L 23-31 AGAP (test code = 7449210032) 8 2-16 BUN (test code = 6225007628) 18 mg/dL 7-23 GLUCOSE (test code = 6032648979) 147 mg/dL 70-110 H CREATININE (test code = 2160-0) 0.67 mg/dL 0.50-1.04 TOTAL BILI (test code = 1438393746) 0.7 mg/dL 0.1-1.1 CALCIUM (test code = 8011107487) 9.6 mg/dL 8.6-10.6 T PROTEIN (test code = 1110501142) 7.4 g/dL 6.3-8.2 ALBUMIN (test code = 0296933761) 4.4 g/dL 3.5-5.0 ALK PHOS (test code = 6121435724) 109 U/L 34-122 ALTv (test code = 1742-6) 21 U/L 5-35 AST(SGOT) (test code = 6383442298) 32 U/L 13-40 eGFR (test code = 74028-9) 95.9 mL/min/1.73m2 CKD-EPI eGFR (2020). Assuming creatinine has been stable day-to-day for at least three months, the eGFR indicates Category G1 (>= 90 mL/min/1.73 m2) Lab Interpretation (test code = 65832-8) Abnormal [facility] METABOLIC PANEL (49054)2023-08-06 18:46:34* Test Item Value Reference Range Interpretation Comme nts NA (test code = 6392531177) 138 mmol/L 135-145 K (test code = 1324598139) 4.1 mmol/L 3.5-5.0 CL (test code = 3692039434) 99 mmol/L 98-108 CO2 TOTAL (test code = 0084234947) 31 mmol/L 23-31 AGAP (test code = 7745538407) 8 2-16 BUN (test code = 2202572569) 18 mg/dL 7-23 GLUCOSE (test code = 2554078111) 147 mg/dL 70-110 H CREATININE (test code = 2160-0) 0.67 mg/dL 0.50-1.04 TOTAL BILI (test code = 0262254407) 0.7 mg/dL 0.1-1.1 CALCIUM (test code = 4587785105) 9.6 mg/dL 8.6-10.6 T PROTEIN (test code = 9560684079) 7.4 g/dL 6.3-8.2 ALBUMIN (test code = 1882917069) 4.4 g/dL 3.5-5.0 ALK PHOS (test code = 1521200926) 109 U/L 34-122 ALTv (test code = 1742-6) 21 U/L 5-35 AST(SGOT) (test code = 7770564068) 32 U/L 13-40 eGFR (test code = 81265-1) 95.9 mL/min/1.73m2 CKD-EPI eGFR (2020). Assuming creatinine has been stable day-to-day for at least three months, the eGFR indicates Category G1 (>= 90 mL/min/1.73 m2) Lab Interpretation (test code = 96383-7) [facility]normal [facility] WITH [id number] 18:40:35* Test Item Value Reference Range Interpretation Comme nts WBC (test code = 6690-2) 14.28 4.30-11.10 H RBC (test code = 789-8) 5.38 3.93-5.25 H HGB (test code = 718-7) 15.6 g/dL 11.6-15.0 H HCT (test code = 4544-3) 49.7 % 35.7-45.2 H MCV (test code = 787-2) 92.4 fL 80.6-95.5 MCH (test code = 785-6) 29.0 pg 25.9-32.8 MCHC (test code = 786-4) 31.4 g/dL 31.6-35.1 L RDW-SD (test code = 81364-1) 46.0 fL 39.0-49.9 RDW-CV (test code = 788-0) 13.7 % 12.0-15.5 PLT (test code = 777-3) 187 166-358 MPV (test code = 72366-9) 10.3 fL 9.5-12.9 NRBC/100 WBC (test code = 7928104818) 0.0 0.0-10.0 NRBC x10^3 (test code = 5335132947) See_Comment [Automated message] The system which generated this result transmitted reference range: 10*3/?L. The reference range was not used to interpret this result as normal/abnormal. GRAN MAT (NEUT) % (test code = 770-8) 77.7 % IMM GRAN % (test code = 3466662126) 0.40 % LYMPH % (test code = 736-9) 17.6 % MONO % (test code = 5905-5) 3.8 % EOS % (test code = 713-8) 0.1 % BASO % (test code = 706-2) 0.4 % GRAN MAT x10^3(ANC) (test code = 0286152864) 11.12 10*3/uL 1.88-7.09 H IMM GRAN x10^3 (test code = 8158123924) 0.05 10*3/uL 0.00-0.06 LYMPH x10^3 (test code = 731-0) 2.51 10*3/uL 1.32-3.29 MONO x10^3 (test code = 742-7) 0.54 10*3/uL 0.33-0.92 EOS x10^3 (test code = 711-2) 0.03-0.39 L BASO x10^3 (test code = 704-7) 0.05 10*3/uL 0.01-0.07 Lab Interpretation (test code = 11370-7) Abnormal [facility] WITH [id number] 18:40:35* Test Item Value Reference Range Interpretation Comme nts WBC (test code = 6690-2) 14.28 4.30-11.10 H RBC (test code = 789-8) 5.38 3.93-5.25 H HGB (test code = 718-7) 15.6 g/dL 11.6-15.0 H HCT (test code = 4544-3) 49.7 % 35.7-45.2 H MCV (test code = 787-2) 92.4 fL 80.6-95.5 MCH (test code = 785-6) 29.0 pg 25.9-32.8 MCHC (test code = 786-4) 31.4 g/dL 31.6-35.1 L RDW-SD (test code = 21762-5) 46.0 fL 39.0-49.9 RDW-CV (test code = 788-0) 13.7 % 12.0-15.5 PLT (test code = 777-3) 187 166-358 MPV (test code = 09934-6) 10.3 fL 9.5-12.9 NRBC/100 WBC (test code = 5423285419) 0.0 0.0-10.0 NRBC x10^3 (test code = 0563497656) See_Comment [Automated message] The system which generated this result transmitted reference range: 10*3/?L. The reference range was not used to interpret this result as normal/abnormal. GRAN MAT (NEUT) % (test code = 770-8) 77.7 % IMM GRAN % (test code = 0724795357) 0.40 % LYMPH % (test code = 736-9) 17.6 % MONO % (test code = 5905-5) 3.8 % EOS % (test code = 713-8) 0.1 % BASO % (test code = 706-2) 0.4 % GRAN MAT x10^3(ANC) (test code = 7227150438) 11.12 10*3/uL 1.88-7.09 H IMM GRAN x10^3 (test code = 0308008371) 0.05 10*3/uL 0.00-0.06 LYMPH x10^3 (test code = 731-0) 2.51 10*3/uL 1.32-3.29 MONO x10^3 (test code = 742-7) 0.54 10*3/uL 0.33-0.92 EOS x10^3 (test code = 711-2) 0.03-0.39 L BASO x10^3 (test code = 704-7) 0.05 10*3/uL 0.01-0.07 Lab Interpretation (test code = 41715-2) [facility]normal [facility] SCREEN[facility] TOMOSYNTHESIS [id number] 14:17:23Examination:BI SCREENING TOMOSYNTHESIS BILATERAL History:Patient is 68 year old and is seen for: ?Screening. Computer-aided detection (CAD) utilized. Comparisons : None available Findings:The breastshave scattered areas of fibroglandular density. There is no evidence of suspicious masses, calcifica tions, or other abnormal findings. Impression:No mammographic evidence of malignancy. Recommendation:Annual mammographic follow-up - Bilateral BI-RADS Category: Both 1 - NegativeUnWise Health System East CampusDEXA PERIPHERAL (FOREARM)2023-07-24 18:05:21EXAM: DEXA AXIAL (HIP AND SPINE) & DEXA PERIPHERAL (LEFT FOREARM) HISTORY: 68 years ?female; osteoporosis screening. COMPARISON: None available. TECHNIQUE: Bone densitometry of the lumbar spine and right hip was performed on a [employer]ystem. ? ? FINDINGS: Lumbar spine L1-L4: T-score -1.4. ?Bone mineral density: 1.006 g/cm^2.Artifactually elevated numbers due to multilevel sclerotic degenerativechanges of the lumbar spine, most pronounced at L4. Right Femoral Neck: T-score -1.2. ?Bone mineral density: 0.873 g/cm^2. Right Total Femur: T-score -0.4. ?Bone mineral density: 0.956 g/cm^2. Left Forearm (33% Radius): T value -1.9. Bone mineral density of 0.709g/cm^2.Left Forearm (total radius): T value -1.7. Bone mineral density of 0.574g/cm^2.[facility])2023-07-24 18:05:21EXAM: DEXA AXIAL (HIP AND SPINE) & DEXA PERIPHERAL (LEFT FOREARM) HISTORY: 68 years ?female; osteoporosis screening. COMPARISON: None available. TECHNIQUE: Bone densitometry of the lumbar spine and right hip was performed on a GEsystem. ? ? FINDINGS: Lumbar spine L1-L4: T-score -1.4. ?Bone mineral density: 1.006 g/cm^2.Artifactually elevated numbers due to multilevel sclerotic degenerativechanges of the lumbar spine, most pronounced at L4. Right Femoral Neck: T-score -1.2. ?Bone mineral density: 0.873 g/cm^2. Right Total Femur: T- score -0.4. ?Bone mineral density: 0.956 g/cm^2. Left Forearm (33% Radius): T value -1.9. Bone mineral density of 0.709g/cm^2.Left Forearm (total radius): T value -1.7. Bone mineral density of 0.574g/cm^2.[facility] Consult Notes Date/Time Note Provider Source 2023-08-31 08:47:00 [id number] 8:47:00Associated Order(s): CONSULT ADULT OCCUPATIONAL THERAPY OT GENERAL EVALUATIONConsult received via XING, EMR reviewed and evaluation completed 08/31/23. Patient referred to occupational therapy for evaluation and treatment secondary to abdominal pain. Pt found with necrotizing pancreatitis. Patient agreeable to participate in occupational therapy.Discharge Recommendations:Therapy Needs and Potential:- Patient would benefit from continued skilled occupational therapy services to address: Decline in basic activities of daily living, Decline in instrumental activities of daily living, Decreased strength, Decreased range of motion, and Decreased endurance- Patient demonstrates good potential to improve and meet therapy goals with further skilled occupational therapy services.- Patient appears motivated to improve their B/IADLs and return to their previous level of function.- Patient demonstrates ability to tolerate at least 30-60 minutes of active participation in occupational therapy.- Patient able to follow commands: 1-step Yes, Multi-step Yes, Inconsistencies NoChallenges to Home Transition:- Requires physical assistance for BADLS- Requires physical assistance for IADLS- Increased risk of falls- Environmental barriers- 1 step to enter homeEquipment Recommendations:Raised commode seat, Shower chair, and Grab barsPLAN OF CARE: At least 3x/weekPrecautions:Weight bearing status: NAGeneral: Fall and O2 per NCBracing: N/ACurrent Occupational Performance and/or Treatment:AM-PAC 6 Clicks (Raw Score 0=Dependent, 24=Independent; Low function Raw Score 0= Dependent, 32=Independent):Raw Score - Daily Activity: 18T-Scale Score - Daily Activity: 38.66Grooming: Minimal Assistance, washes/dries hands while standing at sink; tactile cues for positioning of RW and assist to turn on sink; intermittent assist for stability/safetyLB Dressing: Minimal Assistance, dons B socks while sitting EOB; educated on figure 4 method with assist to position/hold BLE while pt threads B feet into socks; verbal cues throughout for strategy and intermittent assist for stability during dynamic balanceToilet Transfer: Maximum Assistance, stand>sit with supervision, increased assist for sit>stand secondary to fatigue; verbal cues for hand placement on RW and grab barToileting Hygiene: Moderate Assistance, pt received with watery BM movement in briefs; rolls L/R at bed level with independence while therapist and PCT assist with cleaning; pt stands with minimal assist and use of RW while therapist dons/doffs briefs; pt urinates/completes niki hygiene with independence while sitting on commodeFunctional Mobility:Supine>EOB with minimal assistanceVerbal cues throughout for strategySit<>stand with RW and supervisionCue for hand placementAmbulates to/from bathroom with RWPt requires seated rest break half way through due to fatigueEducated on deep breathingPatient/caregiver educated on: ADL training (grooming, LB dressing, toilet transfer/hygiene, bed mobility), Deep breathing, energy conservation, Fall prevention (initiated: proper footwear), Role of OT, and Safety awareness (use of call light and calling for staff assist for transfers)Patient left reclining in bedside chair with call fernandez in reach. Spouse present. Please, see full evaluation below for more detail.OT EVALUATION:68 year old female Admit date: 08/06/2023 Date of onset: 08/06/23Admit Diagnosis: Acute necrotizing pancreatitis [K85.91]Necrotizing pancreatitis [K85.91]OT Diagnosis: Impaired BADL independence, Impaired IADL independence, Weakness, Activity intolerance, Decreased endurance, Impaired self-care mobility, and Reduced joint ROMPMH:Past Medical History:Diagnosis DateHigh blood pressureHigh cholesterolPSH:Past Surgical History:Procedure Laterality DateESOPHAGOGASTRODUODENOSCOPY Upper 08/27/2023Surgeon: Juan Jaramillo MD; Location: ENDOSCOPY ([facility]) OR LOCATIONUPPER ULTRASOUND ([facility]) N/A 08/27/2023Surgeon: Juan Jaramillo MD; Location: ENDOSCOPY ([facility]) OR LOCATIONPAIN:Denies pain before and after session.OCCUPATIONAL ROLES/HOME ENVIRONMENT:Home environment: Lives with spouse, with daughter, and family, 06/11 supervision/assistance is available, and Single story home with 1 step to enter.Bathroom access: YesBathroom setup: ShowerOccupation(s): Retired Home makerFunction prior to admission: Household ambulation, Community ambulation, Independent with BADLs, and Independent with IADLsSuspected ischemic or hemorraghic stroke patient: NoEquipment prior to admission: NonePERFORMANCE SKILLS/FACTORS:UE Muscle Tone: bilateral WNLUE ROM: bilateral AROM WFL except shoulder flexion to ~90 degreesUE Strength: MICHAEL UE 4-/5 except B deltoid 3+/5Hand dominance: rightDexterity/Coordination: bilateral IntactEndurance - Sitting: Good Standing: FairSitting Balance - Static: Good Dynamic: FairStanding: Balance - Static Fair+ Dynamic: FairDizziness: NoSkin Integrity: defer full skin assessment to nursingSensation: Patient denies numbness and tinging.Oral Motor: WFLCommunication: Able to verbalize needs Yes Other: Bangladeshi speaking, pt's daughter translates via phoneVision: WFL Yes Other: reading glassesHearing: good; no issues reportedCOGNITION:Orientation: NTFollows Commands: 1-step Yes Multi-step Yes Inconsistencies NoSafety Awareness/Judgment: GoodPROBLEM LIST: Decreased independence with ADL, Decreased functional ROM, and Decreased strength/endurance for functional activityREHAB POTENTIAL/PROGNOSIS: goodPATIENT/FAMILY GOALS: to get back to PLOFTREATMENT/INTERVENTION PLAN: Functional motor treatment, Patient/Caregiver Education, Equipment recommendations, Daily living activities, and Therapeutic exercisesGOAL(S): By discharge, patient will increase independence in daily living skills as follows:1 Patient will perform toilet transfer or raised toilet transfer with independence.2 Patient will don/doff pants or socks with independence.3 Patient will perform UB dressing with independence.4 Patient will complete grooming task with independence while standing at the sink.5 Patient will complete toileting hygiene, including clothing management, with independence.6 Patient will increase endurance for functional activity as evidenced by ability to sustain 10 minutes of active participation in standing.7 Patient/caregiver will verbalize/demonstrate understanding/proficiency in the following home programs: Adaptive equipment , 8 Energy conservation, 9 Fall prevention, and 10 BUE General strengtheningPATIENT-FAMILY TEACHINGPatient and Significant other provided with preferred teaching of verbal information on ADL training (grooming, LB dressing, toilet transfer/hygiene, bed mobility), Fall prevention (initiated: proper footwear), Deep breathing, energy conservation, Role of OT, and Safety awareness (use of call light and calling for staff assist for transfers). Shows readiness to learn. Verbal instruction teaching provided. Individual verbalizes understanding of teaching provided.Meagan Ybarra, OTR, OTDTotal Timed Treatment Codes: 24 MinTotal Treatment Time: 41 MinPatient Complexity Level High - An occupational therapy evaluation of high complexity was completed using the above tests and measures. The following information was obtained: An occupational profile and medical and therapy history, including review of medical and/or therapy records and extensive additional review of physical, cognitive, or psychosocial history related to current functional performance, Various standardized and non-standardized assessments were used to identify at least 5 or more performance deficits related to physical, cognitive, or psychosocial skills that result in activity limitations and/or participation restrictions, and Clinical decision-making is of high analytic complexity, which includes an analysis of the patient profile, analysis of data from comprehensive assessment(s), and consideration of multiple treatment options. Patient present with comorbidities that affect occupational performance. Significant modification of tasks or assistance (e.g., physical or verbal) with assessment(s) is necessary to enable patient to complete evaluation component. 62955-8Jfelsvf mgouCU2176-97-86Y38:46:01Consult noteTXT1.2.840.568022.1.13.104.2.7.2.7 19978|[id number] for patient bigc53987-0Mptgsvt noteLNNARRATIVEFormatted C-CDA narrative [id number] E Kelso [address] Dy[id number] BUDTYLOAOGEAAJLKRZQL4999-76-04V06:46:0 11.2.840.443946.1.72.3.15|1.2.840.1143 [id number] Meagan Ybarra OT [facility] 2023-08-24 11:37:51 6wg4XtvIGBIRg7u+8Bn6Chv0SYPxM4C01wB2jJ FpSaBWnQLJXfLrBAWKardzIOCi6836-42-22Y8 1:37:51Associated Order(s): CONSULT GENERAL SURGERY Consult: FloorRequesting Service:NoneRequesting Physician: Shima Howe of Service: 08/24/2023HISTORYWe were asked to see this patient to give my opinion regarding Daria Jauregui 68 year old female who presents with hx of necrotizing pancreatitis with pseudocyst formation most recently visualized enlarging on CT 08/22, experiencing recurrent fevers in light of otherwise negative infectious work up. Etiology of pancreatitis - absence of gallstones/ sludge, denies alcohol, possible PRATIK inhibitor or occult gallstones. Patient describes symptoms as distention, fevers, and loose stools; has been tolerating diet. Improved from SIRS earlier this admission when she had acute respiratory failure (hypoxic), ELENA with need for CRRT/ HD, and new onset atrial flutter. She remains hypoalbuminemic and anemic.MEDICATIONSCurrent Facility-Administered MedicationsMedication Dose Route Frequency Last Rate Last Adminheparin 1,000 unit/mL (10 mL) - dialysis catheter care 2,000 Units Slow IV Push PRN - SEE INSTRUCTIONS 2,800 Units at 08/24/23 1937lidocaine 1% (PF) (XYLOCAINE) injection 5 mL 5 mL Subcutaneous PRNNaCl 0.9% (NS) injection 10 mL 10 mL Slow IV Push PRNpiperacillin-tazobactam (ZOSYN) 3.375 g in NaCl 0.9% (NS) 50 mL MINI-BAG 3.375 g IV Piggyback Q12H ABX 12.5 mL/hr at 08/24/232052 3.375 g at 08/24/2320521995iesrma-qbiqfxso-vntyefv (CREON) 12,000-38,000 -60,000 unit capsule 4 capsule 4 capsule Oral TID MEALS 4 capsule at 08/24/23 1352loperamide (IMODIUM A-D) capsule 2 mg 2 mg Oral G0GUTDjveaxcyp husk (METAMUCIL (SUGAR FREE)) 3.4 gram oral powder packet 1 Packet 1 Packet Oral DAILY 1 Packet at 08/24/23 0956amiodarone (PACERONE) tablet 200 mg 200 mg Oral DAILY 200 mg at 08/24/23 0944furosemide (LASIX) injection 60 mg 60 mg Slow IV Push Q12H 60 mg at 08/24/232047heparin 1,000 unit/mL (10 mL) - dialysis catheter care 2,000 Units Slow IV Push PRN - SEE INSTRUCTIONS 2,000 Units at 08/18/23 1337ramelteon (ROZEREM) tablet 8 mg 8 mg Oral QHS 8 mg at 08/24/232047heparin 1,000 unit/mL (10 mL) - dialysis catheter care 2,000 Units Slow IV Push PRN - SEE INSTRUCTIONS 2,800 Units at 08/16/23 1240morphine IR (MSIR) tablet 15 mg 15 mg Oral X3RAKHoujpppgbkp (PEPCID AC) tablet 20 mg 20 mg Oral BID 20 mg at 08/24/232047midodrine (PROAMATINE) tablet 10 mg 10 mg Oral TID 10 mg at 08/24/238alum-mag hydroxide-simeth (MAG-AL PLUS) 200-200-20 mg/5 mL suspension 30 mL 30 mL Oral Q6HPRN 30 mL at 08/24/23 0015simethicone (GAS RELIEF (SIMETHICONE)) chewable tablet 80 mg 80 mg Oral PC+HS 80 mg at 08/24/232047heparin lock flush (HEPARIN LOCKFLUSH(PORCINE)(PF)) 100 unit/mL injection 5,000 Units 5,000 Units IV Push PRN 500 Units at 08/14/23 1148naloxone (NARCAN) injection 0.4 mg 0.4 mg Slow IV Push PRNdextrose 50 % in water (D50W) injection 25 mL 25 mL Slow IV Push PRNglucagon (GLUCAGEN DIAGNOSTIC KIT) injection 1 mg 1 mg Intramuscular PRNlabetaloL (NORMODYNE) injection 20 mg 20 mg Slow IV Push Q6HPRN 20 mg at 08/07/23 0014ondansetron (ZOFRAN (PF)) injection 4 mg 4 mg Slow IV Push Q6HPRN 4 mg at 08/07/23 0852ALLERGIESNo Known AllergiesHISTORIESHistory reviewed. No pertinent surgical history.Past Medical History:Diagnosis DateHigh blood pressureHigh cholesterolNo problems updated.Family HistoryProblem Relation Age of OnsetBreast Cancer SisterSocial HistorySocioeconomic HistoryMarital status: MarriedSpouse name: Not on fileNumber of children: Not on fileYears of education: Not on fileHighest education level: Not on fileOccupational HistoryNot on fileTobacco UseSmoking status: Not on fileSmokeless tobacco: Not on fileSubstance and Sexual ActivityAlcohol use: Not on fileDrug use: Not on fileSexual activity: Not on fileOther Topics ConcernNot on fileSocial History NarrativeNot on fileSocial Determinants of HealthFinancial Resource Strain: Low Risk (08/09/2023)Overall Financial Resource Strain (CARDIA)Difficulty of Paying Living Expenses: Not hard at allRecent Concern: Financial Resource Strain - Medium Risk (07/10/2023)Overall Financial Resource Strain (CARDIA)Difficulty of Paying Living Expenses: Somewhat hardFood Insecurity: No Food Insecurity (08/09/2023)Hunger Vital SignWorried About Running Out of Food in the Last Year: Never trueRan Out of Food in the Last Year: Never trueTransportation Needs: No Transportation Needs (08/09/2023)PRAPARE - TransportationLack of Transportation (Medical): NoLack of Transportation (Non-Medical): NoPhysical Activity: Inactive (08/09/2023)Exercise Vital SignDays of Exercise per Week: 0 daysMinutes of Exercise per Session: 0 minStress: Stress Concern Present (07/10/2023)[employer] [place] [employer] - Occupational Stress QuestionnaireFeeling of Stress : To some extentSocial Connections: Moderately Integrated (08/09/2023)Social Connection and Isolation Panel [NHANES]Frequency of Communication with Friends and Family: More than three times a weekFrequency of Social Gatherings with Friends and Family: Three times a weekAttends Catholic Services: More than 4 times per yearActive Member of Clubs or Organizations: NoAttends Club or Organization Meetings: NeverMarital Status: MarriedIntimate Partner Violence: Not At Risk (07/10/2023)Humiliation, Afraid, Rape, and Kick questionnaireFear of Current or Ex-Partner: NoEmotionally Abused: NoPhysically Abused: NoSexually Abused: NoHousing Stability: Low Risk (08/09/2023)Housing Stability Vital SignUnable to Pay for Housing in the Last Year: NoNumber of Places Lived in the Last Year: 1Unstable Housing in the Last Year: NoREVIEW OF SYSTEMSENT: negativeCV: Palpitations, denies chest pain.Respiratory: occasional SOBGI: Denies abd pain, N/VGU: NegativeMusculoskeletal: LE edemaSkin: negative, denies rashes or skin changes beyond edemaNeuro: Denies light headednessPHYSICAL EXAMVitals:Blood Pressure 106/65Pulse: 93Respirations: 18Temperature: 36.1cHeight: 5 4"Weight: 76kgExam:ABDOMEN: NT, ND, No rebound, guarding and peritoneal signsCHEST: Equal chest rise and expansion no audible RRWHEENT: EOMI, moist oropharynxMSK: no deformities, mild B/L LE edemaNEURO: AAOx4, NADGENERAL: NAD, resting comfortably on chairSKIN/DEPENDENT AREAS: No jaundiceLABORATORYCBC BMP PT/INRWBC (10*3/?L)Date Value08/24/2023 10.78NA (mmol/L)Date Value08/24/2023 127 (L)No results found for: "PT"RBC (10*6/?L)Date Value08/24/2023 2.44 (L)K (mmol/L)Date Value08/24/2023 2.6 (LL)INR (no units)Date Value08/12/2023 1.0PLT (10*3/?L)Date Value08/24/2023 393 (H)CALCIUM (mg/dL)Date Value08/24/2023 7.0 (L)HGB (g/dL)Date Value08/24/2023 6.9 (L)CL (mmol/L)Date Value08/24/2023 99aPTTHCT (%)Date Value08/24/2023 20.1 (L)BUN (mg/dL)Date Value08/24/2023 79 (H)APTT Patient (Seconds)Date Value08/17/2023 47 (H)CREATININE (mg/dL)Date Value08/24/2023 4.00 (H)GLUCOSE (mg/dL)Date Value08/24/2023 129 (H)CO2 TOTAL (mmol/L)Date Value08/24/2023 14 (L)I have reviewed the patient's labs. Significant abnormals are CR 4.0, Hgb 6.9, Na 127, K 2.6.RADIOLOGYCT ABDOMEN PELVIS WO CONTRASTResult Date: . Acute necrotizing pancreatitis with interval slight increase in the size of the peripancreatic fluid collection now measuring 6 x 13 x 10 cm. Limited study in the absence of IV contrast. 2. Pseudopneumatosis versus pneumatosis intestinalis, favoring the former. This is nonspecific and could be seen in the setting of bowel ischemia, bowel content stasis, steroids, or pulmonary disease. Clinical correlation is recommended. 3. Diffuse nodularity of the mesentery in the upper abdominal quadrants favored to be reactive or due to congestion. Unchanged free fluid seen throughout all 4 abdominal quadrants and the pelvis. Diffuse anasarca. Findings discussed with Dr. Howe at 9:47 AM on 08/24/2023 by Alfonso Davila by telephone. Preliminary Report Dictated by Resident: Alfonso Davila I, Consuelo White MD., have reviewed this study and agree with the above report.INJURIES/PROBLEMS/DIAGNOSES and TREATMENT PLAN:Diagnosis- Necrotizing pancreatitis with maturing, potentially infected pseudocyst- Agree with GI planned cystogastrostomy via endoscopic transgastric drainage (internal preferred over external drainage by IR if mature wall and anatomic location is amenable - both of which it appears to be).- No surgical intervention at this time, if patient responds to endoscopic therapy for pseudocyst- Will continue to followDr. Pilar, Faculty, was notified of consult on 08/24/23After discussion with Dr. Espinosa, I examined this patient on 08/23. I agree with resident's note as written.Electronically signed by:Maki Lewis) MD Pilar 08/25/2023 1:55 AMTrauma and Acute Care SurgeryBilling:PROBLEMS:Acute necrotizing pancreatitis complicated by pseudocyst formation, mature, possibly infectedReview and interpretation of testsDiscussed with independent historianModerate (M) risk indicated byMinor operation (endoscopic drainage) with risk factors (M)History of/underlyingPast Medical History:Diagnosis DateHigh blood pressureHigh cholesterolCPT: 22866 - Admit/Obs Moderate (at least two of problems, amount of data, and risk of complications are moderate) 00032-1Jeagcke efuaET3631-28-19W84:58:44Consult noteTXT1.2.840.139904.1.13.104.2.7.2.7 19864|[id number] for patient yfcl63810-8Bmmopfe noteLNNARRATIVEFormatted C-CDA narrative textSUR-SURGERY STAFFSUR-SURGERY STAFF[address] L[id number] YXMCRPNUBOMJJFQQONCV0033-14-53D59:58:4 41.2.840.182084.1.72.3.15|1.2.840.1143 [id number] DAE-SURGERY STAFF [facility] 2023-08-24 10:00:00 SrOrno8xCIhfdO0MGnjkz2iLw6TVyvgIC3kHQ2 J06rk366G86DcYpWW+4AClyF+J1654-49-78A4 0:00:00Associated Order(s): CONSULT VASCULAR ACCESS Vascular Access ServicesVAS was consulted for midline insertion. Nephrology clearance for midline is recommended prior to midline insertion, the primary team and nursing are advised to notify VAS when nephrology clearance is obtained. 80528-8Iiupzzg dgymDE4732-36-39R55:13:14Consult noteTXT1.2.840.501728.1.13.104.2.7.2.7 42791|[id number] for patient vdpe10716-8Xlcgcpn noteLNNARRATIVEFormatted C-CDA narrative [id number] Holubka RN74 Huang [id number] YZNFBXDVOKHJAGBGTOKH6685-09-55U66:13:1 41.2.840.637459.1.72.3.15|1.2.840.1143 [id number] Gerson Moore RN [facility] 2023-08-20 07:13:05 N1p6TFmQc7bm13EjxGa4s6B/HIaCch4mLF+QBC hVjGeiCwRM1d6auqEr+UOCnKg+8069-98-37V4 7:13:05Associated Order(s): CONSULT GASTROENTEROLOGY Department of Gastroenterology & Hepatology Consult NoteRequesting Physician: Jt Chen, *Service: MedicineReason for Consultation: "68 F admitted in late July with necrotizing pancreatitis; new onset abdominal pressure and early satiety; prelim read on non-contrasted CT showing new fluid collection anterior to pancreas abutting the stomach. Appreciate assistance with management"Date of Service: 4CHIEF COMPLAINT:Abdominal PainHistory of Present IllnessDaria Jauregui is a 68 year old /White female with PMH of HTN, HLD, who presented to [facility] with abdominal pain on 08/05.Patient was found to have lipase >[address] 08/05 consistent with acute necrotizing pancreatitis. US GB showed no gallstones. Triglycerides normal. Patient denied EtOH use. Notably had been on medication ramipril. Hospital course has been complicated by oliguric ELENA requiring CRRT with plans to transition to HD, acute hypoxic respiratory failure, and new onset atrial flutter initially requiring amiodarone. Pancreatitis has been managed conservatively with improvement in pain and advancement of oral intake. GI consulted for new 'abdominal pressure and early satiety' with repeat CT scan 08/18 showing anterior pancreatic fluid collection ~11x6cm abutting the gastric wall, final read pending.Patient reports currently that she is not having any abdominal pain, nausea, or vomiting. She is tolerating PO intake without difficulty. She reports having regular bowel movements, has had one episode with a small amount of red blood mixed with stool. She reports having RUQ abdominal pain with PO intake prior to hospitalization for pancreatitis. Denies EtOH use/smoking/illicit drug use. No prior abdominal surgeries. No prior episodes of pancreatitis.PREVIOUS INVESTIGATIONSRADIOLOGY:CT AP 08/19/23IMPRESSIONLimited evaluation due to the lack of IV and oral contrast. Ifthere is clinical concern for pathology other than urinary system stones,CT scan with IV and oral contrast is recommended for further evaluation.No radiopaque urinary system stones or hydronephrosis.Acute pancreatitis with large pseudocyst anterior to the pancreas.Evaluation for necrotizing pancreatitis is not possible due to the lack ofIV contrast.Mild ascites and mild anasarca.Small left pleural effusion and bibasilar atelectasis.Extensive diverticulosis of the colon with wall thickening in the sigmoidcolon, possibly due to mild diverticulitis/colitis.CT AP 08/06/2375UORWZOOELP2. Findings compatible with acute necrotizing pancreatitis (about 75%necrosis/hypoenhancement of pancreatic parenchyma). Associated moderatevolume abdominopelvic ascites with no drainable fluid collection or abscessformation.2. Right upper quadrant ultrasound is recommended to evaluate forcholelithiasis. Distal colonic diverticulosis.PAST MEDICAL HISTORYPast Medical History:Diagnosis DateHigh blood pressureHigh cholesterolPAST SURGICAL HISTORYHistory reviewed. No pertinent surgical history.FAMILY HISTORYFamily HistoryProblem Relation Age of OnsetBreast Cancer SisterALLERGIESNo Known AllergiesMEDICATIONSCurrent Facility-Administered MedicationsMedication Dose Route Frequency Last Rate Last Adminheparin 1,000 unit/mL (10 mL) - dialysis catheter care 2,000 Units Slow IV Push PRN - SEE INSTRUCTIONS 2,000 Units at 08/18/23 1337ramelteon (ROZEREM) tablet 8 mg 8 mg Oral QHS 8 mg at 08/19/23 2128amiodarone (PACERONE) tablet 200 mg 200 mg Oral BID 200 mg at 08/19/23 212heparin 1,000 unit/mL (10 mL) - dialysis catheter care 2,000 Units Slow IV Push PRN - SEE INSTRUCTIONS 2,800 Units at 08/16/23 1240morphine IR (MSIR) tablet 15 mg 15 mg Oral K2PHOZfdcrevqdtf (PEPCID AC) tablet 20 mg 20 mg Oral BID 20 mg at 08/19/23 212midodrine (PROAMATINE) tablet 10 mg 10 mg Oral TID 10 mg at 08/19/23 2129alum-mag hydroxide-simeth (MAG-AL PLUS) 200-200-20 mg/5 mL suspension 30 mL 30 mL Oral Q6HPRN 30 mL at 08/17/23 0855simethicone (GAS RELIEF (SIMETHICONE)) chewable tablet 80 mg 80 mg Oral PC+HS 80 mg at 08/19/23 212heparin lock flush (HEPARIN LOCKFLUSH(PORCINE)(PF)) 100 unit/mL injection 5,000 Units 5,000 Units IV Push PRN 500 Units at 08/14/23 1148naloxone (NARCAN) injection 0.4 mg 0.4 mg Slow IV Push PRNdextrose 50 % in water (D50W) injection 25 mL 25 mL Slow IV Push PRNglucagon (GLUCAGEN DIAGNOSTIC KIT) injection 1 mg 1 mg Intramuscular PRNlabetaloL (NORMODYNE) injection 20 mg 20 mg Slow IV Push Q6HPRN 20 mg at 08/07/23 0014ondansetron (ZOFRAN (PF)) injection 4 mg 4 mg Slow IV Push Q6HPRN 4 mg at 08/07/23 0852SOCIAL HISTORYSocial HistorySocioeconomic HistoryMarital status: MarriedSpouse name: Not on fileNumber of children: Not on fileYears of education: Not on fileHighest education level: Not on fileOccupational HistoryNot on fileTobacco UseSmoking status: Not on fileSmokeless tobacco: Not on fileSubstance and Sexual ActivityAlcohol use: Not on fileDrug use: Not on fileSexual activity: Not on fileOther Topics ConcernNot on fileSocial History NarrativeNot on fileSocial Determinants of HealthFinancial Resource Strain: Low Risk (08/09/2023)Overall Financial Resource Strain (CARDIA)Difficulty of Paying Living Expenses: Not hard at allRecent Concern: Financial Resource Strain - Medium Risk (07/10/2023)Overall Financial Resource Strain (CARDIA)Difficulty of Paying Living Expenses: Somewhat hardFood Insecurity: No Food Insecurity (08/09/2023)Hunger Vital SignWorried About Running Out of Food in the Last Year: Never trueRan Out of Food in the Last Year: Never trueTransportation Needs: No Transportation Needs (08/09/2023)PRAPARE - TransportationLack of Transportation (Medical): NoLack of Transportation (Non-Medical): NoPhysical Activity: Inactive (08/09/2023)Exercise Vital SignDays of Exercise per Week: 0 daysMinutes of Exercise per Session: 0 minStress: Stress Concern Present (07/10/2023)[employer] [place] [employer] - Occupational Stress QuestionnaireFeeling of Stress : To some extentSocial Connections: Moderately Integrated (08/09/2023)Social Connection and Isolation Panel [NHANES]Frequency of Communication with Friends and Family: More than three times a weekFrequency of Social Gatherings with Friends and Family: Three times a weekAttends Catholic Services: More than 4 times per yearActive Member of Clubs or Organizations: NoAttends Club or Organization Meetings: NeverMarital Status: MarriedIntimate Partner Violence: Not At Risk (07/10/2023)Humiliation, Afraid, Rape, and Kick questionnaireFear of Current or Ex-Partner: NoEmotionally Abused: NoPhysically Abused: NoSexually Abused: NoHousing Stability: Low Risk (08/09/2023)Housing Stability Vital SignUnable to Pay for Housing in the Last Year: NoNumber of Places Lived in the Last Year: 1Unstable Housing in the Last Year: NoROS:As in HPI/PMHPHYSICAL EXAMBP 127/72 | Pulse 102 | Temp 36.9 ?C (98.4 ?F) | Resp 20 | Ht 1.626 m (5' 4") | Wt 76 kg (167 lb 8.8 oz) | SpO2 92% | BMI 28.76 kg/m?General: Patient alert, No apparent distress.HEENT: EOMI, Anicteric sclerae.Neck: SuppleCardiovascular: Regular rate and rhythm, pitting lower extremity edemaRespiratory: Normal inspiration, no increased work of breathingAbdomen: Soft, non-tender, non-distendedMusc: Full range of motion, no joint effusions, no clubbing.Skin: Intact and warm, dry. No jaundice or cyanosis.Neuro: No focal deficitsLABORATORYHGB (g/dL)Date Value08/20/2023 7.1 (L)08/19/2023 7.7 (L)08/18/2023 8.6 (L)PLT (10*3/?L)Date Value08/20/2023 373 (H)08/19/2023 7890808/18/2023 206INR (no units)Date Value08/12/2023 1.004/ 1.204/ 1.1Hepatic Function PanelALBUMIN (g/dL)Date Value08/20/2023 2.2 (L)T PROTEIN (g/dL)Date Value08/20/2023 5.0 (L)TOTAL BILI (mg/dL)Date Value08/20/2023 0.7BILI UNCON (mg/dL)Date Value08/13/2023 0.2BILI CONJ (mg/dL)Date Value08/13/2023 0.0ALTv (U/L)Date Value08/20/2023 30AST(SGOT) (U/L)Date Value08/20/2023 68 (H)ALK PHOS (U/L)Date Value08/20/2023 92BMPNA (mmol/L)Date Value08/20/2023 133 (L)K (mmol/L)Date Value08/20/2023 3.8CALCIUM (mg/dL)Date Value08/20/2023 7.1 (L)CL (mmol/L)Date Value08/20/2023 103BUN (mg/dL)Date Value08/20/2023 53 (H)CREATININE (mg/dL)Date Value08/20/2023 3.42 (H)GLUCOSE (mg/dL)Date Value08/20/2023 130 (H)CO2 TOTAL (mmol/L)Date Value08/20/2023 23ASSESSSURAJ AND Giovanna Paige Jauregui is a 68 year old female with PMH as listed above, GI consulted for:#Acute Necrotizing Pancreatitis#Likely Acute Necrotic Fluid CollectionPatient presented with acute necrotizing pancreatitis of uncertain etiology on 08/05. Workup has been remarkable for no evidence of cholelithiasis, normal triglycerides, no EtOH history. Questionable association between pratik inhibitor use (ramipril). Given reports of RUQ pain after eating prior to presentation, a passed gallstone causing pancreatitis is also a consideration.Hospital course has been complicated by oliguric ELENA requiring CRRT, AHRF now on room air, new onset atrial flutter initially requiring amiodarone. Pancreatitis thus far has been managed conservatively with improvement in patient's symptoms. At present denies pain, nausea, vomiting, and is tolerating PO intakeGI consulted for repeat CT without contrast 08/18 showing what is likely an ~24j1a7yt acute necrotic fluid collection, given findings of acute necrotizing pancreatitis on CT 08/05, vs. Early pseudocyst. The wall surrounding the fluid collection does not appear to be matured, and patient without leukocytosis, fevers, or worsening abdominal pain to suggest infected collection.- Given lack of symptoms/no signs of infection, no current indication for fluid collection drainage- Recommend high protein ensure supplementation TID with meals- If not tolerating PO intake, then DHT enteral feeding- PO pantoprazole 40mg daily- Early consideration of fluid collection drainage if signs of infection develop, otherwise will continue to monitor clinical course for timing/necessity of interventionPatient discussed with Dr. Jaramillo, formal consultation to follow. Please call with any questions. GI will continue to follow.Earle De Paz, MDPGY-5 Gastroenterology and HepatologyContact Information Available on [facility] [place] ssociated attestation - Juan Jaramillo MD - 08/22/2023 7:58 AM CDT I have examined the patient and discussed the findings and management plan with Dr De Paz. I agree with the GI Consult note dated 08/20/23 as above.[id number] [id number], Sreeram1.2.840.233013.1.13.104.2.7.2.8 58246JuwhpmrqVxgsubcQH3405-06-07K21:58 :48Consult noteTXT1.2.840.968952.1.13.104.2.7.2.7 47051|[id number] for patient bhzw11695-2Biflbcl noteLNNARRATIVEFormatted C-CDA narrative textUT63 Diaz StreetIq[id number] BWDKXMVNUBHQAKDRDIAH6914-91-55L41:58:4 81.2.840.668341.1.72.3.15|1.2.840.1143 50.1.13.104.2.7.2.727879_[id number] [facility] 2023-08-17 14:19:00 a83vChURMy/omFr6X26RBC3NLpETZN/oep58Xa Kyp6Z5e9geU/W6EdtCdg14T91/4105-06-21S8 4:19:00Associated Order(s): CONSULT ADULT PHYSICAL THERAPY Patient agreeable to working with physical therapy. Patient met semi reclined in bed. Patient's daughter present in room.Recommend nursing staff utilize RW and Min A for short distance ambulation, wheel chair for long distance mobility to safely assist patient with mobility out of the bed or chair.PHYSICAL THERAPY EVALUATIONConsult received, chart reviewed and evaluation complete this date. Patient is referred to PT for evaluation and treatment. Patient is a 68 year old female who presents to hospital for Acute necrotizing pancreatitis [K85.91]Necrotizing pancreatitis [K85.91] "68 year old female with a PMH of HTN, HLD, GERD who was admitted for acute necrotizing pancreatitis with uncontrolled pain requiring hydromorphone BILL OF LADING CLERK. She was upgraded to MICU for oliguric ELENA requiring initiation of CRRT. Developed ileus/partial SBO resolved with conservative mgmt. New-onset atrial flutter while on CRRT, cardiology consulted. Started on PO amiodorone with control of rhythm. Patient given 10 mg midodrine and successfully underwent 2 hour HD trial. Patient stable to TTF at this time." (Per IM-INTERNAL MEDICINE Note)Discharge Recommendations:Therapy Needs and Potential:Patient would benefit from continued physical therapy services to address: decline in bed mobility decline in transfers decline in gait and/or balance decreased strength decreased endurancePatient demonstrates good potential to improve and meet therapy goals with further physical therapy services.Patient appears motivated to improve their functional mobility and return to their previous level of function.Challenges to Home Transition:increased risk of fallsenvironmental barriersEquipment recommendations:last Martins continue to assess equipment needs as patient progresses with physical therapy.Current Functional Status and/or Treatment:AM-PAC 6 Clicks (Raw Score 0=Dependent, 24=Independent; Low function Raw Score 0= Dependent, 32=Independent):Raw Score - Basic Mobility : 17T-Scale Score - Basic Mobility : 39.67Bed Mobility:Reclined to sitting: Minimal AssistanceSitting balance Fair+ with B UE support on bedScooting to edge of bed: Minimal AssistancePatient requires Min A for bringing trunk into upright position and for managing B LE off of bed during transition from reclined to sitting edge of bed.Patient immediately upon transitioning to sitting edge of bed demonstrates mild retropulsion, requiring verbal/tactile cues to flex trunk forward to facilitate abdominal muscle activation in order to correct retropulsion to midline trunk position.Patient requires Min A to facilitate weight shifting and to advance hips to allow for B foot contact with floor for improved MONICA during scooting to edge of bed.Transfers:Sit to stand: Minimal Assistance using rolling Walker.Stand to sit: Minimal Assistance using rolling Walker.Static/dynamic standing balance: Fair+ with ADVerbal cueing provided for correct hand placement and correct use of ADPatient provided with demonstration and education on proper technique of utilizing unilateral UE support on stable sitting surface and unilateral UE support on RW to stand then to utilize B UE support on RW for safest technique with sit to stand transfer.Patient requires Min A for stand and for stability once in standing as patient demonstrates mild postural sway.Patient requires Min A for control of eccentric lowering from standing position as well as verbal cues for hand placement and technique when performing stand to sit transfer.Dizziness NoPre-Gait:Assisted patient with pre-gait activity as follows:Standing Lateral weight shifting Alternating Left to Right: 4 Minutes with Rolling walker for stability and Minimal assistance for trunk support.Ambulation:Assisted patient with ambulation as follows: 10 feet using rolling Walker. and Minimal Assistance.Patient presenting with Step-to gait pattern.Patient's gait is slow but steady with no loss of balance.Patient requires Min A for trunk support during ambulation trial.Patient provided with verbal cues to maintain RW within proximity for optimal safety.Patient tolerated short distance ambulation trial fairly well however with reports of increased fatigue and patient with increased work of breathing after 10 feet,Assessed Vitals: HR 122, SpO2 92%Patient able to recover with a seated rest break as well as verbal/visual cue for breathing techniqueDizziness NoTherapeutic exercise:patient educated in Fall prevention, General strengthening, Relaxation/breathing techniques, and Safety awareness., instructed patient in the following: ankle pumps, long arc quads, seated marching, patient/caregiver instructed to perform HEP 3 times per day, 8 repetitions., patient/caregiver verbalizes understanding of instructions., and -cues provided for self pacing so as to promote proper quality of motion as well as target specific muscle groups for increased strength, -educated patient on importance of performing the HEP which consists of the above exercises 3 times a day , and -patient verbalizes understanding of instructions providedIncorporated Therapeutic Exercises above, performed within treatment, 8 reps, 2 sets each, rest breaks provided as neededPaper Hand out of HEP provided and reviewed with patient.Patient was educated on the importance of calling the staff for assistance to ensure safety and to prevent injuryPatient educated on fall prevention strategies to reduce risks of falls.Patient educated on safe progression of activities in order to safely return to prior level of function.Patient educated on breathing techniques for improved activity toleranceAfter session, patient up in chair eating lunch with daughter and present in room. Call button provided. All needs met, and nursing notified and aware. Patient vitals stable throughout session.Patient Vitals After Functional Activity: HR 111 BPM, SpO2 96%PLAN OF CARE:While in the hospital, PT will follow patient at least 3 times per week,once or twice a day, per patient's tolerance and needs.See below for complete details.Admit Date: 08/06/2023Hospital Diagnosis:Acute necrotizing pancreatitis [K85.91]Necrotizing pancreatitis [K85.91]PT Diagnosis: Difficulty walking, Weakness, Malaise/fatigue, Dyspnea, Vertigo/dizziness, and Abnormality of gait and balanceWeight Bearing Precaution: NAGeneral Precautions: PPE used:Gloves, General, Fall, Lines/Tubes,IV B UE, RIJ HD Catheter, oxygen: Nasal canulaBracing/Cast present or required:N/APMH:Past Medical History:Diagnosis DateHigh blood pressureHigh cholesterolPSH: History reviewed. No pertinent surgical history.Prior Living Situation: lives with their family and in a single story house, no steps to enterDME: No devicePrior level of Mobility: community ambulation, house hold ambulation, ambulates with no device.Suspected ischemic or hemorraghic stroke:NoSubjective: "I can work with you."Patient/Family Goals: To get strongerPatient/Family verbalizes understanding of condition: YesPAIN:denies pain before and after sessionCOMMUNICATIONPrimary Language: Bangladeshi, therapist offered to utilize manufacturing production manager services, however patient's daughter preferred to translate her self.Able to Verbalize needs: YesVision:glasses Hearing:good; no issues reportedORIENTATION/COGNITION:Oriented to: person, place, date/time, and situationAwake: Yes Alert: Yes Dizzy: YesFollows Commands: Yes1-Step Yes Multi-Step YesInconsistent: NoNEUROLOGICALLight Touch: within functional limits bilateral LE,Tone: Normal B LEBALANCE:Sitting: Static: Fair+ Dynamic: Fair+Standing: Static: Fair+ with AD Dynamic: Fair+ with ADRANGE OF MOTION: within functional limits bilateral LE,STRENGTH:Grossly 4+/5, bilateral LE knee extensors, knee flexors, ankle dorsiflexors, and extensor hallucis longus.ENDURANCE: Fair+, Nasal canulaSKIN INTEGRITY: intact, please defer to nursing note for details.PROBLEM LIST: Decline in bed mobility, Decline in gait, Decline in transfers, Decreased strength, Decreased endurance, and Decreased balanceASSESSMENT: Patient is a 68 year old female seen secondary to the above listed diagnosis. Patient would benefit from continued PT to address the above listed deficits to maximize independence and safety with functional mobility.Rehabilitation Potential: goodGoals: The following goals are to maximize independence and safety with functional mobility to eventually return to prior living situation and prior functional status.Upon discharge, patient and/or family will demonstrate the followin. Supine-sit: IndependentSit to supine: IndependentSitting balance Good2. Sit to stand: Independent using LRADStand to sit: Independent using LRAD3. Independent with ambulation, Feet: 300 using least assistive device.Treatment Plan: Gait training, Therapeutic exercise, Transfer training, Balance training, Bed mobility training, Equipment needs assessment, Safety education, patient/caregiver education, Pain management, Neuromuscular Re-Education, and Functional Motor TrainingPATIENT EDUCATION: Patient provided with preferred teaching of verbal information on role of PT, plan of care, home safety, fall prevention, and HEP. Shows readiness to learn. Verbal instruction and Written material teaching provided. Individual verbalizes understanding of teaching provided.Total Time Tx Codes in Minutes: 23 minTotal Treatment Time in Minutes: 41 minRakesh Caceres PT, [facility] Rehabilitation Services [id number] sefbWO3089-36-77P59:56:41Consult noteTXT1.2.840.951755.1.13.104.2.7.2.7 07812|[id number] for patient mrta40883-3Whbjpjb noteLNNARRATIVEFormatted C-CDA narrative textUTGUADALUPE COUNTY [facility] - [address] Ya[id number] HNNMGUMURBFIGMTSXIUX5404-78-58Q16:56:4 11.2.840.568990.1.72.3.15|1.2840.1143 [id number] [facility] 2023-08-12 10:07:26 QLCzYXsPHwyAp4BolWgh9XDzyM32aZPcyXdwEa 3UnzL+NBqKnn7GHaLQ3KYH89170322-22-70Y1 0:07:26Associated Order(s): CONSULT CARDIOLOGY Cardiology Consult NoteDate of Service: 08/12/2023 10:07Time: 10:07 AMService: CardiologyReason for admission: Abdominal painReason for consult: new Atrial flutter; poor rate control 130-140 on metoprolol 5mg IV Q6H Assessment:Daria Jauregui is a 68 year old female admitted with:Acute necrotizing pancreatitisNew Onset Atrial flutter with rapid ventricular response [id number] 3AKI on CRRT for oliguriaHTNHLDGERDPatient admitted for acute necrotizing pancreatitis. Cardiology consulted for new onset atrial flutter noted on telemetry. CV exam noted for volume overload. Labs with elevated WBC, Hb 10.2, creatinine 1.99. Telemetry reviewed with improved a flutter with RVR following administration of IV metoprolol tartrate. A-flutter likely in the setting of acute illness. We recommend rate control and anticoagulation at this time.Recommendations:Started on amiodarone infusion at 1 mg/minClosely monitor TSH and LFTs after initiation of amiodaroneConsider starting heparin for atrial flutter anticoagulationContinue metoprolol titrate if blood pressures allow, but discontinue if blood pressures drop with SBP<90Patient may eventually require cardioversion if refractory A-flutterCardiology will continue to follow History of Present Illness:Daria Jauregui is a 68 year old female with PMHx of HTN, HLD, GERD presenting to [facility] with abdominal pain and found to have acute necrotizing pancreatitis on CT imaging. Cardiology was consulted for atrial flutter noted on telemetry.Patient had been managed on MICU and was persistently in sinus tachycardia and flipped into atrial flutter. Patient's daughter denies any prior history of atrial fibrillation or atrial flutter or cardiac history other than hypertension/hyperlipidemia.ROS:Negati ve, or as otherwise stated in HPIPast Medical History:Diagnosis DateHigh blood pressureHigh cholesterolHistory reviewed. No pertinent surgical history.Family HistoryProblem Relation Age of OnsetBreast Cancer SisterSocial HistorySocioeconomic HistoryMarital status: MarriedSocial Determinants of HealthFinancial Resource Strain: Low Risk (08/09/2023)Overall Financial Resource Strain (CARDIA)Difficulty of Paying Living Expenses: Not hard at allRecent Concern: Financial Resource Strain - Medium Risk (07/10/2023)Overall Financial Resource Strain (CARDIA)Difficulty of Paying Living Expenses: Somewhat hardFood Insecurity: No Food Insecurity (08/09/2023)Hunger Vital SignWorried About Running Out of Food in the Last Year: Never trueRan Out of Food in the Last Year: Never trueTransportation Needs: No Transportation Needs (08/09/2023)PRAPARE - TransportationLack of Transportation (Medical): NoLack of Transportation (Non-Medical): NoPhysical Activity: Inactive (08/09/2023)Exercise Vital SignDays of Exercise per Week: 0 daysMinutes of Exercise per Session: 0 minStress: Stress Concern Present (07/10/2023)[employer] [place] [employer] - Occupational Stress QuestionnaireFeeling of Stress : To some extentSocial Connections: Moderately Integrated (08/09/2023)Social Connection and Isolation Panel [NHANES]Frequency of Communication with Friends and Family: More than three times a weekFrequency of Social Gatherings with Friends and Family: Three times a weekAttends Catholic Services: More than 4 times per yearActive Member of Clubs or Organizations: NoAttends Club or Organization Meetings: NeverMarital Status: MarriedIntimate Partner Violence: Not At Risk (07/10/2023)Humiliation, Afraid, Rape, and Kick questionnaireFear of Current or Ex-Partner: NoEmotionally Abused: NoPhysically Abused: NoSexually Abused: NoHousing Stability: Low Risk (08/09/2023)Housing Stability Vital SignUnable to Pay for Housing in the Last Year: NoNumber of Places Lived in the Last Year: 1Unstable Housing in the Last Year: NoNo Known AllergiesPrior to Admission medicationsMedication Sig Start Date End Date Taking? Authorizing ProvideramLODIPine 5 mg tablet Take 1 tablet by mouth daily. 07/10/23 Napoleon Rice MDatorvastatin 10 mg tablet Take 1 tablet by mouth at bedtime. 07/10/23 Napoleon Rice MDazelastine 137 mcg (0.1 %) nasal spray Use 1 [place] in each nostril 2 (two) times daily. Use in each nostril as directed 07/10/23 Napoleon Rice MDfluticasone propionate 50 mcg/actuation nasal spray Use 1 [place] in each nostril daily. 07/10/23 Napoleon Rice MDloratadine (CLARITIN ORAL) Take by mouth. Doctor Unassigned, No NameramipriL 10 mg capsule Take 1 capsule by mouth daily. 07/10/23 Napoleon Rice MDCurrent Facility-Administered Medications:famotidine (PEPCID (PF)) injection 20 mg, 20 mg, Slow IV Push, Q24H, Jessica Dia MDmetoprolol (LOPRESSOR) injection 5 mg, 5 mg, Intravenous, Q6H Reyes PORRAS Melissa, MDHYDROmorphone (DILAUDID) 10 mg/50 mL 0.9% NaCl BILL OF LADING CLERK, , IV Infusion, CONTINUOUS, Marisol Chambers MD, Rate Change at 08/11/23 1830CRRT fluid dialysate (PRISMASATE 4K) K 4.0-Ca 2.5, Mg 1.5, HCO3 32, NA 140, CL 113, LACTATE 3, DEX 110, Osm 300, 1,800 mL/hr, CRRT Circuit, CONTINUOUS, Angelita Salgado MD, Last Rate: 1,800 mL/hr at 08/12/23 0304, 1,800 mL/hr at 08/12/23 0304heparin lock flush (HEPARIN LOCKFLUSH(PORCINE)(PF)) 100 unit/mL injection 5,000 Units, 5,000 Units, IV Push, PRN, Marisol Chambers MDNaCl 0.9% (NS) IV infusion 1,000 mL, 1,000 mL, CRRT Circuit, CONTINUOUS, Angelita Salgado MD, Last Rate: 150 mL/hr at 08/10/23 1706, 1,000 mL at 08/10/23 1706heparin (porcine) injection 5,000 Units, 5,000 Units, Subcutaneous, Q12H, Brenden Fragoso MD, 5,000 Units at 08/12/23 0736Lidocaine (LIDOCARE) 4 % patch 3 Patch, 3 Patch, Topical, DAILY, Kacy Banda MD, 3 Patch at 08/11/23 0904piperacillin-tazobactam (ZOSYN) 3.375 g in NaCl 0.9% (NS) 100 mL VIAL-MATE, 3.375 g, IV Piggyback, Q12H ABX, Brenden Fragoso MD, Last Rate: 25 mL/hr at 08/12/23 0811, 3.375 g at 08/12/23 0811simethicone (GAS RELIEF (SIMETHICONE)) chewable tablet 80 mg, 80 mg, Oral, PC+HS, Kacy Banda MD, 80 mg at 08/11/23 1725acetaminophen (TYLENOL) tablet 1,000 mg, 1,000 mg, Oral, Q6H, Funmilayo Awan MD, 1,000 mg at 08/11/23 1724naloxone (NARCAN) injection 0.4 mg, 0.4 mg, Slow IV Push, PRN, Funmilayo Awan MDdextrose 50 % in water (D50W) injection 25 mL, 25 mL, Slow IV Push, PRN, Kevin Bagley MDglucagon (GLUCAGEN DIAGNOSTIC KIT) injection 1 mg, 1 mg, Intramuscular, PRN, Kevin Bagley MDlabetaloL (NORMODYNE) injection 20 mg, 20 mg, Slow IV Push, Q6HPRN, Kevin Bagley MD, 20 mg at 08/07/23 0014ondansetron (ZOFRAN (PF)) injection 4 mg, 4 mg, Slow IV Push, Q6HPRN, Kevin Bagley MD, 4 mg at 08/07/23 0852Sliding Scale Insulin - Lispro (HumaLOG), , Subcutaneous, TID MEALS+HS, Kevin Bagley MD, 1 Units at 08/11/23 1241Physical Examination:Temp: [36.4 ?C (97.5 ?F)-36.8 ?C (98.3 ?F)]Heart Rate (monitor): [102-145]Pulse: [88-145]Resp: [16-29]BP: (78-124)/(58-87)MAP (mmHg): [69-100]POCT Blood Glucose (manual): [138 mg/dL]Intake/Output Summary (Last 24 hours) at 08/12/2023 1007Last data filed at 08/12/2023 0739Gross per 24 hourIntake 214.66 mlOutput 1175 mlNet -960.34 mlGeneral: in no apparent distressHead: Normocephalic, atraumatic, mucous membranes moist, no pallor or cyanosisNeck: supple, no thyromegaly. JVP not elevated.Chest: Effort is unlabored. Auscultation bilaterally clear. No crackles or wheezing noted.Heart: Regular rhythm, S1: normal. S2: normal. No gallops, rubs noted. Systolic murmur noted.Abdomen: no distension or tendernessNeurologic: Asleep/somnolentExtremities: No clubbing, cyanosis. Edema: minimal oedema. Radial pulses intact, brachial pulses intact,Psychiatric: appropriate affect, does not appear to be depressed.Skin: no significant lesionsLabs/Imaging/Pathology - ReviewedLabs (last 24 hours):Chemistry CBC LFTs Coags, tnymn305 (L) 104 40 (H) 118 (H) 14.95 (H) 10.2 (L) 182 AST: - ALT: - PT: - INR: -4.0 24 1.99 (H) 30.6 (L) AP: - T Michael: - PTT: -eGFR: 27.1 Ca: 7.1 (L) % Blaise: 85.5 Prot: - Alb: - Lact: - Procal: -M.9 (H) PO4: 3.1 ANC: 12.78 (H) pBNP: - Trop I: -EKG:Sinus tachycardiaEchocardiography:08/09/23Lef t Ventricle Left ventricle size is normal. Increased wall thickness. Ventricular mass is normal. There is concentric remodeling. Normal wall motion. Hyperdynamic systolic function with a visually estimated EF of greater than 65%. Normal diastolic function.Right Ventricle Right ventricle size is normal. Normal systolic function.Left Atrium Not well visualized. Left atrium size is normal.Right Atrium Right atrium size is normal.IVC/SVC IVC was not well visualized.Mitral Valve Mitral valve structure is normal. Trace transvalvular regurgitation. No stenosis.Tricuspid Valve Tricuspid valve structure is normal. Trace transvalvular regurgitation. No stenosis.Aortic Valve Tricuspid. Mildly thickened cusps. Mildly calcified cusps. No transvalvular regurgitation. opens well.Pulmonic Valve Not well visualized.Ascending Aorta Normal sized aortic root.Pericardium The pericardium is normal. No pericardial effusion.Interpretation SummaryLeft Ventricle: Left ventricle size is normal. Increased wall thickness. Ventricular mass is normal. There is concentric remodeling. Normal wall motion. Hyperdynamic systolic function with a visually estimated EF of greater than 65%. Normal diastolic function.Right Ventricle: Right ventricle size is normal. Normal systolic function.Left Atrium: Left atrium size is normal.Pulmonic Valve: Not well visualized.Mitral Valve: Mitral valve structure is normal.Tricuspid Valve: Tricuspid valve structure is normal. Trace transvalvular regurgitation.Nuclear imaging:None on fileCardiac Cath:None on fileThank you for your consult.This was discussed with Dr. Guillermo.Sunny Mcmanus, MDCardiovascular Medicine FellowSouth Texas Health System Mc[place] ssociated attestation - Zuleyka Guillermo MD - 08/12/2023 8:44 PM CDT After discussion with the fellow, I examined this patient. I agree with fellow's note as written.Zuleyka Lindo MD, [facility], [facility] Cardiology Subzfwy10794-1Xsedejq [id number]-Ziwekfcn, Tareq1.2.840.480531.1.13.104.2.7.2.836 478Fna-UeyjrasiOlqhvJB3288-35-28T20:44 :40Consult noteTXT1.2.840.536158.1.13.104.2.7.2.7 10643|[id number] for patient dybi28485-4Ppbcddo noteLNNARRATIVEFormatted C-CDA narrative text[address] Rc[id number] NQEAVLHWFFULNDHINCCF5205-25-19I18:44:4 01.2.840.610516.1.72.3.15|1.2.840.1143 [id number] [facility] 2023-08-08 16:09:12 SgmOLeHrcjihH7yK1wRG0HWSMB7B9hl6XhEMof AsOPnANcu+iPLTDVgn4FEMY6Nd5920-70-68O5 6:09:12Associated Order(s): CONSULT NEPHROLOGY NEPHROLOGY CONSULT NOTEReason For consult:AKIConsult By: HenryCC: Abd painHPI:Jinny Jauregui is a 68 year old female with PMHx of HTN and HLD presented with severe abdominal pain, with workup consistent with acute necrotizing pancreatitis - Lipase >6000, CT A/P on presentation with significant pancreatic necrosis and moderate volume abdominopelvic ascites. Nephrology is consulted today due to acute oliguric ELENA. On presentation, patient had normal kidney function with Cr 0.67 > 0.99 > 2.98 today > 3.4. She has received aggressive IV fluid administration but is oliguricPast Medical History:Diagnosis DateHigh blood pressureHigh cholesterolHistory reviewed. No pertinent surgical history.Family HistoryProblem Relation Age of OnsetBreast Cancer SisterNo Known AllergiesROSA 12 point ROS was done, pertinent positives have been discussed in HPI, and other review of system is negative.Medications:Current Facility-Administered MedicationsMedication Dose Route Frequency Last Rate Last Adminheparin (porcine) injection 5,000 Units 5,000 Units Subcutaneous C67Qdajjwjgi ringers IV infusion 1,000 mL 1,000 mL IV Infusion CONTINUOUS 150 mL/hr at 08/08/23 0700 1,000 mL at 08/08/23 0700[START ON 08/09/2023] Lidocaine (LIDOCARE) 4 % patch 3 Patch 3 Patch Topical DAILYsimethicone (GAS RELIEF (SIMETHICONE)) chewable tablet 80 mg 80 mg Oral PC+HS 80 mg at 08/08/23 1544acetaminophen (TYLENOL) tablet 1,000 mg 1,000 mg Oral Q6H 1,000 mg at 08/08/23 0612HYDROcodone-acetaminophen (NORCO) 10-325 mg tablet 1 tablet 1 tablet Oral Q6HPRN 1 tablet at 08/08/23 1052HYDROmorphone (DILAUDID) 10 mg/50 mL 0.9% NaCl BILL OF LADING CLERK IV Infusion CONTINUOUS Dose/Rate Verify at 08/08/23 0653naloxone (NARCAN) injection 0.4 mg 0.4 mg Slow IV Push PRNamLODIPine (NORVASC) tablet 10 mg 10 mg Oral DAILY 10 mg at 08/08/23 1030dextrose 50 % in water (D50W) injection 25 mL 25 mL Slow IV Push PRNfamotidine (PEPCID AC) tablet 20 mg 20 mg Oral BID 20 mg at 08/08/23 1030glucagon (GLUCAGEN DIAGNOSTIC KIT) injection 1 mg 1 mg Intramuscular PRNlabetaloL (NORMODYNE) injection 20 mg 20 mg Slow IV Push Q6HPRN 20 mg at 08/07/23 0014ondansetron (ZOFRAN (PF)) injection 4 mg 4 mg Slow IV Push Q6HPRN 4 mg at 08/07/23 0852sennosides-docusate sodium (SENOKOT-S) 8.6-50 mg per tablet 1 tablet 1 tablet Oral DAILY 1 tablet at 08/08/23 1029Sliding Scale Insulin - Lispro (HumaLOG) Subcutaneous TID MEALS+HS 1 Units at 08/07/23 1252Physical ExamBP: (134-147)/(86-100)Temp: [36.6 ?C (97.8 ?F)-37.3 ?C (99.1 ?F)]Temp source: --Pulse: [95-129]Resp: [18-24]SpO2: [94 %-96 %]Height: --Weight: --BMI (calculated): --Wt Readings from Last 3 Encounters:08/06/23 70.3 kg (155 lb)07/10/23 71 kg (156 lb 8 oz)General: No acute distress.Cardiovascular: Heart regular, rate, rhythm, no murmursRespiratory: Clear to auscultation, no respiratory distressGI: Abd soft, non-tender, non-distended, +BSMS/Extremities: No EdemaNeuro: Alert and oriented x3, No focal deficitsSkin: No rash, warm and dryIntake/Output Summary (Last 24 hours) at 08/08/2023 1609Last data filed at 08/08/2023 0653Gross per 24 hourIntake 8.1 mlOutput --Net 8.1 mlAssessment and Plan:# ELENA# Acute Necrotizing PancreatitisBaseline normal kidney function with Cr 0.67 on arrival, now acutely rising. Suspect ATN- Reviewed UA, significantly concentrated with Specific gravity 1.053- BERE with no acute structural abnormality- No current signs of obstruction. Consider arias for strict Is/Os- Continue aggressive IVF resuscitation unless signs of volume overload develop- Given rapidity of decline in kidney function and oliguria, discussed extensively with pt and at bedside about possibility of needing HD support. All questions answered, they agreed to proceed if acute indication arises. Consent signed 08/07- Please trend BMP q8H- If continued worsening in renal fxn and continued poor UOP, will likely initiate on HD tomorrow. Will decide after clinical assessment AM and update primary team regarding need for possible temporary dialysis catheter, unless urgent indication arises sooner- Avoid NSAIDs, Hold ACEi/ARB- Renally dose medications- Recommend to avoid contrast studiesPatient seen, examined, and discussed with attending agricultural real estate agent, Dr. Sheila Salgado MDNephrology and Hypertension Fellow, [id number] signed by Randy Tellez MD at 08/08/2023 4:21 PM CDTAssociated attestation - Randy Tellez MD - 08/08/2023 4:21 PM CDT Nephrology Attending NoteI have personally seen and examined this patient with the fellow on 08/08/2023 . I have reviewed the assessment and plan as outlined in the progress note and agree with the overall approach to this patient. I personally participated in the decision-making process as relates to this patient's medical condition. Please refer to above progress note for details of the medical care provided.Randy Tellez MD FACPDivision of Nephrology & Eatmwexmjini37003-5Bbjviht [id number], Syed FSukhjinder1.2.840.965716.1.13.104.2.7.2.708724 GF5155-99-31W76:21:21Consu noteTXT1.2.840.468603.1.13.104.2.7.2.7 64194|[id number] for patient lzum78122-8Lrnblgu noteLNNARRATIVEFormatted C-CDA narrative textUT[facility]ADALU[facility] - [address] Hx[id number] WDTLNBMQVVVHWOGOKJPI4657-13-20M12:21:2 11.2.840.496721.1.72.3.15|1.2.840.1143 [id number] [facility] 2023-08-07 15:36:26 iJKDDQjpZBMdBBysV6nJTrVil1If1c8ueV3EG7 5alVddibCNFJOebzpQtcIAJF/Y5334-25-56L2 5:36:26Associated Order(s): CONSULT FOOD AND NUTRITION MEDICAL NUTRITION THERAPY ASSESSMENT NOTEREASON FOR CONSULT: ConsultNUTRITION ASSESSMENT:PMH/PSH:Past Medical History:Diagnosis DateHigh blood pressureHigh cholesterolHistory reviewed. No pertinent surgical history.Current Medical Condition: acute necrotizing pancreatitisSubjective: RD received consult for "necrotizing pancreatitis", unable to interview pt at time of visit, chart reviewed. Pt on CLD during admission, consuming <50% of needs. 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 Per wt hx available in chart, pt with stable wt x1 month. Per provider note, plan to ADAT. If pt unable to tolerate oral intake, team considering obtaining enteral access, RD to monitor.GI and Nutrition Related Findings: per nursing assessmetnSymptoms: Nausea and tender abdomen ; Last BM: 08/05Difficulty Chewing/Swallowing: None reportedGI tract alteration: noneAlternative means of nutrition: NoneEdema/Ascites: NoWounds: NoneNutrition Focused Physical ExamSubcutaneous Fat:Eyes: NormalTriceps: NormalRibs, lower back, sides of trunk: Not assessedMuscle Wasting:Clavicle : NormalScapula/ribs : Not assessedQuadriceps: Not assessedInterosseous: Not assessedTemple: NormalShoulder: Not assessedGrip Strength Assessed: NoPertinent Medications: famotidine, senokot-S, SSIIVF/drips: LR at 100 mL/hr (last admin 08/05 @2239 per MAR)Lab and Medical Test Results:CBC:Recent Labs08/07/2403WBC 14.28* 11.96*RBC 5.38* 5.72*HGB 15.6* 16.4*HCT 49.7* 50.6*MCV 92.4 88.5MCHC 31.4* 32.4BMP:Recent Labs311 08/07/2403NA 138 -- 138K 4.1 -- 4.2CL 99 -- 484EVC5 -- *AGAP 8 -- 12MG -- -- 1.7PHOS -- 5.5* --GLU 147* -- 184*BUN 18 -- 22CREAT 0.67 -- 0.99EGFR 95.9 -- 62.6CA 9.6 -- 8.3*ALB 4.4 -- --LIPASE >6,000* -- --HGBA1C 5.5 -- --CHOL 152 -- --LDL 70 -- --HDL 65 -- --TRIG 87 -- --POC Glucose: 171-182 mg/dLAnthropometrics: 68 year old femaleHt Readings from Last 1 Encounters:08/06/23 1.626 m (5' 4")Weight History:Wt Readings from Last 3 Encounters:08/06/23 70.3 kg (155 lb)07/10/23 71 kg (156 lb 8 oz)Usual Body Weight: 70.8 kg (156 lb)Percent of weight change: Percent of Weight change: -0.64%Timeframe of weight change: Timeframe of weight change: 1 monthBMI: Body mass index is 26.61 kg/m?. (Overweight)IBW: 54.5 kg %IBW: 129%Estimated Energy NeedsCalories: 7033-8115 kcal/day; 25-30 kcals/kg Current WeightProtein: 70-84 g/day, 1.0-1.2 g/kg Current WeightFluid: 1700+ ml/day (1 ml/kcal) or per MD/Medical TeamCurrent Dietary Order(s): Clear Liquid Diet; Food Sensitivity Modifiers: No Poultry.Food Allergies/Cultural or Catholic Preferences: No Known AllergiesNUTRITION DIAGNOSIS:Nutrition Dx 1: Inadequate oral intake Related to: pain 2/2 pancreatitis As Evidenced by: pt meeting <50% of needs for unkown duration at this time. (New nutrition diagnosis)NUTRITION INTERVENTION:1. ADAT to low fat diet as medically feasible2. Consider ensure Clear TID while on CLD-provides 720 kcal and 24g protein daily3. If diet unable to be advanced within 96 hours, consider nutrition support-RD to monitor4. Daily weights as feasibleNUTRITION MONITORING AND EVALUATION:A registered dietitian will f/u in as indicated and review patients progress towards nutrition goals, report nutrition related information and to revise the nutrition recommendations and interventions.Goals:1. Diet will be advanced within 96 hours (New Goal Identified)2. Patient will meet >60% of EER within 7 days (New Goal Identified)Discharge Needs: Undetermined at this timeLeigh Liu RD, LDClinical DietitianOffice Fydpxbzhjohcam signed by Leigh Liu at 08/07/2023 3:46 PM PQT20334-1Hiluhjj fqwcHA4709-23-49U21:46:22Consult noteTXT1.2.840.299548.1.13.104.2.7.2.7 69718|[id number] for patient kvvs77817-6Woiqwvv noteLNNARRATIVEFormatted C-CDA narrative text[address] Gp[id number] BOAENKHXLFJXIFMIGWEX8096-62-87J11:46:2 21.2.840.903830.1.72.3.15|1.2.840.1143 [id number] [facility] 2023-08-07 13:13:22 Dallin/Jk1GN5iIor9PypZzsVFDgGFGZSYoBCDa1Bu AsZ5r4OMcAZo/3eHcx39ZGEgLU1312-17-49Z5 3:13:22Associated Order(s): CONSULT PAIN SERVICES ACUTE PAIN SERVICECONSULT NOTE4Referring Provider: iNc Riley for Consultation: "Necrotizing pancreatitis having breakthrough pain on fentanyl q3h pushes. Consider dilaudid vs BILL OF LADING CLERK vs otherHistory of Present illness:68 yo F PMH hypertension and hyperlipidemia admitted with necrotizing pancreatitis.Patient laying in bed reporting 10/10 abdominal pain. Pain relieved with fentanyl but only lasts for about 30 minutes/Events Over Last 24 Hours:NAEOPAIN NRS SCALE 0-10 Over Last 24 Hours(0 = no pain and 10 = worst pain imaginable or Mild/Mod/Severe):Best::0/10Worst: 10/10Now: 10/10CURRENT PAIN REGIMEN:1.Fentanyl 25 mcg j9dIXS0.Dolph 10 x6pGUJEpuzzqc Facility-Administered MedicationsMedication Dose Route Frequency Last Rate Last AdminHYDROcodone-acetaminophen (NORCO) 10-325 mg tablet 1 tablet 1 tablet Oral C5NBUGuuTNZREimm (NORVASC) tablet 10 mg 10 mg Oral DAILY 10 mg at 08/07/23 0852dextrose 50 % in water (D50W) injection 25 mL 25 mL Slow IV Push PRNenoxaparin (LOVENOX) injection 40 mg 40 mg Subcutaneous DAILY 40 mg at 08/07/23 0852famotidine (PEPCID AC) tablet 20 mg 20 mg Oral BID 20 mg at 08/07/23 0852FENTanyl PF (SUBLIMAZE (PF)) injection 25 mcg 25 mcg Slow IV Push Q3HPRN x 24 Hours 25 mcg at 08/07/23 1218glucagon (GLUCAGEN DIAGNOSTIC KIT) injection 1 mg 1 mg Intramuscular PRNlabetaloL (NORMODYNE) injection 20 mg 20 mg Slow IV Push Q6HPRN 20 mg at 08/07/23 0014lactated ringers IV infusion 1,000 mL 1,000 mL IV Infusion CONTINUOUS 100 mL/hr at 08/06/23 2239 1,000 mL at 08/06/23 2239ondansetron (ZOFRAN (PF)) injection 4 mg 4 mg Slow IV Push Q6HPRN 4 mg at 08/07/23 0852sennosides-docusate sodium (SENOKOT-S) 8.6-50 mg per tablet 1 tablet 1 tablet Oral DAILY 1 tablet at 08/07/23 0852Sliding Scale Insulin - Lispro (HumaLOG) Subcutaneous TID MEALS+HS 1 Units at 08/07/23 1252Past Medical History:Diagnosis DateHigh blood pressureHigh cholesterolHistory reviewed. No pertinent surgical history.REVIEW OF SYSTEMS(bolded if positive otherwise negative)Neuro: altered sensoriumResp: shortness of breathGI: constipationPhysical Exam:Vitals:08/07/23 0058 08/07/23 0359 08/07/23 0811 08/07/23 1202BP: (!) 137/94 (!) 156/107 (!) 159/106 (!) 165/95BP Location: Right armPulse: 89 110 116 125Resp: 20 20 20Temp: 36.4 ?C (97.6 ?F) 36.9 ?C (98.4 ?F) 37.1 ?C (98.8 ?F)TempSrc:SpO2: 96% 95% 95% 95%Weight:Height:Body mass index is 26.61 kg/m?.GENERAL: Daria Jauregui is a well developed, well nourishedFOCUSSED PAIN EXAM OF INTEREST: Patient laying in bed reporting painMedical Decision Making:Dx:1. Necrotizing pancreatitisPlan:Patient complaining of abdominal pain. Recommend starting dilaudid BILL OF LADING CLERK and scheduling tylenol. Will potentially place an JENNIFER catheter tomorrow for additional pain relief. Final Inspector Motorcyles (Calos) used, patient and understanding and agreeable to plan.MedicationsStart dilaudid BILL OF LADING CLERK 0.2mg, lockout 10 min, no basal rate2. Start tylenol 1g q6h, no more than 4g in 24 hrs3. 3 Lidocaine patches 4% qDaily, change daily4. Discontinue fentanyl 25mcg m2kPHB8. Discontinue with Dolph 10 u8iOXA8. Consider starting NSAIDs if no AKIRehab:Per PrimaryInterventions:NonePsych:no maladaptive pain behaviorsPeteupnatacha Pearson, DOAcute Pain Service ssociated attestation - Byron Bonner MD - 08/08/2023 11:27 AM CDT I personally examined the patient on 08/07/23 and agree with resident note as written. I actively participated in the decision-making process. Please see the resident's note for additional details.98189-6Dtjexid [id number], Richesh1.2.840.211152.1.13.104.2.7.2.8 43909RiypsqxlUgtdhfnMM1755-60-17I42:27 :59Consult noteTXT1.2.840.767271.1.13.104.2.7.2.7 00070|[id number] for patient udqk74373-9Utgbdhs noteLNNARRATIVEFormatted C-CDA narrative textUT[facility]AL[facility] - [address] Qy[id number] ZUXJNXINVMHZRFMFENDM6726-57-87O97:27:5 91.2.840.824603.1.72.3.15|1.2.840.1143 [id number] [facility] History and Physical Notes Date/Time Note Provider Source 2023-08-27 13:30:52 IGOCEPqNQUi00jpFM4EFZwPyrWZx4ugPjbw3Vd XMvt6JdGRZVQKsiDPjAlmbOeba7531-59-37N0 3:30:52 Endoscopy H & PAge: 68 year old Sex: femaleASA Class: IIIIndication: Necrotizing pancreatitis with peripancreatic retrogastric collection with fever. Needs EUS-guided drainage due to fever. Background of acute renal failure needing hemodialysis.Past Medical History:Diagnosis DateHigh blood pressureHigh cholesterolFamily history of Colon Cancer/Polyps: NACurrent Facility-Administered MedicationsMedication Dose Route Frequency Last Rate Last Adminmagnesium sulfate in water 2 gram/50 mL (4 %) infusion 2 g 2 g IV Piggyback ONCEmetoprolol tartrate (LOPRESSOR) tablet 25 mg 25 mg Oral BID 25 mg at 08/27/23 0044morpHINE (2 mg/mL) injection 4 mg 4 mg Slow IV Push Q4HPRN 4 mg at 08/26/23 1638heparin 1,000 unit/mL (10 mL) - dialysis catheter care 2,000 Units Slow IV Push PRN - SEE INSTRUCTIONS 2,800 Units at 08/26/23 2315lidocaine 1% (PF) (XYLOCAINE) injection 5 mL 5 mL Subcutaneous PRNNaCl 0.9% (NS) injection 10 mL 10 mL Slow IV Push MLLxjowxr-jwtoehjg-ufkizol (CREON) 12,000-38,000 -60,000 unit capsule 4 capsule 4 capsule Oral TID MEALS 4 capsule at 08/26/23 1742loperamide (IMODIUM A-D) capsule 2 mg 2 mg Oral K1SLWRguazaozh husk (METAMUCIL (SUGAR FREE)) 3.4 gram oral powder packet 1 Packet 1 Packet Oral DAILY 1 Packet at 08/26/23 1008amiodarone (PACERONE) tablet 200 mg 200 mg Oral DAILY 200 mg at 08/26/23 1012furosemide (LASIX) injection 60 mg 60 mg Slow IV Push Q12H 60 mg at 08/26/232032heparin 1,000 unit/mL (10 mL) - dialysis catheter care 2,000 Units Slow IV Push PRN - SEE INSTRUCTIONS 2,000 Units at 08/18/23 1337ramelteon (ROZEREM) tablet 8 mg 8 mg Oral QHS 8 mg at 08/26/232032heparin 1,000 unit/mL (10 mL) - dialysis catheter care 2,000 Units Slow IV Push PRN - SEE INSTRUCTIONS 2,800 Units at 08/16/23 1240morphine IR (MSIR) tablet 15 mg 15 mg Oral Q4HPRN 15 mg at 08/27/23 0406famotidine (PEPCID AC) tablet 20 mg 20 mg Oral BID 20 mg at 08/26/232032midodrine (PROAMATINE) tablet 10 mg 10 mg Oral TID 10 mg at 08/26/233alum-mag hydroxide-simeth (MAG-AL PLUS) 200-200-20 mg/5 mL suspension 30 mL 30 mL Oral Q6HPRN 30 mL at 08/27/23 0419simethicone (GAS RELIEF (SIMETHICONE)) chewable tablet 80 mg 80 mg Oral PC+HS 80 mg at 08/26/232032heparin lock flush (HEPARIN LOCKFLUSH(PORCINE)(PF)) 100 unit/mL injection 5,000 Units 5,000 Units IV Push PRN 500 Units at 08/14/23 1148naloxone (NARCAN) injection 0.4 mg 0.4 mg Slow IV Push PRNdextrose 50 % in water (D50W) injection 25 mL 25 mL Slow IV Push PRNglucagon (GLUCAGEN DIAGNOSTIC KIT) injection 1 mg 1 mg Intramuscular PRNlabetaloL (NORMODYNE) injection 20 mg 20 mg Slow IV Push Q6HPRN 20 mg at 08/07/23 0014ondansetron (ZOFRAN (PF)) injection 4 mg 4 mg Slow IV Push Q6HPRN 4 mg at 08/26/23 1920No Known AllergiesSocial HistorySocioeconomic HistoryMarital status: MarriedSocial Determinants of HealthFinancial Resource Strain: Low Risk (08/09/2023)Overall Financial Resource Strain (CARDIA)Difficulty of Paying Living Expenses: Not hard at allRecent Concern: Financial Resource Strain - Medium Risk (07/10/2023)Overall Financial Resource Strain (CARDIA)Difficulty of Paying Living Expenses: Somewhat hardFood Insecurity: No Food Insecurity (08/09/2023)Hunger Vital SignWorried About Running Out of Food in the Last Year: Never trueRan Out of Food in the Last Year: Never trueTransportation Needs: No Transportation Needs (08/09/2023)PRAPARE - TransportationLack of Transportation (Medical): NoLack of Transportation (Non-Medical): NoPhysical Activity: Inactive (08/09/2023)Exercise Vital SignDays of Exercise per Week: 0 daysMinutes of Exercise per Session: 0 minStress: Stress Concern Present (07/10/2023)[employer] [place] [employer] - Occupational Stress QuestionnaireFeeling of Stress : To some extentSocial Connections: Moderately Integrated (08/09/2023)Social Connection and Isolation Panel [NHANES]Frequency of Communication with Friends and Family: More than three times a weekFrequency of Social Gatherings with Friends and Family: Three times a weekAttends Catholic Services: More than 4 times per yearActive Member of Clubs or Organizations: NoAttends Club or Organization Meetings: NeverMarital Status: MarriedIntimate Partner Violence: Not At Risk (07/10/2023)Humiliation, Afraid, Rape, and Kick questionnaireFear of Current or Ex-Partner: NoEmotionally Abused: NoPhysically Abused: NoSexually Abused: NoHousing Stability: Low Risk (08/09/2023)Housing Stability Vital SignUnable to Pay for Housing in the Last Year: NoNumber of Places Lived in the Last Year: 1Unstable Housing in the Last Year: NoMental Status: alert, oriented h8Uawqh: clear to auscultationCardiovascular: regular rate and rythmnAbdomen: bowel sounds presentSpleen Tip: non-palpableHepatomegaly: noMass: not presentTenderness: noImpression and Plan: Necrotizing pancreatitis with peripancreatic retrogastric collection with fever. Needs EUS-guided drainage due to fever. Background of acute renal failure needing hemodialysis.Discussed about pros, cons and likely complications of ERCP - Endoscopic Retrograde Cholangiopancreatogram, EUS - Endoscopic Ultrasound, and Cystogastrostomy stenting. Patient's daughter acknowledges understanding and agrees for the same. Informed consent was obtained after answering any queries to satisfaction. 31349-0Tvpyyly and physical nzhlRU6006-72-13E10:33:35History and physical noteTXT1.2.840.967866.1.13.104.2.7.2.7 74467|[id number] for patient skrc87646-8Ivntvdh and physical noteLNNARRATIVEFormatted C-CDA narrative textIM-GASTROENTEROLOGY STAFFIM-GASTROENTEROLOGY STAFF[address] Uh[id number] EOWZCTFDZFAXHVLRWRGU4396-85-13A79:33:3 51.2.840.464538.1.72.3.15|1.2.840.1143 50.1.13.104.2.7.2.727879_[id number] IM-GASTROENTEROL OGY STAFF [facility] 2023-08-09 00:03:00 gDtSII3Zc+HIOVCMypED+MoJ6lBvE8vxuBnHdb ysGgF9ZfgWGln418AUIWqMMSz79565-54-41W6 0:03:00 Medicine Intensive Care History and PhysicalDate of Service: 08/08/2023ICU Admit date: 08/08/23Intubation Date: NACHIEF COMPLAINT: abdominal painHISTORY OF PRESENT ILLNESSDaria Jauregui is a 68 year old female with a PMH of HTN, HLD, GERD who initially presented for abdominal pain.Upon admission, CT imaging consistent with necrotizing pancreatitis with associated peripancreatic fluid collection. Lipase greater than 6000. She was started on IVF and pain control. RUQ US negative for cholelithiasis. Patient denies alcohol use. She subsequently developed severe ELENA and hyperacute liver injury. Nephrology was consulted and considering potential HD if renal function fails to improve. Viral and autoimmune work up initiated.The patient is Aox3. She is primarily somali speaking. She endorses some abdominal pain in band like distribution with movement. She reports some nausea with one episode of vomiting yesterday. She denies fever, chills, chest pain, shortness of breath.REVIEW OF SYSTEMSNegative except per HPIPHYSICAL EXAMINATIONVitals:08/08/23 1337 08/08/23 1529 08/08/23201008/08/23 2110BP: (!) 137/95 136/86 136/85 (!) 145/101BP Location: Right arm Right armPatient Position: Sitting SittingPulse: 117 117 132 134Resp: 18 18 20 28Temp: 36.6 ?C (97.9 ?F) 37 ?C (98.6 ?F) 37.1 ?C (98.8 ?F) 37.6 ?C (99.7 ?F)TempSrc: AxillarySpO2: 95% 96% 94% 92%Weight:Height:Physical ExamConstitutional:General: She is not in acute distress.Eyes:Extraocular Movements: Extraocular movements intact.Pupils: Pupils are equal, round, and reactive to light.Cardiovascular:Rate and Rhythm: Regular rhythm. Tachycardia present.Heart sounds: No murmur heard.Pulmonary:Effort: Pulmonary effort is normal. No respiratory distress.Breath sounds: Normal breath sounds.Abdominal:General: There is distension.Palpations: Abdomen is soft.Tenderness: There is abdominal tenderness.Musculoskeletal:Right lower leg: No edema.Left lower leg: No edema.Neurological:Mental Status: She is alert and oriented to person, place, and time.Labs (pertinent only)/Imaging:Assessment/Plan:Daria Jauregui is a 68 year old female admitted with:NeuroNo acute problemsRespNo acute problemsCardiovascularHTNHLDNo acute concerns.GINecrotizing pancreatitis (BISAP score 3) 2/2 ACEI?Acute Liver injuryPatient with necrotizing pancreatitis of unsure etiology. Possibly 2/2 ramipril. She denies a history of alcohol use, lipid panel wnl. No concern for cholelithiasis. Hepatitis labs negative. Further autoimmune hepatitis workup pending.- IVF: LR @ 100 mL/hr- start zosyn- Pain management on board- Dilaudid BILL OF LADING CLERK pump 0.2mg- Tylenol 1g Q6H PO- Lidocaine patches QD- f/u smooth muscle Ab, mitochondrial M2 Ab, wanjq-fmysci-qyvltfstv ABSIDNo acute problemsRenal/LytesAKI, baseline Cr 0.67Patient with acute kidney injury in the setting of necrotizing pancreatitis. She has had minimal urine output, will lasix challenge. Nephrology was consulted and arias catheter placed. May consider HD initiation.- Nephrology on board, recommendations appreciated- Arias in place, monitor I/O- Lasix IV 40 mg onceHemeNo acute problemsEndoNo acute problemsOtherDispo: MICUPrognosis: Sola Fragoso MDInternal Medicine, PGY-1 ssociated attestation - Rafael Palafox MD - 08/09/2023 9:14 AM CDT I personally examined the patient on 08/09/[address] Fragoso's resident note. I actively participated in the decision-making process. Please see the resident's note for additional details.Daria Jauregui is a 68 year old female admitted withAcute necrotizing pancreatitis -ELENA - oliguricLactic acidosisConstipation - opioid affectsPLANVolume resuscitationAbxPain controlWill attempt to transition to ketamineAdd IV acetaminophenMonitor urine output puybljx38885-1Xrxklzt and physical emarWW5619692UnuultRafael Palafox1.2.840.744926.1.13.104.2.7.2.836 997ErqmcxUfwrnxehWaanjRI8574-21-73F97: 14:03History and physical noteTXT1.2.840.172604.1.13.104.2.7.2.7 43818|[id number] for patient xbpm67943-0Zlkuekg and physical noteLNNARRATIVEFormatted C-CDA narrative textIM-INTERNAL MEDICINE-INTERNAL MEDICINE[address] Hi[id number] RGVALXPTHWILCPBTWQEH8298-87-58T92:14:0 31.2.840.628917.1.72.3.15|1.2.840.1143 [id number] -INTERNAL MEDICINE [facility] 2023-08-06 19:39:14 szeB+Y7ik8DSqC49NWTh/zhsLXkJtbEhY0d4AD 55L/IvSy+Z/Dk26W6ZHNtXT+VZ0854-86-88N9 9:39:14 GIOVANY Figueroa Admit H&PPCP: Napoleon Ramsay of Service: 4CHIEF COMPLAINT: Abdominal painHISTORY OF PRESENT ILLNESSDaria Jauregui is a 68 year old female with a PMH of hypertension, hyperlipidemia, GERD who presents for abdominal pain.She had abdominal pain that started at 11 AM today which she describes as bilateral upper quadrant, greatest within the epigastric region, constant, no aggravating or relieving factors. Said it was an acute onset of pain that occurred while she was lying down. She also endorses he has been nauseous over the same time period and had 2 episodes of emesis that he described as nonbilious and nonbloody. Also stated that last night she had a brief episode of low substernal chest pain which is since resolved. She is primarily Bangladeshi-speaking. She and her just moved to the area from [place] and established with a PCP. She recently reinitiated her medications including ramipril and a statin at this PCP visit after short period of being out of all of her medications.Currently denies fevers, diarrhea, constipation, melena, bright red blood per rectum, shortness of breath, previous episodes of similar abdominal pain.In the ERVitals: Afebrile, hemodynamics WNL, spo2 WNL on RALabs: WBC 14.28, Hgb 15.6, PLT WNL. BMP WNL, CR 0.67, LFT WNL. Troponin WNL. NT proBNP WNL. UA only abnormal for 30 protein, 20 ketones. lipase greater than 6000Imaging: CTAP with contrast revealed Findings compatible with necrotizing pancreatitis most pronounced at the mid pancreatic body to the level of the pancreatic head. Associated moderate volume abdominopelvic ascites. Cardiomegaly. Distal colonic diverticulosis.Medications delivered: Famotidine 20 mg IV x 1, morphine 4 mg IV x 3, 2 L normal saline, Zofran 8 mg IV x 2, Zosyn 3.375 g x 1Past medical history: has a past medical history of High blood pressure and High cholesterol.Past surgical history: has no past surgical history on file.Social history: no etoh use, non smokerFamily history: family history includes Breast Cancer in her sister.Allergies: No Known AllergiesMEDICATIONSamlodipine besylate 5 mg qDayramipril 10 mg qDay.atorvastatin 10 mg qHSREVIEW OF SYSTEMS(-)=Negative,(+)=PositivePER HPIPHYSICAL EXAMINATIONVitals:08/06/23 1601 08/06/23 1657 08/06/23 1802 08/06/23 1900BP: (!) 163/95 (!) 127/112 (!) 152/94 (!) 158/94Pulse: 93 90 84 96Resp: 15 27 22 27Temp: 36.4 ?C (97.6 ?F)TempSrc: OralSpO2: 98% 98% 99% 97%Weight:Height:General: AAO x3, No acute distressHEENT: Normocephalic, atraumatic, EOMI, normal conjunctiva & lidsNeck: Trachea midline, thyroid normal to inspectionLungs: Clear to auscultation bilaterally, no crackles, wheezes, or rhonchiCardiovascular: Normal S1, S2, RRR, no rubs, murmurs, or gallopsAbdomen: Soft, tender to palpation greatest in the bilateral epigastric region, no guarding, no rigidity, normoactive bowel soundsMusculoskeletal: Full ROM of all extremities, no tenderness or deformitiesIntegumentary: warm, dry without rashes or lesionsNeuro: no tremors, no focal deficits, sensation intact bilaterallyLABS - reviewed pertinent labs as below:IMAGING - reviewed, pertinent results as below:EKG:ECG interpreted by ED Physician in the absence of a yeast stacker: yesPrevious ECG:Previous ECG: UnavailableInterpretation:Interpretati on: non-specificRate:ECG rate: 60ECG rate assessment: normalRhythm:Rhythm: sinus rhythmEctopy:Ectopy: noneQRS:QRS axis: Normal (+62)ST segments:ST segments: Non-specificT waves:T waves: non-specificComments:Qtc 442CHART REVIEW: pertinent information as below:ASSESSMENT/Giovanna Paige Jauregui is a 68 year old female with PMH as listed above, admitted to the hospital with:Necrotizing pancreatitis, BISAP score 2, Modified Joel score 0Leukocytosis with left shiftHTN |EOYSUCC10 female with pertinent past medical history of hypertension hyperlipidemia presenting with abdominal pain x [address] imaging in the ER consistent with necrotizing pancreatitis with associated peripancreatic fluid collection. Lipase greater than 6000. Patient declines alcohol use. She was previously diagnosed with hyperlipidemia and takes a statin. Will obtain lipid panel at this time to r/o triglyceride induced pancreatitis. Patient recently moved to the area and established with a PCP here reinitiating her ramipril and statin. Pancreatitis possibly medication induced secondary to ramipril or statin. Will d/c these meds. Acute peripancreatic fluid collections (APFC), usually remain asymptomatic, and usually resolve spontaneously without the need for drainage so will monitor for now for resolution. Leukocytosis likely secondary to necrotizing pancreatitis but cannot rule out superimposed infection. Patient currently afebrile, will monitor fever curve-NPO, advance diet as tolerated-If patient unable to advance diet, can consider Dobbhoff tube and direct feeding of jejunum minimizing pancreatic enzyme creation and maintaining pancreatic rest.-IVF w/ LR at 1.5 ml/kg/hr-Aggressive pain management with fentanyl. Will uptitrate as necessary, patient may require dilaudid BILL OF LADING CLERK-nutrition consult-Continue with home medication Norvasc, will uptitrate to 10 mg qd-PRN labetalol for BP greater than 180/110-Zofran PRN-f/u lipid panel-Tele to monitor Qtc with antiemetic usePain ControlledTylenol and Dolph and fentProphylaxis: DVT- enoxaparinStress Ulcer: famotidineCode Status: addressed: FullBowel Regimen: Abbey Diane MD MPH PGY-3Internal MedicineCurrent Outpatient MedicationsMedication InstructionsamLODIPine (NORVASC) 5 mg, Oral, DAILYatorvastatin (LIPITOR) 10 mg, Oral, QHSazelastine 137 mcg (0.1 %) nasal spray 1 [place], Nasal, BID, Use in each nostril as directedfluticasone propionate 50 mcg/actuation nasal spray 1 [place], Nasal, DAILYloratadine (CLARITIN ORAL) OralramipriL (ALTACE) 10 mg, Oral, DAILY ssociated attestation - Jt Chen MD - 08/07/2023 1:39 AM CDT I personally examined the patient on 08/06/[address] Bagley's resident note as written. I actively participated in the decision-making process. Please see the resident's note for additional details.Jt Chen, MT. [facility] HOSPITALivision of Internal MedicineAssistant Bwaexordf11063-1Newedeq and physical [id number], Owen Li-Young1.2.840.149264.1.13.104.2.7.2. 991193WldEywvQp-VyyjuWD8808-10-31U23:3 9:16History and physical noteTXT1.2.840.556410.1.13.104.2.7.2.7 38097|[id number] for patient nojj81537-4Ebrsqyf and physical noteLNNARRATIVEFormatted C-CDA narrative textUTMBUTMB - Kvnouy948 University Pz[id number] BFEMXWCXKMSOOABMUIMO1925-36-57H85:39:1 61.2.840.907406.1.72.3.15|1.2.840.1143 50.1.13.104.2.7.2.727879_[id number] [facility] Procedure Notes Date/Time Note Provider Source 2023-08-10 15:01:48 HCDyPUN2kSww1Nh9uZ8o 6JHl1W86w9E7nhL4MuDyul +RNQtju7MnuMskgTwLQXXO6343-69-98W81:01:48F ormatting of this note might be different from the original.Central Venous Access Internal Jugular Procedure NoteDate of Service: 08/10/23Faculty: Dr. Rafael Richards. Maurisio Avila MD, credentialed supervisor area, was present for pinto portions of the procedure.Procedure performed by: Jo-Ann Liu, DOCredentialed supervisor area: Marisol Chambers MD, Annabella Isidro MDIndication/Diagnosis: dialysisConsent: indications/complications disucssed; written consent obtained from patientProcedure details:Sterile dressing: Bioderm & TegadermAnesthesia: local: 1% lidocaineInstrument(s) type: double lumen Serg catheterUltrasound utilized: YesVenous access confirmed by manometry: NoVenous access flushed without resistance: Yes Describe Deviation N/AComplications: noneChest x-ray: ordered and pendingNarrative:Patient was prepped and draped in the usual sterile fashion with chlorhexidine A central line was introduced with the Seldinger technique under ultrasound guidance into the right internal jugular vein after 2) attempts. Venous position was confirmed using manometry. Guide wire was threaded without difficulty. The catheter was then placed over the guide wire, the guide wire was removed, and the catheter was sutured into place. Good flow was noted from the port(s) and the catheter flushed easily. Blood loss was minimal. Complications No.Jo-Ann Liu, DOPGY-1, Internal MedicineRemmers Team ssociated attestation - Rafael Palafox MD - 08/10/2023 3:54 PM CDT I was not present for but agree with the need for the procedure.72133-6Cqmjcamrh jupeUV0571948FimxmmRafael Palafox1.2.840.140673.1.13.104.2.7.2.893983A lmbvsOcodxtmoVnrarTA5102-81-79Z35:54:18Pro cedure noteTXT1.2.840.022503.1.13.104.2.7.2.31484 9|[id number] for patient eaig74281-3Emohyolid noteLNNARRATIVEFormatted C-CDA narrative textUT[address] An[id number] GMXIIKYYNEKJTBOU0137-05-78Z19:54:181.2.840 .437572.1.72.3.15|1.2.840.962109.1.13.104. 2.7.2.727879_[id number] [facility] Notes Date/Time Note Provider Source 2023-09-01 11:06:53 Q4i4Ho9EQYnr7R8KR3OZYFfmhEWCrBBsaYl z4CT8timi9j/9IL6H1OaVp2PzaSPl9392-1 08-31T11:06:53 Problem: PainGoal: Control of pain at or below patient's documented comfort goal09/01/2023 1106 by Wendi Smith RNOutcome: Resolved09/01/2023 0652 by Wendi Smith RNOutcome: Progressing as expectedGoal: Reduction in pain sensation09/01/2023 1106 by Smith, Wendi, RNOutcome: Resolved09/01/2023 0652 by Wendi Smith RNOutcome: Progressing as expectedProblem: Falls, Risk ofGoal: Absence of falls09/01/2023 1106 by Wendi Smith RNOutcome: Resolved09/01/2023 0652 by Wendi Smith RNOutcome: Progressing as expectedProblem: Discharge PlanningGoal: Adequate for discharge09/01/2023 1106 by Wendi Smith RNOutcome: Resolved09/01/2023 0652 by Wendi Smith RNOutcome: Progressing as expectedGoal: Effective communication09/01/2023 1106 by Wendi Smith RNOutcome: Resolved09/01/2023 0652 by Wendi Smith RNOutcome: Progressing as expectedProblem: Procedure RoutineGoal: Absence of post-procedure complications09/01/2023 1106 by Wendi Smith RNOutcome: Resolved09/01/2023 0652 by Wendi Smith RNOutcome: Progressing as expectedGoal: Knowledge of procedure09/01/2023 1106 by Wendi Smith RNOutcome: Resolved09/01/2023 0652 by Wendi Smith RNOutcome: Progressing as expectedProblem: Respiratory Function - ImpairedGoal: Adequate oxygenation09/01/2023 1106 by Wendi Smith RNOutcome: Resolved09/01/2023 0652 by Wendi Smith RNOutcome: Progressing as expectedProblem: Bleeding, Risk ofGoal: Absence of impaired coagulation signs and symptoms09/01/2023 1106 by Wendi Smith RNOutcome: Resolved09/01/2023 0652 by Wendi Smith RNOutcome: Progressing as expectedGoal: Absence of active bleeding09/01/2023 1106 by Wendi Smith RNOutcome: Resolved09/01/2023 0652 by Wendi Smith RNOutcome: Progressing as expectedProblem: Fluid Volume - ImbalancedGoal: Absence of imbalanced fluid volume signs and symptoms09/01/2023 1106 by Wendi Smith RNOutcome: Resolved09/01/2023 0652 by Wendi Smith RNOutcome: Progressing as expectedProblem: Cardiac Output - DecreasedGoal: Absence of signs and symptoms of decreased cardiac output09/01/2023 1106 by Wendi Smith RNOutcome: Resolved09/01/2023 0652 by Wendi Smith RNOutcome: Progressing as expected 60757-2Cewj of care ctlvNN4414-33-77U48:06:57Plan of care noteTXT1.2.840.077069.1.13.104.2.7. 2.328967|[id number] for patient ahai66269-3NzfkPZQHYOTEPKCFguiwterm C-CDA narrative [id number] Rangel RN[address] Wy[id number] 1ZHDWNGXPUMNUPDHRPMYAVZ1633-13-95E1 1:06:571.2.840.724645.1.72.3.15|1.2 .840.194977.1.13.104.2.7.2.727879_2 [id number] Wendi Smith [facility] 2023-09-01 06:52:41 JyheDOd4n5J3EGP4yDB9ciN6ZUDeZ/Zh0EA rZPb0hg6mVaurOEcZ7OgQkw98bblB4391-4 08-31T06:52:41 Problem: PainGoal: Control of pain at or below patient's documented comfort goalOutcome: Progressing as expectedGoal: Reduction in pain sensationOutcome: Progressing as expectedProblem: Falls, Risk ofGoal: Absence of fallsOutcome: Progressing as expectedProblem: Discharge PlanningGoal: Adequate for dischargeOutcome: Progressing as expectedGoal: Effective communicationOutcome: Progressing as expectedProblem: Procedure RoutineGoal: Absence of post-procedure complicationsOutcome: Progressing as expectedGoal: Knowledge of procedureOutcome: Progressing as expectedProblem: Respiratory Function - ImpairedGoal: Adequate oxygenationOutcome: Progressing as expectedProblem: Bleeding, Risk ofGoal: Absence of impaired coagulation signs and symptomsOutcome: Progressing as expectedGoal: Absence of active bleedingOutcome: Progressing as expectedProblem: Fluid Volume - ImbalancedGoal: Absence of imbalanced fluid volume signs and symptomsOutcome: Progressing as expectedProblem: Cardiac Output - DecreasedGoal: Absence of signs and symptoms of decreased cardiac outputOutcome: Progressing as expected 32521-5Zvkr of care jccpPS3253-61-97T02:52:44Plan of care noteTXT1.2.840.960381.1.13.104.2.7. 2.589769|[id number] for patient noay98686-3FmtpYAFOOSGGINXCmggzypww C-CDA narrative textUT[address] Gt[id number] 6KQEDLSFRHQBNSUBPMYRMZK6348-81-44G1 6:52:441.2.840.283853.1.72.3.15|1.2 .840.507695.1.13.104.2.7.2.727879_2 [id number] [facility] 2023-09-01 01:23:37 RCk7h9yb643cNslSTn8222taVxF4KjOdu3S SlBnkGQzjzFsU6okLk0Y1NQrna13y6231-3 01:23:37 Problem: PainGoal: Control of pain at or below patient's documented comfort goalOutcome: Progressing as expectedGoal: Reduction in pain sensationOutcome: Progressing as expectedProblem: Falls, Risk ofGoal: Absence of fallsOutcome: Progressing as expectedProblem: Discharge PlanningGoal: Adequate for dischargeOutcome: Progressing as expectedGoal: Effective communicationOutcome: Progressing as expectedProblem: Procedure RoutineGoal: Absence of post-procedure complicationsOutcome: Progressing as expectedGoal: Knowledge of procedureOutcome: Progressing as expectedProblem: Respiratory Function - ImpairedGoal: Adequate oxygenationOutcome: Progressing as expectedProblem: Bleeding, Risk ofGoal: Absence of impaired coagulation signs and symptomsOutcome: Progressing as expectedGoal: Absence of active bleedingOutcome: Progressing as expectedProblem: Fluid Volume - ImbalancedGoal: Absence of imbalanced fluid volume signs and symptomsOutcome: Progressing as expectedProblem: Cardiac Output - DecreasedGoal: Absence of signs and symptoms of decreased cardiac outputOutcome: Progressing as expected 26415-4Zona of care dmxgBK2532-84-30O98:23:40Plan of care noteTXT1.2.840.661001.1.13.104.2.7. 2.841494|[id number] for patient irxq33108-5JpxeSQLGIAHTLHBDfqzkswgw C-CDA narrative [id number] Watkins RN[address] Gz[id number] 4SRHSLLUCHQNFPVACFPMMRK7030-62-35Q0 1:23:401.2.840.272798.1.72.3.15|1.2 .840.163293.1.13.104.2.7.2.727879_2 [id number] Lisa Manley RN [facility] 2023-08-31 17:36:59 DcDw0NKgUZYe2R3q3nzlE5CJLtqC8PtKIXR KE03WLsctLuGv4/lL48E+Lsx9SA9E9591-9 08-30T17:36:59 HEMODIALYSIS NURSING NOTENumber Hours: 4.0 hoursBath: 3K 3 CalciumHeparin: treatment 2000 units givenAccess: right Catheter permanent IJNet UF: 2000 mlWeight: Unable to weigh - inaccurate bed scalePost BP 127/73 Post Pulse 93Antibiotics/Medications Given: Midodrine tab 10 mg as scheduledComplications/Events of Treatment: Patient tolerated treatment well. No complications noted during HD. Patient left the unit post HD without complaints nor distress.Handoff report completed and attached to Patient ChartMode of Transport Back to Unit: bed, oxygen, and accompanied by transporter and family FRANCK 10C 1049NOTE: Daughter and grand daughter at bedside throughout treatmentSee hemodialysis flowsheet for details of treatment. 18707-8Kkmgd ZtgcPZ9530-56-17N56:37:00Nurse NoteTXT1.2.840.502960.1.13.104.2.7. 2.873828|[id number] for patient xcbr17560-0Neite NoteLNNARRATIVEFormatted C-CDA narrative [id number] M Lopez RN[address] Tx[id number] 8WXNIDDMPKCHJTDLEZSDNPF4337-95-83X0 7:37:001.2.840.399242.1.72.3.15|1.2 .840.758049.1.13.104.2.7.2.727879_2 [id number] Melissa Daugherty RN [facility] 2023-08-31 12:55:11 dhY3kp45B+YZR3soTsVXNnjh9ELGOvtNcWl ZNGHaqHJU51peIxQkP8hmhBg9z5e43986-7 08-30T12:55:11 Problem: Procedure RoutineGoal: Knowledge of procedureOutcome: Progressing as expectedNote: HemodialysisHemodialysis plan of care explained r/t treatment time and UF goal. Pt aware to notify me of any discomfort or questions. Pt Bangladeshi speaking with limited Cymro; able to understand tx; manufacturing production manager phone used as needed during tx.Education in Bangladeshi:HD UF time 4 hrs & goal 3L and S/S to report to Nurse4 Horas, Eliminar3 3 Litros y Problemas para reportar a la enfermera de dialisisChest Pain / Dolor en el pechoShortness of Breath / Dificultad para respirarNausea/vomiting / Nauseas/vomitosMuscle cramping / CalambresHeadache / Dolor de CabezaWeakness / DebilidadDizziness / MareosBlurred vision / Vision borrosaBleeding at access site / Sangrado en el sitio de acceso 65212-0Wvmi of care wiugNE3190-70-36S37:55:27Plan of care noteTXT1.2.840.060079.1.13.104.2.7. 2.801693|[id number] for patient xrjv91193-8HpykFWXGZSTPNHQPbjkboomh C-CDA narrative textUT[address] Qh[id number] 1LQCQBGXBZCFMGTYUIMBIIR3012-78-10V7 2:55:271.2.840.417619.1.72.3.15|1.2 .840.257731.1.13.104.2.7.2.727879_2 [id number] [facility] 2023-08-31 07:07:12 qubcp8yvmFqI2VnO6HNtjlf7/hPRe/XzVBh Jf+hL9guRtl6fZf8oV/T94qroqXkF0391-8 07:07:12 Problem: PainGoal: Control of pain at or below patient's documented comfort goalOutcome: Progressing as expectedGoal: Reduction in pain sensationOutcome: Progressing as expectedProblem: Falls, Risk ofGoal: Absence of fallsOutcome: Progressing as expectedProblem: Discharge PlanningGoal: Adequate for dischargeOutcome: Progressing as expectedGoal: Effective communicationOutcome: Progressing as expectedProblem: Procedure RoutineGoal: Absence of post-procedure complicationsOutcome: Progressing as expectedGoal: Knowledge of procedureOutcome: Progressing as expectedProblem: Respiratory Function - ImpairedGoal: Adequate oxygenationOutcome: Progressing as expectedProblem: Bleeding, Risk ofGoal: Absence of impaired coagulation signs and symptomsOutcome: Progressing as expectedGoal: Absence of active bleedingOutcome: Progressing as expectedProblem: Fluid Volume - ImbalancedGoal: Absence of imbalanced fluid volume signs and symptomsOutcome: Progressing as expectedProblem: Cardiac Output - DecreasedGoal: Absence of signs and symptoms of decreased cardiac outputOutcome: Progressing as expected 39521-0Ktdi of care kuuxGB8530-65-29M25:07:16Plan of care noteTXT1.2.840.132884.1.13.104.2.7. 2.274671|[id number] for patient fkqc93382-8KwqfWVXYVZHDOJCEjskkzxok C-CDA narrative textUT[address] Hu[id number] 3VIYNORQFMMNSBIQWFBTNWU5987-72-17P0 7:07:161.2.840.473495.1.72.3.15|1.2 .840.870912.1.13.104.2.7.2.727879_2 [id number] [facility] 2023-08-30 22:34:03 L7U10W6WcWB7FJi/USCk8NwjQ94TdIRJy0I ZBPpw4RW9/LheniJshSf2vcC9mIK+08-29T22:34:03 Problem: PainGoal: Control of pain at or below patient's documented comfort goalOutcome: Progressing as expectedGoal: Reduction in pain sensationOutcome: Progressing as expectedProblem: Falls, Risk ofGoal: Absence of fallsOutcome: Progressing as expectedProblem: Discharge PlanningGoal: Adequate for dischargeOutcome: Progressing as expectedGoal: Effective communicationOutcome: Progressing as expectedProblem: Procedure RoutineGoal: Absence of post-procedure complicationsOutcome: Progressing as expectedGoal: Knowledge of procedureOutcome: Progressing as expectedProblem: Respiratory Function - ImpairedGoal: Adequate oxygenationOutcome: Progressing as expectedProblem: Bleeding, Risk ofGoal: Absence of impaired coagulation signs and symptomsOutcome: Progressing as expectedGoal: Absence of active bleedingOutcome: Progressing as expectedProblem: Fluid Volume - ImbalancedGoal: Absence of imbalanced fluid volume signs and symptomsOutcome: Progressing as expectedProblem: Cardiac Output - DecreasedGoal: Absence of signs and symptoms of decreased cardiac outputOutcome: Progressing as expected 66547-7Pyej of care kxqaOC9422-02-93W89:34:05Plan of care noteTXT1.2.840.651634.1.13.104.2.7. 2.676398|[id number] for patient weyv78210-6XrbpVMZDLPHNXPWApitkbpqg C-CDA narrative textUT[address] Ta[id number] 6AZYMIFJGZFUBBAAYARYJKC1486-56-51R7 2:34:051.2.840.717082.1.72.3.15|1.2 .840.276418.1.13.104.2.7.2.727879_2 [id number] [facility] 2023-08-29 22:20:22 oumqywgkaZlUVc92OFjoLP0b6VmI1ZRERA4 H8oSk57NuLAxSYBuceeuMF2z83aF12272-1 08-28T22:20:22 Problem: PainGoal: Control of pain at or below patient's documented comfort goalOutcome: Progressing as expectedGoal: Reduction in pain sensationOutcome: Progressing as expectedProblem: Falls, Risk ofGoal: Absence of fallsOutcome: Progressing as expectedProblem: Discharge PlanningGoal: Adequate for dischargeOutcome: Progressing as expectedGoal: Effective communicationOutcome: Progressing as expectedProblem: Procedure RoutineGoal: Absence of post-procedure complicationsOutcome: Progressing as expectedGoal: Knowledge of procedureOutcome: Progressing as expectedProblem: Respiratory Function - ImpairedGoal: Adequate oxygenationOutcome: Progressing as expectedProblem: Bleeding, Risk ofGoal: Absence of impaired coagulation signs and symptomsOutcome: Progressing as expectedGoal: Absence of active bleedingOutcome: Progressing as expectedProblem: Fluid Volume - ImbalancedGoal: Absence of imbalanced fluid volume signs and symptomsOutcome: Progressing as expectedProblem: Cardiac Output - DecreasedGoal: Absence of signs and symptoms of decreased cardiac outputOutcome: Progressing as expected 30518-7Tdsf of care mhsqVP8945-82-31C55:20:35Plan of care noteTXT1.2.840.669170.1.13.104.2.7. 2.331807|[id number] for patient baiq53453-6WtocTLHZOUUCWFKKqzkrizzx C-CDA narrative textUT[address] Ty[id number] 2RPUPHXFFUQATXKEPYSQWZF2890-47-96T4 2:20:351.2.840.392565.1.72.3.15|1.2 .840.189217.1.13.104.2.7.2.727879_2 [id number] [facility] 2023-08-29 18:30:27 KY4qX0xLWUKXU+wvgYtsEKPvdHxUl8BdpCE Ttnr0Ivv/AGEqQwIz7uReENA/ccn58644-3 08-28T18:30:27 HEMODIALYSIS NURSING NOTENumber Hours: 4.0 hours (2 hours UF with 3L and 2 hours HD with 1L UF)Bath: 2K 3 Ca (standard dialysate)Heparin: NoneAccess: right Catheter permanent IJAntibiotics/Medications Given: NoneComplications/Events of Treatment:ISO-UF for 2 hours with 3L UF goal initiated - BP trended low towards the end, Dr. Overton notified and UF decreased to 2.5L. Per Dr. Overton to continue UF as long as SBP >90 and pt asymptomatic - carried out. HD started after 2 hours, BP low towards the end of treatment and UF turned off, pt still asymptomatic.Pt completed HD tx complications. Blood returned & cath access packed w/ Heparin then Clear Guard cath caps placed. Left the unit in stable condition and safety precautions maintained.Net UF: 3000 mLWeight: Unable to verify patients weight as bed scale is showing a large discrepancy from previous weight documented.Post Dialysis Treatment: BP 113/72 Pulse 85Handoff Report: Completed and given verbally at bedside to ARIEL GonzalezMode of Transport Back to Unit[place] [facility] [place] details of the treatment. 25059-7Imble XmysJM7622-28-04F82:14:04Nurse NoteTXT1.2.840.815062.1.13.104.2.7. 2.723177|[id number] for patient lfno14118-8Fhkab NoteLNNARRATIVEFormatted C-CDA narrative [id number] P Ramirez RN[address] Mv[id number] 6YRCVGTAGZMXTESELMNCXYM1071-36-98Q9 9:14:041.2.840.280132.1.72.3.15|1.2 .840.119670.1.13.104.2.7.2.727879_2 [id number] Tova Lambert RN [facility] 2023-08-29 16:12:48 7TbtMv29mUvjUWFIJbMrqmkM3tL4Ik9krg9 7nNINnUSByNilhnskZ05mZGM1ErXb6532-7 08-28T16:12:48 Hemodialysis Plan of care reviewed r/t treatment time, UF goal. I reviewed care of dialysis perm cath during tx. Pt updated during tx as needed. I reviewed possible side effects of HD tx, such as s/s of hypotension, weakness, dizziness, H/A, cramping (during tx and at rare times after tx), n/v, vision changes, CP or any other concerns. Patient acknowledge understanding of treatment plan.Problem: Procedure RoutineGoal: Absence of post-procedure complicationsOutcome: Progressing as expectedNote: Hemodialysis txGoal: Knowledge of procedureOutcome: Progressing as expectedNote: [place] [address]-9Emyb of care znefGE5502-75-79E35:12:59Plan of care noteTXT1.2.840.895469.1.13.104.2.7. 2.539854|[id number] for patient tdzv94611-8KuhgSRGJQUDYISUGibypjscz C-CDA narrative text[address] Vd[id number] 3ATRNEAYWHMESDUKPWFZRXP3539-07-21P5 6:12:591.2.840.958091.1.72.3.15|1.2 .840.583058.1.13.104.2.7.2.727879_2 [id number] [facility] 2023-08-29 00:14:49 8bUDgPwl3QRIqXG3+VCDpWeT7mHmgehxJSk XVyCAzUpjRZQ4zoU/sQhi4X6hZLxJ3600-7 08-28T00:14:49 Problem: PainGoal: Control of pain at or below patient's documented comfort goalOutcome: Progressing as expectedGoal: Reduction in pain sensationOutcome: Progressing as expectedProblem: Falls, Risk ofGoal: Absence of fallsOutcome: Progressing as expectedProblem: Discharge PlanningGoal: Adequate for dischargeOutcome: Progressing as expectedGoal: Effective communicationOutcome: Progressing as expectedProblem: Procedure RoutineGoal: Absence of post-procedure complicationsOutcome: Progressing as expectedGoal: Knowledge of procedureOutcome: Progressing as expectedProblem: Respiratory Function - ImpairedGoal: Adequate oxygenationOutcome: Progressing as expectedProblem: Bleeding, Risk ofGoal: Absence of impaired coagulation signs and symptomsOutcome: Progressing as expectedGoal: Absence of active bleedingOutcome: Progressing as expectedProblem: Fluid Volume - ImbalancedGoal: Absence of imbalanced fluid volume signs and symptomsOutcome: Progressing as expectedProblem: Cardiac Output - DecreasedGoal: Absence of signs and symptoms of decreased cardiac outputOutcome: Progressing as expected 98123-3Xxwz of care dpctOS9953-06-55M88:14:52Plan of care noteTXT1.2.840.689196.1.13.104.2.7. 2.996492|[id number] for patient raod81889-4HgalALZLDCGIYGTMbcwvxodl C-CDA narrative [id number] Zerrudo RNUT63 Diaz StreetVhymUmbyvablmEcufaevcxBLGJ437578834 5AHEPILZHOIBERFTCIHUZVR5160-03-87R8 0:14:521.2.840.102870.1.72.3.15|1.2 .840.622858.1.13.104.2.7.2.727879_2 [id number] Ora Hand RN [facility] 2023-08-28 15:57:48 GoGTXZa9++RqSAQgwz+dX5kRoDgRGC/l705 6QfKYR7xSBjHflSeBw0lxcteEbpao0104-0 08-27T15:57:48 HEMODIALYSIS NURSING NOTENumber Hours: 4.0 hoursBath: 3K 3 CalciumHeparin: treatment 1000 units given and NS flushes used as neededAccess: right Catheter permanent IJNet UF: 3000 mlWeight: ISABELA - floor bedPost BP 124/78 Post Pulse 87Antibiotics/Medications Given: NoneComplications/Events of Treatment: Patient tolerated her treatment well. No complications noted during HD. Patient left the unit post HD without complaints nor distress.Handoff report completed and attached to Patient ChartMode of Transport Back to Unit: bed, oxygen, and accompanied by transporterSee hemodialysis flowsheet for details of treatment. 18482-7Tmhkc UcxiBG4878-06-46R47:18:44Nurse NoteTXT1.2.840.371863.1.13.104.2.7. 2.652509|[id number] for patient qanr08384-1Kmlcc NoteLNNARRATIVEFormatted C-CDA narrative [id number] J Connaughty RN[address] Ku[id number] 7OCGVBSQZBIZDRABMEUNAFV6026-25-93Q4 6:18:441.2.840.281295.1.72.3.15|1.2 .840.842119.1.13.104.2.7.2.727879_2 [id number] Dnaa Vargas RN [facility] 2023-08-28 09:30:00 5/jxoCsnPcZ6JQe4dDUhMOFUzF3ew9bJrJv M7nfhJ1f6LX2gC5tsipw7f4MXm3LR6393-4 09:30:00 Patient is new to dialysis, this Hospital visit (ELENA). I explained the removal of waste products and fluid during treatment. I explained potential complications such as hypotension, chest discomfort, N/V and cramping during tx and at rare times after tx. I explained the importance of his renal diet and fluid restriction. Patient and family verbalized understanding of some topics and asked appropriate questions on others. As patient and family are new to hemodialysis, reinforcement of teaching is needed. 80189-0Hqtz of care nhnqPD3425-84-48F34:54:52Plan of care noteTXT1.2.840.316400.1.13.104.2.7. 2.644776|[id number] for patient diyw98160-8WzapMNBSHOAXEGAXlalwlhft C-CDA narrative text[address] Ci[id number] 6NMOSOVPDZXKULNWVVPSAQV1958-85-22W8 5:54:521.2.840.112288.1.72.3.15|1.2 .840.527942.1.13.104.2.7.2.727879_2 [id number] [facility] 2023-08-27 23:31:04 oUZWvJggZWsftauigGRU6hJy3U6FJacIx3R RpIN8ZcZ7QRty9ytp2KPzC96hmjNC8888-8 08-26T23:31:04 Problem: PainGoal: Control of pain at or below patient's documented comfort goalOutcome: Progressing as expectedGoal: Reduction in pain sensationOutcome: Progressing as expectedProblem: Falls, Risk ofGoal: Absence of fallsOutcome: Progressing as expectedProblem: Discharge PlanningGoal: Adequate for dischargeOutcome: Progressing as expectedGoal: Effective communicationOutcome: Progressing as expectedProblem: Respiratory Function - ImpairedGoal: Adequate oxygenationOutcome: Progressing as expectedProblem: Bleeding, Risk ofGoal: Absence of impaired coagulation signs and symptomsOutcome: Progressing as expectedGoal: Absence of active bleedingOutcome: Progressing as expectedProblem: Fluid Volume - ImbalancedGoal: Absence of imbalanced fluid volume signs and symptomsOutcome: Progressing as expectedProblem: Cardiac Output - DecreasedGoal: Absence of signs and symptoms of decreased cardiac outputOutcome: Progressing as expected 87926-1Whxd of care xjtpFU3599-71-95B36:31:07Plan of care noteTXT1.2.840.668200.1.13.104.2.7. 2.665215|[id number] for patient ybcv55539-6IypzJUIRTODSMRGBjaiouosh C-CDA narrative [id number] 3VDJIJDZBPTTHNZYUZOAREM6354-10-70S8 3:31:071.2.840.684072.1.72.3.15|1.2 .840.352250.1.13.104.2.7.2.727879_2 [id number] [facility] 2023-08-27 17:01:11 AwJC3pfIGQUirfuBPDj6mF4JKSM58JLyNU7 enl1MJmZuv1+R5ir+VcwVTZXgygbA0248-1 7:01:11 Hemodialysis Nurses Notes:1600 Arrived per bed from endoscopy. Identified patient - Aox3, room air, not in distress and somali speaking. BP 94/67 and HR 129 - Dr. Overton at bedside talking to patient with manufacturing production manager on phone, ordered to give due Midodrine 10 mg po and check BP after 30 mins. - carried out.1620 BP 107/71 HR 130-132 bpm, notified Dr. Overton.1634 BP 110/76 HR 131 - Dr. Overton ordered to hold HD for now and send patient back to her room. Left the unit in stable condition accompanied by transporter. Safety precautions maintained.Report given via phone to: ARIEL Lynn 41032-0Rvexn WtklIW8249-83-01V13:07:18Nurse NoteTXT1.2.840.906667.1.13.104.2.7. 2.984971|[id number] for patient fyxo57508-1Wnoay NoteLNNARRATIVEFormatted C-CDA narrative [id number] 9GHYDBRSCARTENRNLMILBOB7912-71-69G6 7:07:181.2.840.410680.1.72.3.15|1.2 .840.900780.1.13.104.2.7.2.727879_2 [id number] [facility] 2023-08-27 10:33:15 PKFeiMc3JuDpAys1mvueJ8dALV6VD8seB98 QDQ5EPnLs8WKNJL7ydEg2Tz1b0uoJ7733-7 08-26T10:33:15 Problem: PainGoal: Control of pain at or below patient's documented comfort goalOutcome: Progressing as expectedGoal: Reduction in pain sensationOutcome: Progressing as expectedProblem: Falls, Risk ofGoal: Absence of fallsOutcome: Progressing as expectedProblem: Discharge PlanningGoal: Adequate for dischargeOutcome: Progressing as expectedGoal: Effective communicationOutcome: Progressing as expectedProblem: Procedure RoutineGoal: Absence of post-procedure complicationsOutcome: Progressing as expectedGoal: Knowledge of procedureOutcome: Progressing as expectedProblem: Respiratory Function - ImpairedGoal: Adequate oxygenationOutcome: Progressing as expectedProblem: Bleeding, Risk ofGoal: Absence of impaired coagulation signs and symptomsOutcome: Progressing as expectedGoal: Absence of active bleedingOutcome: Progressing as expected 92214-5Pxqf of care zcltZA8679-23-36F87:33:23Plan of care noteTXT1.2.840.794084.1.13.104.2.7. 2.707787|[id number] for patient napm69443-0MateVNAACSSFZHEKybrbfxsr C-CDA narrative [id number] Rodriguez RNUT[address] Jy[id number] 5NERXGKRRHFQATTHYEUMFJH0513-75-78J4 0:33:231.2.840.020943.1.72.3.15|1.2 .840.814523.1.13.104.2.7.2.727879_2 [id number] Heidi Alanis RN [facility] 2023-08-27 06:41:58 6IPD8fxAEpalrb/6NsjSGw3ry81iXcV23wy NLcmX1c8FBUgZOuefPw/DdiOKEcat4225-7 06:41:58 Report rec'd from Jaswant GEORGE. Pt is AAOx4, RA, NPO MN, no ISO. Pt on Zosyn. Pt awaiting new HD line and dialysis prior to procedure. 06974-9Hjqch NssiUT8948-38-02O21:42:57Nurse NoteTXT1.2.840.411357.1.13.104.2.7. 2.054329|[id number] for patient aurq00014-9Bcggd NoteLNNARRATIVEFormatted C-CDA narrative [id number] Glithero RN[address] Gb[id number] 4JRAJJUQHUPZMJJWTZPXXMH1725-27-56K9 6:42:571.2.840.585620.1.72.3.15|1.2 .840.175610.1.13.104.2.7.2.727879_2 [id number] Cheryle Bradley RN [facility] 2023-08-26 23:32:29 3sW2S0AZ7VPAsA9gNognVwrPpOGn7y6B878 0lk3aRIpHY1sUTI5bxtd7QHhDQP2q4272-9 08-25T23:32:29 HEMODIALYSIS NURSING NOTE (Inpatient)Number Hours: 2 hrs and 24 mins (3.0 hours ordered) (ISOLATED UF)Bath: 3K 3 CalciumHeparin: 2000 units (held d/t 3 hr HD duration)Access: right Catheter temporary IJNet UF: 1.5 LWeight: (Unable to verify pt's weight due to discrepancy from previous weight documented )Post HD: BP 113/74 Pulse 127Antibiotics/Medications Given: alteplase (A: 1.4 mL, V: 1.4 mL)Complications/Events of Treatment:1957 - packed right temporary dialysis catheter with alteplase for 30 mins.2038 - pre-HD HR 127. Per AM dialysis electric motor control assembler nurse Darcy, primary RN and Dr. Alberto aware of elevated HR, and okay to proceed with HD.2042 - Initiated 3 hr HD. BFR to 350 without complications. Arterial and venous pressures within normal limits.2048 - TORB to notify Dr. Alberto if HR>130 or if pt symptomatic.2114 - BFR to 300 d/t HR 129. Pt denies complaints.2144 - BP 98/69, HR 131, pt denies complaints, asymptomatic. Dr. Alberto aware.2299 - BP 96/66, HR 133, pt denies complaints, asymptomatic. Dr. Alberto aware. EKG bedside done by primary team.2312 - Terminate tx [address] Alberto.Patient left in room sleeping without distress nor complications, safety precautions maintained.Handoff report completed: Completed and given verbally at bedside to ARIEL MichaudMode of Transport Back to Unit: NA - patient done at bedside, 10-5913 (electric motor control assembler)See hemodialysis flowsheet for further details of the treatment. 42584-1Carht VigpGO7838-70-00N87:33:50Nurse NoteTXT1.2.840.476292.1.13.104.2.7. 2.395063|[id number] for patient tbfv46642-6Zqrbd NoteLNNARRATIVEFormatted C-CDA narrative [id number] Garcia RNUT[facility] - [address] Rg[id number] 0IXMFNWEAVRRLJRFXMAOHMV3542-85-52T4 3:33:501.2.840.017421.1.72.3.15|1.2 .840.160126.1.13.104.2.7.2.727879_2 [id number] Layla Garcia RN [facility] 2023-08-26 21:07:31 gkwX20qdcxgxaQN3QXBjc7TxvRwQ6GeB2Zo fn7uEcHOQC3uRykffVW3MOddlkbME5538-1 08-25T21:07:31 Problem: Procedure RoutineGoal: Knowledge of procedureOutcome: Progressing as expectedNote: Hemodialysis Plan of care reviewed r/t treatment time & UF goal. Also reviewed possible side effects of HD tx, such as s/s of hypotension, cramping (during tx and at rare times after tx), N/V, CP or any other concerns. Patient acknowledge understanding of treatment plan. 26791-4Jksb of care eeoyIC6349-36-50T32:07:34Plan of care noteTXT1.2.840.958334.1.13.104.2.7. 2.243280|[id number] for patient eomb08569-1ZstiAAZZRFGVBXKJkhssajmq C-CDA narrative text[address] Nv[id number] 8LBVCSTKEZYACJAKQIRDPGC0192-64-64X9 1:07:341.2.840.340882.1.72.3.15|1.2 .840.022638.1.13.104.2.7.2.727879_2 [id number] [facility] 2023-08-26 10:30:06 jOTP9Wxor8wJPhJfza1xz+VzwTnKNQyBj8t HTvSNUibWMYHYiBhiEPlw0gl8EVQg3604-3 08-25T10:30:06 Problem: PainGoal: Control of pain at or below patient's documented comfort goalOutcome: Progressing as expectedGoal: Reduction in pain sensationOutcome: Progressing as expectedProblem: Falls, Risk ofGoal: Absence of fallsOutcome: Progressing as expectedProblem: Discharge PlanningGoal: Adequate for dischargeOutcome: Progressing as expectedGoal: Effective communicationOutcome: Progressing as expectedProblem: Procedure RoutineGoal: Absence of post-procedure complicationsOutcome: Progressing as expectedGoal: Knowledge of procedureOutcome: Progressing as expectedProblem: Respiratory Function - ImpairedGoal: Adequate oxygenationOutcome: Progressing as expectedProblem: Bleeding, Risk ofGoal: Absence of impaired coagulation signs and symptomsOutcome: Progressing as expectedGoal: Absence of active bleedingOutcome: Progressing as expected 96866-1Txwp of care obilWL3996-39-69Z69:30:15Plan of care noteTXT1.2.840.217430.1.13.104.2.7. 2.484277|[id number] for patient gkte63008-9QsrjKHZVCFAGCNIGijmqfkaj C-CDA narrative [id number] Martinez RN[address] StreetBtteNe[id number] 9GQBDHCTPSHYECIEPPFJNCM9982-21-39B2 0:30:151.2.840.960309.1.72.3.15|1.2 .840.639927.1.13.104.2.7.2.727879_2 [id number] Beata Gutiérrez RN [facility] 2023-08-25 23:19:01 gC7MUwGuAEH0xjAsl92qNqTPbd7QV4+cr1H ahIApqZu16Rt7tSWg7bmzIlS+/L4Z8311-6 08-24T23:19:01 Problem: PainGoal: Control of pain at or below patient's documented comfort goalOutcome: Progressing as expectedGoal: Reduction in pain sensationOutcome: Progressing as expectedProblem: Falls, Risk ofGoal: Absence of fallsOutcome: Progressing as expectedProblem: Discharge PlanningGoal: Adequate for dischargeOutcome: Progressing as expectedGoal: Effective communicationOutcome: Progressing as expectedProblem: Procedure RoutineGoal: Absence of post-procedure complicationsOutcome: Progressing as expectedGoal: Knowledge of procedureOutcome: Progressing as expectedProblem: Respiratory Function - ImpairedGoal: Adequate oxygenationOutcome: Progressing as expectedProblem: Bleeding, Risk ofGoal: Absence of impaired coagulation signs and symptomsOutcome: Progressing as expectedGoal: Absence of active bleedingOutcome: Progressing as expected 64016-6Naht of care qfviEC0796-40-96W52:19:05Plan of care noteTXT1.2.840.781703.1.13.104.2.7. 2.048741|[id number] for patient rtea10605-1CxjbOHALTMZEURVHdatheufl C-CDA narrative [id number] Belle RN[address] Xs[id number] 4QCTJLBLCTYHLZEXSIADVEN4809-36-83W1 3:19:051.2.840.617993.1.72.3.15|1.2 .840.134613.1.13.104.2.7.2.727879_2 [id number] Porsha Belle RN [facility] 2023-08-25 13:33:51 PcXTmQZVbHMFD3KxoJS4h3AiUfIin6Aw38U p+6pIiohbIx0GY3rN+qsSPcVkun1v8093-5 08-24T13:33:51 HEMODIALYSIS NURSING NOTEHold scheduled hemodialysis today and reschedule for Sunday post dialysis catheter placement per Dr. Alberto, [place]. [address]-6Nkutn SbyzZD0954-42-80Y69:35:52Nurse NoteTXT1.2.840.525634.1.13.104.2.7. 2.168292|[id number] for patient psxe06114-7Mrjas NoteLNNARRATIVEFormatted C-CDA narrative textUT[address] Wte[id number] 3HMPLNWNCLYZOJXSLUDYKPR5769-06-05P0 5:35:521.2.840.374993.1.72.3.15|1.2 .840.429072.1.13.104.2.7.2.727879_2 [id number] [facility] 2023-08-25 10:18:38 VpUntUyeKGzbuSg1VDa43dDGdOQKqhGpaXy gRXqi3klci0q5Wf+xQxes10zJFGNW4691-3 0:18:38 Problem: PainGoal: Control of pain at or below patient's documented comfort goalOutcome: Progressing as expectedGoal: Reduction in pain sensationOutcome: Progressing as expectedProblem: Falls, Risk ofGoal: Absence of fallsOutcome: Progressing as expectedProblem: Discharge PlanningGoal: Adequate for dischargeOutcome: Progressing as expectedGoal: Effective communicationOutcome: Progressing as expectedProblem: Procedure RoutineGoal: Absence of post-procedure complicationsOutcome: Progressing as expectedGoal: Knowledge of procedureOutcome: Progressing as expectedProblem: Respiratory Function - ImpairedGoal: Adequate oxygenationOutcome: Progressing as expectedProblem: Bleeding, Risk ofGoal: Absence of impaired coagulation signs and symptomsOutcome: Progressing as expectedGoal: Absence of active bleedingOutcome: Progressing as expected 44780-0Orlu of care lrikSS9690-79-16T40:18:41Plan of care noteTXT1.2.840.834583.1.13.104.2.7. 2.308463|[id number] for patient uino50004-1KovdEUVGRSVCZQYYfunpxjge C-CDA narrative textUT[address] [id number] 7RQZGHNKPUTDKVQGUFXWXKV7404-92-63A6 0:18:411.2.840.410428.1.72.3.15|1.2 .840.406221.1.13.104.2.7.2.727879_2 [id number] [facility] 2023-08-24 21:17:56 dF/Bw3PEYy4kfMb4Qatb7UINs45BzkWK5dj 9SN6P6hKYrvuTQwFwEccCrALk1myn0410-2 1:17:56 Problem: PainGoal: Control of pain at or below patient's documented comfort goalOutcome: Progressing as expectedGoal: Reduction in pain sensationOutcome: Progressing as expectedProblem: Falls, Risk ofGoal: Absence of fallsOutcome: Progressing as expectedProblem: Discharge PlanningGoal: Adequate for dischargeOutcome: Progressing as expectedGoal: Effective communicationOutcome: Progressing as expectedProblem: Procedure RoutineGoal: Absence of post-procedure complicationsOutcome: Progressing as expectedGoal: Knowledge of procedureOutcome: Progressing as expectedProblem: Respiratory Function - ImpairedGoal: Adequate oxygenationOutcome: Progressing as expectedProblem: Bleeding, Risk ofGoal: Absence of impaired coagulation signs and symptomsOutcome: Progressing as expectedGoal: Absence of active bleedingOutcome: Progressing as expected 67942-9Tgdn of care xwwiRK4514-18-08T14:17:58Plan of care noteTXT1.2.840.533147.1.13.104.2.7. 2.435409|[id number] for patient bvcd91322-0LmezXMTIKMQJJWRCqycbdnwj C-CDA narrative [id number] A Thiem RNUT[id number] 8QEMFSUXGJJATAHHAEBANPR0941-02-46O0 1:17:581.2.840.489395.1.72.3.15|1.2 .840.003995.1.13.104.2.7.2.727879_2 [id number] Janeen North RN [facility] 2023-08-24 19:28:47 8bQygQw+/+ugq+iNLTDMP6FfU55QDH6f1jB AEj3EdLiC8RX5CAHqxG9Y+991x4eb2466-2 9:28:47 HEMODIALYSIS NURSING NOTENumber Hours: 3.0 hoursBath: 4K 3 CalciumHeparin: treatment 2000 units givenAccess: right Catheter temporary IJNet UF: 2 litersWeight: pre 76 kg, post 74 kgPost BP 115/66 Post Pulse 99Antibiotics/Medications Given: Alteplase 2 mg and 1 unit of PRBCComplications/Events of Treatment: frequent high arterial pressure alarms despite reversing lines and lowering HOB. Instilled Cathflo for 1 hours and tried again, was successful and patient ran remaining treatment. Still had occasional high arterial pressure alarms. awareHandoff report completed and attached to Patient ChartMode of Transport Back to Unit: bed and accompanied by [facility] hemodialysis flowsheet for details of treatment. 93898-4Flzya WoeoTV0152-58-41S73:18:31Nurse NoteTXT1.2.840.222262.1.13.104.2.7. 2.992615|[id number] for patient ohpz04147-2Lgidk NoteLNNARRATIVEFormatted C-CDA narrative [id number] Sharma RNUT[address] StreetOx[id number] 7KBCBPHUCWCMRWYOUBGLJNK3018-88-08X6 0:18:311.2.840.527953.1.72.3.15|1.2 .840.511413.1.13.104.2.7.2.727879_2 [id number] Jamey Sharma RN [facility] 2023-08-24 11:26:25 ggfES+CARdwzFVflM4Xo/RoQ5Pc0hOLcRpC k1zo8lgsUdDaIYcrF0svUDd/8TO0J7048-6 1:26:25 Problem: PainGoal: Control of pain at or below patient's documented comfort goalOutcome: Progressing as expectedGoal: Reduction in pain sensationOutcome: Progressing as expectedProblem: Falls, Risk ofGoal: Absence of fallsOutcome: Progressing as expectedProblem: Discharge PlanningGoal: Adequate for dischargeOutcome: Progressing as expectedGoal: Effective communicationOutcome: Progressing as expectedProblem: Procedure RoutineGoal: Absence of post-procedure complicationsOutcome: Progressing as expectedGoal: Knowledge of procedureOutcome: Progressing as expectedProblem: Respiratory Function - ImpairedGoal: Adequate oxygenationOutcome: Progressing as expectedProblem: Bleeding, Risk ofGoal: Absence of impaired coagulation signs and symptomsOutcome: Progressing as expectedGoal: Absence of active bleedingOutcome: Progressing as expected 31801-7Oabi of care pydrIA8326-53-50E61:26:28Plan of care noteTXT1.2.840.083727.1.13.104.2.7. 2.645233|7216502089TEYsidljgbc for patient tmvp18140-2CozfEDOWNEYTCNGCingeftnx C-CDA narrative textUT[address] Sr[id number] 4ZDHBUMPEGQHOWRMCDJYFRF0526-60-03R8 1:26:281.2.840.773577.1.72.3.15|1.2 .840.984327.1.13.104.2.7.2.727879_2 [id number] [facility] 2023-08-23 21:48:19 Ij/c8bRMwZeBzdsH7uUlJPlvQyS6hd2bmMT Q0JI8yyUUlD+XitXtFjT/Beorct4C5554-4 1:48:19 Problem: PainGoal: Control of pain at or below patient's documented comfort goalOutcome: Progressing as expectedGoal: Reduction in pain sensationOutcome: Progressing as expectedProblem: Falls, Risk ofGoal: Absence of fallsOutcome: Progressing as expectedProblem: Discharge PlanningGoal: Adequate for dischargeOutcome: Progressing as expectedGoal: Effective communicationOutcome: Progressing as expectedProblem: Procedure RoutineGoal: Absence of post-procedure complicationsOutcome: Progressing as expectedGoal: Knowledge of procedureOutcome: Progressing as expectedProblem: Respiratory Function - ImpairedGoal: Adequate oxygenationOutcome: Progressing as expectedProblem: Bleeding, Risk ofGoal: Absence of impaired coagulation signs and symptomsOutcome: Progressing as expectedGoal: Absence of active bleedingOutcome: Progressing as expected 54938-3Wtkj of care frebIL0664-86-21V45:48:21Plan of care noteTXT1.2.840.141978.1.13.104.2.7. 2.700335|[id number] for patient tmhv08444-4DviuHNUINVDRFTAHfvwqioag C-CDA narrative textUT[address] GdqnJ[id number] 4PKYZDFVTRRUBQHOWGOYXKN2791-16-68X2 1:48:211.2.840.209877.1.72.3.15|1.2 .840.077946.1.13.104.2.7.2.727879_2 [id number] [facility] 2023-08-22 21:17:30 WFFPo5GtkaVtH2PHl5vr5KG1BJDbgL0gHLt 6sB0wpwP28b0y5r5s59mRKAgBWchl4654-0 1:17:30 Problem: PainGoal: Control of pain at or below patient's documented comfort goalOutcome: Progressing as expectedGoal: Reduction in pain sensationOutcome: Progressing as expectedProblem: Falls, Risk ofGoal: Absence of fallsOutcome: Progressing as expectedProblem: Discharge PlanningGoal: Adequate for dischargeOutcome: Progressing as expectedGoal: Effective communicationOutcome: Progressing as expectedProblem: Procedure RoutineGoal: Absence of post-procedure complicationsOutcome: Progressing as expectedGoal: Knowledge of procedureOutcome: Progressing as expectedProblem: Respiratory Function - ImpairedGoal: Adequate oxygenationOutcome: Progressing as expectedProblem: Bleeding, Risk ofGoal: Absence of impaired coagulation signs and symptomsOutcome: Progressing as expectedGoal: Absence of active bleedingOutcome: Progressing as expected 70755-6Jmih of care cfasSE7816-19-37C45:17:31Plan of care noteTXT1.2.840.546278.1.13.104.2.7. 2.022444|[id number] for patient yjoo20126-3ZyoaIJCHQNFWSHPIvzkqcvlv C-CDA narrative textUT63 Diaz StreetVw[id number] 3EXNSTEYKCOTTMQJECSRXRU7845-49-40A7 1:17:311.2.840.862710.1.72.3.15|1.2 .840.879970.1.13.104.2.7.2.727879_2 [id number] [facility] 2023-08-22 14:04:35 hmBPaDI+oriAQ8TVnRX6KYelxq6AZZnblub W5va3+qIg9FGQsokTg+BWNSidh5Xy4759-5 4:04:35 Problem: PainGoal: Control of pain at or below patient's documented comfort goalOutcome: Progressing as expectedGoal: Reduction in pain sensationOutcome: Progressing as expectedProblem: Falls, Risk ofGoal: Absence of fallsOutcome: Progressing as expectedProblem: Discharge PlanningGoal: Adequate for dischargeOutcome: Progressing as expectedGoal: Effective communicationOutcome: Progressing as expectedProblem: Procedure RoutineGoal: Absence of post-procedure complicationsOutcome: Progressing as expectedGoal: Knowledge of procedureOutcome: Progressing as expectedProblem: Respiratory Function - ImpairedGoal: Adequate oxygenationOutcome: Progressing as expectedProblem: Bleeding, Risk ofGoal: Absence of impaired coagulation signs and symptomsOutcome: Progressing as expectedGoal: Absence of active bleedingOutcome: Progressing as expected 82076-9Ryaq of care jxsyDJ0570-57-67T38:04:41Plan of care noteTXT1.2.840.671079.1.13.104.2.7. 2.318111|3200290491HKHdatypbub for patient ewbv49153-1NrniUKRLRBGZPAWPvspccfle C-CDA narrative text[address] Au[id number] 9VQSKJYRFPMWXYFVXBBYHAP8298-38-42Q5 4:04:411.2.840.309690.1.72.3.15|1.2 .840.163081.1.13.104.2.7.2.727879_2 [id number] [facility] 2023-08-21 19:22:13 KpmAjhHo7QJ6w9pBxjWGCpMsQswEraN53Ks LtrrZjLBQ4uPcnEDckmz9MMWJc2aF5320-2 9:22:13 Problem: PainGoal: Control of pain at or below patient's documented comfort goalOutcome: Progressing as expectedGoal: Reduction in pain sensationOutcome: Progressing as expectedProblem: Falls, Risk ofGoal: Absence of fallsOutcome: Progressing as expectedProblem: Discharge PlanningGoal: Adequate for dischargeOutcome: Progressing as expectedGoal: Effective communicationOutcome: Progressing as expectedProblem: Procedure RoutineGoal: Absence of post-procedure complicationsOutcome: Progressing as expectedGoal: Knowledge of procedureOutcome: Progressing as expectedProblem: Respiratory Function - ImpairedGoal: Adequate oxygenationOutcome: Progressing as expectedProblem: Bleeding, Risk ofGoal: Absence of impaired coagulation signs and symptomsOutcome: Progressing as expectedGoal: Absence of active bleedingOutcome: Progressing as expected 31125-3Nijv of care [id number]:22:16Plan of care noteTXT1.2.840.827077.1.13.104.2.7. [id number] for patient tjbz16338-8OwovAAGKKYLEMQVMbkzlbpcw C-CDA narrative [id number] Cesar Magno RNUT[address] StreetMv[id number] 9OQYAYBFSBWVQTLCYVGURCY3355-91-10C9 9:22:161.2.840.483678.1.72.3.15|1.2 .840.960731.1.13.104.2.7.2.727879_2 [id number] Jaswant Atkinson RN [facility] 2023-08-21 11:52:16 X6iYvqJmvAm6hfpn+DkiyiKCc7u2wpFnQOR 0WYeTe4372HFenK5D3uaRI9U1YWtY4503-2 1:52:16 Problem: PainGoal: Control of pain at or below patient's documented comfort goalOutcome: Progressing as expectedGoal: Reduction in pain sensationOutcome: Progressing as expectedProblem: Falls, Risk ofGoal: Absence of fallsOutcome: Progressing as expectedProblem: Discharge PlanningGoal: Adequate for dischargeOutcome: Progressing as expectedGoal: Effective communicationOutcome: Progressing as expectedProblem: Procedure RoutineGoal: Absence of post-procedure complicationsOutcome: Progressing as expectedGoal: Knowledge of procedureOutcome: Progressing as expectedProblem: Respiratory Function - ImpairedGoal: Adequate oxygenationOutcome: Progressing as expectedProblem: Bleeding, Risk ofGoal: Absence of impaired coagulation signs and symptomsOutcome: Progressing as expectedGoal: Absence of active bleedingOutcome: Progressing as expected 91731-8Fvwa of care dytfOY1963-32-90J55:52:22Plan of care noteTXT1.2.840.611201.1.13.104.2.7. 2.845027|[id number] for patient ilje74925-4PhejZLBWYMMBWSMSykyynzpn C-CDA narrative textUT[address] Pwt[id number] 6STFEJHDZNIGGOPTKRBYDGQ6923-40-69Z3 1:52:221.2.840.158083.1.72.3.15|1.2 .840.294251.1.13.104.2.7.2.727879_2 [id number] [facility] 2023-08-20 19:32:34 RyUOQqmk/xsVvP/QWTIBylrBHIP+M2vqj4s qNZteD4gZCAcboeuO8mA8HG/qaZ7N6266-1 9:32:34 Problem: PainGoal: Control of pain at or below patient's documented comfort goalOutcome: Progressing as expectedGoal: Reduction in pain sensationOutcome: Progressing as expectedProblem: Falls, Risk ofGoal: Absence of fallsOutcome: Progressing as expectedProblem: Discharge PlanningGoal: Adequate for dischargeOutcome: Progressing as expectedGoal: Effective communicationOutcome: Progressing as expectedProblem: Procedure RoutineGoal: Absence of post-procedure complicationsOutcome: Progressing as expectedGoal: Knowledge of procedureOutcome: Progressing as expectedProblem: Respiratory Function - ImpairedGoal: Adequate oxygenationOutcome: Progressing as expectedProblem: Bleeding, Risk ofGoal: Absence of impaired coagulation signs and symptomsOutcome: Progressing as expectedGoal: Absence of active bleedingOutcome: Progressing as expected 73916-4Wuth of care biipHB0343-90-48W75:32:36Plan of care noteTXT1.2.840.289846.1.13.104.2.7. 2.602232|[id number] for patient ejgv84311-1AwibFDAEYLQNKJKIfmkaadsm C-CDA narrative text[address] Yr[id number] 4SASLGFZXSGEBQXSOGTSUBP7658-35-49Z4 9:32:361.2.840.925420.1.72.3.15|1.2 .840.379985.1.13.104.2.7.2.727879_2 [id number] [facility] 2023-08-20 10:52:52 huwytcZxjrTsSaFEYzz7n0pBN5d28ABhnRB k+IS4HiyLmRU+yQC98fTdCx1WP/8O0901-3 0:52:52 Problem: PainGoal: Control of pain at or below patient's documented comfort goalOutcome: Progressing as expectedGoal: Reduction in pain sensationOutcome: Progressing as expectedProblem: Falls, Risk ofGoal: Absence of fallsOutcome: Progressing as expectedProblem: Discharge PlanningGoal: Adequate for dischargeOutcome: Progressing as expectedGoal: Effective communicationOutcome: Progressing as expectedProblem: Procedure RoutineGoal: Absence of post-procedure complicationsOutcome: Progressing as expectedGoal: Knowledge of procedureOutcome: Progressing as expectedProblem: Respiratory Function - ImpairedGoal: Adequate oxygenationOutcome: Progressing as expectedProblem: Bleeding, Risk ofGoal: Absence of impaired coagulation signs and symptomsOutcome: Progressing as expectedGoal: Absence of active bleedingOutcome: Progressing as expected 75261-3Ontq of care vzbcKW4990-86-67I83:53:00Plan of care noteTXT1.2.840.116485.1.13.104.2.7. 2.021929|[id number] for patient zlcs71101-1RqqeLOXCIHNCQIWBauethrcd C-CDA narrative text96 [address] StreetRf[id number] 6YSRGSAOKLLRKMWXSYYCOYC6173-12-28B1 0:53:001.2.840.980342.1.72.3.15|1.2 .840.254219.1.13.104.2.7.2.727879_2 [id number] [facility] 2023-08-19 23:14:33 j5Ekl6unxfefk16nYFXHa9RQwB9UJ3F1mlM V/eJiN3EbIO5KKUJ1JIMVQ2lqKTBn6645-3 3:14:33 Problem: PainGoal: Control of pain at or below patient's documented comfort goalOutcome: Progressing as expectedGoal: Reduction in pain sensationOutcome: Progressing as expectedProblem: Falls, Risk ofGoal: Absence of fallsOutcome: Progressing as expectedProblem: Discharge PlanningGoal: Adequate for dischargeOutcome: Progressing as expectedGoal: Effective communicationOutcome: Progressing as expectedProblem: Procedure RoutineGoal: Absence of post-procedure complicationsOutcome: Progressing as expectedGoal: Knowledge of procedureOutcome: Progressing as expectedProblem: Respiratory Function - ImpairedGoal: Adequate oxygenationOutcome: Progressing as expectedProblem: Bleeding, Risk ofGoal: Absence of impaired coagulation signs and symptomsOutcome: Progressing as expectedGoal: Absence of active bleedingOutcome: Progressing as expected 74422-1Zmbw of care lvxbAS8423-44-19U12:14:36Plan of care noteTXT1.2.840.205388.1.13.104.2.7. 2.958144|[id number] for patient kqag68623-6HpjvRTTZLNMLSYZQclhxwgwi C-CDA narrative [id number] E Blackwell RN[address] StreetCr[id number] 6PFICZSVJSKCLMGETXCLNNG2022-45-18S2 3:14:361.2.840.007834.1.72.3.15|1.2 .840.341401.1.13.104.2.7.2.727879_2 [id number] Kelly Myrick RN [facility] 2023-08-19 08:36:23 PmveaiJ2d+TrTfxOwLjtFilm8LUDaf+Il5W SfH2dnRhzwh/Zcgw/pnC9oDrDpqdm6248-9 08:36:23 Problem: PainGoal: Control of pain at or below patient's documented comfort goalOutcome: Progressing as expectedGoal: Reduction in pain sensationOutcome: Progressing as expectedProblem: Falls, Risk ofGoal: Absence of fallsOutcome: Progressing as expectedProblem: Discharge PlanningGoal: Adequate for dischargeOutcome: Progressing as expectedGoal: Effective communicationOutcome: Progressing as expectedProblem: Procedure RoutineGoal: Absence of post-procedure complicationsOutcome: Progressing as expectedGoal: Knowledge of procedureOutcome: Progressing as expectedProblem: Respiratory Function - ImpairedGoal: Adequate oxygenationOutcome: Progressing as expectedProblem: Bleeding, Risk ofGoal: Absence of impaired coagulation signs and symptomsOutcome: Progressing as expectedGoal: Absence of active bleedingOutcome: Progressing as expected 94717-5Jdqv of care ztwiAX5252-27-62E59:36:26Plan of care noteTXT1.2.840.143119.1.13.104.2.7. 2.915059|[id number] for patient zevo19284-1QbakWGIMYADRJXLPfinatduc C-CDA narrative textUT63 Diaz StreetVa[id number] 0WPMGQKYLOIFDUJZHPQPMNR1937-28-83J2 8:36:261.2.840.128661.1.72.3.15|1.2 .840.769371.1.13.104.2.7.2.727879_2 [id number] [facility] 2023-08-18 23:42:14 GvEqMI4k7e2u1LESpEN7XYGwKkFJ1ZsiaT8 AvAeS43MmxctxItJGnUifPR8h+jUv0314-5 3:42:14 Problem: PainGoal: Control of pain at or below patient's documented comfort goalOutcome: Progressing as expectedGoal: Reduction in pain sensationOutcome: Progressing as expectedProblem: Falls, Risk ofGoal: Absence of fallsOutcome: Progressing as expectedProblem: Discharge PlanningGoal: Adequate for dischargeOutcome: Progressing as expectedGoal: Effective communicationOutcome: Progressing as expectedProblem: Procedure RoutineGoal: Absence of post-procedure complicationsOutcome: Progressing as expectedGoal: Knowledge of procedureOutcome: Progressing as expectedProblem: Respiratory Function - ImpairedGoal: Adequate oxygenationOutcome: Progressing as expectedProblem: Bleeding, Risk ofGoal: Absence of impaired coagulation signs and symptomsOutcome: Progressing as expectedGoal: Absence of active bleedingOutcome: Progressing as expected 81242-8Gyrh of care ocglGK5204-33-15O24:42:16Plan of care noteTXT1.2.840.246628.1.13.104.2.7. 2.718796|[id number] for patient hngi01132-7DbkiMNJNOMSMBSILebmykmbk C-CDA narrative textUT[address] Nnhx[id number] 7LNEFXSLDSZRULCLZMCBXVV7344-86-40Y0 3:42:161.2.840.383480.1.72.3.15|1.2 .840.134730.1.13.104.2.7.2.727879_2 [id number] [facility] 2023-08-18 14:43:14 3RvZzYnSEGcmW/AqcHv/RjhT6WABXoP+Y8u S4KHrRnl8WF2Xb1Nn9XFkqOE7wXiW6224-6 08-17T14:43:14 HEMODIALYSIS NURSING NOTENumber Hours: 4.0 hoursBath: 3K 3 CaHeparin: Pre-dialysis 1000 units given. Mid-dialysis 1000 units given.Access: right Catheter temporary IJAntibiotics/Medications Given:@ 0854 - Alteplase 2mg Intracath Once (2x) - arterial & venous HD cath port.Complications/Events of Treatment:Prior to start of HD tx both arterial & venous cath port unable to aspirate w/ resistance upon flushing. Dr Salgado was called at 0828 & notified - TORB Alteplase packing to both ports & dwell for 1hr before retrying HD tx.At 0853 Alteplase was packed on pt cath ports.At 0955 pt was started on HD tx. At 1000 Dr Salgado made rounds to HD unit & notified that able to start HD tx, but BFR only at 300 d/t high arterial pressures. Power flushed lines & pt repositioned. Unable to reverse lines as even though venous port able to aspirate & flush, as when connected to HD machine high arterial pressures even when BFR at 200. So lines are not reversed & no issues at [address] Salgado gave VORB that BFR 250-300 as pressures allow in HD machine for today tx.At 1323 w/ about 50mins left on HD tx system clotting w/ increased TMP & venous pressure, blood able to be returned. New HD cartridge & filter placed to resume in completing HD tx.Pt completed HD tx w/o any issues or complications. Blood returned & cath access packed w/ Heparin then Clear Guard cath caps placed.Net UF: 2000 mLWeight: Unable to weigh pt d/t bed scale not verified & zeroed. Initial HD tx weight per bed scale is 37.4kgPost Dialysis Treatment: BP 132/72 Pulse 98Handoff Report: Completed HD treatment sheet and attached it to the patients chart. ARIEL Short who is covering for ARIEL Lilly (primary) was given report via phone.Mode of Transport Back to Unit: Bed and Accompanied by Transporter, , & daughter.See hemodialysis flowsheet for further details of the treatment. 92416-6Ztcdu DrbqPR8349-56-34Y47:45:00Nurse NoteTXT1.2.840.465458.1.13.104.2.7. 2.818869|[id number] for patient akcb59633-1Uhapv NoteLNNARRATIVEFormatted C-CDA narrative [id number] Pearce RNUT[address] Kk[id number] 9DUXOAFETTYIUCMFABQCLJV1847-11-05Q4 4:45:001.2.840.220703.1.72.3.15|1.2 .840.451109.1.13.104.2.7.2.727879_2 [id number] Miguel Pearce RN [facility] 2023-08-18 10:25:48 yqqAT3Hvd1zYEScRbDiTR/JoS5S2ma00U1K v8b2C9cpMZyUCjpAD8+XCaBSLHE/C5102-7 08-17T10:25:48 Hemodialysis Plan of care reviewed r/t treatment time & UF goal. Also reviewed possible side effects of HD tx, such as s/s of hypotension, cramping (during tx and at rare times after tx), N/V, CP or any other concerns. Patient acknowledge understanding of treatment plan.Problem: Procedure RoutineGoal: Knowledge of procedureOutcome: Progressing as expected 62423-9Zeqt of care vxszTQ2284-45-11M65:25:55Plan of care noteTXT1.2.840.315475.1.13.104.2.7. 2.516233|[id number] for patient ikip97923-8QtzrEZTJRRYURBQMtnjbifle C-CDA narrative textUT[address] Kd[id number] 4QNTBXGSAOIRSGPASSBOXBE7270-99-17E9 0:25:551.2.840.526935.1.72.3.15|1.2 .840.361831.1.13.104.2.7.2.727879_2 [id number] [facility] 2023-08-18 07:56:34 rT2gUhBVQVzZUe4icl6qwfuBmP70ieNWFXl veQ14ZkHKqY6XNVUzsHFUQv+Qu6gX6685-9 08-17T07:56:34 Problem: PainGoal: Control of pain at or below patient's documented comfort goalOutcome: Progressing as expectedGoal: Reduction in pain sensationOutcome: Progressing as expectedProblem: Falls, Risk ofGoal: Absence of fallsOutcome: Progressing as expectedProblem: Discharge PlanningGoal: Adequate for dischargeOutcome: Progressing as expectedGoal: Effective communicationOutcome: Progressing as expectedProblem: Procedure RoutineGoal: Absence of post-procedure complicationsOutcome: Progressing as expectedGoal: Knowledge of procedureOutcome: Progressing as expectedProblem: Respiratory Function - ImpairedGoal: Adequate oxygenationOutcome: Progressing as expectedProblem: Bleeding, Risk ofGoal: Absence of impaired coagulation signs and symptomsOutcome: Progressing as expectedGoal: Absence of active bleedingOutcome: Progressing as expected 24928-7Ygxf of care coxiXT9463-53-90G79:56:36Plan of care noteTXT1.2.840.107046.1.13.104.2.7. 2.326377|[id number] for patient ptfx08064-1WjeqPWNALITOREXFthzmgfql C-CDA narrative text[address] Lgfl[id number] 3EFTDSZZCSNNNNHELHCDGFZ5886-05-89C5 7:56:361.2.840.586527.1.72.3.15|1.2 .840.490837.1.13.104.2.7.2.727879_2 [id number] [facility] 2023-08-17 22:34:13 lV1vHeIZeQI7JC0S6M8lpT5e41K+xInDj4b Iao18Kdcr7zkCR5UHNdfwcVHBmW607968-9 08-16T22:34:13 Problem: PainGoal: Control of pain at or below patient's documented comfort goalOutcome: Progressing as expectedGoal: Reduction in pain sensationOutcome: Progressing as expectedProblem: Falls, Risk ofGoal: Absence of fallsOutcome: Progressing as expectedProblem: Discharge PlanningGoal: Adequate for dischargeOutcome: Progressing as expectedGoal: Effective communicationOutcome: Progressing as expectedProblem: Procedure RoutineGoal: Absence of post-procedure complicationsOutcome: Progressing as expectedGoal: Knowledge of procedureOutcome: Progressing as expectedProblem: Respiratory Function - ImpairedGoal: Adequate oxygenationOutcome: Progressing as expectedProblem: Bleeding, Risk ofGoal: Absence of impaired coagulation signs and symptomsOutcome: Progressing as expectedGoal: Absence of active bleedingOutcome: Progressing as expected 32322-5Ipid of care tqxjDW6112-82-11T89:34:15Plan of care noteTXT1.2.840.827269.1.13.104.2.7. 2.013108|[id number] for patient hfdt34904-1WlmuIPHBNBZHNJAIefxbbspw C-CDA narrative textUT63 Diaz StreetYdgx[id number] 5ZLQWBWBDLKRFAGHTVLCFXH5230-28-78M7 2:34:151.2.840.305408.1.72.3.15|1.2 .840.878719.1.13.104.2.7.2.727879_2 [id number] [facility] 2023-08-16 21:22:04 03qy4RIk6i1fKjr+FtIXLNJRL4Ybfe/y6Xw SFmQ+JBD8+pNffh2VZjxqlr5EXbUS8738-5 1:22:04 Problem: PainGoal: Control of pain at or below patient's documented comfort goalOutcome: Progressing as expectedGoal: Reduction in pain sensationOutcome: Progressing as expectedProblem: Falls, Risk ofGoal: Absence of fallsOutcome: Progressing as expectedProblem: Discharge PlanningGoal: Adequate for dischargeOutcome: Progressing as expectedGoal: Effective communicationOutcome: Progressing as expectedProblem: Procedure RoutineGoal: Absence of post-procedure complicationsOutcome: Progressing as expectedGoal: Knowledge of procedureOutcome: Progressing as expectedProblem: Respiratory Function - ImpairedGoal: Adequate oxygenationOutcome: Progressing as expectedProblem: Bleeding, Risk ofGoal: Absence of impaired coagulation signs and symptomsOutcome: Progressing as expectedGoal: Absence of active bleedingOutcome: Progressing as expected 15785-7Adyf of care rfayLJ4054-59-91J04:22:06Plan of care noteTXT1.2.840.601875.1.13.104.2.7. 2.379950|[id number] for patient octz54774-3ZxzpZFBPTTSYZAXNoscmyyoc C-CDA narrative textUT[address] Pffy[id number] 9PLBWZJFYUGEJRYPTGFMMRE9219-51-16Q9 1:22:061.2.840.796859.1.72.3.15|1.2 .840.915599.1.13.104.2.7.2.727879_2 [id number] [facility] 2023-08-16 13:12:00 cnAzNvcRmz9+LXXgje1C0H2OxU3cq+Cxk4c q28JqMBsvdQnl1OCNcM9UdMH/DyS+08-15T13:12:00 HEMODIALYSIS NURSING NOTENumber Hours: 4.0 hoursBath: 2K 3 Calcium (standard dialysate)Heparin: zero ( pt on heparin drip )Catheter - hep locked at end of treatment (SEE JUN)Access: right Catheter temporary IJNet UF: 1 LWeight: pre ISABELA kg, post ISABELA kg ( bed scale inaccurate )Post BP 125/73 Post Pulse 109Antibiotics/Medications Given: none given by dialysis RNComplications/Events of Treatment: pt start with low BP, elevated HR and elevated temperature , pt denied complaints . Treatment explained via telephone corner bead operator. Initial catheter troubles (readjustment of lines and patient ) . Removed pt pillow then Tolerated treatment well . Slept through majority of treatment . No complaints or concerns . Temperature , HR and BP stabilized during treatment. Family in room entire treatment. Dr. Fuentes and associates rounded during treatment and addressed pt's family . Blood returned w/o incident . Pt left unit in vitally stable condition ,slight HR elevation ( SEE ABOVE) w/ heparin pump infusing ( no changes initiated during dialysis ), o2 via nasal cannula@ 2L . No acute distress noted.Verbal report given to : ARIEL LANDRY, as well as,Handoff report completed and attached to Patient ChartMode of Transport Back to Unit: bed, oxygen @ 2L via nasal cannula, heparin pump infusing ,accompanied by transporter and familySee hemodialysis flowsheet for details of treatment. 58680-3Xgqeq BfodHX4659-32-92X03:08:20Nurse NoteTXT1.2.840.213022.1.13.104.2.7. 2.681770|[id number] for patient jnqy30184-6Afvpg NoteLNNARRATIVEFormatted C-CDA narrative [id number] G Prater RN[address] Xz[id number] 2LPNXOTVKRGWTSSUUULUCTF8494-49-91B7 4:08:201.2.840.607642.1.72.3.15|1.2 .840.432647.1.13.104.2.7.2.727879_2 [id number] Darcy Alvarez RN [facility] 2023-08-16 09:24:01 NiOQGUgYgDNYRnVtfHYLlANNrxB1rifcJYk rZcnzCqN6vi2Qs5tZuc9zyaitAicx4026-4 08-15T09:24:01 Hemodialysis Plan of care reviewed r/t treatment time (4 hours ) & UF goal( 0-1 L, as tolerated ). Also reviewed possible side effects of HD tx, such as s/s of hypotension, cramping (during tx and at rare times after tx), N/V, CP or any other concerns. Patient acknowledge understanding of treatment plan.Final Inspector Motorcyles used #[id number] signed by Darcy Alvarez RN at 08/16/2023 9:24 AM WIU05133-5Jozc of care bcioDR0572-52-13U61:24:51Plan of care noteTXT1.2.840.048233.1.13.104.2.7. 2.409644|[id number] for patient ufue45643-1JdolHEFPYNKWBBEIaeorfbeb C-CDA narrative text[address] Hwkh[id number] 8KKIMQDCLKBRIBMMDGJASLN7310-16-40U7 9:24:511.2.840.480267.1.72.3.15|1.2 .840.797334.1.13.104.2.7.2.727879_2 [id number] [facility] 2023-08-16 07:34:53 ZAtHjyglmcm1NuOAPb3grP/ruNtE/HODPuO XGIB+tWGInqNzT1HN90W1AAZ5L7pf0079-2 07:34:53 Problem: PainGoal: Control of pain at or below patient's documented comfort goal08/16/2023 0735 by Wendi Smith RNOutcome: Progressing as expected08/16/2023 0734 by Wendi Smith RNOutcome: Progressing as expectedGoal: Reduction in pain sensation08/16/2023 0735 by Wendi Smith RNOutcome: Progressing as expected08/16/2023 0734 by Wendi Smith RNOutcome: Progressing as expectedProblem: Falls, Risk ofGoal: Absence of falls08/16/2023 0735 by Wendi Smith RNOutcome: Progressing as expected08/16/2023 0734 by Wendi Smith RNOutcome: Progressing as expectedProblem: Discharge PlanningGoal: Adequate for discharge08/16/2023 0735 by Wendi Smith RNOutcome: Progressing as expected08/16/2023 0734 by Wendi Smith RNOutcome: Progressing as expectedGoal: Effective communication08/16/2023 0735 by Wendi Smith RNOutcome: Progressing as expected08/16/2023 0734 by Wendi Smith RNOutcome: Progressing as expectedProblem: Procedure RoutineGoal: Absence of post-procedure complications08/16/2023 0735 by Wendi Smith RNOutcome: Progressing as expected08/16/2023 0734 by Wendi Smith RNOutcome: Progressing as expectedGoal: Knowledge of procedure08/16/2023 0735 by Wendi Smith RNOutcome: Progressing as expected08/16/2023 0734 by Wendi Smith RNOutcome: Progressing as expectedProblem: Respiratory Function - ImpairedGoal: Adequate oxygenation08/16/2023 0735 by Wendi Smith RNOutcome: Progressing as expected08/16/2023 0734 by Wendi Smith RNOutcome: Progressing as expectedProblem: Bleeding, Risk ofGoal: Absence of impaired coagulation signs and symptomsOutcome: Progressing as expectedGoal: Absence of active bleedingOutcome: Progressing as expected 34083-6Rwnm of care ysjcXQ9526-99-84H47:36:14Plan of care noteTXT1.2.840.600962.1.13.104.2.7. 2.059420|[id number] for patient hogc86432-1VtikYRPCINFBMKODswaivqfq C-CDA narrative text[address] MlzvD[id number] 2BIPHYWQPCABBTKCIUNQFGQ9224-80-38P9 7:36:141.2.840.620767.1.72.3.15|1.2 .840.815525.1.13.104.2.7.2.727879_2 [id number] [facility] 2023-08-15 23:54:32 R27ne8An0raHDGjy/td4gXuc722BWzhDkq+ nG9welXb3bTnrcAnbQmyvCIlKcp4B2384-5 08-14T23:54:32 Problem: PainGoal: Control of pain at or below patient's documented comfort goalOutcome: Progressing as expectedGoal: Reduction in pain sensationOutcome: Progressing as expectedProblem: Falls, Risk ofGoal: Absence of fallsOutcome: Progressing as expectedProblem: Discharge PlanningGoal: Adequate for dischargeOutcome: Progressing as expectedGoal: Effective communicationOutcome: Progressing as expectedProblem: Procedure RoutineGoal: Absence of post-procedure complicationsOutcome: Progressing as expectedGoal: Knowledge of procedureOutcome: Progressing as expectedProblem: Respiratory Function - ImpairedGoal: Adequate oxygenationOutcome: Progressing as expected 28764-3Glsm of care forxEA3200-09-95E44:54:34Plan of care noteTXT1.2.840.947287.1.13.104.2.7. 2.282937|[id number] for patient uyga34061-2HkhtMLOQXJYYGODCihxnhwvc C-CDA narrative textUT97 Miller [id number] 9JUBGEBGCTGASVVQIXZLUGM1255-47-79H0 3:54:341.2.840.825687.1.72.3.15|1.2 .840.526652.1.13.104.2.7.2.727879_2 [id number] [facility] 2023-08-15 07:16:51 RryiyNOFV11ep7j3W5G20RgIb9aL+gkYHUy g2vibaIQuWnEqCRx1N79TJ72gI4IR2462-3 08-14T07:16:51 Problem: PainGoal: Control of pain at or below patient's documented comfort goalOutcome: Progressing as expectedGoal: Reduction in pain sensationOutcome: Progressing as expectedProblem: Falls, Risk ofGoal: Absence of fallsOutcome: Progressing as expectedProblem: Discharge PlanningGoal: Adequate for dischargeOutcome: Progressing as expectedGoal: Effective communicationOutcome: Progressing as expectedProblem: Procedure RoutineGoal: Absence of post-procedure complicationsOutcome: Progressing as expectedGoal: Knowledge of procedureOutcome: Progressing as expectedProblem: Respiratory Function - ImpairedGoal: Adequate oxygenationOutcome: Progressing as expected 58723-9Xymt of care wisoGG3112-60-56W15:16:53Plan of care noteTXT1.2.840.324700.1.13.104.2.7. 2.383978|[id number] for patient augj94783-0PeisTCKGZODNJKGXduuznhft C-CDA narrative textUT[address] Yj[id number] 3QYKTGJZGXHQZLSVWPRRCDU9709-19-57N9 7:16:531.2.840.516763.1.72.3.15|1.2 .840.753435.1.13.104.2.7.2.727879_2 [id number] [facility] 2023-08-15 01:01:22 jv84yJWMnxkXgVQupTOKHPZTA7oTLKb7exP zVOk9YwtaKFt5fcPdLg9dp9UWU0qL7561-7 08-14T01:01:22 Problem: PainGoal: Control of pain at or below patient's documented comfort goalOutcome: Progressing as expectedGoal: Reduction in pain sensationOutcome: Progressing as expectedProblem: Falls, Risk ofGoal: Absence of fallsOutcome: Progressing as expectedProblem: Discharge PlanningGoal: Adequate for dischargeOutcome: Progressing as expectedGoal: Effective communicationOutcome: Progressing as expectedProblem: Procedure RoutineGoal: Absence of post-procedure complicationsOutcome: Progressing as expectedGoal: Knowledge of procedureOutcome: Progressing as expectedProblem: Respiratory Function - ImpairedGoal: Adequate oxygenationOutcome: Progressing as expected 43032-1Yvtb of care zjezEA1637-05-38H37:01:29Plan of care noteTXT1.2.840.188155.1.13.104.2.7. 2.716209|[id number] for patient wezw43189-6SnshGGFQJSSLVWTHsqngnizr C-CDA narrative textUT[address] Avp[id number] 7AUGYGGDWQNXJPBWCEFJWLS6008-35-84Q8 1:01:291.2.840.891439.1.72.3.15|1.2 .840.098293.1.13.104.2.7.2.727879_2 [id number] [facility] 2023-08-14 17:19:14 [id number] +[id number]+T24n/[id number] 08-13T17:19:14 HEMODIALYSIS NURSING NOTENumber Hours: 2.0 hoursBath: 3K 3 CalciumHeparin: treatment 1000 units given pre tx given, held mid tx.Access: right Catheter temporary intrajugularNet UF: 500mlWeight: pre 76.5 kg, post 76 kgPost BP 131/69 Post Pulse 92Antibiotics/Medications Given: noneComplications/Events of Treatment:HD treatment completed and tolerated well without complications.Removed needles post treatment and applied pressure for 10 min. No active nor prolong bleeding noted. Secured punctured site well. Transferred back to home unit vitally stable and no signs of distress distress noted.Verbal Report: ARIEL McnultyMode of Transport Back to Unit: NA - patient done at bedsideSee hemodialysis flowsheet for details of treatment. 78119-4Ugxdg FbqjUY1827-90-42D64:19:15Nurse NoteTXT1.2.840.391233.1.13.104.2.7. 2.220790|[id number] for patient zdtt73191-0Cykvg NoteLNNARRATIVEFormatted C-CDA narrative [id number] MAYBERRY[address] Dj[id number] 6BTEHCSUJMWQEBDQBXJAXIE2051-62-98B7 7:19:151.2.840.138264.1.72.3.15|1.2 .840.760591.1.13.104.2.7.2.727879_2 [id number] Kayli Mora RN [facility] 2023-08-14 15:19:27 Mi3DF3ehRchK31w8VVzzScIsyfDQanJ2v7I nH2DO/OhZRN4iNziiXJOy0o1pfX177574-8 08-13T15:19:27 Hemodialysis Plan of care reviewed r/t treatment time & UF goal. Also reviewed possible side effects of HD tx, such as s/s of hypotension, cramping (during tx and at rare times after tx), N/V, CP or any other concerns. Patient acknowledge understanding of treatment plan. 67501-8Yetw of care dfxdAS8049-32-89B28:19:45Plan of care noteTXT1.2.840.968272.1.13.104.2.7. 2.886249|[id number] for patient hfki61599-3VsakMFRJZBYTVMJKorljgbnq C-CDA narrative text[address] Xq[id number] 3VSRFAUIVJNJGGYQMHIDEUC7479-80-02G4 5:19:451.2.840.084631.1.72.3.15|1.2 .840.317845.1.13.104.2.7.2.727879_2 [id number] [facility] 2023-08-14 02:13:30 5Yr9b5cEF03cik9lOV/bzUc[facility]/43j2Ouxg rpzIZLTYzfKdFg+Yz6MB7+Znt1iNY3103-1 02:13:30 Problem: PainGoal: Control of pain at or below patient's documented comfort goalOutcome: Progressing as expectedGoal: Reduction in pain sensationOutcome: Progressing as expectedProblem: Falls, Risk ofGoal: Absence of fallsOutcome: Progressing as expectedProblem: Discharge PlanningGoal: Adequate for dischargeOutcome: Progressing as expectedGoal: Effective communicationOutcome: Progressing as expectedProblem: Procedure RoutineGoal: Absence of post-procedure complicationsOutcome: Progressing as expectedGoal: Knowledge of procedureOutcome: Progressing as expectedProblem: Respiratory Function - ImpairedGoal: Adequate oxygenationOutcome: Progressing as expected 33994-1Wydq of care yntvSV1574-96-43J01:13:33Plan of care noteTXT1.2.840.017780.1.13.104.2.7. 2.386394|[id number] for patient wqqa15851-9HpsqUTCTLQTDDWQSqfjprrjj C-CDA narrative [id number] Zaldivar RNUT[address] Vb[id number] 6IFXRITHPNTOKRTMWYDWNCR3824-93-95D4 2:13:331.2.840.681091.1.72.3.15|1.2 .840.886794.1.13.104.2.7.2.727879_2 [id number] Roxanne Zaldivar RN [facility] 2023-08-13 09:23:24 xeq8dwtTqXtbIuRG/yI62uoJS7sH9Xv48qF Y9nXuMV8RMwiflf1eE3IGTWBNvLsF5766-7 08-12T09:23:24 Problem: PainGoal: Control of pain at or below patient's documented comfort goalOutcome: Progressing as expectedGoal: Reduction in pain sensationOutcome: Progressing as expectedProblem: Falls, Risk ofGoal: Absence of fallsOutcome: Progressing as expectedProblem: Respiratory Function - ImpairedGoal: Adequate oxygenationOutcome: Progressing as expectedProblem: Discharge PlanningGoal: Adequate for dischargeOutcome: Not progressing as expected 90346-7Xtco of care ktfrLX6022-69-23S18:23:30Plan of care noteTXT1.2.840.759158.1.13.104.2.7. 2.555754|[id number] for patient ycqj22058-9NjhfCXDFJGTCHARRcevznpfl C-CDA narrative [id number] Bailey RN[id number] 6CYYVAEIMXHEUQSDAMUEWMV4842-01-33R5 9:23:301.2.840.846501.1.72.3.15|1.2 .840.706619.1.13.104.2.7.2.727879_2 [id number] Eunice Bailey RN [facility] 2023-08-13 06:28:06 fScLOBXsr06hnPcNJRFzqdvejtbSXrcFiYG dAXGJ3wpYQHTtSphex/MUMdKqtLOE3480-9 08-12T06:28:06 Problem: PainGoal: Control of pain at or below patient's documented comfort goalOutcome: Progressing as expectedGoal: Reduction in pain sensationOutcome: Progressing as expectedProblem: Falls, Risk ofGoal: Absence of fallsOutcome: Progressing as expectedProblem: Discharge PlanningGoal: Adequate for dischargeOutcome: Progressing as expectedGoal: Effective communicationOutcome: Progressing as expectedProblem: Procedure RoutineGoal: Absence of post-procedure complicationsOutcome: Progressing as expectedGoal: Knowledge of procedureOutcome: Progressing as expectedProblem: Respiratory Function - ImpairedGoal: Adequate oxygenationOutcome: Progressing as expected 77407-9Zqli of care xspqOJ9269-78-18B02:28:14Plan of care noteTXT1.2.840.291835.1.13.104.2.7. 2.769012|[id number] for patient kmbk89495-8LtwqECYICGIZBMDJujjbrsng C-CDA narrative [id number] B Ahmad RNUT[id number] 7XKBDAFBVCFPRJUHRLUNUVY1315-14-10E1 6:28:141.2.840.767451.1.72.3.15|1.2 .840.103574.1.13.104.2.7.2.727879_2 [id number] Ulises Wen RN [facility] 2023-08-12 06:23:56 SUmWu9C3A3C9oSt/09LRwBOVDLDf5zj3ZGm GwD5pHXuss3Kbmasiu9nVeIUuUBOR9958-9 08-11T06:23:56 Problem: PainGoal: Control of pain at or below patient's documented comfort goalOutcome: Progressing as expectedGoal: Reduction in pain sensationOutcome: Progressing as expectedProblem: Falls, Risk ofGoal: Absence of fallsOutcome: Progressing as expectedProblem: Discharge PlanningGoal: Adequate for dischargeOutcome: Progressing as expectedGoal: Effective communicationOutcome: Progressing as expectedProblem: Procedure RoutineGoal: Absence of post-procedure complicationsOutcome: Progressing as expectedGoal: Knowledge of procedureOutcome: Progressing as expectedProblem: Respiratory Function - ImpairedGoal: Adequate oxygenationOutcome: Progressing as expected 61402-4Pkah of care qwulBK0589-20-94T29:24:03Plan of care noteTXT1.2.840.265475.1.13.104.2.7. 2.369796|[id number] for patient uhch37132-8DqwhMTYMQPEEIFNTpkhpxada C-CDA narrative text96 [address] StreetJt[id number] 8ENZHDTVISECEQDNVETNUUD1420-92-73X4 6:24:031.2.840.594712.1.72.3.15|1.2 .840.751520.1.13.104.2.7.2.727879_2 [id number] [facility] 2023-08-10 09:28:02 6XcwWdSJZCstAGY+y5ZE5vSYltGdcFf/eN9 D4t35w4uzKFVZ05CY6s2XUOuu8NUD5768-7 09:28:02 Problem: PainGoal: Control of pain at or below patient's documented comfort goalOutcome: Progressing as expectedGoal: Reduction in pain sensationOutcome: Progressing as expectedProblem: Falls, Risk ofGoal: Absence of fallsOutcome: Progressing as expectedProblem: Discharge PlanningGoal: Adequate for dischargeOutcome: Progressing as expectedGoal: Effective communicationOutcome: Progressing as expectedProblem: Procedure RoutineGoal: Absence of post-procedure complicationsOutcome: Progressing as expectedGoal: Knowledge of procedureOutcome: Progressing as expectedProblem: Respiratory Function - ImpairedGoal: Adequate oxygenationOutcome: Progressing as expected 54647-8Iibc of care xcilKJ2871-53-15E53:28:07Plan of care noteTXT1.2.840.716747.1.13.104.2.7. 2.815734|[id number] for patient epjt99471-7MqpmXSYBEMPAWIDRnkmojdyo C-CDA narrative hcqy870038653Gbthdq D Cantu RNUT[id number] 5LEUADQJHNVPDXAJXJPWECR2002-71-22N2 9:28:071.2.840.787778.1.72.3.15|1.2 .840.279592.1.13.104.2.7.2.727879_2 [id number] Mackenzie Scott RN [facility] 2023-08-09 21:02:15 ERMRtRloUqfdYqNdW9dvQrk8x3/lcWs4jQp bY1Nu7I2ZGwLktV1U2ZKDHBjE6Zdu8806-0 08-08T21:02:15 Daria Jauregui is a 68 year old female with a PMH of HTN, HLD, GERD who was admitted for acute necrotizing pancreatitis with uncontrolled pain requiring hydromorphone [employer]. She was upgraded to MICU for oliguric ELENA requiring initiation of CRRT. Developed ileus/partial SBO resolved with conservative mgmt. New-onset atrial flutter while on CRRT, cardiology consulted. Started on PO diltiazem and amiodorone 56174-3Qbwxviyb AijwMK3638-59-67R19:14:07Hospital NoteTXT1.2.840.427286.1.13.104.2.7. 2.738200|[id number] for patient esru25234-8FuzbPFYRGDFFQRMPyugzoitj C-CDA narrative text[address] StreetGhho[id number] 2FSJUZRZQPZLDGAJFJHPVWO9794-94-25Z0 1:14:071.2.840.552903.1.72.3.15|1.2 .840.778698.1.13.104.2.7.2.727879_2 [id number] [facility] 2023-08-08 17:54:30 2uMiJQ7zF9kP4bX2zraJ/B0Frb6dOEpbTxD XuvM02FWFI7dLKyg8VHjARmsSxh3P7588-2 08-07T17:54:30 Problem: PainGoal: Control of pain at or below patient's documented comfort goalOutcome: Progressing as expectedGoal: Reduction in pain sensationOutcome: Progressing as expectedProblem: Falls, Risk ofGoal: Absence of fallsOutcome: Progressing as expectedProblem: Procedure RoutineGoal: Absence of post-procedure complicationsOutcome: Progressing as expectedGoal: Knowledge of procedureOutcome: Progressing as expected 04474-6Iaby of care yaaiHW2758-30-08I85:54:33Plan of care noteTXT1.2.840.366522.1.13.104.2.7. 2.505439|[id number] for patient kwuq08039-4CrvdELUCGMLLHPXUlvfxovxw C-CDA narrative rbwr368668338Vusq A Martinez RN[address] Em[id number] 9DWDQKEBZNBAPDFVSFDZIML3715-09-96N0 7:54:331.2.840.210887.1.72.3.15|1.2 .840.099531.1.13.104.2.7.2.727879_2 [id number] Giorgi Gutiérrez RN [facility] 2023-08-08 00:06:24 b7FCz35vXYSfSjxcHaFWMZc8U3EiJHVTevo 7BAaAowpy+7dMoYExk/32RVfigXMW0059-9 08-07T00:06:24 Problem: PainGoal: Control of pain at or below patient's documented comfort goalOutcome: Progressing as expectedGoal: Reduction in pain sensationOutcome: Progressing as expectedProblem: Falls, Risk ofGoal: Absence of fallsOutcome: Progressing as expectedProblem: Discharge PlanningGoal: Adequate for dischargeOutcome: Progressing as expectedGoal: Effective communicationOutcome: Progressing as expectedProblem: Procedure RoutineGoal: Absence of post-procedure complicationsOutcome: Progressing as expectedGoal: Knowledge of procedureOutcome: Progressing as expected 90389-9Zvvi of care spxzIV1910-39-40Q89:06:25Plan of care noteTXT1.2.840.171451.1.13.104.2.7. 2.656728|[id number] for patient cfan48373-5HfaoSUNXKKHBGZEUibrwisjc C-CDA narrative text96 [address] StreetIx[id number] 1JCYXALHAGTYMVNEWXFDMCR7090-54-80Q6 0:06:251.2.840.608463.1.72.3.15|1.2 .840.153123.1.13.104.2.7.2.727879_2 [id number] [facility] 2023-08-07 09:06:26 hzqdVNCPSWF+TBDxiTT5LC5HoDkjlC4qnfh To6B1av3AxjxaZ/3eKocuegwD2Tn+08-06T09:06:26 Problem: PainGoal: Control of pain at or below patient's documented comfort goalOutcome: Progressing as expectedGoal: Reduction in pain sensationOutcome: Progressing as expectedProblem: Falls, Risk ofGoal: Absence of fallsOutcome: Progressing as expectedProblem: Discharge PlanningGoal: Adequate for dischargeOutcome: Progressing as expectedGoal: Effective communicationOutcome: Progressing as expectedProblem: Procedure RoutineGoal: Absence of post-procedure complicationsOutcome: Progressing as expectedGoal: Knowledge of procedureOutcome: Progressing as expected 35358-0Ajnk of care ofxgPG5041-09-09W70:06:29Plan of care noteTXT1.2.840.873288.1.13.104.2.7. 2.771232|[id number] for patient vumr03324-9IqbeUOBPXMHRLTYXxihvljtd C-CDA narrative textUT[address] Dhm[id number] 1RAKKTFHHWQETKQVTUCCQYX4257-08-84J7 9:06:291.2.840.883764.1.72.3.15|1.2 .840.784551.1.13.104.2.7.2.727879_2 [id number] [facility] 2023-08-07 02:26:33 oDeMFRcu1cY41+Ls8CWDTVq37nceQTyS1xS BK7dfRv9EGD7iibN/WZRxG22eB1T58670-1 02:26:33 Problem: PainGoal: Control of pain at or below patient's documented comfort goalOutcome: Progressing as expectedGoal: Reduction in pain sensationOutcome: Progressing as expectedProblem: Falls, Risk ofGoal: Absence of fallsOutcome: Progressing as expectedProblem: Discharge PlanningGoal: Adequate for dischargeOutcome: Progressing as expectedGoal: Effective communicationOutcome: Progressing as expectedProblem: Procedure RoutineGoal: Absence of post-procedure complicationsOutcome: Progressing as expectedGoal: Knowledge of procedureOutcome: Progressing as expected 70853-1Opnj of care bopzJF2325-12-72D24:26:36Plan of care noteTXT1.2.840.820574.1.13.104.2.7. 2.734419|[id number] for patient okvf76463-7UsveSPXBUKHYWHWAvhcmbhev C-CDA narrative [id number] F Maggie RN[id number] 9VDYSJLUOYGQERIZGBPESUK8784-07-49B7 2:26:361.2.840.800040.1.72.3.15|1.2 .840.228595.1.13.104.2.7.2.727879_2 [id number] Lata Dial Lacyluisa RN [facility] 2023-08-06 19:30:00 9cc8nYLrOSbZT2Cukm/Du271wpWtvR3I7lu /omt84XMRzFdp5iM1d3UTLeWXV7r38234-2 9:30:00 Patient transferred to [facility] for diagnosis of acute necrotizing pancreatitis, abdominal pain, N/V, syncope, and ascitesPatient agrees to transfer/admit plan and verbalized understanding of plan of care, family aware of planPatient awake alert, oriented, resp reg unlabored, skin w/d PIV patent, no s/s infiltration noted,No adverse reaction to medications given while in ED.Report given to [facility] personnel 38866-2Whcbuwcmq department AnzpQH7152-12-07K81:55:46Emergency department NoteTXT1.2.840.313166.1.13.104.2.7. 2.745748|[id number] for patient lijz81414-0WkysDIECCJORANBYnhtjbmnt C-CDA narrative [id number] A Diaz RN[id number] 4GSJZMPLWZUWKNAMKJWORLQ7259-41-95O4 9:55:461.2.840.991785.1.72.3.15|1.2 .840.213191.1.13.104.2.7.2.727879_2 [id number] Aviva Hodge RN [facility] 2023-08-06 18:43:22 c4aOg+hhs48REqW0UO21oajbxhRkwk8YYaV HTgxVX3msXivZxEvAqhVAvqjr5Vbc0284-6 8:43:22 Nurse ReportReport given to ARIEL Marvin of [facility]. Chief complaint, assessment findings, infusion verify and orders reviewed. Plan of care discussed. Patient/family [place] [address]-0Wnjutfqfe department IbltBK0914-24-03O52:44:01[facility] NoteTXT1.2.840.637002.1.13.104.2.7. 2.602027|[id number] for patient snlr15387-9UudqDSQQWDRJCKUHogukxtmd C-CDA narrative [id number] C Heredia RN[id number] 9VLJZNCMJENEOVQSPEDRJMI9597-97-08Z2 8:44:011.2.840.711630.1.72.3.15|1.2 .840.395991.1.13.104.2.7.2.727879_2 [id number] Juju Agrawal RN [facility] 2023-08-06 12:18:41 KhhTHq6qRi6I9kOAXNtjxYhG0WUORdllyO+ pvnn1qXw6P0t+U6LPhb3RBJhBcB6m1163-1 08-05T12:18:41 Pt arrived via private car with c/o upper abd pain that started suddenly this am and vomited x2. Daughter reports that "she cold real pale, clammy and passed out, I checked her bp and 66/46 and her pulse was 50". 76952-6Zsmrjqymp department Triage tvfzPR6175-73-50T42:21:07[facility] department Triage noteTXT1.2.840.907751.1.13.104.2.7. 2.625208|[id number] for patient musy79965-9Ykvdbdjmr department NoteLNNARRATIVEFormatted C-CDA narrative [id number] L Barker RN[address] Am[id number] 2UCNQXGFOPQWGWVAIJHGCVN8925-79-86G9 2:21:071.2.840.975346.1.72.3.15|1.2 .840.030150.1.13.104.2.7.2.727879_2 [id number] Alina Benjamin RN [facility] 2023-08-06 12:08:00 bPhiYIkLmz2lLkagN8GEhDWzbUyM62uM2D6 JYlaFGoF8p/3mhtgsS+QkFo52ci9C8179-0 08-05T12:08:00Associated Order(s): EKG-12 Lead ROUTINE ONCEPre-Procedure Diagnose(s): Syncope, unspecified syncope typePost-Procedure Diagnose(s): Syncope, unspecified syncope type [facility] Emergency Department NotePatient Name: Daria Garza of : 1955 68 year old femaleTreatment Room: Room/bed info not foundMedical Record Number: [id number] Care Physician: Napoleon RicePatient Escorted by: Family [5]Mode of Arrival: Personal means [1]EMS Treatment Prior to ED Arrival:Travel and Exposure Screening:SymptomsDoes patient have any of these symptoms?: (not recorded)Exposure ScreeningHas patient had contact with someone with a communicable disease in the last month?: (not recorded)Diseases exposed to:: (not recorded)Is Patient ?: (not recorded)Exposure Date: (not recorded)Chief Complaint:Chief ComplaintPatient presents withAbdominal PainSyncopeHistory of Present Illness:Onset about 1 hour prior to ED arrival with bilateral upper quadrant abdominal pain, greatest in epigastric region, constant, no aggravating or relieving factors. Onset while lying down. No fever. (+) nausea with emesis x2. No diarrhea. No black/bloody stools. Brief syncopal episode after emesis. (+) diaphoresis. Last night had brief episode of low sternal chest pain, resolved. No dyspnea. No prior similar episode.History provided by: Patient, spouse and relative (, Daughter)mangle roller used: No (Daughter fluent in Cymro)Past Medical History/Immunizations:Past Medical History:Diagnosis DateHigh blood pressureHigh cholesterolTetanus received in last 5 years: UnknownAllergies:No Known AllergiesPast Social History:Substance & Sexual ActivityNo substance use or sexual activity history on file.Past Surgical History:History reviewed. No pertinent surgical history.Review of Systems:Review of SystemsConstitutional: Positive for diaphoresis.HENT: Negative.Eyes: Negative.Respiratory: Negative.Cardiovascular: Negative.Gastrointestinal: Positive for abdominal pain, nausea and vomiting. Negative for blood in stool and diarrhea.Genitourinary: Negative.Musculoskeletal: Negative.Skin: Negative.Neurological: Positive for syncope.Psychiatric/Behavioral: Negative.Physical Exam:ED Triage Vitals [08/06/23 1220]Weight 70.3 kg (155 lb)Actual or estimated Estimated by patient/family reportHeight 1.626 m (5' 4")BP 128/79Pulse 74Resp 16Temp 36.1 ?C (96.9 ?F)Temp source OralSpO2 100 %Measured on Room airPhysical ExamVitals and nursing note reviewed.Constitutional:General: She is not in acute distress.Appearance: Normal appearance. She is not ill-appearing, toxic-appearing or diaphoretic.HENT:Head: Normocephalic and atraumatic.Right Ear: External ear normal.Left Ear: External ear normal.Nose: Nose normal.Mouth/Throat:Mouth: Mucous membranes are moist.Eyes:Extraocular Movements: Extraocular movements intact.Conjunctiva/sclera: Conjunctivae normal.Cardiovascular:Rate and Rhythm: Normal rate and regular rhythm.Pulmonary:Effort: Pulmonary effort is normal. No respiratory distress.Breath sounds: Normal breath sounds. No wheezing, rhonchi or rales.Abdominal:General: There is no distension.Palpations: Abdomen is soft.Tenderness: There is abdominal tenderness (BUQ, greatest in epigastric region). There is no right CVA tenderness or left CVA tenderness.Musculoskeletal:General: Normal range of motion.Cervical back: Normal range of motion.Skin:General: Skin is warm and dry.Neurological:General: No focal deficit present.Mental Status: She is alert.Psychiatric:Mood and Affect: Mood normal.Behavior: Behavior normal.Thought Content: Thought content normal.Judgment: Judgment normal.Radiology:CT ABDOMEN PELVIS W CONTRASTPreliminary ResultEXAM: CT ABDOMEN PELVIS W CONTRASTHISTORY: 68-year-old female with upper abdominal pain since the morning.TECHNIQUE: Contiguous axial imaging from the level of the lung basesthrough the proximal thighs was performed with intravenous contrast.Coronal and sagittal reconstructions were obtained.COMPARISON: NoneFINDINGS:LOWER THORAX: The lung bases are clear. Cardiomegaly.LIVER: The liver is normal in size and contour. Small hepatic cysts withadditional hypodensities too small to characterize which are alsostatistically likely to represent cysts.GALLBLADDER AND BILIARY TREE: The gallbladder appears unremarkable.Mild enhancement along the cystic duct and common bile duct likely relatedto adjacent inflammation. No intra or extrahepatic biliary ductal dilationis visualized.SPLEEN: The spleen appears unremarkable.PANCREAS: From the pancreatic body to the level of the pancreatic head,parenchymal enlargement is noted with adjacent retroperitoneal fatstranding and marked peripancreatic edema. 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 No discrete, walled off collection is visualized.ADRENAL GLANDS: No adrenal masses are seen.KIDNEYS: No hydronephrosis or stones. Bilateral simple renal cysts. Nosolid masses.PELVIS/BLADDER: The bladder is moderately distended but appearsunremarkable. Pelvic free fluid is seen tracking down from the level ofthepancreas.GI TRACT: No dilation or bowel wall thickening is seen. Normal appendix.Distal colonic diverticulosis.PERITONEUM AND RETROPERITONEUM: Moderate volume ascites.LYMPH NODES: No overt lymphadenopathy.VESSELS: Mild atherosclerotic disease.BONES AND SOFT TISSUES: No suspicious lytic or sclerotic bony lesions arepresent.IMPRESSION1. Findings compatible with necrotizing pancreatitis most pronounced atthe mid pancreatic body to the level of the pancreatic head. Associatedmoderate volume abdominopelvic ascites.2. Cardiomegaly.3. Distal colonic diverticulosis.Preliminary Report Dictated by Resident: Benji Hernandez Results:Lab ResultsCBC WITH DIFF - AbnormalResult Value Ref RangeWBC 14.28 (*) 4.30 - 11.10 10*3/?LRBC 5.38 (*) 3.93 - 5.25 10*6/?LHGB 15.6 (*) 11.6 - 15.0 g/dLHCT 49.7 (*) 35.7 - 45.2 %MCV 92.4 80.6 - 95.5 fLMCH 29.0 25.9 - 32.8 pgMCHC 31.4 (*) 31.6 - 35.1 g/dLRDW-SD 46.0 39.0 - 49.9 fLRDW-CV 13.7 12.0 - 15.5 %PLT 187 166 - 358 10*3/?LMPV 10.3 9.5 - 12.9 fLNRBC/100 WBC 0.0 0.0 - 10.0 /100 WBCsNRBC x10^3 <0.01 10*3/?LGRAN MAT (NEUT) % 77.7 %IMM GRAN % 0.40 %LYMPH % 17.6 %MONO % 3.8 %EOS % 0.1 %BASO % 0.4 %GRAN MAT x10^3(ANC) 11.12 (*) 1.88 - 7.09 10*3/uLIMM GRAN x10^3 0.05 0.00 - 0.06 10*3/uLLYMPH x10^3 2.51 1.32 - 3.29 10*3/uLMONO x10^3 0.54 0.33 - 0.92 10*3/uLEOS x10^3 <0.03 (*) 0.03 - 0.39 10*3/uLBASO x10^3 0.05 0.01 - 0.07 10*3/uLURINALYSIS - AbnormalAPPEARANCE Hazy (*) ClearCOLOR Yellow YellowPH 5.0 4.8 - 8.0SP GRAVITY 1.020 1.003 - 1.030GLU U QUAL Normal NormalBLOOD Negative NegativeKETONES 20 mg/dL (*) NegativePROTEIN 30 mg/dL (*) NegativeUROBILIN Normal NormalBILIRUBIN Negative NegativeNITRITE Negative NegativeLEUK FRANCISCO Negative NegativeRBC/HPF 1 0 - 3 HPFWBC/HPF 2 0 - 5 HPFBACTERIA Negative NegativeMUCOUS Moderate (*) Negative LPFSQ EPITH <1 HPFHYAL CAST 6 (*) <=2 LPFLIPASE - AbnormalLIPASE >6,000 (*) 0 - 220 U/LCOMP. METABOLIC PANEL (96809) - AbnormalNA 138 135 - 145 mmol/LK 4.1 3.5 - 5.0 mmol/LCL 99 98 - 108 mmol/LCO2 TOTAL 31 23 - 31 mmol/LAGAP 8 2 - 16BUN 18 7 - 23 mg/dLGLUCOSE 147 (*) 70 - 110 mg/dLCREATININE 0.67 0.50 - 1.04 mg/dLTOTAL BILI 0.7 0.1 - 1.1 mg/dLCALCIUM 9.6 8.6 - 10.6 mg/Yuliya PROTEIN 7.4 6.3 - 8.2 g/dLALBUMIN 4.4 3.5 - 5.0 g/dLALK PHOS 109 34 - 122 U/LALTv 21 5 - 35 U/LAST(SGOT) 32 13 - 40 U/LeGFR 95.9 mL/min/1.05g0XUPEMTEH I - NormalTROPONIN I 0.003 <=0.034 ng/mLN-TERMINAL PRO-BNP - NormalNT-proBNP 31 <=125 pg/mLEKG:If EKG completed, see Procedure Note.Orders and Treatments:Orders Placed This EncounterProceduresCT ABDOMEN PELVIS W CONTRASTCBC WITH DIFFURINALYSISLIPASECOMP. METABOLIC PANEL (40017)TROPONIN IN-TERMINAL PRO-BNPOrders Placed This EncounterMedicationsmorpHINE (4 mg/mL) injection 4 mgondansetron (ZOFRAN (PF)) injection 8 mgNaCl 0.9% (NS) bolus infusion 1,000 mLfamotidine (PEPCID (PF)) injection 20 mgmorpHINE (4 mg/mL) injection 4 mgiopamidol (ISOVUE 370-500 mL) injection 80 mLpiperacillin-tazobactam (ZOSYN) 3.375 g in NaCl 0.9% (NS) 100 mL MINI-BAGmorpHINE (4 mg/mL) injection 4 mgNaCl 0.9% (NS) IV infusion 1,000 mLFirst Provider Eval:ED EventsDate/Time Event User [id number]/22/24 1214 Medical Screening Begins ASHLEY CALDERON MD --08/06/23 1214 First Provider Evaluation ASHLEY CALDERON MD --AdmissionCareGuideline: Pancreatitis - INPT, InpatientBased on the indications selected for the patient, the bed status of Inpatient was determined to be METThe following indications were selected as present at the time of evaluation of the patient:- Acute pancreatitis, as indicated by 2 or more of the following:- Abdominal pain- Serum lipase greater than 3 times the upper limit of normal, or urinary trypsinogen-2 greater than 50 ng/mL- Findings on imaging indicative of acute pancreatitis (eg, pancreatic inflammation, pancreatic necrosis, peripancreatic fluid collection)AdmissionCare documentation entered by: Ashley CalderonSTROUD REG[facility] [place] [employer], 27th edition, Copyright ? 2022 [facility] [place] [employer] All Rights Reserved.[id number] D COURSEDiagnosis/Impression as of 08/06/23 1744Abdominal pain, unspecified abdominal locationNausea and vomiting, unspecified vomiting typeSyncope, unspecified syncope typeAcute necrotizing pancreatitisOther ascitesProcedures:EKG-12 Lead ROUTINE ONCEDate/Time: 08/06/2023 1:20 PMPerformed by: Ashley Calderon MDAuthorized by: Ashley Calderon MDECG interpreted by ED Physician in the absence of a yeast stacker: yesPrevious ECG:Previous ECG: UnavailableInterpretation:Interpret ation: non-specificRate:ECG rate: 60ECG rate assessment: normalRhythm:Rhythm: sinus rhythmEctopy:Ectopy: noneQRS:QRS axis: Normal (+62)ST segments:ST segments: Non-specificT waves:T waves: non-specificComments:Qtc 442MDM:Medical Decision MakingPrimary impression: acute necrotizing pancreatitisSecondary impression: moderate ascites, nausea with vomiting, syncopal episodeDifferential Diagnoses, including but not limited to: electrolyte / glucose abnl, ELENA, anemia, arrhyth ia, acute coronary event cholecystitis, pancreatitis, gastritis, perforation, dissectionProblems Addressed:Abdominal pain, unspecified abdominal location: acute illness or injuryAcute necrotizing pancreatitis: acute illness or injuryNausea and vomiting, unspecified vomiting type: acute illness or injuryOther ascites: acute illness or injurySyncope, unspecified syncope type: acute illness or injuryAmount and/or Complexity of Data ReviewedIndependent Historian: spouseDetails: Self, spouse, daughterLabs: ordered. Decision-making details documented in ED Course.Radiology: ordered. Decision-making details documented in ED Course.ECG/medicine tests: ordered and independent interpretation performed. Decision-making details documented in ED Course.Discussion of management or test interpretation with external provider(s): 1. Case discussed with Dr Castillo, General Surgery at [facility], including presentation, exam, findings, plan. Concerned about high risk of acute decompensation, need for interventional procedures. This patient exceeds resources for [facility].2. Case discussed with Dr Ron, General Surgery at [place], including presentation, exam, findings, plan. Will follow as nursing education consultant with Internal Medicine as Primary3. Case discussed with Dr Chen, Internal Medicine, including presentation, exam, findings, plan. [facility]Parenteral controlled substances.Decision regarding hospitalization.Risk Details: Findings and plan discussed with patient and family. Exceeds resources for [facility]. Transferring to [place]. Requires multiple doses of symptomatic medications. Antibiotic started. IV fluids. Meets AdmissionCare INPT criteria. Hemodynamically stable. No ICU requirement at this time.Flowsheet Documentation:Scoring Tools:No data recordedDisposition/Condition:ED DispositionED DispositionTransfer - [facility] to IP/ObsCondition--Comment--Discharge Medications:Patient's MedicationsSTART taking these medicationsNo medications on fileCONTINUE taking these medications which have NOT CHANGEDAMLODIPINE 5 MG TABLET Take 1 tablet by mouth daily.ATORVASTATIN 10 MG TABLET Take 1 tablet by mouth at bedtime.AZELASTINE 137 MCG (0.1 %) NASAL SPRAY Use 1 [place] in each nostril 2 (two) times daily. Use in each nostril as directedFLUTICASONE PROPIONATE 50 MCG/ACTUATION NASAL SPRAY Use 1 [place] in each nostril daily.LORATADINE (CLARITIN ORAL) Take by mouth.RAMIPRIL 10 MG CAPSULE Take 1 capsule by mouth daily.START taking Modified Medications as PrescribedNo medications on fileSTOP taking these medicationsNo medications on fileFollow-up:N/aElectronically signed by:Ashley Calderon MD08/06/23 174 [id number] Emergency department [id number]:44:46Physician Emergency department [id number]. [id number] for patient agmc16665-0Bwlclannl department NoteLNNARRATIVEFormatted C-CDA narrative text[address] S[id number] 7:44:461.2.840.362783.1.72.3.15|1.2 .840.471032.1.13.104.2.7.2.727879_2 [id number] [facility] 2023-08-06 12:08:00 [id number] 4bnILTRHit74O86FfbTDdBbTzrbQE0780-1 2:08:00 AdmissionCareGuideline: Pancreatitis - INPT, InpatientBased on the indications selected for the patient, the bed status of Inpatient was determined to be METThe following indications were selected as present at the time of evaluation of the patient:- Acute pancreatitis, as indicated by 2 or more of the following:- Abdominal pain- Serum lipase greater than 3 times the upper limit of normal, or urinary trypsinogen-2 greater than 50 ng/mL- Findings on imaging indicative of acute pancreatitis (eg, pancreatic inflammation, pancreatic necrosis, peripancreatic fluid collection)AdmissionCare documentation entered by: Ashley Lizama [facility], 27th edition, Copyright ? 2022 [facility] [place] [employer], [facility] All Rights Reserved.2800-09-91D51:43:38-05:00E lectronically signed by Ashley Calderon MD at 08/06/2023 5:43 PM [id number] Admission [id number] .[id number]:43:39EC Admission [id number]. [id number] for patient [id number] C-CDA narrative textUT[address] K[id number] 7:43:391.2.840.222750.1.72.3.15|1.2 .840.245380.1.13.104.2.7.2.727879_2 [id number] [facility]
[2023-09-12] MEDS ORDERED: ACETAMINOPHEN 500 MG TAB PO PRN (12:30)
[2023-09-12] MEDS ORDERED: ONDANSETRON 4 MG/2 ML VIAL IV PRN (12:30)
--- NOTE | 2023-09-12 12:41 | P.HP ---
Certification for Inpatient Patient admitted to: Inpatient With expected LOS: >2 Midnights Patient will require the following post-hospital care: None Practitioner: I am a practitioner with admitting privileges, knowledge of patient current condition, hospital course, and medical plan of care. Services: Services provided to patient in accordance with Admission requirements found in Title 42 Section 412.3 of the Code of Federal Regulations Patient History Date of Service: 09/12/23 Reason for admission: GI bleeding History of Present Illness: Patient is a 68-year-old female who was in inpatient rehab when she developed GI bleeding. Patient had developed carola stools. Patient's hemoglobin dropped down to 7.2. Patient was started on a unit of packed red blood cells. Patient was tachycardic and her blood pressure has dropped. Will go ahead and admit patient to ICU and start patient on Protonix drip. Type and cross for 2 units packed red blood cells and transfuse patient at this time. Dr. Carlisle that was notified and he has been consulted to assist in management of the GI bleeding. Patient has been in the hospital for the last 7 weeks. Patient developed acute pancreatitis 7 weeks ago and developed large pancreatic pseudocyst that was infected. Patient had prolonged hospitalization at [facility]. Patient required pancreatic stent placement. The etiology of the pancreatitis was not discovered. Patient also went into renal failure and ended up on hemodialysis. Since she has been in rehab she has not required hemodialysis. At this time, patient will be admitted to the ICU as mentioned above for GI bleeding. Allergies No Known Allergies Allergy (Verified 09/01/23 14:27) Home Medications: Amiodarone HCl [Cordarone*] 200 mg PO DAILY 09/01/23 Atorvastatin Calcium [Lipitor*] 10 mg PO BEDTIME 09/01/23 Azelastine [Astelin 137MCG/Metered [place]*] 1 spray NS BID 09/01/23 Famotidine [Pepcid*] 20 mg PO BID 09/01/23 Fluticasone [Flonase 50MCG Nasal [place]*] 1 spray NS DAILY 09/01/23 Loratadine [Claritin*] 10 mg PO DAILY 09/01/23 Metoprolol Tartrate [Lopressor*] 12.5 mg PO Q12H 09/01/23 Midodrine HCl 10 mg PO TID 05/18/24 Simethicone [Mylicon*] 80 mg PO BEDTIME 09/01/23 Simethicone [Mylicon*] 80 mg PO TID 09/01/23 Apixaban [Eliquis *] 2.5 mg PO BID #60 09/11/23 Cholestyramine/Asp [Questran Light*] 4 gm PO BIDWM #60 packet 09/11/23 Ensure Clear 237 ml PO BID can 09/11/23 Ferrous Sulfate [Ferrous Sulfate*] 325 mg PO 1200 tab 09/11/23 Iron/FA/Vit B-Com W/C [Hemocyte Plus*] 1 tab PO 1200 #30 tab 09/11/23 Lipase/Protease/Amylase [Zenpep Dr 3,000 Units Capsule] 1 each PO TID #90 09/11/23 Loperamide [Imodium*] 2 mg PO Q4H PRN cap 09/11/23 Melatonin [Melatonin*] 3 mg PO BEDTIME 09/11/23 Spironolactone [Aldactone*] 25 mg PO DAILY #30 tab 09/11/23 - Past Medical/Surgical History Diabetic: No -: Hypertension -: Atrial fibrillation -: GERD -: Allergic rhinitis -: Renal failure -: Pancreatitis -: Pancreatic pseudocyst drainage -: Pancreatic ductal stent -: Hemodialysis access catheter -: ERCP - Family History Father Family History: Reviewed- Non-Contributory - Social History Smoking Status: Never smoker Alcohol use: No CD- Drugs: No Caffeine use: No Review of Systems 10-point ROS is otherwise unremarkable Physical Examination - Vital Signs Temperature: 98 F (reviewed) Blood Pressure: 100/70 Pulse: 120 Respirations: 22 Pulse Ox (%): 98 - Physical Exam General: Alert, In no apparent distress, Oriented x3 HEENT: Atraumatic, PERRLA, Mucous membr. moist/pink, EOMI, Sclerae nonicteric Neck: Supple, 2+ carotid pulse no bruit, No LAD, Without JVD or thyroid abnormality Respiratory: Clear to auscultation bilaterally, Normal air movement Cardiovascular: Regular rate/rhythm, Normal S1 S2, No murmurs Gastrointestinal: Normal bowel sounds, Soft and benign, Non-distended, No tenderness, No rebound, No guarding Musculoskeletal: No tenderness Integumentary: No rashes Neurological: Normal gait, Normal speech, Normal strength at 5/5 x4 extr, Normal tone, Sensation intact, Cranial nerves 3-12 intact, Normal affect Lymphatics: No axilla or inguinal lymphadenopathy Assessment & Plan - Problems (Diagnosis) (1) Acute GI bleeding Current Visit: Yes Status: Acute (2) Renal insufficiency Current Visit: Yes Status: Acute (3) History of pancreatitis Current Visit: Yes Status: Acute - Plan Plan: 1. Continue with IV hydration and PPI drip 2. Continue with IV antibiotics 3. Continue with pain control 4. NPO 5. GI or general surgeon consultation 6. Serial H&H 7. GI and DVT prophylaxis Discharge Plan: Home Plan to discharge in: Greater than 2 days - Advance Directives Does patient have a Living Will: No Does patient have a Durable POA for Healthcare: No - Code Status/Comfort Care Code Status Assessed: Yes Code Status: Full Code Critical Care: Yes Time Spent Managing PTS Care (In Minutes): 55
[2023-09-12] MEDS ORDERED: NA CHLORIDE 0.9% 250 ML IV SCH (13:00)
[2023-09-12] MEDS: PANTOPRAZOLE INJ 80 MG in NA CHLORIDE 0.9% 250 ML IV SCH (14:31)
[2023-09-12] MEDS: NA CHLORIDE 0.9% 1,000 ML IV SCH (14:33)
[2023-09-12 15:39] VITALS: BMI 26.1
[2023-09-12 16:40] LABS: Absolute Lymphocytes (CBC) 0.9 K/uL (0.7-4.9); Absolute Monocytes 0.2 K/uL (0.1-1.3); Absolute Neutrophil 7.6 K/uL (1.8-8.0); Basophils % 0.2 % (0-1.3); Eosinophils % 0.2 % (0-4.4); Hematocrit 26.4 % (36.0-45.0); Hemoglobin 8.9 g/dL (12.0-15.0); Lymphocytes % 10.2 % (15.3-44.8); MCH 29.4 pg (27.0-35.0); MCHC 33.7 g/dL (32.0-36.0); MCV 87.3 fL (80-100); MPV 8.4 fL (7.6-11.3); Monocytes % 2.1 % (3.3-12.3); Neutrophils % 87.3 % (41.7-73.7); PT Prothrombin Time 23.9 SECONDS (9.5-12.5); PTT, Activated Partial Thromb 27.8 SECONDS (24.3-36.9); Platelets 232 thou/uL (152-406); Protime INR 2.22; RBC Red Blood Cell Count 3.02 M/uL (3.86-4.86)
[2023-09-12] MEDS ORDERED: METOPROLOL TAR 25 MG TAB PO SCH (18:00)
[2023-09-12] MEDS: AMIODARONE HCL 900 MG in Dextrose 5%-Water 482 ML IV SCH (18:35)
[2023-09-12] MEDS: ALBUMIN HUMAN 25% 100 ML IV ONE (18:35)
[2023-09-12] MEDS: GOLYTELY 4000 ML PO SCH (18:36)
[2023-09-12 20:47] LABS: Hematocrit 22.8 % (36.0-45.0); Hemoglobin 7.6 g/dL (12.0-15.0)
[2023-09-12] MEDS: PROTEASE PO SCH (20:47)
[2023-09-12] MEDS: LIPASE PO SCH (20:47)
[2023-09-12] MEDS: AMYLASE PO SCH (20:47)
[2023-09-12] MEDS: ATORVASTATIN 10 MG TAB PO SCH (20:49)
[2023-09-12] MEDS: MIDODRINE HCL 5 MG TABLET PO SCH (20:50)
[2023-09-12] MEDS: SIMETHICONE 80 MG CHEWABLE TAB PO SCH (20:50)
[2023-09-12] MEDS: FAMOTIDINE 20 MG TAB PO SCH (20:50)
[2023-09-12] MEDS ORDERED: HOME MED 1 EA UNK (Midodrine Hcl [Midodrine Hcl] 10 MG Tablet) PO SCH (21:00)
[2023-09-13 00:01] LABS: Hematocrit 22.7 % (36.0-45.0); Hemoglobin 7.6 g/dL (12.0-15.0); MCH 30.3 pg (27.0-35.0); MCHC 33.4 g/dL (32.0-36.0); MCV 90.6 fL (80-100); MPV 8.9 fL (7.6-11.3); Platelets 192 thou/uL (152-406); Red Cell Distribution Width 17.4 % (12.1-15.2)
[2023-09-13 05:22] LABS: Absolute Lymphocytes (CBC) 0.8 K/uL (0.7-4.9); Absolute Monocytes 0.3 K/uL (0.1-1.3); Absolute Neutrophil 6.8 K/uL (1.8-8.0); Basophils % 0.2 % (0-1.3); Eosinophils % 0.3 % (0-4.4); Hematocrit 22.5 % (36.0-45.0); Hemoglobin 7.6 g/dL (12.0-15.0); Lymphocytes % 10.2 % (15.3-44.8); MCHC 33.5 g/dL (32.0-36.0); MCV 89.5 fL (80-100); MPV 8.7 fL (7.6-11.3); Neutrophils % 85.3 % (41.7-73.7); Platelets 210 thou/uL (152-406); RBC Red Blood Cell Count 2.51 M/uL (3.86-4.86); Red Cell Distribution Width 17.3 % (12.1-15.2)
[2023-09-13 06:23] LABS: Band Neutrophils 5 % (0-1); Blood Morphology Comment NOT SEEN (NOT SEEN); Differential Total Cells Count 100; Dohle Bodies PRESENT; Eosinophils 1 % (0-3); Lymphocytes 10 % (15-42); Monocytes 1 % (0-10); Platelet Estimate ADEQ; Segmented Neutrophils 83 % (40-80); Toxic Granulation 1+
[2023-09-13] MEDS ORDERED: AMIODARONE HCL 200 MG TAB PO SCH (09:00)
[2023-09-13] MEDS: NA CHLORIDE 0.9% 250 ML ONE (11:30)
[2023-09-13 11:34] LABS: Hemoglobin 7.5 g/dL (12.0-15.0); MCH 29.1 pg (27.0-35.0); MCHC 32.7 g/dL (32.0-36.0); MCV 89.2 fL (80-100); MPV 8.9 fL (7.6-11.3); Percent Reticulocyte Count 1.09 % (0.4-2.05); Platelets 199 thou/uL (152-406); RBC Red Blood Cell Count 2.58 M/uL (3.86-4.86); Red Cell Distribution Width 17.1 % (12.1-15.2)
[2023-09-13 11:35] LABS: PT Prothrombin Time 20.1 SECONDS (9.5-12.5); Protime INR 1.86
[2023-09-13 12:12] LABS: ALT/SGPT 33 U/L (13-56); AST/SGOT 38 U/L (15-37); Albumin 1.3 g/dL (3.4-5.0); Albumin/Globulin Ratio 0.4 (1.1-1.8); Alkaline Phosphatase 96 U/L (45-117); Anion Gap 11.6 mEq/L (5.0-15.0); BUN Blood Urea Nitrogen 96 mg/dL (7-18); Bicarbonate 17 mEq/L (21-32); Bilirubin Total 0.7 mg/dL (0.2-1.0); Ferritin 955.9 ng/mL (8-388); Globulin 3.2 g/dL (2.3-3.5); Glomerular Filtration Rate 22 ml/min (=/>90); Glucose Level 102 mg/dL (74-106); Magnesium 1.9 mg/dL (1.6-2.4); Potassium 3.6 mEq/L (3.5-5.1); Protein, Total 4.5 g/dL (6.4-8.2); Sodium Level 138 mEq/L (136-145)
[2023-09-13] MEDS: FUROSEMIDE 40 MG/4 ML VIAL IV ONE (15:09)
[2023-09-13] MEDS: D5W 1,000 ML with NA BICARB 8.4% 100 MEQ IV SCH (15:09)
[2023-09-13 17:39] LABS: Hematocrit 28.1 % (36.0-45.0); Hemoglobin 9.4 g/dL (12.0-15.0)
--- NOTE | 2023-09-13 18:25 | CON ---
Date of Consultation: 09/13/2023 Reason For Consultation: Elevated BUN and creatinine and fluid management. History Of Present Illness: This is a pleasant 68-year-old female, recently admitted to [facility] with acute pancreatitis complicated with a cyst, complicated with acute kidney injury required initiating dialysis. The patient recovered and transferred to rehab. The patient started developing hematochezia and hemoglobin dropped with tachycardia. The patient received 2 units of blood transfusion a week ago. Continue to drop the patient was transferred to the acute. The patient did not require any dialysis. The patient still has good urine output. Past Medical History: Includes: 1. Hypertension. 2. AFib. 3. GERD. 4. Pancreatitis. 5. Renal failure, required dialysis. 6. Pancreatic cyst. Past Surgical History: Include hemodialysis catheter placement, pancreatic cyst, stent, ERCP. Family History: Positive for hypertension and diabetes. Home Medications: Include amiodarone, atorvastatin, flucytosine, midodrine, simethicone, Eliquis, ferrous sulfate, loperamide, melatonin, spironolactone. Social History: Denied smoking, denied drinking, denied drugs abuse. Lives at the rehab currently. Review of Systems: Head and Neck: No red eye. No ear pain. GI: Has hematochezia. : No polyuria, no dysuria, no hematuria. SLATE CUTTER: No vaginal discharge. RESPIRATORY: Has no shortness of breath. CARDIOVASCULAR: No chest pain. Physical Examination: Vital Signs: When I saw the patient, blood pressure 127/73, pulse of 91, afebrile. Chest: Clear to auscultation. Heart: S1, S2. Systolic murmur. Abdomen: Soft, nontender. Extremities: No edema. Neuro: Alert. No focality. Laboratory Data: WBC 7.8, hemoglobin 7.5, platelet 199. Sodium 138, potassium 3.6, bicarb 17, chloride 113, BUN 96, creatinine 2.3. Ferritin 955. B12 more than 2000. Albumin 3.2. Current Medications: The patient is on include: 1. Amiodarone. 2. Atorvastatin. 3. Pepcid. 4. Pantoprazole. 5. Normal saline. Assessment And Plan: 1. Acute kidney injury secondary to toxic acute tubular necrosis, nonoliguric, no hyperkalemia, marginal acidosis. I do not see the need to resume any renal replacement therapy. I am going to place the patient on sodium bicarb, and we will follow up the patient. We will give the patient a single dose of Lasix after the transfusion. 2. Hypertension. Currently, blood pressure on the lower side. We will hold all blood pressure medications. 3. Non-anion gap metabolic acidosis secondary to renal failure. We will start the patient on bicarb and we will follow up. 4. Anemia secondary to gastrointestinal bleed. Follow up with primary. 5. Pancreatitis, complicated as by primary. 6. Hyponatremia. Patient is going to be started on D5 and we will follow up. Time spent examining the patient [id number], reviewing data, lab and radiology, placing order, discussing the case with the steam plant operator including hospitalist and nursing staff and ICU, discussing the case with the daughter by bedside more than 75 minutes. LOUIS Voice ID: [id number] Report ID: [id number] MTDD
[2023-09-14 08:49] LABS: Absolute Lymphocytes (CBC) 0.9 K/uL (0.7-4.9); Absolute Monocytes 0.1 K/uL (0.1-1.3); Absolute Neutrophil 5.6 K/uL (1.8-8.0); Basophils % 0.2 % (0-1.3); Eosinophils % 0.2 % (0-4.4); Hematocrit 27.1 % (36.0-45.0); Hemoglobin 9.4 g/dL (12.0-15.0); Lymphocytes % 13.7 % (15.3-44.8); MCH 29.6 pg (27.0-35.0); MCHC 34.6 g/dL (32.0-36.0); MCV 85.7 fL (80-100); MPV 8.2 fL (7.6-11.3); Monocytes % 2.1 % (3.3-12.3); Neutrophils % 83.8 % (41.7-73.7); Nucleated Red Blood Cells % 0.1 % (0-0); Platelets 227 thou/uL (152-406); RBC Red Blood Cell Count 3.17 M/uL (3.86-4.86); Red Cell Distribution Width 16.8 % (12.1-15.2)
[2023-09-14 09:03] LABS: Albumin 1.3 g/dL (3.4-5.0); Albumin/Globulin Ratio 0.4 (1.1-1.8); Bilirubin Total 0.9 mg/dL (0.2-1.0); Globulin 3.5 g/dL (2.3-3.5); Protein, Total 4.8 g/dL (6.4-8.2)
[2023-09-14] MEDS: KCL 20 MEQ/100 mL IVPB 20 MEQ/100 ML BAG IV SCH (09:50)
[2023-09-14 10:31] LABS: Differential Total Cells Count 100
[2023-09-14] MEDS ORDERED: propofoL 200 MG/20 ML VIAL IV ONE (10:34)
[2023-09-14] MEDS ORDERED: LIDOCAINE 1% MPF 5 ML VIAL ONE (10:34)
[2023-09-14 10:37] LABS: Band Neutrophils 6 % (0-1); Lymphocytes 10 % (15-42); Monocytes 1 % (0-10); Segmented Neutrophils 83 % (40-80)
[2023-09-14 10:38] LABS: Anisocytosis 1+; Platelet Estimate ADEQ
[2023-09-14 10:57] LABS: Blood Morphology Comment NOTED (NOT SEEN)
[2023-09-14] MEDS: NA CHLORIDE 0.9% 500 ML ONE (11:01)
[2023-09-14] MEDS: EPINEPHRINE 1 MG/ML VIAL ONE (11:06)
[2023-09-14] MEDS ORDERED: HYDRALAZINE HCL 20 MG/ML VIAL ONE (11:42)
[2023-09-14] MEDS ORDERED: ESMOLOL HCL 0 ML IV ONE (11:42)
[2023-09-14] MEDS ORDERED: LABETALOL 20 MG/4ML SYRINGE IV ONE (11:42)
[2023-09-14] MEDS ORDERED: Phenylephrine HCl 10 MG/ML 1 ML VIAL ONE (13:42)
[2023-09-14 14:45] VITALS: O2SAT 97
[2023-09-14] MEDS ORDERED: VITAL AF 1,000 ML BOT RTH SCH (16:00)
--- NOTE | 2023-09-14 16:57 | EKG ---
Test Date: 2023-09-12 Test Time: 13:42:16 Reed Maker: YANY MEASUREMENT RESULTS: Intervals: Rate: 125 AK: 152 QRSD: 90 QT: 286 QTc: 412 [place]: P: 60 AK: 152 QRS: 39 T: 34 INTERPRETIVE STATEMENTS: Sinus tachycardia Otherwise normal ECG No previous ECG available for comparison Electronically Signed On 09-14-23 16:50:11 CDT by Dieter Johnson
[2023-09-14 21:20] VITALS: BP 121/76; TEMP 97.8
--- NOTE | 2023-09-14 21:42 | PN ---
Date of Progress Note: 09/14/2023 Subjective: No overnight events. The patient is status post Dobbhoff placement. Creatinine improvi ng. Plan is to transfer the patient back to [facility]. Physical Examination: Vital Signs: Temperature 98.6, pulse rate of 100, blood pressure 142/74. General: Awake, alert, in distress. Neck: Supple. No elevated JVD. Heart: Tachycardic. Normal S1, S2. Chest: Clear to auscultation bilaterally. No rales or wheezes. Abdomen: Soft, nontender. Has a PEG tube. Extremities: Without edema. Laboratory Data: Sodium 140, potassium 3, BUN 79, creatinine 2.0, glucose 146, calcium 7.3. Assessment And Plan: 1.Acute kidney injury versus chronic kidney disease. Creatinine started to improve. Continue inter mittent Lasix. Start the tube feeding and free water. The patient was on dialysis. Her BUN and cre atinine stable. No need for renal replacement therapy at this time. Continue Lasix as needed. 2.Hypokalemia. Replace as needed. The patient to start tube feeding once cleared by Surgery. 3.Pancreatic pseudocyst, status post pancreatic stent placement. 4.The patient the patient has severe protein-calorie malnutrition. Give Lasix p.r.n. We will discontinue IV fluid. 5. bicarbonate, possibly due to metabolic acidosis. We will discontinue bicarbonate drip. 6.Atrial fibrillation with rapid ventricular response, rate controlled, on amiodarone drip. Thanks for allowing to participate in the patient's care. Total time spent 55 minutes, including doc umentation, reviewing labs, and discussing with the medical team. MINH/MODL Voice ID: [id number] Report ID: [id number]
== END 2023-09-14 20:40 | disposition short-term general hospital (02) | DRG 377 ==
LOC: 3RD-ICU 10:45
PROVIDERS: ADMIT Hospitalist; ATTEND Hospitalist
PROC: 5A1D70Z Performance of Urinary Filtration, Intermittent, Less than 6 Hours Per Day (ICD-10-PCS; 2023-09-12)
PROC: 0T9B70Z Drainage of Bladder with Drainage Device, Via Natural or Artificial Opening (ICD-10-PCS; 2023-09-12)
PROC: 30233N1 Transfusion of Nonautologous Red Blood Cells into Peripheral Vein, Percutaneous Approach (ICD-10-PCS; 2023-09-13)
PROC: 0DH98UZ Insertion of Feeding Device into Duodenum, Via Natural or Artificial Opening Endoscopic (ICD-10-PCS; principal; 2023-09-14 12:30)
DX: K92.2 Gastrointestinal hemorrhage, unspecified (principal); E43 Unspecified severe protein-calorie malnutrition; K85.90 Acute pancreatitis without necrosis or infection, unspecified; N17.0 Acute kidney failure with tubular necrosis; E87.20 Acidosis, unspecified; E87.1 Hypo-osmolality and hyponatremia; K86.3 Pseudocyst of pancreas; I10 Essential (primary) hypertension; I48.91 Unspecified atrial fibrillation; E87.6 Hypokalemia; D64.9 Anemia, unspecified; K21.9 Gastro-esophageal reflux disease without esophagitis; T18.2XXA Foreign body in stomach, initial encounter; Z93.1 Gastrostomy status; Z68.26 Body mass index [BMI] 26.0-26.9, adult; Z79.01 Long term (current) use of anticoagulants; Z79.899 Other long term (current) drug therapy; Y82.8 Other medical devices associated with adverse incidents
CPT/HCPCS: 36415; 80053; 82607; 82728; 83540; 83735; 84484; 85014; 85018; 85025; 85027; 85044; 85610; 85730; 86140; 86850; 86900; 86901; 86920; 93005; C9113; J0171; J0282; J0360; J1940; J2001; J2371; J2704; J3480; J7030; J7040; J7050; J7060; P9016; P9047